=== PATIENT | male | born 1945 | race Caucasian/White ===

== ENCOUNTER 2020-09-27 13:52 | Inpatient (IN) ==
[2020-09-27] MEDS ORDERED: SODIUM CHLORIDE 0.9% 1000ML 1,000 ML IV ONE ×2 (14:12→14:24)
[2020-09-27] MEDS ORDERED: ACETAMINOPHEN 1,000 MG/100 ML VIAL IV STA (14:20)
[2020-09-27] MEDS ORDERED: PIPERACILLIN/TAZOBACTAM 4.5 GM/120 ML BAG IV ONE (14:20)
[2020-09-27] MEDS ORDERED: PIPERACILL/TAZOBAC CONSULT ACTIVE PRN (14:20)
--- NOTE | 2020-09-27 14:23 | Emergency Department Note ---
History of Present Illness General Chief complaint: Illness Time Seen by Provider: 09/27/20 14:03 Source: patient, EMS, RN notes reviewed and old records reviewed Mode of arrival: EMS Limitations: altered mental status History of Present Illness Provider complaint: weakness Onset (ago): day(s) 3 Current Pain Intensity: 0 Relieved By: + rest and + other (laying on floor) Exacerbated By: + movement Associated symptoms: + denies other symptoms; no chest pain, no cough, no diaphoresis, no fever/chills, no headaches, no loss of appetite, no malaise, no nausea/vomiting, no seizure and no shortness of breath Treatments prior to arrival: none This is a 75-year-old male who presents emergency department complaining of generalized weakness. The patient reports he began having diarrhea approximately 3 days ago and became so weak he could not get up off the floor. He reports resting on the floor makes him feel better. Neighbors were checking on him this morning and found the patient in a debilitated state laying on his floor. They summoned EMS who brought the patient to the emergency department. Upon arrival to the emergency department patient has no complaints except weakness. Home Medications Medication Instructions Recorded Confirmed Type aspirin 81 mg tablet,delayed 81 mg PO DAILY tab 05/14/19 09/27/20 History release atorvastatin 40 mg tablet 40 mg PO DAILY tab 05/14/19 09/27/20 History albuterol sulfate 90 mcg/actuation 2 puffs INHALATION Q6H PRN #1 gm 04/30/20 09/27/20 History aerosol inhaler brimonidine 0.15 % eye drops 1 drops OP TID ml 04/30/20 09/27/20 History dorzolamide 2 % eye drops 1 drops OP TID ml 04/30/20 09/27/20 History ferrous sulfate 325 mg (65 mg 325 mg PO DAILY 04/30/20 09/27/20 History iron) tablet insulin glargine 100 unit/mL (3 10 units SQ HS ml 04/30/20 09/27/20 History mL) subcutaneous pen insulin regular human 100 unit/mL 1 sliding scale dose SQ 04/30/20 09/27/20 History injection solution USEASDIRECTD latanoprost 0.005 % eye drops 1 drops OP HS ml 04/30/20 09/27/20 History metformin 1,000 mg tablet 1,000 mg PO BID 04/30/20 09/27/20 History brimonidine [Alphagan P] 1 drp OPB TID 09/27/20 09/27/20 History carvedilol 3.125 mg PO DAILY 09/27/20 09/27/20 History semaglutide [Ozempic] 0.25 mg SUBCUT WK 09/27/20 09/27/20 History timolol maleate 1 drp OPB DAILY 09/27/20 09/27/20 History Allergies Allergy/AdvReac Type Severity Reaction Status Date / Time No Known Drug Allergies Allergy Unknown . 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 Current Living Situation: Alone current occupational status: retired Feels Safe at Home: Yes Review of Systems A total of 10 systems reviewed and were otherwise negative Physical Exam Vital Signs Vital Signs - 24 hr 09/27/20 13:58 09/27/20 14:07 09/27/20 14:10 Temperature Temperature Source Pulse Rate 81 83 84 Pulse Rate [Left Finger] Pulse Rate from SpO2 Sensor 81 83 83 Respiratory Rate 19 20 26 H Blood Pressure 91/57 L Blood Pressure [Left Arm] Blood Pressure Mean 63 Blood Pressure Mean [Left Arm] Pulse Oximetry 100 100 99 Oxygen Delivery Method Room Air Room Air Room Air Sepsis Recent Fever Within 48 Hours Sepsis New/Unexplained Change in Mental Status Sepsis Action Taken by Nursing 09/27/20 14:20 09/27/20 14:30 09/27/20 14:39 Temperature Temperature Source Pulse Rate 93 H 81 82 Pulse Rate [Left Finger] Pulse Rate from SpO2 Sensor 95 H 80 81 Respiratory Rate 32 H 30 H 30 H Blood Pressure 91/61 L Blood Pressure [Left Arm] Blood Pressure Mean 65 Blood Pressure Mean [Left Arm] Pulse Oximetry 97 92 100 Oxygen Delivery Method Room Air Room Air Room Air Sepsis Recent Fever Within 48 Hours Sepsis New/Unexplained Change in Mental Status Sepsis Action Taken by Nursing 09/27/20 14:40 09/27/20 14:46 09/27/20 14:50 Temperature 35 C L Temperature Source Rectal Pulse Rate 83 78 79 Pulse Rate [Left Finger] 83 Pulse Rate from SpO2 Sensor 83 79 Respiratory Rate 25 H 20 23 Blood Pressure 91/57 L Blood Pressure [Left Arm] 91/61 L Blood Pressure Mean 68 Blood Pressure Mean [Left Arm] 71 Pulse Oximetry 100 100 100 Oxygen Delivery Method Room Air Room Air Room Air Sepsis Recent Fever Within 48 Hours No Sepsis New/Unexplained Change in Mental Status No Sepsis Action Taken by Nursing Physician Notified 09/27/20 14:56 09/27/20 15:00 09/27/20 15:01 Temperature 35 C L Temperature Source Rectal Pulse Rate 81 78 Pulse Rate [Left Finger] Pulse Rate from SpO2 Sensor 78 78 Respiratory Rate 21 18 Blood Pressure 102/54 L Blood Pressure [Left Arm] Blood Pressure Mean 60 Blood Pressure Mean [Left Arm] Pulse Oximetry 98 99 Oxygen Delivery Method Room Air Room Air Sepsis Recent Fever Within 48 Hours Sepsis New/Unexplained Change in Mental Status Sepsis Action Taken by Nursing 09/27/20 15:10 09/27/20 15:20 09/27/20 15:30 Temperature Temperature Source Pulse Rate 86 88 85 Pulse Rate [Left Finger] Pulse Rate from SpO2 Sensor 85 84 82 Respiratory Rate 25 H 29 H 40 H Blood Pressure Blood Pressure [Left Arm] Blood Pressure Mean Blood Pressure Mean [Left Arm] Pulse Oximetry 100 93 Oxygen Delivery Method Room Air Room Air Room Air Sepsis Recent Fever Within 48 Hours Sepsis New/Unexplained Change in Mental Status Sepsis Action Taken by Nursing 09/27/20 15:40 09/27/20 15:50 09/27/20 16:00 Temperature Temperature Source Pulse Rate 81 85 85 Pulse Rate [Left Finger] Pulse Rate from SpO2 Sensor 78 86 80 Respiratory Rate 24 26 H 26 H Blood Pressure Blood Pressure [Left Arm] Blood Pressure Mean Blood Pressure Mean [Left Arm] Pulse Oximetry 98 99 99 Oxygen Delivery Method Room Air Room Air Room Air Sepsis Recent Fever Within 48 Hours Sepsis New/Unexplained Change in Mental Status Sepsis Action Taken by Nursing 09/27/20 16:02 09/27/20 16:10 09/27/20 16:15 Temperature Temperature Source Pulse Rate 79 85 83 Pulse Rate [Left Finger] Pulse Rate from SpO2 Sensor 78 84 83 Respiratory Rate 21 19 19 Blood Pressure 87/50 L 100/60 Blood Pressure [Left Arm] Blood Pressure Mean 53 72 Blood Pressure Mean [Left Arm] Pulse Oximetry 99 99 100 Oxygen Delivery Method Room Air Room Air Room Air Sepsis Recent Fever Within 48 Hours Sepsis New/Unexplained Change in Mental Status Sepsis Action Taken by Nursing 09/27/20 16:20 09/27/20 16:30 09/27/20 16:47 Temperature Temperature Source Pulse Rate 84 82 Pulse Rate [Left Finger] Pulse Rate from SpO2 Sensor 85 87 84 Respiratory Rate 17 15 Blood Pressure 82/54 L Blood Pressure [Left Arm] Blood Pressure Mean 59 Blood Pressure Mean [Left Arm] Pulse Oximetry 99 96 98 Oxygen Delivery Method Room Air Room Air Room Air Sepsis Recent Fever Within 48 Hours Sepsis New/Unexplained Change in Mental Status Sepsis Action Taken by Nursing 09/27/20 16:50 09/27/20 17:00 09/27/20 17:01 Temperature Temperature Source Pulse Rate 83 82 83 Pulse Rate [Left Finger] Pulse Rate from SpO2 Sensor 82 82 86 Respiratory Rate 15 14 13 Blood Pressure 99/57 L Blood Pressure [Left Arm] Blood Pressure Mean 61 Blood Pressure Mean [Left Arm] Pulse Oximetry 97 94 100 Oxygen Delivery Method Room Air Room Air Room Air Sepsis Recent Fever Within 48 Hours Sepsis New/Unexplained Change in Mental Status Sepsis Action Taken by Nursing 09/27/20 17:09 09/27/20 17:10 09/27/20 17:15 Temperature 36.1 C L Temperature Source Oral Pulse Rate 78 68 Pulse Rate [Left Finger] Pulse Rate from SpO2 Sensor 82 77 Respiratory Rate 13 18 Blood Pressure 81/56 L Blood Pressure [Left Arm] Blood Pressure Mean 61 Blood Pressure Mean [Left Arm] Pulse Oximetry 98 96 Oxygen Delivery Method Room Air Room Air Sepsis Recent Fever Within 48 Hours Sepsis New/Unexplained Change in Mental Status Sepsis Action Taken by Nursing 09/27/20 17:20 09/27/20 17:30 09/27/20 17:31 Temperature Temperature Source Pulse Rate 85 82 85 Pulse Rate [Left Finger] Pulse Rate from SpO2 Sensor 86 82 84 Respiratory Rate 17 10 L 13 Blood Pressure 85/56 L Blood Pressure [Left Arm] Blood Pressure Mean 62 Blood Pressure Mean [Left Arm] Pulse Oximetry 98 98 97 Oxygen Delivery Method Room Air Room Air Room Air Sepsis Recent Fever Within 48 Hours Sepsis New/Unexplained Change in Mental Status Sepsis Action Taken by Nursing 09/27/20 17:40 09/27/20 17:45 09/27/20 17:50 Temperature Temperature Source Pulse Rate 90 99 H 96 H Pulse Rate [Left Finger] Pulse Rate from SpO2 Sensor 90 96 H 95 H Respiratory Rate 19 24 23 Blood Pressure 95/64 L Blood Pressure [Left Arm] Blood Pressure Mean 67 Blood Pressure Mean [Left Arm] Pulse Oximetry 98 90 94 Oxygen Delivery Method Room Air Room Air Room Air Sepsis Recent Fever Within 48 Hours Sepsis New/Unexplained Change in Mental Status Sepsis Action Taken by Nursing 09/27/20 18:00 09/27/20 18:01 09/27/20 18:02 Temperature Temperature Source Pulse Rate 88 88 85 Pulse Rate [Left Finger] Pulse Rate from SpO2 Sensor 84 80 86 Respiratory Rate 17 16 15 Blood Pressure 79/53 L 80/48 L Blood Pressure [Left Arm] Blood Pressure Mean 66 51 Blood Pressure Mean [Left Arm] Pulse Oximetry 98 96 95 Oxygen Delivery Method Room Air Room Air Room Air Sepsis Recent Fever Within 48 Hours Sepsis New/Unexplained Change in Mental Status Sepsis Action Taken by Nursing 09/27/20 18:09 09/27/20 18:10 09/27/20 18:15 Temperature Temperature Source Pulse Rate 91 H 94 H 88 Pulse Rate [Left Finger] Pulse Rate from SpO2 Sensor 91 H 91 H 88 Respiratory Rate 24 24 19 Blood Pressure 85/52 L 78/51 L Blood Pressure [Left Arm] Blood Pressure Mean 64 57 Blood Pressure Mean [Left Arm] Pulse Oximetry 96 97 95 Oxygen Delivery Method Room Air Room Air Room Air Sepsis Recent Fever Within 48 Hours Sepsis New/Unexplained Change in Mental Status Sepsis Action Taken by Nursing 09/27/20 18:20 09/27/20 18:24 09/27/20 18:30 Temperature Temperature Source Pulse Rate 82 88 90 Pulse Rate [Left Finger] Pulse Rate from SpO2 Sensor 84 87 88 Respiratory Rate 23 24 24 Blood Pressure 87/44 L 87/60 L Blood Pressure [Left Arm] Blood Pressure Mean 52 66 Blood Pressure Mean [Left Arm] Pulse Oximetry 94 96 92 Oxygen Delivery Method Room Air Room Air Room Air Sepsis Recent Fever Within 48 Hours Sepsis New/Unexplained Change in Mental Status Sepsis Action Taken by Nursing 09/27/20 18:31 09/27/20 18:40 09/27/20 18:45 Temperature Temperature Source Pulse Rate 88 92 H 88 Pulse Rate [Left Finger] Pulse Rate from SpO2 Sensor 88 91 H 88 Respiratory Rate 22 25 H 24 Blood Pressure 90/53 L Blood Pressure [Left Arm] Blood Pressure Mean 68 Blood Pressure Mean [Left Arm] Pulse Oximetry 96 96 97 Oxygen Delivery Method Room Air Room Air Room Air Sepsis Recent Fever Within 48 Hours Sepsis New/Unexplained Change in Mental Status Sepsis Action Taken by Nursing 09/27/20 18:50 09/27/20 19:00 09/27/20 19:01 Temperature Temperature Source Pulse Rate 85 88 91 H Pulse Rate [Left Finger] Pulse Rate from SpO2 Sensor 84 Respiratory Rate 20 30 H 31 H Blood Pressure 87/64 L Blood Pressure [Left Arm] Blood Pressure Mean 68 Blood Pressure Mean [Left Arm] Pulse Oximetry 95 Oxygen Delivery Method Room Air Room Air Room Air Sepsis Recent Fever Within 48 Hours Sepsis New/Unexplained Change in Mental Status Sepsis Action Taken by Nursing 09/27/20 19:10 09/27/20 19:17 Temperature Temperature Source Pulse Rate 86 Pulse Rate [Left Finger] Pulse Rate from SpO2 Sensor Respiratory Rate 25 H Blood Pressure Blood Pressure [Left Arm] Blood Pressure Mean Blood Pressure Mean [Left Arm] Pulse Oximetry Oxygen Delivery Method Room Air Room Air Sepsis Recent Fever Within 48 Hours Sepsis New/Unexplained Change in Mental Status Sepsis Action Taken by Nursing VITAL SIGNS - Vital signs and nursing notes were reviewed. GENERAL - 75-year-old male appearing cachectic who is in moderate distress. Difficult to arouse, [place] breathing with 15L NRB in place SKIN - Without rashes. HEAD - NC/AT. EYES - PERRL with EOMI bilaterally. Sclera anicteric. Palpebral conjunctiva pink and moist with no injection noted. EARS - No deformities of external structures noted on gross examination bilaterally. No pain elicited with palpation of the tragus bilaterally. External auditory canals without discharge or otorrhea. Tympanic membranes pearly blanco without retraction or bulging. No fluid or purulent material visualized behind the TM. Handle of malleus, umbo, cone of light, pars tensa/flaccid all easily visualized. NOSE - Midline and without cyanosis. No epistaxis or purulent drainage noted. Septum midline without deviation or septal hematoma noted. MOUTH/OROPHARYNX - Without perioral cyanosis. Buccal mucosa pink and moist and without leukoplakia. Tongue midline with equal elevation of palate bilaterally. No tonsillar hypertrophy, erythema, or exudates noted. dentition noted. NECK - Neck with FROM. Supple to palpation. lymphadenopathy noted. No nuchal rigidity. CHEST- pacemaker in place LUNGS - Chest wall symmetric without accessory muscle use, intercostals retractions, or central cyanosis. Normal vesicular breath sounds CTA B/L. No wheezes, rales, or rhonchi appreciated. CARDIAC - RRR with S1/S2. No murmur, rubs, or gallops appreciated. ABDOMEN - Abdominal contour without pulsations or visible masses. BS normoactive all four quadrants. No tenderness, palpable masses, hepatosplenomegaly, or ascites noted. EXTREMITIES - No clubbing or peripheral cyanosis. No pretibial edema present. +3/5 radial, posterior tibial, and dorsalis pedis pulses palpated throughout. +5/5 strength noted in UE/LE bilaterally. NEUROLOGIC - Cranial nerves II through XII grossly intact. Sensory intact to light touch throughout. Patellar reflexes +2/4. PSYCH - A&Ox3 and cooperates fully with examiner. Pt is very pleasant and interacts well with examiner. Course Administered Medications Insulin Human Regular 250 (units/ Sodium Chloride) 250 mls @ 5 mls/hr IV .Q24H ROHAN; Protocol Stop: 10/27/20 14:29 Last Titration: 09/27/20 18:12 Dose: 7.2 units/hr, 7.2 mls/hr Documented by: [id number] Cosigned by: [id number] Titration: 09/27/20 17:05 Dose: 6 units/hr, 6 mls/hr Documented by: [id number] Cosigned by: [id number] Admin: 09/27/20 15:53 Dose: 5 units/hr, 5 mls/hr Documented by: [id number] Cosigned by: [id number] Sodium Chloride (Nss 1000ml) 1,000 mls @ 100 mls/hr IV .Q10H ROHAN Stop: 10/27/20 17:29 Last Admin: 09/27/20 17:57 Dose: 100 mls/hr Documented by: [id number] Discontinued Medications Haloperidol Lactate (Haloperidol Lactate 5 Mg/Ml 1 Ml Vial) 5 mg IV NOW STA Stop: 09/27/20 15:53 Last Admin: 09/27/20 15:57 Dose: 5 mg Documented by: [id number] Sodium Chloride (Nss 1000ml) 1,000 mls @ 999 mls/hr IV .Q1H1M ONE Stop: 09/27/20 15:12 Last Infusion: 09/27/20 16:51 Dose: 0 mls/hr Documented by: [id number] Admin: 09/27/20 15:29 Dose: 999 mls/hr Documented by: [id number] Acetaminophen (Ofirmev) 1,000 mg in 100 mls @ 400 mls/hr IV NOW STA Stop: 09/27/20 14:34 Last Infusion: 09/27/20 16:01 Dose: 0 mls/hr Documented by: [id number] Admin: 09/27/20 15:28 Dose: 400 mls/hr Documented by: [id number] Piperacillin Sod/Tazobactam Sod (Zosyn) 4.5 gm in 120 mls @ 240 mls/hr IV NOW ONE Stop: 09/27/20 14:49 Last Infusion: 09/27/20 16:19 Dose: 0 mls/hr Documented by: [id number] Admin: 09/27/20 15:41 Dose: 240 mls/hr Documented by: [id number] Sodium Chloride (Nss 1000ml) 1,000 mls @ 999 mls/hr IV .Q1H1M ONE Stop: 09/27/20 15:24 Last Infusion: 09/27/20 16:52 Dose: 0 mls/hr Documented by: [id number] Admin: 09/27/20 15:51 Dose: 999 mls/hr Documented by: [id number] Multivitamins 10 ml/ Thiamine HCl 100 mg/ Folic Acid 1 mg/Sodium Chloride 1,011.2 mls @ 1,011.2 mls/hr IV .Q1H ONE Stop: 09/27/20 15:26 Last Infusion: 09/27/20 16:51 Dose: 0 mls/hr Documented by: [id number] Admin: 09/27/20 15:30 Dose: 1,011.2 mls/hr Documented by: [id number] Daptomycin 425 mg/ Syringe 8.5 mls @ 4.25 mls/min IV NOW ONE; Protocol Stop: 09/27/20 14:29 Last Admin: 09/27/20 15:36 Dose: 4.25 mls/min Documented by: [id number] Lorazepam (Ativan) 1 mg in 2 mls @ 2 mls/min IV NOW STA Stop: 09/27/20 15:53 Last Admin: 09/27/20 15:57 Dose: 2 mls/min Documented by: [id number] Insulin Human Regular (Novolin-R Bolus From Bag) 5 units IV ONE ONE Stop: 09/27/20 15:31 Last Admin: 09/27/20 15:53 Dose: 5 units Documented by: [id number] Cosigned by: [id number] Miscellaneous (Dka Goal Range 150-250 Mg/Dl) 1 ea N/A ONE ONE Stop: 09/27/20 14:26 Last Admin: 09/27/20 15:53 Dose: 1 ea Documented by: [id number] Critical Care Time I have personally spent greater than 90 minutes of critical care time in the direct management of this patient. This includes bedside care, interpretation of diagnostic studies, and testing, discussion with consultants, patient, and family members, and other required patient management activities. This 90 minutes is in excess of all separately billable procedures. Medical Decision Making Differential Diagnosis Infection, dehydration, metabolic abnormality, hypo/hyperglycemia, electrolyte disturbance, anemia, hypoxia, cardiac sources, intracerebral event, toxicologic, neurologic, as well as other pathologies. Medical Records Attestation: I reviewed the patient's medical records. Home Medications Current Medication List: was personally reviewed by me Laboratory Data Attestation: I reviewed the patient's lab results. Result diagrams: 09/27/20 14:10 09/27/20 18:54 Lab Results 09/27/20 09/27/20 09/27/20 Range/Units 14:10 14:10 14:10 WBC 10.08 (4.8-10.8) K/uL RBC 4.65 L (4.7-6.1) M/uL Hgb 13.5 L (14.0-18.0) g/dL POC Hgb (14.0-18.0) g/dl Hct 43.6 (42-52) % POC Hct (42-52) % MCV 93.8 (80-100) fL MCH 29.0 (25-34) pg MCHC 31.0 L (32-36) g/dL RDW Std Deviation 51.5 H (36.4-46.3) fL RDW Coeff of Laura 15.1 H (11.5-14.5) % Plt Count 193 (130-400) K/uL MPV 12.4 H (7.4-10.4) fL Immature Gran % (Auto) 0.3 % Neut % (Auto) 78.5 % Lymph % (Auto) 11.0 % [place] % (Auto) 10.1 % Eos % (Auto) 0.0 % Baso % (Auto) 0.1 % Neut # (Auto) 7.91 H (1.4-6.5) K/uL Lymph # (Auto) 1.11 L (1.2-3.4) K/uL [place] # (Auto) 1.02 H (0.11-0.59) K/uL Eos # (Auto) 0.00 (0-0.5) K/uL Baso # (Auto) 0.01 (0-0.2) K/uL Immature Gran # (Auto) 0.03 H (0.00-0.02) K/uL Absolute Nucleated RBC Nucleated RBC % (auto) Neutrophils % (Manual) Band Neutrophils % Lymphocytes % (Manual) Prolymphocyte % Reactive Lymphs % (Man) Monocytes % (Manual) Eosinophils % (Manual) Basophils % (Manual) Metamyelocytes % (Man) Myelocytes % (Man) Promyelocytes % (Man) Blast Cells % (Manual) Plasma Cell % (Manual) Other Cells % Nucleated RBC % Neutrophils # (Manual) Band Neutrophils # Total Absolute Neuts Lymphocytes # (Manual) Prolymphocyte # Reactive Lymphs # Total Abs Lymphocytes Monocytes # (Manual) Eosinophils # (Manual) Basophils # (Manual) Metamyelocytes # (Man) Myelocytes # (Manual) Promyelocytes # (Man) Blast Cells # (Man) Plasma Cell # (Manual) Other Cells # Nucleated RBCs # (Man) Hypersegmented Neuts Hyposegmented Neuts Hypogranular Neuts Large Granular Lymphs # Lrg Granular Lymphs Hairy Cells Smudge Cells Toxic Granulation Toxic Vacuolation Dohle Bodies Ariela Rods Platelet Estimate Hypogranular Platelets Clumped Platelets Giant Platelets Platelet Satelliting RBC Morphology Polychromasia Hypochromasia Poikilocytosis Basophilic Stippling Anisocytosis Microcytosis Macrocytosis Spherocytes Pappenheimer Bodies Sickle Cells Target Cells Tear Drop Cells Ovalocytes Stomatocytes Parkinson-[place] Patent Bodies Echinocytes Acanthocytes (Spur) Rouleaux RBC Agglutinates Schistocytes RBC Morph Comment ESR 25 H (0-14) mm/hr Sezary Cell PT 11.6 (9.0-12.0) Seconds INR 1.1 (0.9-1.1) APTT 29.7 (21.0-31.0) Seconds PTT Ratio 1.1 VBG pH (7.36-7.41) VBG pCO2 (38-50) mmHg VBG pO2 mmHg VBG HCO3 mmol/L VBG O2 Saturation % VBG Base Excess mEq/L Barometric Pressure mm/Hg POC Sodium (135-144) mmol/L Sodium (136-145) mmol/L POC Potassium (3.3-5.0) mmol/L Potassium (3.5-5.1) mmol/L POC Chloride (101-112) mmol/L Chloride (98-107) mmol/L Carbon Dioxide (21-32) mmol/L POC Total CO2 (24-31) mmol/L Anion Gap (3-11) POC Anion Gap (16-25) mmol/L POC BUN (7-18) mg/dl BUN (7-18) mg/dl Creatinine (0.6-1.4) mg/dl POC Creatinine (0.6-1.3) mg/dl Est Cr Clr Drug Dosing ml/min Est GFR ( Amer) Est GFR (Non-Af Amer) BUN/Creatinine Ratio (10-20) Glucose (70-99) mg/dl POC Glucose (70-99) mg/dl POC Glucose (other) (70-99) mg/dl Lactate (0.4-2.0) mmol/L Calcium (8.5-10.1) mg/dl POC Ioniz Calcium Michael (1.12-1.32) mmol/l Phosphorus (2.5-4.9) mg/dl Magnesium (1.8-2.4) mg/dl Ferritin (8-388) ng/ml Total Bilirubin (0.2-1) mg/dl AST (15-37) U/L ALT (12-78) U/L Alkaline Phosphatase (45-117) U/L Lactate Dehydrogenase (87-241) U/L Total Creatine Kinase (39-308) U/L CK-MB (CK-2) (0.5-3.6) ng/ml CK/CKMB % Calc (0-3.0) Troponin I (0-0.045) ng/ml C-Reactive Protein (0-0.29) mg/dl Total Protein (6.4-8.2) gm/dl Albumin (3.4-5.0) gm/dl Globulin (2.5-4.0) gm/dl Albumin/Globulin Ratio (0.9-2) Beta-Hydroxybutyric Acd (0.2-2.81) mg/dl Procalcitonin (0-0.5) ng/ml Urine Color Urine Appearance (Clear) Urine pH (4.5-7.5) Ur Specific [place] (1.000-1.030) Urine Protein (Negative) Urine Glucose (UA) (Negative) Urine Ketones (Negative) Urine Blood (Negative) Urine Nitrite (Negative) Urine Bilirubin (Negative) Urine Urobilinogen (Negative) Ur Leukocyte Esterase (Negative) Urine WBC (Auto) (0-5) /hpf Urine RBC (Auto) (0-4) /hpf U Hyaline Cast (Auto) (0-5) /lpf U Epithel Cells (Auto) (0-5) /lpf Urine Bacteria (Auto) (Negative) Urine Opiates Screen (Neg) Ur Methadone, Qual (Neg) Urine Barbiturates (Neg) Ur Phencyclidine (PCP) (Neg) U Amphetamin/Meth Scrn (Neg) MDMA (Ecstasy) Screen (Neg) U Benzodiazepines Scrn (Neg) Ur Cocaine Metabolite (Neg) U Marijuana (THC) Screen (Neg) Ethyl Alcohol mg/dL (0-3) mg/dl COVID-19 Eval Order SARS-CoV-2 (PCR) (Negative) Influenza Type A (PCR) (Neg) Influenza Type B (PCR) (Neg) RSV (RT-PCR) (Neg) SARS-CoV-2, RNA, NAAT (NEGATIVE) Blood Type Antibody Screen 09/27/20 09/27/20 09/27/20 Range/Units 14:10 14:10 14:10 WBC Cancelled (4.8-10.8) K/uL RBC Cancelled (4.7-6.1) M/uL Hgb Cancelled (14.0-18.0) g/dL POC Hgb (14.0-18.0) g/dl Hct Cancelled (42-52) % POC Hct (42-52) % MCV Cancelled (80-100) fL MCH Cancelled (25-34) pg MCHC Cancelled (32-36) g/dL RDW Std Deviation Cancelled (36.4-46.3) fL RDW Coeff of Laura Cancelled (11.5-14.5) % Plt Count Cancelled (130-400) K/uL MPV Cancelled (7.4-10.4) fL Immature Gran % (Auto) Cancelled % Neut % (Auto) Cancelled % Lymph % (Auto) Cancelled % [place] % (Auto) Cancelled % Eos % (Auto) Cancelled % Baso % (Auto) Cancelled % Neut # (Auto) Cancelled (1.4-6.5) K/uL Lymph # (Auto) Cancelled (1.2-3.4) K/uL [place] # (Auto) Cancelled (0.11-0.59) K/uL Eos # (Auto) Cancelled (0-0.5) K/uL Baso # (Auto) Cancelled (0-0.2) K/uL Immature Gran # (Auto) Cancelled (0.00-0.02) K/uL Absolute Nucleated RBC Cancelled Nucleated RBC % (auto) Cancelled Neutrophils % (Manual) Cancelled Band Neutrophils % Cancelled Lymphocytes % (Manual) Cancelled Prolymphocyte % Cancelled Reactive Lymphs % (Man) Cancelled Monocytes % (Manual) Cancelled Eosinophils % (Manual) Cancelled Basophils % (Manual) Cancelled Metamyelocytes % (Man) Cancelled Myelocytes % (Man) Cancelled Promyelocytes % (Man) Cancelled Blast Cells % (Manual) Cancelled Plasma Cell % (Manual) Cancelled Other Cells % Cancelled Nucleated RBC % Cancelled Neutrophils # (Manual) Cancelled Band Neutrophils # Cancelled Total Absolute Neuts Cancelled Lymphocytes # (Manual) Cancelled Prolymphocyte # Cancelled Reactive Lymphs # Cancelled Total Abs Lymphocytes Cancelled Monocytes # (Manual) Cancelled Eosinophils # (Manual) Cancelled Basophils # (Manual) Cancelled Metamyelocytes # (Man) Cancelled Myelocytes # (Manual) Cancelled Promyelocytes # (Man) Cancelled Blast Cells # (Man) Cancelled Plasma Cell # (Manual) Cancelled Other Cells # Cancelled Nucleated RBCs # (Man) Cancelled Hypersegmented Neuts Cancelled Hyposegmented Neuts Cancelled Hypogranular Neuts Cancelled Large Granular Lymphs Cancelled # Lrg Granular Lymphs Cancelled Hairy Cells Cancelled Smudge Cells Cancelled Toxic Granulation Cancelled Toxic Vacuolation Cancelled Dohle Bodies Cancelled Ariela Rods Cancelled Platelet Estimate Cancelled Hypogranular Platelets Cancelled Clumped Platelets Cancelled Giant Platelets Cancelled Platelet Satelliting Cancelled RBC Morphology Cancelled Polychromasia Cancelled Hypochromasia Cancelled Poikilocytosis Cancelled Basophilic Stippling Cancelled Anisocytosis Cancelled Microcytosis Cancelled Macrocytosis Cancelled Spherocytes Cancelled Pappenheimer Bodies Cancelled Sickle Cells Cancelled Target Cells Cancelled Tear Drop Cells Cancelled Ovalocytes Cancelled Stomatocytes Cancelled Parkinson-Hol[place] Patent Bodies Cancelled Echinocytes Cancelled Acanthocytes (Spur) Cancelled Rouleaux Cancelled RBC Agglutinates Cancelled Schistocytes Cancelled RBC Morph Comment Cancelled ESR (0-14) mm/hr Sezary Cell Cancelled PT (9.0-12.0) Seconds INR (0.9-1.1) APTT (21.0-31.0) Seconds PTT Ratio VBG pH (7.36-7.41) VBG pCO2 (38-50) mmHg VBG pO2 mmHg VBG HCO3 mmol/L VBG O2 Saturation % VBG Base Excess mEq/L Barometric Pressure mm/Hg POC Sodium (135-144) mmol/L Sodium 141 (136-145) mmol/L POC Potassium (3.3-5.0) mmol/L Potassium 4.7 (3.5-5.1) mmol/L POC Chloride (101-112) mmol/L Chloride 105 (98-107) mmol/L Carbon Dioxide 11 L (21-32) mmol/L POC Total CO2 (24-31) mmol/L Anion Gap 25.0 H (3-11) POC Anion Gap (16-25) mmol/L POC BUN (7-18) mg/dl BUN 72 H (7-18) mg/dl Creatinine 2.01 H (0.6-1.4) mg/dl POC Creatinine (0.6-1.3) mg/dl Est Cr Clr Drug Dosing 22.7 ml/min Est GFR ( Amer) 37.0 Est GFR (Non-Af Amer) 32.0 BUN/Creatinine Ratio 35.9 H (10-20) Glucose 693 H* (70-99) mg/dl POC Glucose (70-99) mg/dl POC Glucose (other) (70-99) mg/dl Lactate (0.4-2.0) mmol/L Calcium 10.6 H (8.5-10.1) mg/dl POC Ioniz Calcium Michael (1.12-1.32) mmol/l Phosphorus 7.1 H (2.5-4.9) mg/dl Magnesium 2.5 H (1.8-2.4) mg/dl Ferritin 468.8 H (8-388) ng/ml Total Bilirubin 1.4 H (0.2-1) mg/dl AST 11 L (15-37) U/L ALT 16 (12-78) U/L Alkaline Phosphatase 62 (45-117) U/L Lactate Dehydrogenase (87-241) U/L Total Creatine Kinase (39-308) U/L CK-MB (CK-2) (0.5-3.6) ng/ml CK/CKMB % Calc (0-3.0) Troponin I < 0.015 (0-0.045) ng/ml C-Reactive Protein 2.46 H (0-0.29) mg/dl Total Protein 7.9 (6.4-8.2) gm/dl Albumin 4.0 (3.4-5.0) gm/dl Globulin 3.9 (2.5-4.0) gm/dl Albumin/Globulin Ratio 1.0 (0.9-2) Beta-Hydroxybutyric Acd 119.17 H (0.2-2.81) mg/dl Procalcitonin 0.43 (0-0.5) ng/ml Urine Color Urine Appearance (Clear) Urine pH (4.5-7.5) Ur Specific [place] (1.000-1.030) Urine Protein (Negative) Urine Glucose (UA) (Negative) Urine Ketones (Negative) Urine Blood (Negative) Urine Nitrite (Negative) Urine Bilirubin (Negative) Urine Urobilinogen (Negative) Ur Leukocyte Esterase (Negative) Urine WBC (Auto) (0-5) /hpf Urine RBC (Auto) (0-4) /hpf U Hyaline Cast (Auto) (0-5) /lpf U Epithel Cells (Auto) (0-5) /lpf Urine Bacteria (Auto) (Negative) Urine Opiates Screen (Neg) Ur Methadone, Qual (Neg) Urine Barbiturates (Neg) Ur Phencyclidine (PCP) (Neg) U Amphetamin/Meth Scrn (Neg) MDMA (Ecstasy) Screen (Neg) U Benzodiazepines Scrn (Neg) Ur Cocaine Metabolite (Neg) U Marijuana (THC) Screen (Neg) Ethyl Alcohol mg/dL (0-3) mg/dl COVID-19 Eval Order SARS-CoV-2 (PCR) (Negative) Influenza Type A (PCR) (Neg) Influenza Type B (PCR) (Neg) RSV (RT-PCR) (Neg) SARS-CoV-2, RNA, NAAT (NEGATIVE) Blood Type Antibody Screen 09/27/20 09/27/20 09/27/20 Range/Units 14:10 14:22 14:24 WBC (4.8-10.8) K/uL RBC (4.7-6.1) M/uL Hgb (14.0-18.0) g/dL POC Hgb 13.6 L (14.0-18.0) g/dl Hct (42-52) % POC Hct 40 L (42-52) % MCV (80-100) fL MCH (25-34) pg MCHC (32-36) g/dL RDW Std Deviation (36.4-46.3) fL RDW Coeff of Laura (11.5-14.5) % Plt Count (130-400) K/uL MPV (7.4-10.4) fL Immature Gran % (Auto) % Neut % (Auto) % Lymph % (Auto) % [place] % (Auto) % Eos % (Auto) % Baso % (Auto) % Neut # (Auto) (1.4-6.5) K/uL Lymph # (Auto) (1.2-3.4) K/uL [place] # (Auto) (0.11-0.59) K/uL Eos # (Auto) (0-0.5) K/uL Baso # (Auto) (0-0.2) K/uL Immature Gran # (Auto) (0.00-0.02) K/uL Absolute Nucleated RBC Nucleated RBC % (auto) Neutrophils % (Manual) Band Neutrophils % Lymphocytes % (Manual) Prolymphocyte % Reactive Lymphs % (Man) Monocytes % (Manual) Eosinophils % (Manual) Basophils % (Manual) Metamyelocytes % (Man) Myelocytes % (Man) Promyelocytes % (Man) Blast Cells % (Manual) Plasma Cell % (Manual) Other Cells % Nucleated RBC % Neutrophils # (Manual) Band Neutrophils # Total Absolute Neuts Lymphocytes # (Manual) Prolymphocyte # Reactive Lymphs # Total Abs Lymphocytes Monocytes # (Manual) Eosinophils # (Manual) Basophils # (Manual) Metamyelocytes # (Man) Myelocytes # (Manual) Promyelocytes # (Man) Blast Cells # (Man) Plasma Cell # (Manual) Other Cells # Nucleated RBCs # (Man) Hypersegmented Neuts Hyposegmented Neuts Hypogranular Neuts Large Granular Lymphs # Lrg Granular Lymphs Hairy Cells Smudge Cells Toxic Granulation Toxic Vacuolation Dohle Bodies Ariela Rods Platelet Estimate Hypogranular Platelets Clumped Platelets Giant Platelets Platelet Satelliting RBC Morphology Polychromasia Hypochromasia Poikilocytosis Basophilic Stippling Anisocytosis Microcytosis Macrocytosis Spherocytes Pappenheimer Bodies Sickle Cells Target Cells Tear Drop Cells Ovalocytes Stomatocytes Parkinson-Holland Patent Bodies Echinocytes Acanthocytes (Spur) Rouleaux RBC Agglutinates Schistocytes RBC Morph Comment ESR (0-14) mm/hr Sezary Cell PT (9.0-12.0) Seconds INR (0.9-1.1) APTT (21.0-31.0) Seconds PTT Ratio VBG pH (7.36-7.41) VBG pCO2 (38-50) mmHg VBG pO2 mmHg VBG HCO3 mmol/L VBG O2 Saturation % VBG Base Excess mEq/L Barometric Pressure mm/Hg POC Sodium 142 (135-144) mmol/L Sodium (136-145) mmol/L POC Potassium 4.9 (3.3-5.0) mmol/L Potassium (3.5-5.1) mmol/L POC Chloride 110 (101-112) mmol/L Chloride (98-107) mmol/L Carbon Dioxide (21-32) mmol/L POC Total CO2 12 L (24-31) mmol/L Anion Gap (3-11) POC Anion Gap 25.0 (16-25) mmol/L POC BUN 60 H (7-18) mg/dl BUN (7-18) mg/dl Creatinine (0.6-1.4) mg/dl POC Creatinine 1.4 H (0.6-1.3) mg/dl Est Cr Clr Drug Dosing ml/min Est GFR ( Amer) Est GFR (Non-Af Amer) BUN/Creatinine Ratio (10-20) Glucose (70-99) mg/dl POC Glucose (70-99) mg/dl POC Glucose (other) 624 H* (70-99) mg/dl Lactate 2.7 H* (0.4-2.0) mmol/L Calcium (8.5-10.1) mg/dl POC Ioniz Calcium Michael 1.38 H (1.12-1.32) mmol/l Phosphorus (2.5-4.9) mg/dl Magnesium (1.8-2.4) mg/dl Ferritin (8-388) ng/ml Total Bilirubin (0.2-1) mg/dl AST (15-37) U/L ALT (12-78) U/L Alkaline Phosphatase (45-117) U/L Lactate Dehydrogenase (87-241) U/L Total Creatine Kinase 154 (39-308) U/L CK-MB (CK-2) 3.1 (0.5-3.6) ng/ml CK/CKMB % Calc 2.0 (0-3.0) Troponin I (0-0.045) ng/ml C-Reactive Protein (0-0.29) mg/dl Total Protein (6.4-8.2) gm/dl Albumin (3.4-5.0) gm/dl Globulin (2.5-4.0) gm/dl Albumin/Globulin Ratio (0.9-2) Beta-Hydroxybutyric Acd (0.2-2.81) mg/dl Procalcitonin (0-0.5) ng/ml Urine Color Urine Appearance (Clear) Urine pH (4.5-7.5) Ur Specific [place] (1.000-1.030) Urine Protein (Negative) Urine Glucose (UA) (Negative) Urine Ketones (Negative) Urine Blood (Negative) Urine Nitrite (Negative) Urine Bilirubin (Negative) Urine Urobilinogen (Negative) Ur Leukocyte Esterase (Negative) Urine WBC (Auto) (0-5) /hpf Urine RBC (Auto) (0-4) /hpf U Hyaline Cast (Auto) (0-5) /lpf U Epithel Cells (Auto) (0-5) /lpf Urine Bacteria (Auto) (Negative) Urine Opiates Screen (Neg) Ur Methadone, Qual (Neg) Urine Barbiturates (Neg) Ur Phencyclidine (PCP) (Neg) U Amphetamin/Meth Scrn (Neg) MDMA (Ecstasy) Screen (Neg) U Benzodiazepines Scrn (Neg) Ur Cocaine Metabolite (Neg) U Marijuana (THC) Screen (Neg) Ethyl Alcohol mg/dL (0-3) mg/dl COVID-19 Eval Order SARS-CoV-2 (PCR) (Negative) Influenza Type A (PCR) (Neg) Influenza Type B (PCR) (Neg) RSV (RT-PCR) (Neg) SARS-CoV-2, RNA, NAAT (NEGATIVE) Blood Type Antibody Screen 09/27/20 09/27/20 09/27/20 Range/Units 14:24 14:25 14:25 WBC (4.8-10.8) K/uL RBC (4.7-6.1) M/uL Hgb (14.0-18.0) g/dL POC Hgb (14.0-18.0) g/dl Hct (42-52) % POC Hct (42-52) % MCV (80-100) fL MCH (25-34) pg MCHC (32-36) g/dL RDW Std Deviation (36.4-46.3) fL RDW Coeff of Laura (11.5-14.5) % Plt Count (130-400) K/uL MPV (7.4-10.4) fL Immature Gran % (Auto) % Neut % (Auto) % Lymph % (Auto) % [place] % (Auto) % Eos % (Auto) % Baso % (Auto) % Neut # (Auto) (1.4-6.5) K/uL Lymph # (Auto) (1.2-3.4) K/uL [place] # (Auto) (0.11-0.59) K/uL Eos # (Auto) (0-0.5) K/uL Baso # (Auto) (0-0.2) K/uL Immature Gran # (Auto) (0.00-0.02) K/uL Absolute Nucleated RBC Nucleated RBC % (auto) Neutrophils % (Manual) Band Neutrophils % Lymphocytes % (Manual) Prolymphocyte % Reactive Lymphs % (Man) Monocytes % (Manual) Eosinophils % (Manual) Basophils % (Manual) Metamyelocytes % (Man) Myelocytes % (Man) Promyelocytes % (Man) Blast Cells % (Manual) Plasma Cell % (Manual) Other Cells % Nucleated RBC % Neutrophils # (Manual) Band Neutrophils # Total Absolute Neuts Lymphocytes # (Manual) Prolymphocyte # Reactive Lymphs # Total Abs Lymphocytes Monocytes # (Manual) Eosinophils # (Manual) Basophils # (Manual) Metamyelocytes # (Man) Myelocytes # (Manual) Promyelocytes # (Man) Blast Cells # (Man) Plasma Cell # (Manual) Other Cells # Nucleated RBCs # (Man) Hypersegmented Neuts Hyposegmented Neuts Hypogranular Neuts Large Granular Lymphs # Lrg Granular Lymphs Hairy Cells Smudge Cells Toxic Granulation Toxic Vacuolation Dohle Bodies Ariela Rods Platelet Estimate Hypogranular Platelets Clumped Platelets Giant Platelets Platelet Satelliting RBC Morphology Polychromasia Hypochromasia Poikilocytosis Basophilic Stippling Anisocytosis Microcytosis Macrocytosis Spherocytes Pappenheimer Bodies Sickle Cells Target Cells Tear Drop Cells Ovalocytes Stomatocytes Parkinson-[place] Patent Bodies Echinocytes Acanthocytes (Spur) Rouleaux RBC Agglutinates Schistocytes RBC Morph Comment ESR (0-14) mm/hr Sezary Cell PT (9.0-12.0) Seconds INR (0.9-1.1) APTT (21.0-31.0) Seconds PTT Ratio VBG pH 7.14 L (7.36-7.41) VBG pCO2 35 L (38-50) mmHg VBG pO2 30 mmHg VBG HCO3 12 mmol/L VBG O2 Saturation < 60.0 % VBG Base Excess -16.4 mEq/L Barometric Pressure 735.0 mm/Hg POC Sodium (135-144) mmol/L Sodium (136-145) mmol/L POC Potassium (3.3-5.0) mmol/L Potassium (3.5-5.1) mmol/L POC Chloride (101-112) mmol/L Chloride (98-107) mmol/L Carbon Dioxide (21-32) mmol/L POC Total CO2 (24-31) mmol/L Anion Gap (3-11) POC Anion Gap (16-25) mmol/L POC BUN (7-18) mg/dl BUN (7-18) mg/dl Creatinine (0.6-1.4) mg/dl POC Creatinine (0.6-1.3) mg/dl Est Cr Clr Drug Dosing ml/min Est GFR ( Amer) Est GFR (Non-Af Amer) BUN/Creatinine Ratio (10-20) Glucose (70-99) mg/dl POC Glucose (70-99) mg/dl POC Glucose (other) (70-99) mg/dl Lactate (0.4-2.0) mmol/L Calcium (8.5-10.1) mg/dl POC Ioniz Calcium Michael (1.12-1.32) mmol/l Phosphorus (2.5-4.9) mg/dl Magnesium (1.8-2.4) mg/dl Ferritin (8-388) ng/ml Total Bilirubin (0.2-1) mg/dl AST (15-37) U/L ALT (12-78) U/L Alkaline Phosphatase (45-117) U/L Lactate Dehydrogenase (87-241) U/L Total Creatine Kinase (39-308) U/L CK-MB (CK-2) (0.5-3.6) ng/ml CK/CKMB % Calc (0-3.0) Troponin I (0-0.045) ng/ml C-Reactive Protein (0-0.29) mg/dl Total Protein (6.4-8.2) gm/dl Albumin (3.4-5.0) gm/dl Globulin (2.5-4.0) gm/dl Albumin/Globulin Ratio (0.9-2) Beta-Hydroxybutyric Acd (0.2-2.81) mg/dl Procalcitonin (0-0.5) ng/ml Urine Color Yellow Urine Appearance Clear (Clear) Urine pH 5.0 (4.5-7.5) Ur Specific [place] 1.033 H (1.000-1.030) Urine Protein Trace H (Negative) Urine Glucose (UA) 3+ H (Negative) Urine Ketones 3+ H (Negative) Urine Blood Negative (Negative) Urine Nitrite Negative (Negative) Urine Bilirubin Negative (Negative) Urine Urobilinogen Negative (Negative) Ur Leukocyte Esterase Negative (Negative) Urine WBC (Auto) 1-5 (0-5) /hpf Urine RBC (Auto) 0-4 (0-4) /hpf U Hyaline Cast (Auto) 5-10 H (0-5) /lpf U Epithel Cells (Auto) 5-10 H (0-5) /lpf Urine Bacteria (Auto) Negative (Negative) Urine Opiates Screen Neg (Neg) Ur Methadone, Qual Neg (Neg) Urine Barbiturates Neg (Neg) Ur Phencyclidine (PCP) Neg (Neg) U Amphetamin/Meth Scrn Neg (Neg) MDMA (Ecstasy) Screen Neg (Neg) U Benzodiazepines Scrn Neg (Neg) Ur Cocaine Metabolite Neg (Neg) U Marijuana (THC) Screen Neg (Neg) Ethyl Alcohol mg/dL (0-3) mg/dl COVID-19 Eval Order SARS-CoV-2 (PCR) (Negative) Influenza Type A (PCR) (Neg) Influenza Type B (PCR) (Neg) RSV (RT-PCR) (Neg) SARS-CoV-2, RNA, NAAT (NEGATIVE) Blood Type Antibody Screen 09/27/20 09/27/20 09/27/20 Range/Units 14:42 14:53 14:53 WBC (4.8-10.8) K/uL RBC (4.7-6.1) M/uL Hgb (14.0-18.0) g/dL POC Hgb (14.0-18.0) g/dl Hct (42-52) % POC Hct (42-52) % MCV (80-100) fL MCH (25-34) pg MCHC (32-36) g/dL RDW Std Deviation (36.4-46.3) fL RDW Coeff of Laura (11.5-14.5) % Plt Count (130-400) K/uL MPV (7.4-10.4) fL Immature Gran % (Auto) % Neut % (Auto) % Lymph % (Auto) % [place] % (Auto) % Eos % (Auto) % Baso % (Auto) % Neut # (Auto) (1.4-6.5) K/uL Lymph # (Auto) (1.2-3.4) K/uL [place] # (Auto) (0.11-0.59) K/uL Eos # (Auto) (0-0.5) K/uL Baso # (Auto) (0-0.2) K/uL Immature Gran # (Auto) (0.00-0.02) K/uL Absolute Nucleated RBC Nucleated RBC % (auto) Neutrophils % (Manual) Band Neutrophils % Lymphocytes % (Manual) Prolymphocyte % Reactive Lymphs % (Man) Monocytes % (Manual) Eosinophils % (Manual) Basophils % (Manual) Metamyelocytes % (Man) Myelocytes % (Man) Promyelocytes % (Man) Blast Cells % (Manual) Plasma Cell % (Manual) Other Cells % Nucleated RBC % Neutrophils # (Manual) Band Neutrophils # Total Absolute Neuts Lymphocytes # (Manual) Prolymphocyte # Reactive Lymphs # Total Abs Lymphocytes Monocytes # (Manual) Eosinophils # (Manual) Basophils # (Manual) Metamyelocytes # (Man) Myelocytes # (Manual) Promyelocytes # (Man) Blast Cells # (Man) Plasma Cell # (Manual) Other Cells # Nucleated RBCs # (Man) Hypersegmented Neuts Hyposegmented Neuts Hypogranular Neuts Large Granular Lymphs # Lrg Granular Lymphs Hairy Cells Smudge Cells Toxic Granulation Toxic Vacuolation Dohle Bodies Ariela Rods Platelet Estimate Hypogranular Platelets Clumped Platelets Giant Platelets Platelet Satelliting RBC Morphology Polychromasia Hypochromasia Poikilocytosis Basophilic Stippling Anisocytosis Microcytosis Macrocytosis Spherocytes Pappenheimer Bodies Sickle Cells Target Cells Tear Drop Cells Ovalocytes Stomatocytes Parkinson-[place] Patent Bodies Echinocytes Acanthocytes (Spur) Rouleaux RBC Agglutinates Schistocytes RBC Morph Comment ESR (0-14) mm/hr Sezary Cell PT (9.0-12.0) Seconds INR (0.9-1.1) APTT (21.0-31.0) Seconds PTT Ratio VBG pH (7.36-7.41) VBG pCO2 (38-50) mmHg VBG pO2 mmHg VBG HCO3 mmol/L VBG O2 Saturation % VBG Base Excess mEq/L Barometric Pressure mm/Hg POC Sodium (135-144) mmol/L Sodium (136-145) mmol/L POC Potassium (3.3-5.0) mmol/L Potassium (3.5-5.1) mmol/L POC Chloride (101-112) mmol/L Chloride (98-107) mmol/L Carbon Dioxide (21-32) mmol/L POC Total CO2 (24-31) mmol/L Anion Gap (3-11) POC Anion Gap (16-25) mmol/L POC BUN (7-18) mg/dl BUN (7-18) mg/dl Creatinine (0.6-1.4) mg/dl POC Creatinine (0.6-1.3) mg/dl Est Cr Clr Drug Dosing ml/min Est GFR ( Amer) Est GFR (Non-Af Amer) BUN/Creatinine Ratio (10-20) Glucose (70-99) mg/dl POC Glucose (70-99) mg/dl POC Glucose (other) (70-99) mg/dl Lactate (0.4-2.0) mmol/L Calcium (8.5-10.1) mg/dl POC Ioniz Calcium Michael (1.12-1.32) mmol/l Phosphorus (2.5-4.9) mg/dl Magnesium (1.8-2.4) mg/dl Ferritin (8-388) ng/ml Total Bilirubin (0.2-1) mg/dl AST (15-37) U/L ALT (12-78) U/L Alkaline Phosphatase (45-117) U/L Lactate Dehydrogenase 161 (87-241) U/L Total Creatine Kinase (39-308) U/L CK-MB (CK-2) (0.5-3.6) ng/ml CK/CKMB % Calc (0-3.0) Troponin I (0-0.045) ng/ml C-Reactive Protein (0-0.29) mg/dl Total Protein (6.4-8.2) gm/dl Albumin (3.4-5.0) gm/dl Globulin (2.5-4.0) gm/dl Albumin/Globulin Ratio (0.9-2) Beta-Hydroxybutyric Acd (0.2-2.81) mg/dl Procalcitonin (0-0.5) ng/ml Urine Color Urine Appearance (Clear) Urine pH (4.5-7.5) Ur Specific [place] (1.000-1.030) Urine Protein (Negative) Urine Glucose (UA) (Negative) Urine Ketones (Negative) Urine Blood (Negative) Urine Nitrite (Negative) Urine Bilirubin (Negative) Urine Urobilinogen (Negative) Ur Leukocyte Esterase (Negative) Urine WBC (Auto) (0-5) /hpf Urine RBC (Auto) (0-4) /hpf U Hyaline Cast (Auto) (0-5) /lpf U Epithel Cells (Auto) (0-5) /lpf Urine Bacteria (Auto) (Negative) Urine Opiates Screen (Neg) Ur Methadone, Qual (Neg) Urine Barbiturates (Neg) Ur Phencyclidine (PCP) (Neg) U Amphetamin/Meth Scrn (Neg) MDMA (Ecstasy) Screen (Neg) U Benzodiazepines Scrn (Neg) Ur Cocaine Metabolite (Neg) U Marijuana (THC) Screen (Neg) Ethyl Alcohol mg/dL < 3.0 (0-3) mg/dl COVID-19 Eval Order SARS-CoV-2 (PCR) (Negative) Influenza Type A (PCR) (Neg) Influenza Type B (PCR) (Neg) RSV (RT-PCR) (Neg) SARS-CoV-2, RNA, NAAT (NEGATIVE) Blood Type A Positive Antibody Screen NEGATIVE 09/27/20 09/27/20 09/27/20 Range/Units 16:04 16:04 16:58 WBC (4.8-10.8) K/uL RBC (4.7-6.1) M/uL Hgb (14.0-18.0) g/dL POC Hgb (14.0-18.0) g/dl Hct (42-52) % POC Hct (42-52) % MCV (80-100) fL MCH (25-34) pg MCHC (32-36) g/dL RDW Std Deviation (36.4-46.3) fL RDW Coeff of Laura (11.5-14.5) % Plt Count (130-400) K/uL MPV (7.4-10.4) fL Immature Gran % (Auto) % Neut % (Auto) % Lymph % (Auto) % [place] % (Auto) % Eos % (Auto) % Baso % (Auto) % Neut # (Auto) (1.4-6.5) K/uL Lymph # (Auto) (1.2-3.4) K/uL [place] # (Auto) (0.11-0.59) K/uL Eos # (Auto) (0-0.5) K/uL Baso # (Auto) (0-0.2) K/uL Immature Gran # (Auto) (0.00-0.02) K/uL Absolute Nucleated RBC Nucleated RBC % (auto) Neutrophils % (Manual) Band Neutrophils % Lymphocytes % (Manual) Prolymphocyte % Reactive Lymphs % (Man) Monocytes % (Manual) Eosinophils % (Manual) Basophils % (Manual) Metamyelocytes % (Man) Myelocytes % (Man) Promyelocytes % (Man) Blast Cells % (Manual) Plasma Cell % (Manual) Other Cells % Nucleated RBC % Neutrophils # (Manual) Band Neutrophils # Total Absolute Neuts Lymphocytes # (Manual) Prolymphocyte # Reactive Lymphs # Total Abs Lymphocytes Monocytes # (Manual) Eosinophils # (Manual) Basophils # (Manual) Metamyelocytes # (Man) Myelocytes # (Manual) Promyelocytes # (Man) Blast Cells # (Man) Plasma Cell # (Manual) Other Cells # Nucleated RBCs # (Man) Hypersegmented Neuts Hyposegmented Neuts Hypogranular Neuts Large Granular Lymphs # Lrg Granular Lymphs Hairy Cells Smudge Cells Toxic Granulation Toxic Vacuolation Dohle Bodies Ariela Rods Platelet Estimate Hypogranular Platelets Clumped Platelets Giant Platelets Platelet Satelliting RBC Morphology Polychromasia Hypochromasia Poikilocytosis Basophilic Stippling Anisocytosis Microcytosis Macrocytosis Spherocytes Pappenheimer Bodies Sickle Cells Target Cells Tear Drop Cells Ovalocytes Stomatocytes Parkinson-Holland Patent Bodies Echinocytes Acanthocytes (Spur) Rouleaux RBC Agglutinates Schistocytes RBC Morph Comment ESR (0-14) mm/hr Sezary Cell PT (9.0-12.0) Seconds INR (0.9-1.1) APTT (21.0-31.0) Seconds PTT Ratio VBG pH (7.36-7.41) VBG pCO2 (38-50) mmHg VBG pO2 mmHg VBG HCO3 mmol/L VBG O2 Saturation % VBG Base Excess mEq/L Barometric Pressure mm/Hg POC Sodium (135-144) mmol/L Sodium (136-145) mmol/L POC Potassium (3.3-5.0) mmol/L Potassium (3.5-5.1) mmol/L POC Chloride (101-112) mmol/L Chloride (98-107) mmol/L Carbon Dioxide (21-32) mmol/L POC Total CO2 (24-31) mmol/L Anion Gap (3-11) POC Anion Gap (16-25) mmol/L POC BUN (7-18) mg/dl BUN (7-18) mg/dl Creatinine (0.6-1.4) mg/dl POC Creatinine (0.6-1.3) mg/dl Est Cr Clr Drug Dosing ml/min Est GFR ( Amer) Est GFR (Non-Af Amer) BUN/Creatinine Ratio (10-20) Glucose (70-99) mg/dl POC Glucose 580 H* (70-99) mg/dl POC Glucose (other) (70-99) mg/dl Lactate (0.4-2.0) mmol/L Calcium (8.5-10.1) mg/dl POC Ioniz Calcium Michael (1.12-1.32) mmol/l Phosphorus (2.5-4.9) mg/dl Magnesium (1.8-2.4) mg/dl Ferritin (8-388) ng/ml Total Bilirubin (0.2-1) mg/dl AST (15-37) U/L ALT (12-78) U/L Alkaline Phosphatase (45-117) U/L Lactate Dehydrogenase (87-241) U/L Total Creatine Kinase (39-308) U/L CK-MB (CK-2) (0.5-3.6) ng/ml CK/CKMB % Calc (0-3.0) Troponin I (0-0.045) ng/ml C-Reactive Protein (0-0.29) mg/dl Total Protein (6.4-8.2) gm/dl Albumin (3.4-5.0) gm/dl Globulin (2.5-4.0) gm/dl Albumin/Globulin Ratio (0.9-2) Beta-Hydroxybutyric Acd (0.2-2.81) mg/dl Procalcitonin (0-0.5) ng/ml Urine Color Urine Appearance (Clear) Urine pH (4.5-7.5) Ur Specific [place] (1.000-1.030) Urine Protein (Negative) Urine Glucose (UA) (Negative) Urine Ketones (Negative) Urine Blood (Negative) Urine Nitrite (Negative) Urine Bilirubin (Negative) Urine Urobilinogen (Negative) Ur Leukocyte Esterase (Negative) Urine WBC (Auto) (0-5) /hpf Urine RBC (Auto) (0-4) /hpf U Hyaline Cast (Auto) (0-5) /lpf U Epithel Cells (Auto) (0-5) /lpf Urine Bacteria (Auto) (Negative) Urine Opiates Screen (Neg) Ur Methadone, Qual (Neg) Urine Barbiturates (Neg) Ur Phencyclidine (PCP) (Neg) U Amphetamin/Meth Scrn (Neg) MDMA (Ecstasy) Screen (Neg) U Benzodiazepines Scrn (Neg) Ur Cocaine Metabolite (Neg) U Marijuana (THC) Screen (Neg) Ethyl Alcohol mg/dL (0-3) mg/dl COVID-19 Eval Order Covid19 [id number] [id number] SARS-CoV-2 (PCR) (Negative) Influenza Type A (PCR) (Neg) Influenza Type B (PCR) (Neg) RSV (RT-PCR) (Neg) SARS-CoV-2, RNA, NAAT NEGATIVE (NEGATIVE) Blood Type Antibody Screen 09/27/20 09/27/20 09/27/20 Range/Units 17:01 17:59 17:59 WBC (4.8-10.8) K/uL RBC (4.7-6.1) M/uL Hgb (14.0-18.0) g/dL POC Hgb (14.0-18.0) g/dl Hct (42-52) % POC Hct (42-52) % MCV (80-100) fL MCH (25-34) pg MCHC (32-36) g/dL RDW Std Deviation (36.4-46.3) fL RDW Coeff of Laura (11.5-14.5) % Plt Count (130-400) K/uL MPV (7.4-10.4) fL Immature Gran % (Auto) % Neut % (Auto) % Lymph % (Auto) % [place] % (Auto) % Eos % (Auto) % Baso % (Auto) % Neut # (Auto) (1.4-6.5) K/uL Lymph # (Auto) (1.2-3.4) K/uL [place] # (Auto) (0.11-0.59) K/uL Eos # (Auto) (0-0.5) K/uL Baso # (Auto) (0-0.2) K/uL Immature Gran # (Auto) (0.00-0.02) K/uL Absolute Nucleated RBC Nucleated RBC % (auto) Neutrophils % (Manual) Band Neutrophils % Lymphocytes % (Manual) Prolymphocyte % Reactive Lymphs % (Man) Monocytes % (Manual) Eosinophils % (Manual) Basophils % (Manual) Metamyelocytes % (Man) Myelocytes % (Man) Promyelocytes % (Man) Blast Cells % (Manual) Plasma Cell % (Manual) Other Cells % Nucleated RBC % Neutrophils # (Manual) Band Neutrophils # Total Absolute Neuts Lymphocytes # (Manual) Prolymphocyte # Reactive Lymphs # Total Abs Lymphocytes Monocytes # (Manual) Eosinophils # (Manual) Basophils # (Manual) Metamyelocytes # (Man) Myelocytes # (Manual) Promyelocytes # (Man) Blast Cells # (Man) Plasma Cell # (Manual) Other Cells # Nucleated RBCs # (Man) Hypersegmented Neuts Hyposegmented Neuts Hypogranular Neuts Large Granular Lymphs # Lrg Granular Lymphs Hairy Cells Smudge Cells Toxic Granulation Toxic Vacuolation Dohle Bodies Ariela Rods Platelet Estimate Hypogranular Platelets Clumped Platelets Giant Platelets Platelet Satelliting RBC Morphology Polychromasia Hypochromasia Poikilocytosis Basophilic Stippling Anisocytosis Microcytosis Macrocytosis Spherocytes Pappenheimer Bodies Sickle Cells Target Cells Tear Drop Cells Ovalocytes Stomatocytes Parkinson-[place] Patent Bodies Echinocytes Acanthocytes (Spur) Rouleaux RBC Agglutinates Schistocytes RBC Morph Comment ESR (0-14) mm/hr Sezary Cell PT (9.0-12.0) Seconds INR (0.9-1.1) APTT (21.0-31.0) Seconds PTT Ratio VBG pH (7.36-7.41) VBG pCO2 (38-50) mmHg VBG pO2 mmHg VBG HCO3 mmol/L VBG O2 Saturation % VBG Base Excess mEq/L Barometric Pressure mm/Hg POC Sodium (135-144) mmol/L Sodium (136-145) mmol/L POC Potassium (3.3-5.0) mmol/L Potassium (3.5-5.1) mmol/L POC Chloride (101-112) mmol/L Chloride (98-107) mmol/L Carbon Dioxide (21-32) mmol/L POC Total CO2 (24-31) mmol/L Anion Gap (3-11) POC Anion Gap (16-25) mmol/L POC BUN (7-18) mg/dl BUN (7-18) mg/dl Creatinine (0.6-1.4) mg/dl POC Creatinine (0.6-1.3) mg/dl Est Cr Clr Drug Dosing ml/min Est GFR ( Amer) Est GFR (Non-Af Amer) BUN/Creatinine Ratio (10-20) Glucose (70-99) mg/dl POC Glucose (70-99) mg/dl POC Glucose (other) (70-99) mg/dl Lactate 2.5 H* (0.4-2.0) mmol/L Calcium (8.5-10.1) mg/dl POC Ioniz Calcium Michael (1.12-1.32) mmol/l Phosphorus (2.5-4.9) mg/dl Magnesium (1.8-2.4) mg/dl Ferritin (8-388) ng/ml Total Bilirubin (0.2-1) mg/dl AST (15-37) U/L ALT (12-78) U/L Alkaline Phosphatase (45-117) U/L Lactate Dehydrogenase (87-241) U/L Total Creatine Kinase (39-308) U/L CK-MB (CK-2) (0.5-3.6) ng/ml CK/CKMB % Calc (0-3.0) Troponin I (0-0.045) ng/ml C-Reactive Protein (0-0.29) mg/dl Total Protein (6.4-8.2) gm/dl Albumin (3.4-5.0) gm/dl Globulin (2.5-4.0) gm/dl Albumin/Globulin Ratio (0.9-2) Beta-Hydroxybutyric Acd (0.2-2.81) mg/dl Procalcitonin (0-0.5) ng/ml Urine Color Urine Appearance (Clear) Urine pH (4.5-7.5) Ur Specific [place] (1.000-1.030) Urine Protein (Negative) Urine Glucose (UA) (Negative) Urine Ketones (Negative) Urine Blood (Negative) Urine Nitrite (Negative) Urine Bilirubin (Negative) Urine Urobilinogen (Negative) Ur Leukocyte Esterase (Negative) Urine WBC (Auto) (0-5) /hpf Urine RBC (Auto) (0-4) /hpf U Hyaline Cast (Auto) (0-5) /lpf U Epithel Cells (Auto) (0-5) /lpf Urine Bacteria (Auto) (Negative) Urine Opiates Screen (Neg) Ur Methadone, Qual (Neg) Urine Barbiturates (Neg) Ur Phencyclidine (PCP) (Neg) U Amphetamin/Meth Scrn (Neg) MDMA (Ecstasy) Screen (Neg) U Benzodiazepines Scrn (Neg) Ur Cocaine Metabolite (Neg) U Marijuana (THC) Screen (Neg) Ethyl Alcohol mg/dL (0-3) mg/dl COVID-19 Eval Order CovFluRsv at [facility] SARS-CoV-2 (PCR) NEGATIVE (Negative) Influenza Type A (PCR) Negative (Neg) Influenza Type B (PCR) Negative (Neg) RSV (RT-PCR) Negative (Neg) SARS-CoV-2, RNA, NAAT (NEGATIVE) Blood Type Antibody Screen 09/27/20 09/27/20 09/27/20 Range/Units 18:07 18:54 18:54 WBC (4.8-10.8) K/uL RBC (4.7-6.1) M/uL Hgb (14.0-18.0) g/dL POC Hgb (14.0-18.0) g/dl Hct (42-52) % POC Hct (42-52) % MCV (80-100) fL MCH (25-34) pg MCHC (32-36) g/dL RDW Std Deviation (36.4-46.3) fL RDW Coeff of Laura (11.5-14.5) % Plt Count (130-400) K/uL MPV (7.4-10.4) fL Immature Gran % (Auto) % Neut % (Auto) % Lymph % (Auto) % [place] % (Auto) % Eos % (Auto) % Baso % (Auto) % Neut # (Auto) (1.4-6.5) K/uL Lymph # (Auto) (1.2-3.4) K/uL [place] # (Auto) (0.11-0.59) K/uL Eos # (Auto) (0-0.5) K/uL Baso # (Auto) (0-0.2) K/uL Immature Gran # (Auto) (0.00-0.02) K/uL Absolute Nucleated RBC Nucleated RBC % (auto) Neutrophils % (Manual) Band Neutrophils % Lymphocytes % (Manual) Prolymphocyte % Reactive Lymphs % (Man) Monocytes % (Manual) Eosinophils % (Manual) Basophils % (Manual) Metamyelocytes % (Man) Myelocytes % (Man) Promyelocytes % (Man) Blast Cells % (Manual) Plasma Cell % (Manual) Other Cells % Nucleated RBC % Neutrophils # (Manual) Band Neutrophils # Total Absolute Neuts Lymphocytes # (Manual) Prolymphocyte # Reactive Lymphs # Total Abs Lymphocytes Monocytes # (Manual) Eosinophils # (Manual) Basophils # (Manual) Metamyelocytes # (Man) Myelocytes # (Manual) Promyelocytes # (Man) Blast Cells # (Man) Plasma Cell # (Manual) Other Cells # Nucleated RBCs # (Man) Hypersegmented Neuts Hyposegmented Neuts Hypogranular Neuts Large Granular Lymphs # Lrg Granular Lymphs Hairy Cells Smudge Cells Toxic Granulation Toxic Vacuolation Dohle Bodies Ariela Rods Platelet Estimate Hypogranular Platelets Clumped Platelets Giant Platelets Platelet Satelliting RBC Morphology Polychromasia Hypochromasia Poikilocytosis Basophilic Stippling Anisocytosis Microcytosis Macrocytosis Spherocytes Pappenheimer Bodies Sickle Cells Target Cells Tear Drop Cells Ovalocytes Stomatocytes Parkinson-Holland Patent Bodies Echinocytes Acanthocytes (Spur) Rouleaux RBC Agglutinates Schistocytes RBC Morph Comment ESR (0-14) mm/hr Sezary Cell PT (9.0-12.0) Seconds INR (0.9-1.1) APTT (21.0-31.0) Seconds PTT Ratio VBG pH 7.28 L (7.36-7.41) VBG pCO2 29 L (38-50) mmHg VBG pO2 36 mmHg VBG HCO3 13 mmol/L VBG O2 Saturation 63.2 % VBG Base Excess -12.4 mEq/L Barometric Pressure 736.8 mm/Hg POC Sodium (135-144) mmol/L Sodium 147 H (136-145) mmol/L POC Potassium (3.3-5.0) mmol/L Potassium 3.5 D (3.5-5.1) mmol/L POC Chloride (101-112) mmol/L Chloride 116 H (98-107) mmol/L Carbon Dioxide 13 L (21-32) mmol/L POC Total CO2 (24-31) mmol/L Anion Gap 17.0 H (3-11) POC Anion Gap (16-25) mmol/L POC BUN (7-18) mg/dl BUN 64 H (7-18) mg/dl Creatinine 1.69 H D (0.6-1.4) mg/dl POC Creatinine (0.6-1.3) mg/dl Est Cr Clr Drug Dosing 27.0 ml/min Est GFR ( Amer) 45.7 Est GFR (Non-Af Amer) 39.4 BUN/Creatinine Ratio 38.0 H (10-20) Glucose 481 H* (70-99) mg/dl POC Glucose 546 H* (70-99) mg/dl POC Glucose (other) (70-99) mg/dl Lactate (0.4-2.0) mmol/L Calcium 9.3 (8.5-10.1) mg/dl POC Ioniz Calcium Michael (1.12-1.32) mmol/l Phosphorus (2.5-4.9) mg/dl Magnesium (1.8-2.4) mg/dl Ferritin (8-388) ng/ml Total Bilirubin (0.2-1) mg/dl AST (15-37) U/L ALT (12-78) U/L Alkaline Phosphatase (45-117) U/L Lactate Dehydrogenase (87-241) U/L Total Creatine Kinase (39-308) U/L CK-MB (CK-2) (0.5-3.6) ng/ml CK/CKMB % Calc (0-3.0) Troponin I (0-0.045) ng/ml C-Reactive Protein (0-0.29) mg/dl Total Protein (6.4-8.2) gm/dl Albumin (3.4-5.0) gm/dl Globulin (2.5-4.0) gm/dl Albumin/Globulin Ratio (0.9-2) Beta-Hydroxybutyric Acd (0.2-2.81) mg/dl Procalcitonin (0-0.5) ng/ml Urine Color Urine Appearance (Clear) Urine pH (4.5-7.5) Ur Specific [place] (1.000-1.030) Urine Protein (Negative) Urine Glucose (UA) (Negative) Urine Ketones (Negative) Urine Blood (Negative) Urine Nitrite (Negative) Urine Bilirubin (Negative) Urine Urobilinogen (Negative) Ur Leukocyte Esterase (Negative) Urine WBC (Auto) (0-5) /hpf Urine RBC (Auto) (0-4) /hpf U Hyaline Cast (Auto) (0-5) /lpf U Epithel Cells (Auto) (0-5) /lpf Urine Bacteria (Auto) (Negative) Urine Opiates Screen (Neg) Ur Methadone, Qual (Neg) Urine Barbiturates (Neg) Ur Phencyclidine (PCP) (Neg) U Amphetamin/Meth Scrn (Neg) MDMA (Ecstasy) Screen (Neg) U Benzodiazepines Scrn (Neg) Ur Cocaine Metabolite (Neg) U Marijuana (THC) Screen (Neg) Ethyl Alcohol mg/dL (0-3) mg/dl COVID-19 Eval Order SARS-CoV-2 (PCR) (Negative) Influenza Type A (PCR) (Neg) Influenza Type B (PCR) (Neg) RSV (RT-PCR) (Neg) SARS-CoV-2, RNA, NAAT (NEGATIVE) Blood Type Antibody Screen Imaging Data Radiologist's Impression: [place], [place] [phone] CT Scan Report Patient: JULIO GOODRICH Admit Date: 09/27/20 MR#: [id number] Address1: [address] [facility] Acct ID:[id number] Address2: Date: 1945 [facility] Zip: [place] [address] Age: 75 Location: ED Sex: M Room/Bed: Att Phy: Diagnosis: ILLNESS Cindi Phy: Anjelica Izaguirre DO Service Date: 09/27/20 [facility] Phy: Interpreting Phy: Jl Silverman MD Admit Phy: Ordering Phy: Eric Camara MD cc: ~ CT SCAN OF THE CHEST, ABDOMEN, AND PELVIS WITHOUT IV CONTRAST CLINICAL HISTORY: Change in mental status. Dementia. COMPARISON STUDY: CT scan of the chest and abdomen dated 07/29/2016. Chest x-ray dated 09/27/2020. TECHNIQUE: Unenhanced CT scan of the chest, abdomen, and pelvis was performed from the thoracic inlet to the proximal femora. Images are reviewed in the ax ial, sagittal, and coronal planes. IV contrast was not administered as per the referring clinician. Note that the examination is significantly suboptimal without IV contrast. The examination is also modestly degraded by motion artifact. There is also streak artifact from the arms which could not be elevated above the chest or abdomen. A dose lowering technique was utilized adhering to the principles of ALARA. CT DOSE: 1092.39 mGy.cm FINDINGS: CHEST: Thyroid: Imaged portions of the thyroid gland are normal in size and attenuation. Thoracic aorta: There is atherosclerotic calcification of the thoracic aorta. There is mild aneurysmal dilatation of the ascending thoracic aorta which measures up to 4.0 cm. The remainder of the thoracic aorta is normal in caliber, and the arch demonstrates standard 3-vessel arch anatomy. Heart: The patient is status post midline sternotomy. A 2-lead cardiac AICD is present in the left chest wall. The heart is enlarged and without pericardial effusion. The coronary arteries are densely calcified. The main pulmonary arteries are dilated suggesting pulmonary artery hypertension. Lungs and pleural spaces: There is moderate to advanced emphysema. No airspace consolidation or pleural effusion is identified. Foci of scarring/atelectasis are present at the lung bases. The trachea and central airways are clear. A 5 mm right lower lobe pulmonary nodule is seen on image #179. A 3 mm right lower lobe pulmonary nodule is seen on image #157. A 7 mm irregular left apical density is seen on image #33. In the 7 mm irregular density in the left lower lobe as seen on image #148. Mediastinum: There is no mediastinal lymphadenopathy. Paige: Not well assessed without IV contrast. Axillae: There is no axillary lymphadenopathy. Bony thorax: The skeletal structures are osteopenic. Degenerative change and mild hyperkyphosis are noted in the thoracic spine. No lytic or blastic lesions are identified. Soft tissues: The patient is cachectic. ABDOMEN AND PELVIS: Liver: Evaluation of the liver is significantly degraded by streak artifact. The unenhanced liver is normal in size, contour, and attenuation. There is no intra- or extrahepatic biliary ductal dilatation. Gallbladder: Grossly unremarkable but not well evaluated. Spleen: Normal in size and attenuation. Pancreas: The unenhanced pancreas is grossly unremarkable but not well evaluated. Adrenal glands: Unremarkable. Kidneys: The unenhanced kidneys demonstrate cortical atrophy and are without hydronephrosis. No renal calculi are identified. There are renovascular calcifications. There is no evidence of contour deforming mass lesion. Abdominal vasculature: There is advanced atherosclerotic calcification and mild ectasia of the abdominal aorta. 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 Bowel: There is circumferential rectal wall thickening with perirectal inflammation. An indeterminant bowel anastomosis is noted in the central pelvis. No bowel obstruction is seen. Moderate fecal retention is noted in the right colon. The appendix is normal as visualized. Peritoneum: There is no intraperitoneal free air or abdominal ascites. Lymphadenopathy: None. Pelvic viscera: Bladder is partially decompressed around a Shine catheter. The bladder wall appears thickened and trabeculated which may be related to chronic outlet obstruction. Intraluminal gas is likely related to instrumentation. The prostate gland is enlarged and heterogeneous. Skeletal structures: The skeletal structures are osteopenic. There is mild to moderate lumbosacral spondylosis. A large posterior disc osteophyte complex is seen at L5-S1. Degenerative change is seen in the hips. No lytic or blastic lesions are seen. IMPRESSION: 1. Suboptimal examination without IV contrast. The examination is also degraded by cachexia, as well as streak and motion artifact. 2. Cardiomegaly and cardiac pacemaker with no evidence of congestive failure. 3. Advanced emphysema. 4. There is no airspace consolidation or pleural effusion. 5. There is mild aneurysmal dilatation of the ascending thoracic aorta which measures up to 4.0 cm in diameter. 6. There are irregular pulmonary nodular densities measuring up to 7 mm, which have somewhat changed in configuration as compared to 2016. These can be followed as per the Fleischner criteria as below. 7. The rectal wall appears thickened and there is perirectal inflammation. Correlate clinically for evidence of a nonspecific proctitis. 8. Moderate fecal retention is noted in the right colon. No bowel obstruction is seen. 9. The bladder wall appears thickened and there is intraluminal gas. This may be related to chronic outlet obstruction and recent instrumentation. Correlation with urinalysis will be required. 10. Additional findings as above. Please refer to below summary of Fleischner criteria recommendations for follow- up of incidental CT nodules (Александр Mckeon, Guidelines for management of small pulmonary nodules detected on CT scans: A statement from the [employer] y, Radiology 237: [phone].) SOLID NODULES Solitary nodule size: <6 mm * low risk patients: no follow-up needed * high risk patients: optional CT at 12 months Solitary nodule size: 6-8 mm * low risk patients: follow-up at 6-12 months, then consider further follow-up at 18-24 months * high risk patients: initial follow-up CT at 6-12 months and then at 18-24 months if no change Solitary nodule size: >8 mm * either low or high risk patients - consider follow-up CT at 3 months, and/or CT-PET, and/or biopsy Multiple nodules size: <6 mm * low risk patients: no routine follow-up * high risk patients: optional CT at 12 months Multiple nodules size: 6-8 mm * low risk patients: follow-up at 3-6 months, then consider further follow-up at 18-24 months * high risk patients: follow-up at 3-6 months, then at 18-24 months if no change Multiple nodules size: >8 mm * low risk patients: follow-up at 3-6 months, then consider further follow-up at 18-24 months * high risk patients: follow-up at 3-6 months, then at 18-24 months if no change Note: newly detected indeterminate nodule in persons 35 years of age or older. * low risk patients: minimal or absent history of smoking and/or other known risk factors * high risk patients: history of smoking or of other known risk factors (e.g. first degree relative with lung cancer, or exposure to asbestos, radon, uranium) * if a nodule up to 8 mm is partly solid or is ground glass further follow-up is required after 24 months to exclude possible slow growing adenocarcinoma (JENNIFER) SUBSOLID NODULES Solitary pure ground-glass nodule * nodule size <6 mm - no CT follow-up required * nodule size >=6 mm - follow-up CT at 6-12 months, then every 2 years until 5 years Solitary part-solid nodule * nodule size <6 mm - no CT follow-up required * nodule size >=6 mm - follow-up CT at 3-6 months. If unchanged, and solid component remains <6 mm, then annual follow-up for 5 years Multiple subsolid nodules * nodule size <6 mm - follow-up CT at 3-6 months, consider further follow-up at 2 and 4 years if stable * nodule size >=6 mm - follow-up CT at 3-6 months, subsequent management based on the most suspicious nodule(s) ACT 112: Negative or not required by law. Electronically signed by: Jl Silverman M.D. 09/27/2020 6:06 PM Dictated: 09/27/201749 Transcribed: 09/27/201749 [place], [place] [phone] CT Scan Report Patient: JULIO GOODRICH Admit Date: 09/27/20 MR#: [id number] Address1: [address] [place] [address] Acct ID:[id number] Address2: Date: 1945 [facility] Zip: [place] [address] Age: 75 Location: ED Sex: M Room/Bed: Att Phy: Diagnosis: ILLNESS Cindi Phy: Anjelica Izaguirre DO Service Date: 09/27/20 [facility] Phy: Interpreting Phy: Jl Silverman MD Admit Phy: Ordering Phy: Eric Camara MD cc: ~ CT SCAN OF THE BRAIN WITHOUT IV CONTRAST CLINICAL HISTORY: Change in mental status. Dementia. COMPARISON STUDY: No priors. TECHNIQUE: Unenhanced axial CT scan of the brain is performed from the vertex to the skull base. A dose lowering technique was utilized adhering to the principles of ALARA. FINDINGS: Brain parenchyma: There are age-related involutional changes noting mild to moderate subcortical and periventricular microangiopathic change. There is no hemorrhage, mass effect, or evidence of acute territorial ischemia by CT criteria. Blanco-white matter differentiation is preserved. No extra-axial fluid collection is seen. Ventricles, sulci, cisterns: Prominent secondary to involutional change. Intracranial vasculature: There is atherosclerotic calcification of the cavernous carotid and vertebral arteries. Calvarium: Unremarkable. Sinuses and mastoids: The visualized paranasal sinuses are clear. The mastoid air cells are well pneumatized. Orbits: The bony orbits are grossly intact. IMPRESSION: There is no hemorrhage, mass effect, or evidence of acute territorial ischemia by CT criteria. ACT 112: Negative or not required by law. Electronically signed by: Jl Silverman M.D. 09/27/2020 5:13 PM Dictated: 09/27/201710 Transcribed: 09/27/201710 [place] [phone] XRay Report Patient: JULIO GOODRICH Admit Date: 09/27/20 MR#: [id number] Address1: [address] [facility] Acct ID:[id number] Address2: Date: 1945 [facility] Zip: [place] [address] Age: 75 Location: ED Sex: M Room/Bed: Att Phy: Diagnosis: ILLNESS Cindi Phy: Anjelica Izaguirre DO Service Date: 09/27/20 Fam Phy: Interpreting Phy: Jl Silverman MD Admit Phy: Ordering Phy: Eric Camara MD cc: ~ SINGLE VIEW CHEST CLINICAL HISTORY: Sepsis. FINDINGS: 2 AP, portable, upright chest radiographs are compared to chest x-ray and chest CT dated 07/29/2016. The examination is degraded by portable technique and patient rotation. The patient is status post midline sternotomy. A 2-lead cardiac AICD is unchanged in position and partially obscures the left upper chest. The heart is mildly enlarged noting atherosclerotic calcification of the thoracic aorta. The pulmonary vasculature is noncongested. Emphysema and chronic interstitial thickening is similar to previous. There is no airspace consolidation or large pleural effusion. No pneumothorax is seen. The skeletal structures are osteopenic. The bony thorax is grossly intact. IMPRESSION: 1. Cardiomegaly and AICD. There is no radiographic evidence of congestive failure. 2. Emphysema. 3. No airspace consolidation or large pleural effusion is identified. ACT 112: Negative or not required by law. Electronically signed by: Jl Silverman M.D. 09/27/2020 3:17 PM Dictated: 09/27/201514 Transcribed: 09/27/201514 ECG Data Attestation: I personally reviewed and interpreted this ECG as follows: Indication: + weakness Rate (beats per minute): 83 Rhythm: + normal sinus ECG Intervals/blocks: + Normal QT-c (500) ECG [place]: + Normal ECG ST segments: no ST depression and no ST elevation Comparison ECG Date: from (07/29/2016) Change: the following changes noted (SR has replaced pacemaker) MDM Narrative Patient was seen and evaluated as above in room C10. Review was performed of nursing notes and vital signs. I did review pertinent previous visits and patient history. After obtaining a thorough history and physical examination the above work up was performed. This is a 75-year-old male who presents emergency department complaining of generalized weakness. I am concerned that the patient has DKA based on his blood sugar of over 600 and his CO2 of 12. 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 A sepsis alert was immediately initiated. The patient's potassium was found to be 4.9. He was given 30 mL/kg of fluid. A lactate was obtained and blood cultures were also obtained. The patient was sta rted on broad-spectrum antibiotics. He was also started on an insulin drip. An order was placed for continuous cardiac monitoring. The monitor shows a rate of 80 with Normal SInus rhythm. The patient was evaluated during a period of high volume and high acuity while the hospital was at overcapacity during the global COVID-19 pandemic, and that diagnosis was suspected/considered upon their initial presentation. Their evaluation, treatment and testing was consistent with current guidelines for patients who present with complaints or symptoms that may be related to COVID- 19. Impression & Plan Weakness, DKA (diabetic ketoacidoses), Sepsis Discharge Plan Visit Data Chief Complaint: Illness ED Provider: Eric Camara Discharge Problem: Weakness, DKA (diabetic ketoacidoses), Sepsis Discharge Instructions Interventions: ED Discharge Assessment Last Done: 09/27/20 19:17 Forms Stand Alone Forms: [employer] Prescriptions Prescriptions: No Action aspirin 81 mg tablet,delayed release (DR/EC) 81 mg PO DAILY RF: 0 atorvastatin 40 mg tablet 40 mg PO DAILY RF: 0 albuterol sulfate 90 mcg/actuation HFA aerosol inhaler 2 puffs inhalation Q6H PRN (Reason: shortness of breath or wheezing) Qty: 1 RF: 0 brimonidine 0.15 % drops 1 drops OP TID RF: 0 dorzolamide 2 % drops 1 drops OP TID RF: 0 Lantus Solostar U-100 Insulin 100 unit/mL (3 mL) insulin pen 10 units SQ HS RF: 0 Novolin R Regular U-100 Insuln 100 unit/mL solution 1 sliding scale dose SQ USEASDIRECTD RF: 0 metformin 1,000 mg tablet 1,000 mg PO BID RF: 0 ferrous sulfate 325 mg (65 mg iron) tablet 325 mg PO DAILY RF: 0 latanoprost 0.005 % drops 1 drops OP HS RF: 0 carvedilol 3.125 mg tablet 3.125 mg PO DAILY RF: 0 timolol maleate 0.5 % drops 1 drp OPB DAILY RF: 0 Alphagan P 0.1 % drops 1 drp OPB TID RF: 0 Ozempic 0.25 mg or 0.5 mg(2 mg/1.5 mL) pen injector 0.25 mg SUBCUT WK RF: 0 Referrals Referrals: Anjelica Izaguirre DO [Primary Care Provider] - Discharge Problem: DKA (diabetic ketoacidoses) Qualifiers: Diabetes mellitus type: other specified (including RICHIE) Diabetes mellitus complication detail: without coma Qualified Code(s): E13.10 - Other specified diabetes mellitus with ketoacidosis without coma Sepsis Qualifiers: Sepsis type: sepsis due to unspecified organism Sepsis acute organ dysfunction status: unspecified Qualified Code(s): A41.9 - Sepsis, unspecified organism
[2020-09-27] MEDS ORDERED: GLUCOSE 10 TABS/TUBE PO PRN (14:25)
[2020-09-27] MEDS ORDERED: DKA GOAL RANGE 150-250 mg/dl ONE (14:25)
[2020-09-27] MEDS ORDERED: ED DKA INSULIN DRIP ONE (14:25)
[2020-09-27] MEDS ORDERED: GLUCOSE 40% GEL 15 GM TUBE PO PRN (14:25)
[2020-09-27] MEDS ORDERED: GLUCAGON FOR INJ 1 MG VIAL SQ PRN (14:25)
[2020-09-27] MEDS ORDERED: MULTI-VITAMIN INFUSION 10 ML, THIAMINE HCL 100 MG, FOLIC ACID 1 MG in SODIUM CHLORIDE 0... IV ONE (14:27)
[2020-09-27] MEDS ORDERED: DAPTOmycin 425 MG in SYRINGE 0 ML IV ONE (14:28)
[2020-09-27] MEDS ORDERED: INSULIN REGULAR 250 UNITS in SODIUM CHLORIDE 0.9% 247.5 ML IV SCH (14:30)
[2020-09-27 14:46] LABS: Base Excess VBG -16.4 mEq/L; HCO3 VBG 12 mmol/L; PCO2 VBG 35 mmHg (38-50); PO2 VBG 30 mmHg; pH VBG 7.14 (7.36-7.41)
[2020-09-27 14:51] LABS: iSTAT Creatinine 1.4 mg/dl (0.6-1.3); iSTAT Hemoglobin 13.6 g/dl (14.0-18.0); iSTAT Ionized Calcium 1.38 mmol/l (1.12-1.32); iSTAT Potassium 4.9 mmol/L (3.3-5.0)
[2020-09-27 14:55] LABS: Basophils # (auto) 0.01 K/uL (0-0.2); Basophils % (auto) 0.1 %; Hematocrit (blood only) 43.6 % (42-52); Hemoglobin 13.5 g/dL (14.0-18.0); Immature Granulocytes # (auto) 0.03 K/uL (0.00-0.02); Immature Granulocytes % (auto) 0.3 %; Lymphocytes # (auto) 1.11 K/uL (1.2-3.4); Mean Corpuscular Volume 93.8 fL (80-100); Mean Platelet Volume 12.4 fL (7.4-10.4); Monocytes # (auto) 1.02 K/uL (0.11-0.59); Monocytes % (auto) 10.1 %; Neutrophils # (auto) 7.91 K/uL (1.4-6.5); Neutrophils % (auto) 78.5 %; Platelet Count 193 K/uL (130-400); RDW Coefficient of Variation 15.1 % (11.5-14.5); RDW Standard Deviation 51.5 fL (36.4-46.3); Red Blood Count 4.65 M/uL (4.7-6.1); White Blood Count 10.08 K/uL (4.8-10.8)
[2020-09-27 14:59] LABS: INR 1.1 (0.9-1.1); Partial Thromboplastin Ratio 1.1; Partial Thromboplastin Time 29.7 Seconds (21.0-31.0); Prothrombin Time 11.6 Seconds (9.0-12.0)
[2020-09-27 15:04] LABS: Appearance Urine Clear (Clear); Bacteria Urine Automated Negative (Negative); Bilirubin Urine Negative (Negative); Blood Urine Negative (Negative); Color Urine Yellow; Glucose Urine UA 3+ (Negative); Ketones Urine 3+ (Negative); Leukocyte Esterase Urine Negative (Negative); Nitrite Urine Negative (Negative); Protein Urine Trace (Negative); RBC Urine Automated 0-4 /hpf (0-4); Specific Gravity Urine 1.033 (1.000-1.030); Urobilinogen Urine Negative (Negative)
[2020-09-27 15:13] LABS: Alanine Aminotransferase 16 U/L (12-78); Alkaline Phosphatase 62 U/L (45-117); Aspartate Aminotransferase 11 U/L (15-37); BUN Creatinine Ratio 35.9 (10-20); Bilirubin,Total 1.4 mg/dl (0.2-1); Blood Urea Nitrogen 72 mg/dl (7-18); C Reactive Protein 2.46 mg/dl (0-0.29); Calcium 10.6 mg/dl (8.5-10.1); Carbon Dioxide 11 mmol/L (21-32); Chloride 105 mmol/L (98-107); Creatinine Clr Calc Pharmacy 22.7 ml/min; Ferritin 468.8 ng/ml (8-388); Globulin 3.9 gm/dl (2.5-4.0); Glucose 693 mg/dl (70-99); Magnesium 2.5 mg/dl (1.8-2.4); Phosphorus 7.1 mg/dl (2.5-4.9); Potassium 4.7 mmol/L (3.5-5.1); Sodium 141 mmol/L (136-145); Total Protein 7.9 gm/dl (6.4-8.2); Troponin I < 0.015 ng/ml (0-0.045)
--- NOTE | 2020-09-27 15:19 | XRay Report ---
SINGLE VIEW CHEST CLINICAL HISTORY: Sepsis. FINDINGS: 2 AP, portable, upright chest radiographs are compared to chest x-ray and chest CT dated . The examination is degraded by portable technique and patient rotation. The patient is sta tus post midline sternotomy. A 2-lead cardiac AICD is unchanged in position and partially obscures th e left upper chest. The heart is mildly enlarged noting atherosclerotic calcification of the thoracic aorta. The pulmonary vasculature is noncongested. Emphysema and chronic interstitial thickening is s imilar to previous. There is no airspace consolidation or large pleural effusion. No pneumothorax is seen. The skeletal structures are osteopenic. The bony thorax is grossly intact. IMPRESSION: 1. Cardiomegaly and AICD. There is no radiographic evidence of congestive failure. 2. Emphysema. 3. No airspace consolidation or large pleural effusion is identified. ACT 112: Negative or not required by law. Electronically signed by: Jl Silverman M.D. 09/27/2020 3:17 PM
[2020-09-27 15:28] LABS: Amphetamines+Metham, Urine Neg (Neg); Barbiturates, Urine Neg (Neg); Benzodiazepine, Urine Neg (Neg); Cocaine, Urine Neg (Neg); MDMA (Ecstacy), Urine Neg (Neg); Methadone, Urine Neg (Neg); Opiate, Urine Neg (Neg); Phencyclidine, Urine Neg (Neg)
[2020-09-27 15:30] LABS: Beta-Hydroxybutyrate 119.17 mg/dl (0.2-2.81)
[2020-09-27] MEDS ORDERED: NovoLIN-R BOLUS FROM BAG IV ONE (15:30)
[2020-09-27 15:47] LABS: Creatine Kinase MB 3.1 ng/ml (0.5-3.6)
[2020-09-27] MEDS ORDERED: HALOPERIDOL LACTATE 5 MG/ML 1 ML VIAL IV STA (15:52)
[2020-09-27] MEDS ORDERED: LORazepam 1 MG/2 ML VIAL IV STA (15:52)
[2020-09-27 15:56] LABS: Oxygen Saturation VBG < 60.0 %
--- NOTE | 2020-09-27 17:14 | CT Scan Report ---
CT SCAN OF THE BRAIN WITHOUT IV CONTRAST CLINICAL HISTORY: Change in mental status. Dementia. COMPARISON STUDY: No priors. TECHNIQUE: Unenhanced axial CT scan of the brain is performed from the vertex to the skull base. A do se lowering technique was utilized adhering to the principles of ALARA. FINDINGS: Brain parenchyma: There are age-related involutional changes noting mild to moderate subcortical and periventricular microangiopathic change. There is no hemorrhage, mass effect, or evidence of acute t erritorial ischemia by CT criteria. Blanco-white matter differentiation is preserved. No extra-axial fl uid collection is seen. Ventricles, sulci, cisterns: Prominent secondary to involutional change. Intracranial vasculature: There is atherosclerotic calcification of the cavernous carotid and vertebr al arteries. Calvarium: Unremarkable. Sinuses and mastoids: The visualized paranasal sinuses are clear. The mastoid air cells are well pneu matized. Orbits: The bony orbits are grossly intact. IMPRESSION: There is no hemorrhage, mass effect, or evidence of acute territorial ischemia by CT karl figueroa. ACT 112: Negative or not required by law. Electronically signed by: Jl Silverman M.D. 09/27/2020 5:13 PM
[2020-09-27] MEDS ORDERED: SODIUM CHLORIDE 0.9% 1000ML 1,000 ML IV SCH (17:30)
--- NOTE | 2020-09-27 17:41 | History & Physical Report ---
Date of Service September 27, 2020 Assessment & Plan (1) DKA (diabetic ketoacidoses): Sugars on presentation 600-700, 3+ ketones in the urine, VBG ph 7.14, CO2 11. Pt appears to be septic but unclear source of infection at present. CT head negative. CT chest/abd/pel - pending. - Insulin gtt - BMP and VBG Q4 hrs for now - Continue IVF hydration at 100 ml/hr NSS - adjust based on labs results - Electrolyte repletion prn (2) Sepsis: Initial lactate 2.7, repeat after initial IV fluid boluses is 2.5. - Continue IVF as discussed - Blood and urine cultures pending - Broad spectrum antibiotics with Daptymycin and Zosyn for now - Follow labs closely (3) COPD, moderate: Not currently on a maintenance inhaler - uses only albuterol prn (4) Type 2 diabetes mellitus with hemoglobin A1c goal of less than 8.0%: See plan for #1 (5) Hypertension, goal below 140/90: Currently hypotensive so outpatient meds on hold (6) Glaucoma: - Continue outpatient regimen of eye drops (7) CAD (coronary atherosclerotic disease): Oral meds including aspirin and beta-tita currently on hold. Will resume once more stable. (8) Alcohol abuse: Unclear how much alcohol patient is current consuming - due to delirium at present, will attempt to avoid benzos if possible. Will monitor and reassess frequently need for additional medications. Received thiamine and folic acid in ED. (9) Dyslipidemia: Outpatient statin currently on hold with Dapto on board and patient altered and not safe to tolerate PO (10) Severe protein-calorie malnutrition: (11) DVT prophylaxis: Heparin DNR/DNI Dispo-PCU Pt seen and evaluated with attending physician, Dr. Pickett. Plan of care discussed and as outlined above. Per pt's brother, pt is a DNR/DNI but would like aggressive treatments otherwise. Franki Henriquez PA-C History of Present Illness Chief Complaint: Weakness Primary Care Provider: Anjelica Izaguirre DO This is a 75 y/o male with a PMH of insulin-requiring DM2, ischemic cardiomyopathy s/p cardiac arrest and subsequent ICD placement, severe chronic LV dysfunction, diffuse CAD s/p CABG, macular degeneration, glaucoma, moderate COPD, atrial flutter, anemia, tobacco abuse and EtOH abuse who was found on the floor by his neighbor earlier today and brought in via EMS. History from the patient is currently unobtainable so the chart was extensively reviewed and Dr. Pickett spoke with the patient's brother. Pt's last known well was 09/25/2020. Per report, pt was found lying on the floor in his own feces this morning, too weak to get up on his own. Work-up in the ED consistent with sepsis of uncertain etiology and DKA. It appear that pt just reestablished care with PCP in March 2020. He has been struggling to afford his medications at times and find transportation to appointments. He is enrolled is [id number]. Allergies Allergy/AdvReac Type Severity Reaction Status Date / Time No Known Drug Allergies Allergy Unknown . Verified 09/27/20 14:54 Home Medications Medication Instructions Recorded Confirmed Type aspirin 81 mg tablet,delayed 81 mg PO DAILY tab 05/14/19 09/27/20 History release atorvastatin 40 mg tablet 40 mg PO DAILY tab 05/14/19 09/27/20 History albuterol sulfate 90 mcg/actuation 2 puffs INHALATION Q6H PRN #1 gm 04/30/20 09/27/20 History aerosol inhaler brimonidine 0.15 % eye drops 1 drops OP TID ml 04/30/20 09/27/20 History dorzolamide 2 % eye drops 1 drops OP TID ml 04/30/20 09/27/20 History ferrous sulfate 325 mg (65 mg 325 mg PO DAILY 04/30/20 09/27/20 History iron) tablet insulin glargine 100 unit/mL (3 10 units SQ HS ml 04/30/20 09/27/20 History mL) subcutaneous pen insulin regular human 100 unit/mL 1 sliding scale dose SQ 04/30/20 09/27/20 History injection solution USEASDIRECTD latanoprost 0.005 % eye drops 1 drops OP HS ml 04/30/20 09/27/20 History metformin 1,000 mg tablet 1,000 mg PO BID 04/30/20 09/27/20 History brimonidine [Alphagan P] 1 drp OPB TID 09/27/20 09/27/20 History carvedilol 3.125 mg PO DAILY 09/27/20 09/27/20 History semaglutide [Ozempic] 0.25 mg SUBCUT WK 09/27/20 09/27/20 History timolol maleate 1 drp OPB DAILY 09/27/20 09/27/20 History Past Med/Surg History Medical History Alcohol abuse Anemia Atrial flutter Cardiac arrest Dyslipidemia Ischemic necrosis of small bowel Macular degeneration Myocardial infarction Surgical History H/O exploratory laparotomy S/P CABG (coronary artery bypass graft) S/P small bowel resection Social History Smoking Status: Current every day smoker packs per day: 1; Years Smoked: 50; Preferred Language: Urdu Communication Ability: Effective Electrician Third Required: No Current Living Situation: Alone current occupational status: retired Feels Safe at Home: Yes Review of Systems Review of Systems: Unobtainable due to reduced consciousness Physical Exam Constitutional: + cachectic and + altered mental status; no acute distress Eyes: + anicteric sclerae and PERRL Neck: trachea midline Respiratory: no respiratory distress Auscultation: + diminished lung sounds Cardiovascular: Rate/Rhythm: regular rate and regular rhythm Gastrointestinal (Abdomen): Inspection/Auscultation: normal bowel sounds; abdomen not distended Percussion/Palpation: abdomen soft Musculoskeletal: Head/Neck/Chest: normocephalic, head atraumatic and neck supple Extremities: no cyanosis passive ROM of UE and LE intact Skin: + turgor decreased; no rashes Neurologic: + confused Motor/Sensory: no tremor Results & Data Results & Data ([facility]) Vital Signs (Past 12 Hours) Vital Signs Temp Pulse Pulse Resp BP BP Pulse Ox 09/27/20 17:09 36.1 C L 09/27/20 16:10 85 19 99 09/27/20 16:02 79 21 87/50 L 99 09/27/20 16:00 85 26 H 99 09/27/20 15:50 85 26 H 99 09/27/20 15:40 81 24 98 09/27/20 15:30 85 40 H 93 09/27/20 15:20 88 29 H 100 09/27/20 15:10 86 25 H 09/27/20 15:01 78 18 99 09/27/20 15:00 81 21 102/54 L 98 09/27/20 14:56 35 C L 09/27/20 14:50 79 23 100 09/27/20 14:46 35 C L 78 83 20 91/57 L 91/61 L 100 09/27/20 14:40 83 25 H 100 09/27/20 14:39 82 30 H 91/61 L 100 09/27/20 14:30 81 30 H 92 09/27/20 14:20 93 H 32 H 97 09/27/20 14:10 84 26 H 99 09/27/20 14:07 83 20 100 09/27/20 13:58 81 19 91/57 L 100 Laboratory Results Laboratory Results - last 24 hr 09/27/20 09/27/20 09/27/20 14:10 14:10 14:10 WBC 10.08 RBC 4.65 L Hgb 13.5 L POC Hgb Hct 43.6 POC Hct MCV 93.8 MCH 29.0 MCHC 31.0 L RDW Std Deviation 51.5 H RDW Coeff of Laura 15.1 H Plt Count 193 MPV 12.4 H Immature Gran % (Auto) 0.3 Neut % (Auto) 78.5 Lymph % (Auto) 11.0 [place] % (Auto) 10.1 Eos % (Auto) 0.0 Baso % (Auto) 0.1 Neut # (Auto) 7.91 H Lymph # (Auto) 1.11 L [place] # (Auto) 1.02 H Eos # (Auto) 0.00 Baso # (Auto) 0.01 Immature Gran # (Auto) 0.03 H Absolute Nucleated RBC Nucleated RBC % (auto) Neutrophils % (Manual) Band Neutrophils % Lymphocytes % (Manual) Prolymphocyte % Reactive Lymphs % (Man) Monocytes % (Manual) Eosinophils % (Manual) Basophils % (Manual) Metamyelocytes % (Man) Myelocytes % (Man) Promyelocytes % (Man) Blast Cells % (Manual) Plasma Cell % (Manual) Other Cells % Nucleated RBC % Neutrophils # (Manual) Band Neutrophils # Total Absolute Neuts Lymphocytes # (Manual) Prolymphocyte # Reactive Lymphs # Total Abs Lymphocytes Monocytes # (Manual) Eosinophils # (Manual) Basophils # (Manual) Metamyelocytes # (Man) Myelocytes # (Manual) Promyelocytes # (Man) Blast Cells # (Man) Plasma Cell # (Manual) Other Cells # Nucleated RBCs # (Man) Hypersegmented Neuts Hyposegmented Neuts Hypogranular Neuts Large Granular Lymphs # Lrg Granular Lymphs Hairy Cells Smudge Cells Toxic Granulation Toxic Vacuolation Dohle Bodies Ariela Rods Platelet Estimate Hypogranular Platelets Clumped Platelets Giant Platelets Platelet Satelliting RBC Morphology Polychromasia Hypochromasia Poikilocytosis Basophilic Stippling Anisocytosis Microcytosis Macrocytosis Spherocytes Pappenheimer Bodies Sickle Cells Target Cells Tear Drop Cells Ovalocytes Stomatocytes Parkinson-Jenks Bodies Echinocytes Acanthocytes (Spur) Rouleaux RBC Agglutinates Schistocytes RBC Morph Comment ESR 25 H Sezary Cell PT 11.6 INR 1.1 APTT 29.7 PTT Ratio 1.1 VBG pH VBG pCO2 VBG pO2 VBG HCO3 VBG O2 Saturation VBG Base Excess Barometric Pressure POC Sodium Sodium POC Potassium Potassium POC Chloride Chloride Carbon Dioxide POC Total CO2 Anion Gap POC Anion Gap POC BUN BUN Creatinine POC Creatinine Est Cr Clr Drug Dosing Est GFR ( Amer) Est GFR (Non-Af Amer) BUN/Creatinine Ratio Glucose POC Glucose POC Glucose (other) Estimat Average Glucose Hemoglobin A1c Lactate Calcium POC Ioniz Calcium Michael Phosphorus Magnesium Ferritin Total Bilirubin AST ALT Alkaline Phosphatase Lactate Dehydrogenase Total Creatine Kinase CK-MB (CK-2) CK/CKMB % Calc Troponin I C-Reactive Protein Total Protein Albumin Globulin Albumin/Globulin Ratio Beta-Hydroxybutyric Acd Procalcitonin Urine Color Urine Appearance Urine pH Ur Specific [place] Urine Protein Urine Glucose (UA) Urine Ketones Urine Blood Urine Nitrite Urine Bilirubin Urine Urobilinogen Ur Leukocyte Esterase Urine WBC (Auto) Urine RBC (Auto) U Hyaline Cast (Auto) U Epithel Cells (Auto) Urine Bacteria (Auto) Urine Opiates Screen Ur Methadone, Qual Urine Barbiturates Ur Phencyclidine (PCP) U Amphetamin/Meth Scrn MDMA (Ecstasy) Screen U Benzodiazepines Scrn Ur Cocaine Metabolite U Marijuana (THC) Screen Ethyl Alcohol mg/dL COVID-19 Eval Order SARS-CoV-2, RNA, NAAT Blood Type Antibody Screen 09/27/20 09/27/20 09/27/20 14:10 14:10 14:10 WBC Cancelled RBC Cancelled Hgb Cancelled POC Hgb Hct Cancelled POC Hct MCV Cancelled MCH Cancelled MCHC Cancelled RDW Std Deviation Cancelled RDW Coeff of Laura Cancelled Plt Count Cancelled MPV Cancelled Immature Gran % (Auto) Cancelled Neut % (Auto) Cancelled Lymph % (Auto) Cancelled [place] % (Auto) Cancelled Eos % (Auto) Cancelled Baso % (Auto) Cancelled Neut # (Auto) Cancelled Lymph # (Auto) Cancelled [place] # (Auto) Cancelled Eos # (Auto) Cancelled Baso # (Auto) Cancelled Immature Gran # (Auto) Cancelled Absolute Nucleated RBC Cancelled Nucleated RBC % (auto) Cancelled Neutrophils % (Manual) Cancelled Band Neutrophils % Cancelled Lymphocytes % (Manual) Cancelled Prolymphocyte % Cancelled Reactive Lymphs % (Man) Cancelled Monocytes % (Manual) Cancelled Eosinophils % (Manual) Cancelled Basophils % (Manual) Cancelled Metamyelocytes % (Man) Cancelled Myelocytes % (Man) Cancelled Promyelocytes % (Man) Cancelled Blast Cells % (Manual) Cancelled Plasma Cell % (Manual) Cancelled Other Cells % Cancelled Nucleated RBC % Cancelled Neutrophils # (Manual) Cancelled Band Neutrophils # Cancelled Total Absolute Neuts Cancelled Lymphocytes # (Manual) Cancelled Prolymphocyte # Cancelled Reactive Lymphs # Cancelled Total Abs Lymphocytes Cancelled Monocytes # (Manual) Cancelled Eosinophils # (Manual) Cancelled Basophils # (Manual) Cancelled Metamyelocytes # (Man) Cancelled Myelocytes # (Manual) Cancelled Promyelocytes # (Man) Cancelled Blast Cells # (Man) Cancelled Plasma Cell # (Manual) Cancelled Other Cells # Cancelled Nucleated RBCs # (Man) Cancelled Hypersegmented Neuts Cancelled Hyposegmented Neuts Cancelled Hypogranular Neuts Cancelled Large Granular Lymphs Cancelled # Lrg Granular Lymphs Cancelled Hairy Cells Cancelled Smudge Cells Cancelled Toxic Granulation Cancelled Toxic Vacuolation Cancelled Dohle Bodies Cancelled Ariela Rods Cancelled Platelet Estimate Cancelled Hypogranular Platelets Cancelled Clumped Platelets Cancelled Giant Platelets Cancelled Platelet Satelliting Cancelled RBC Morphology Cancelled Polychromasia Cancelled Hypochromasia Cancelled Poikilocytosis Cancelled Basophilic Stippling Cancelled Anisocytosis Cancelled Microcytosis Cancelled Macrocytosis Cancelled Spherocytes Cancelled Pappenheimer Bodies Cancelled Sickle Cells Cancelled Target Cells Cancelled Tear Drop Cells Cancelled Ovalocytes Cancelled Stomatocytes Cancelled Parkinson-Jenks Bodies Cancelled Echinocytes Cancelled Acanthocytes (Spur) Cancelled Rouleaux Cancelled RBC Agglutinates Cancelled Schistocytes Cancelled RBC Morph Comment Cancelled ESR Sezary Cell Cancelled PT INR APTT PTT Ratio VBG pH VBG pCO2 VBG pO2 VBG HCO3 VBG O2 Saturation VBG Base Excess Barometric Pressure POC Sodium Sodium 141 POC Potassium Potassium 4.7 POC Chloride Chloride 105 Carbon Dioxide 11 L POC Total CO2 Anion Gap 25.0 H POC Anion Gap POC BUN BUN 72 H Creatinine 2.01 H POC Creatinine Est Cr Clr Drug Dosing 22.7 Est GFR ( Amer) 37.0 Est GFR (Non-Af Amer) 32.0 BUN/Creatinine Ratio 35.9 H Glucose 693 H* POC Glucose POC Glucose (other) Estimat Average Glucose Hemoglobin A1c Lactate Calcium 10.6 H POC Ioniz Calcium Michael Phosphorus 7.1 H Magnesium 2.5 H Ferritin 468.8 H Total Bilirubin 1.4 H AST 11 L ALT 16 Alkaline Phosphatase 62 Lactate Dehydrogenase Total Creatine Kinase CK-MB (CK-2) CK/CKMB % Calc Troponin I < 0.015 C-Reactive Protein 2.46 H Total Protein 7.9 Albumin 4.0 Globulin 3.9 Albumin/Globulin Ratio 1.0 Beta-Hydroxybutyric Acd 119.17 H Procalcitonin 0.43 Urine Color Urine Appearance Urine pH Ur Specific [place] Urine Protein Urine Glucose (UA) Urine Ketones Urine Blood Urine Nitrite Urine Bilirubin Urine Urobilinogen Ur Leukocyte Esterase Urine WBC (Auto) Urine RBC (Auto) U Hyaline Cast (Auto) U Epithel Cells (Auto) Urine Bacteria (Auto) Urine Opiates Screen Ur Methadone, Qual Urine Barbiturates Ur Phencyclidine (PCP) U Amphetamin/Meth Scrn MDMA (Ecstasy) Screen U Benzodiazepines Scrn Ur Cocaine Metabolite U Marijuana (THC) Screen Ethyl Alcohol mg/dL COVID-19 Eval Order SARS-CoV-2, RNA, NAAT Blood Type Antibody Screen 09/27/20 09/27/20 09/27/20 14:10 14:10 14:22 WBC RBC Hgb POC Hgb 13.6 L Hct POC Hct 40 L MCV MCH MCHC RDW Std Deviation RDW Coeff of Laura Plt Count MPV Immature Gran % (Auto) Neut % (Auto) Lymph % (Auto) [place] % (Auto) Eos % (Auto) Baso % (Auto) Neut # (Auto) Lymph # (Auto) [place] # (Auto) Eos # (Auto) Baso # (Auto) Immature Gran # (Auto) Absolute Nucleated RBC Nucleated RBC % (auto) Neutrophils % (Manual) Band Neutrophils % Lymphocytes % (Manual) Prolymphocyte % Reactive Lymphs % (Man) Monocytes % (Manual) Eosinophils % (Manual) Basophils % (Manual) Metamyelocytes % (Man) Myelocytes % (Man) Promyelocytes % (Man) Blast Cells % (Manual) Plasma Cell % (Manual) Other Cells % Nucleated RBC % Neutrophils # (Manual) Band Neutrophils # Total Absolute Neuts Lymphocytes # (Manual) Prolymphocyte # Reactive Lymphs # Total Abs Lymphocytes Monocytes # (Manual) Eosinophils # (Manual) Basophils # (Manual) Metamyelocytes # (Man) Myelocytes # (Manual) Promyelocytes # (Man) Blast Cells # (Man) Plasma Cell # (Manual) Other Cells # Nucleated RBCs # (Man) Hypersegmented Neuts Hyposegmented Neuts Hypogranular Neuts Large Granular Lymphs # Lrg Granular Lymphs Hairy Cells Smudge Cells Toxic Granulation Toxic Vacuolation Dohle Bodies Ariela Rods Platelet Estimate Hypogranular Platelets Clumped Platelets Giant Platelets Platelet Satelliting RBC Morphology Polychromasia Hypochromasia Poikilocytosis Basophilic Stippling Anisocytosis Microcytosis Macrocytosis Spherocytes Pappenheimer Bodies Sickle Cells Target Cells Tear Drop Cells Ovalocytes Stomatocytes Parkinson-Jenks Bodies Echinocytes Acanthocytes (Spur) Rouleaux RBC Agglutinates Schistocytes RBC Morph Comment ESR Sezary Cell PT INR APTT PTT Ratio VBG pH VBG pCO2 VBG pO2 VBG HCO3 VBG O2 Saturation VBG Base Excess Barometric Pressure POC Sodium 142 Sodium POC Potassium 4.9 Potassium POC Chloride 110 Chloride Carbon Dioxide POC Total CO2 12 L Anion Gap POC Anion Gap 25.0 POC BUN 60 H BUN Creatinine POC Creatinine 1.4 H Est Cr Clr Drug Dosing Est GFR ( Amer) Est GFR (Non-Af Amer) BUN/Creatinine Ratio Glucose POC Glucose POC Glucose (other) 624 H* Estimat Average Glucose Pending Hemoglobin A1c Pending Lactate Calcium POC Ioniz Calcium Michael 1.38 H Phosphorus Magnesium Ferritin Total Bilirubin AST ALT Alkaline Phosphatase Lactate Dehydrogenase Total Creatine Kinase 154 CK-MB (CK-2) 3.1 CK/CKMB % Calc 2.0 Troponin I C-Reactive Protein Total Protein Albumin Globulin Albumin/Globulin Ratio Beta-Hydroxybutyric Acd Procalcitonin Urine Color Urine Appearance Urine pH Ur Specific [place] Urine Protein Urine Glucose (UA) Urine Ketones Urine Blood Urine Nitrite Urine Bilirubin Urine Urobilinogen Ur Leukocyte Esterase Urine WBC (Auto) Urine RBC (Auto) U Hyaline Cast (Auto) U Epithel Cells (Auto) Urine Bacteria (Auto) Urine Opiates Screen Ur Methadone, Qual Urine Barbiturates Ur Phencyclidine (PCP) U Amphetamin/Meth Scrn MDMA (Ecstasy) Screen U Benzodiazepines Scrn Ur Cocaine Metabolite U Marijuana (THC) Screen Ethyl Alcohol mg/dL COVID-19 Eval Order SARS-CoV-2, RNA, NAAT Blood Type Antibody Screen 09/27/20 09/27/20 09/27/20 14:24 14:24 14:25 WBC RBC Hgb POC Hgb Hct POC Hct MCV MCH MCHC RDW Std Deviation RDW Coeff of Laura Plt Count MPV Immature Gran % (Auto) Neut % (Auto) Lymph % (Auto) [place] % (Auto) Eos % (Auto) Baso % (Auto) Neut # (Auto) Lymph # (Auto) [place] # (Auto) Eos # (Auto) Baso # (Auto) Immature Gran # (Auto) Absolute Nucleated RBC Nucleated RBC % (auto) Neutrophils % (Manual) Band Neutrophils % Lymphocytes % (Manual) Prolymphocyte % Reactive Lymphs % (Man) Monocytes % (Manual) Eosinophils % (Manual) Basophils % (Manual) Metamyelocytes % (Man) Myelocytes % (Man) Promyelocytes % (Man) Blast Cells % (Manual) Plasma Cell % (Manual) Other Cells % Nucleated RBC % Neutrophils # (Manual) Band Neutrophils # Total Absolute Neuts Lymphocytes # (Manual) Prolymphocyte # Reactive Lymphs # Total Abs Lymphocytes Monocytes # (Manual) Eosinophils # (Manual) Basophils # (Manual) Metamyelocytes # (Man) Myelocytes # (Manual) Promyelocytes # (Man) Blast Cells # (Man) Plasma Cell # (Manual) Other Cells # Nucleated RBCs # (Man) Hypersegmented Neuts Hyposegmented Neuts Hypogranular Neuts Large Granular Lymphs # Lrg Granular Lymphs Hairy Cells Smudge Cells Toxic Granulation Toxic Vacuolation Dohle Bodies Ariela Rods Platelet Estimate Hypogranular Platelets Clumped Platelets Giant Platelets Platelet Satelliting RBC Morphology Polychromasia Hypochromasia Poikilocytosis Basophilic Stippling Anisocytosis Microcytosis Macrocytosis Spherocytes Pappenheimer Bodies Sickle Cells Target Cells Tear Drop Cells Ovalocytes Stomatocytes Parkinson-Jenks Bodies Echinocytes Acanthocytes (Spur) Rouleaux RBC Agglutinates Schistocytes RBC Morph Comment ESR Sezary Cell PT INR APTT PTT Ratio VBG pH 7.14 L VBG pCO2 35 L VBG pO2 30 VBG HCO3 12 VBG O2 Saturation < 60.0 VBG Base Excess -16.4 Barometric Pressure 735.0 POC Sodium Sodium POC Potassium Potassium POC Chloride Chloride Carbon Dioxide POC Total CO2 Anion Gap POC Anion Gap POC BUN BUN Creatinine POC Creatinine Est Cr Clr Drug Dosing Est GFR ( Amer) Est GFR (Non-Af Amer) BUN/Creatinine Ratio Glucose POC Glucose POC Glucose (other) Estimat Average Glucose Hemoglobin A1c Lactate 2.7 H* Calcium POC Ioniz Calcium Michael Phosphorus Magnesium Ferritin Total Bilirubin AST ALT Alkaline Phosphatase Lactate Dehydrogenase Total Creatine Kinase CK-MB (CK-2) CK/CKMB % Calc Troponin I C-Reactive Protein Total Protein Albumin Globulin Albumin/Globulin Ratio Beta-Hydroxybutyric Acd Procalcitonin Urine Color Yellow Urine Appearance Clear Urine pH 5.0 Ur Specific [place] 1.033 H Urine Protein Trace H Urine Glucose (UA) 3+ H Urine Ketones 3+ H Urine Blood Negative Urine Nitrite Negative Urine Bilirubin Negative Urine Urobilinogen Negative Ur Leukocyte Esterase Negative Urine WBC (Auto) 1-5 Urine RBC (Auto) 0-4 U Hyaline Cast (Auto) 5-10 H U Epithel Cells (Auto) 5-10 H Urine Bacteria (Auto) Negative Urine Opiates Screen Ur Methadone, Qual Urine Barbiturates Ur Phencyclidine (PCP) U Amphetamin/Meth Scrn MDMA (Ecstasy) Screen U Benzodiazepines Scrn Ur Cocaine Metabolite U Marijuana (THC) Screen Ethyl Alcohol mg/dL COVID-19 Eval Order SARS-CoV-2, RNA, NAAT Blood Type Antibody Screen 01/02/21 01/02/21 01/02/21 14:25 14:42 14:53 WBC RBC Hgb POC Hgb Hct POC Hct MCV MCH MCHC RDW Std Deviation RDW Coeff of Laura Plt Count MPV Immature Gran % (Auto) Neut % (Auto) Lymph % (Auto) [place] % (Auto) Eos % (Auto) Baso % (Auto) Neut # (Auto) Lymph # (Auto) [place] # (Auto) Eos # (Auto) Baso # (Auto) Immature Gran # (Auto) Absolute Nucleated RBC Nucleated RBC % (auto) Neutrophils % (Manual) Band Neutrophils % Lymphocytes % (Manual) Prolymphocyte % Reactive Lymphs % (Man) Monocytes % (Manual) Eosinophils % (Manual) Basophils % (Manual) Metamyelocytes % (Man) Myelocytes % (Man) Promyelocytes % (Man) Blast Cells % (Manual) Plasma Cell % (Manual) Other Cells % Nucleated RBC % Neutrophils # (Manual) Band Neutrophils # Total Absolute Neuts Lymphocytes # (Manual) Prolymphocyte # Reactive Lymphs # Total Abs Lymphocytes Monocytes # (Manual) Eosinophils # (Manual) Basophils # (Manual) Metamyelocytes # (Man) Myelocytes # (Manual) Promyelocytes # (Man) Blast Cells # (Man) Plasma Cell # (Manual) Other Cells # Nucleated RBCs # (Man) Hypersegmented Neuts Hyposegmented Neuts Hypogranular Neuts Large Granular Lymphs # Lrg Granular Lymphs Hairy Cells Smudge Cells Toxic Granulation Toxic Vacuolation Dohle Bodies Ariela Rods Platelet Estimate Hypogranular Platelets Clumped Platelets Giant Platelets Platelet Satelliting RBC Morphology Polychromasia Hypochromasia Poikilocytosis Basophilic Stippling Anisocytosis Microcytosis Macrocytosis Spherocytes Pappenheimer Bodies Sickle Cells Target Cells Tear Drop Cells Ovalocytes Stomatocytes Parkinson-Jenks Bodies Echinocytes Acanthocytes (Spur) Rouleaux RBC Agglutinates Schistocytes RBC Morph Comment ESR Sezary Cell PT INR APTT PTT Ratio VBG pH VBG pCO2 VBG pO2 VBG HCO3 VBG O2 Saturation VBG Base Excess Barometric Pressure POC Sodium Sodium POC Potassium Potassium POC Chloride Chloride Carbon Dioxide POC Total CO2 Anion Gap POC Anion Gap POC BUN BUN Creatinine POC Creatinine Est Cr Clr Drug Dosing Est GFR ( Amer) Est GFR (Non-Af Amer) BUN/Creatinine Ratio Glucose POC Glucose POC Glucose (other) Estimat Average Glucose Hemoglobin A1c Lactate Calcium POC Ioniz Calcium Michael Phosphorus Magnesium Ferritin Total Bilirubin AST ALT Alkaline Phosphatase Lactate Dehydrogenase 161 Total Creatine Kinase CK-MB (CK-2) CK/CKMB % Calc Troponin I C-Reactive Protein Total Protein Albumin Globulin Albumin/Globulin Ratio Beta-Hydroxybutyric Acd Procalcitonin Urine Color Urine Appearance Urine pH Ur Specific [place] Urine Protein Urine Glucose (UA) Urine Ketones Urine Blood Urine Nitrite Urine Bilirubin Urine Urobilinogen Ur Leukocyte Esterase Urine WBC (Auto) Urine RBC (Auto) U Hyaline Cast (Auto) U Epithel Cells (Auto) Urine Bacteria (Auto) Urine Opiates Screen Neg Ur Methadone, Qual Neg Urine Barbiturates Neg Ur Phencyclidine (PCP) Neg U Amphetamin/Meth Scrn Neg MDMA (Ecstasy) Screen Neg U Benzodiazepines Scrn Neg Ur Cocaine Metabolite Neg U Marijuana (THC) Screen Neg Ethyl Alcohol mg/dL COVID-19 Eval Order SARS-CoV-2, RNA, NAAT Blood Type A Positive Antibody Screen NEGATIVE 09/27/20 09/27/20 09/27/20 14:53 16:04 16:04 WBC RBC Hgb POC Hgb Hct POC Hct MCV MCH MCHC RDW Std Deviation RDW Coeff of Laura Plt Count MPV Immature Gran % (Auto) Neut % (Auto) Lymph % (Auto) [place] % (Auto) Eos % (Auto) Baso % (Auto) Neut # (Auto) Lymph # (Auto) [place] # (Auto) Eos # (Auto) Baso # (Auto) Immature Gran # (Auto) Absolute Nucleated RBC Nucleated RBC % (auto) Neutrophils % (Manual) Band Neutrophils % Lymphocytes % (Manual) Prolymphocyte % Reactive Lymphs % (Man) Monocytes % (Manual) Eosinophils % (Manual) Basophils % (Manual) Metamyelocytes % (Man) Myelocytes % (Man) Promyelocytes % (Man) Blast Cells % (Manual) Plasma Cell % (Manual) Other Cells % Nucleated RBC % Neutrophils # (Manual) Band Neutrophils # Total Absolute Neuts Lymphocytes # (Manual) Prolymphocyte # Reactive Lymphs # Total Abs Lymphocytes Monocytes # (Manual) Eosinophils # (Manual) Basophils # (Manual) Metamyelocytes # (Man) Myelocytes # (Manual) Promyelocytes # (Man) Blast Cells # (Man) Plasma Cell # (Manual) Other Cells # Nucleated RBCs # (Man) Hypersegmented Neuts Hyposegmented Neuts Hypogranular Neuts Large Granular Lymphs # Lrg Granular Lymphs Hairy Cells Smudge Cells Toxic Granulation Toxic Vacuolation Dohle Bodies Ariela Rods Platelet Estimate Hypogranular Platelets Clumped Platelets Giant Platelets Platelet Satelliting RBC Morphology Polychromasia Hypochromasia Poikilocytosis Basophilic Stippling Anisocytosis Microcytosis Macrocytosis Spherocytes Pappenheimer Bodies Sickle Cells Target Cells Tear Drop Cells Ovalocytes Stomatocytes Parkinson-Jenks Bodies Echinocytes Acanthocytes (Spur) Rouleaux RBC Agglutinates Schistocytes RBC Morph Comment ESR Sezary Cell PT INR APTT PTT Ratio VBG pH VBG pCO2 VBG pO2 VBG HCO3 VBG O2 Saturation VBG Base Excess Barometric Pressure POC Sodium Sodium POC Potassium Potassium POC Chloride Chloride Carbon Dioxide POC Total CO2 Anion Gap POC Anion Gap POC BUN BUN Creatinine POC Creatinine Est Cr Clr Drug Dosing Est GFR ( Amer) Est GFR (Non-Af Amer) BUN/Creatinine Ratio Glucose POC Glucose POC Glucose (other) Estimat Average Glucose Hemoglobin A1c Lactate Calcium POC Ioniz Calcium Michael Phosphorus Magnesium Ferritin Total Bilirubin AST ALT Alkaline Phosphatase Lactate Dehydrogenase Total Creatine Kinase CK-MB (CK-2) CK/CKMB % Calc Troponin I C-Reactive Protein Total Protein Albumin Globulin Albumin/Globulin Ratio Beta-Hydroxybutyric Acd Procalcitonin Urine Color Urine Appearance Urine pH Ur Specific [place] Urine Protein Urine Glucose (UA) Urine Ketones Urine Blood Urine Nitrite Urine Bilirubin Urine Urobilinogen Ur Leukocyte Esterase Urine WBC (Auto) Urine RBC (Auto) U Hyaline Cast (Auto) U Epithel Cells (Auto) Urine Bacteria (Auto) Urine Opiates Screen Ur Methadone, Qual Urine Barbiturates Ur Phencyclidine (PCP) U Amphetamin/Meth Scrn MDMA (Ecstasy) Screen U Benzodiazepines Scrn Ur Cocaine Metabolite U Marijuana (THC) Screen Ethyl Alcohol mg/dL < 3.0 COVID-19 Eval [facility] SARS-CoV-2, RNA, NAAT NEGATIVE Blood Type Antibody Screen 09/27/20 09/27/20 16:58 17:01 WBC RBC Hgb POC Hgb Hct POC Hct MCV MCH MCHC RDW Std Deviation RDW Coeff of Laura Plt Count MPV Immature Gran % (Auto) Neut % (Auto) Lymph % (Auto) [place] % (Auto) Eos % (Auto) Baso % (Auto) Neut # (Auto) Lymph # (Auto) [place] # (Auto) Eos # (Auto) Baso # (Auto) Immature Gran # (Auto) Absolute Nucleated RBC Nucleated RBC % (auto) Neutrophils % (Manual) Band Neutrophils % Lymphocytes % (Manual) Prolymphocyte % Reactive Lymphs % (Man) Monocytes % (Manual) Eosinophils % (Manual) Basophils % (Manual) Metamyelocytes % (Man) Myelocytes % (Man) Promyelocytes % (Man) Blast Cells % (Manual) Plasma Cell % (Manual) Other Cells % Nucleated RBC % Neutrophils # (Manual) Band Neutrophils # Total Absolute Neuts Lymphocytes # (Manual) Prolymphocyte # Reactive Lymphs # Total Abs Lymphocytes Monocytes # (Manual) Eosinophils # (Manual) Basophils # (Manual) Metamyelocytes # (Man) Myelocytes # (Manual) Promyelocytes # (Man) Blast Cells # (Man) Plasma Cell # (Manual) Other Cells # Nucleated RBCs # (Man) Hypersegmented Neuts Hyposegmented Neuts Hypogranular Neuts Large Granular Lymphs # Lrg Granular Lymphs Hairy Cells Smudge Cells Toxic Granulation Toxic Vacuolation Dohle Bodies Ariela Rods Platelet Estimate Hypogranular Platelets Clumped Platelets Giant Platelets Platelet Satelliting RBC Morphology Polychromasia Hypochromasia Poikilocytosis Basophilic Stippling Anisocytosis Microcytosis Macrocytosis Spherocytes Pappenheimer Bodies Sickle Cells Target Cells Tear Drop Cells Ovalocytes Stomatocytes Parkinson-Jenks Bodies Echinocytes Acanthocytes (Spur) Rouleaux RBC Agglutinates Schistocytes RBC Morph Comment ESR Sezary Cell PT INR APTT PTT Ratio VBG pH VBG pCO2 VBG pO2 VBG HCO3 VBG O2 Saturation VBG Base Excess Barometric Pressure POC Sodium Sodium POC Potassium Potassium POC Chloride Chloride Carbon Dioxide POC Total CO2 Anion Gap POC Anion Gap POC BUN BUN Creatinine POC Creatinine Est Cr Clr Drug Dosing Est GFR ( Amer) Est GFR (Non-Af Amer) BUN/Creatinine Ratio Glucose POC Glucose 580 H* POC Glucose (other) Estimat Average Glucose Hemoglobin A1c Lactate 2.5 H* Calcium POC Ioniz Calcium Michael Phosphorus Magnesium Ferritin Total Bilirubin AST ALT Alkaline Phosphatase Lactate Dehydrogenase Total Creatine Kinase CK-MB (CK-2) CK/CKMB % Calc Troponin I C-Reactive Protein Total Protein Albumin Globulin Albumin/Globulin Ratio Beta-Hydroxybutyric Acd Procalcitonin Urine Color Urine Appearance Urine pH Ur Specific [place] Urine Protein Urine Glucose (UA) Urine Ketones Urine Blood Urine Nitrite Urine Bilirubin Urine Urobilinogen Ur Leukocyte Esterase Urine WBC (Auto) Urine RBC (Auto) U Hyaline Cast (Auto) U Epithel Cells (Auto) Urine Bacteria (Auto) Urine Opiates Screen Ur Methadone, Qual Urine Barbiturates Ur Phencyclidine (PCP) U Amphetamin/Meth Scrn MDMA (Ecstasy) Screen U Benzodiazepines Scrn Ur Cocaine Metabolite U Marijuana (THC) Screen Ethyl Alcohol mg/dL COVID-19 Eval Order SARS-CoV-2, RNA, NAAT Blood Type Antibody Screen Diagnostic Findings Chest X-ray 09/27/20 - IMPRESSION: 1. Cardiomegaly and AICD. There is no radiographic evidence of congestive failure. 2. Emphysema. 3. No airspace consolidation or large pleural effusion is identified. Head CT 09/27/20 - IMPRESSION: There is no hemorrhage, mass effect, or evidence of acute territorial ischemia by CT criteria. Medications Administered Insulin Human Regular 250 (units/ Sodium Chloride) 250 mls @ 5 mls/hr IV .Q24H ROHAN; Protocol Stop: 10/27/20 14:29 Last Titration: 09/27/20 17:05 Dose: 6 units/hr, 6 mls/hr Documented by: [id number] Cosigned by: [id number] Admin: 09/27/20 15:53 Dose: 5 units/hr, 5 mls/hr Documented by: [id number] Cosigned by: [id number] Sodium Chloride (Nss 1000ml) 1,000 mls @ 100 mls/hr IV .Q10H ROHAN Stop: 10/27/20 17:29 Last Admin: 09/27/20 17:57 Dose: 100 mls/hr Documented by: [id number] Discontinued Medications Haloperidol Lactate (Haloperidol Lactate 5 Mg/Ml 1 Ml Vial) 5 mg IV NOW STA Stop: 09/27/20 15:53 Last Admin: 09/27/20 15:57 Dose: 5 mg Documented by: [id number] Sodium Chloride (Nss 1000ml) 1,000 mls @ 999 mls/hr IV .Q1H1M ONE Stop: 09/27/20 15:12 Last Infusion: 09/27/20 16:51 Dose: 0 mls/hr Documented by: [id number] Admin: 09/27/20 15:29 Dose: 999 mls/hr Documented by: [id number] Acetaminophen (Ofirmev) 1,000 mg in 100 mls @ 400 mls/hr IV NOW STA Stop: 09/27/20 14:34 Last Infusion: 09/27/20 16:01 Dose: 0 mls/hr Documented by: [id number] Admin: 09/27/20 15:28 Dose: 400 mls/hr Documented by: [id number] Piperacillin Sod/Tazobactam Sod (Zosyn) 4.5 gm in 120 mls @ 240 mls/hr IV NOW ONE Stop: 09/27/20 14:49 Last Infusion: 09/27/20 16:19 Dose: 0 mls/hr Documented by: [id number] Admin: 09/27/20 15:41 Dose: 240 mls/hr Documented by: [id number] Sodium Chloride (Nss 1000ml) 1,000 mls @ 999 mls/hr IV .Q1H1M ONE Stop: 09/27/20 15:24 Last Infusion: 09/27/20 16:52 Dose: 0 mls/hr Documented by: [id number] Admin: 09/27/20 15:51 Dose: 999 mls/hr Documented by: [id number] Multivitamins 10 ml/ Thiamine HCl 100 mg/ Folic Acid 1 mg/Sodium Chloride 1,011.2 mls @ 1,011.2 mls/hr IV .Q1H ONE Stop: 09/27/20 15:26 Last Infusion: 09/27/20 16:51 Dose: 0 mls/hr Documented by: [id number] Admin: 09/27/20 15:30 Dose: 1,011.2 mls/hr Documented by: [id number] Daptomycin 425 mg/ Syringe 8.5 mls @ 4.25 mls/min IV NOW ONE; Protocol Stop: 09/27/20 14:29 Last Admin: 09/27/20 15:36 Dose: 4.25 mls/min Documented by: [id number] Lorazepam (Ativan) 1 mg in 2 mls @ 2 mls/min IV NOW STA Stop: 09/27/20 15:53 Last Admin: 09/27/20 15:57 Dose: 2 mls/min Documented by: [id number] Insulin Human Regular (Novolin-R Bolus From Bag) 5 units IV ONE ONE Stop: 09/27/20 15:31 Last Admin: 09/27/20 15:53 Dose: 5 units Documented by: [id number] Cosigned by: [id number] Miscellaneous (Dka Goal Range 150-250 Mg/Dl) 1 ea N/A ONE ONE Stop: 09/27/20 14:26 Last Admin: 09/27/20 15:53 Dose: 1 ea Documented by: [id number] Supervising Physician Co-Signing Physician Notes I have seen and examined the patient and have discussed the case with the provider above. I agree with the assessment and plan as stated. 75 yo M with last known well time per brother of 09/25, found down by neighbors today, 09/27 ,with DKA. This has likely been developing over a couple of days. Patient lives alone and has been depressed about decrease in eyesight per brother. Patient appears wasted and cachectic on exam and is unable to give ROS or communicate. No clear evidence of infection; brother reports noncompliance with medications. Physical exam significant for altered, thin, frail, undernourished appearing man in NAD. Oxygenating well on room air. Cont treatment of severe acidosis with insulin drip, IVF, and electrolyte replacement as needed. Cont broad spectrum abx and trend lactate in setting of possible sepsis pending culture results and clinical improvement. DNR confirmed with brother. Admit to PCU for close monitoring and treatment. DO Piyush (1) DKA (diabetic ketoacidoses) Diabetes mellitus complication detail: without coma Diabetes mellitus type: other specified (including RICHIE) Qualified Code(s): E13.10 - Other specified diabetes mellitus with ketoacidosis without coma (2) CAD (coronary atherosclerotic disease) Associated angina: angina presence unspecified Coronary Disease-Associated Artery/Lesion type: unspecified vessel or lesion type [place] vs. transplanted heart: [place] heart Qualified Code(s): I25.10 - Atherosclerotic heart disease of [place] coronary artery without angina pectoris (3) Sepsis Sepsis acute organ dysfunction status: unspecified Sepsis type: sepsis due to unspecified organism Qualified Code(s): A41.9 - Sepsis, unspecified organism (4) Glaucoma Glaucoma stage: indeterminate stage Glaucoma type: open-angle Laterality: bilateral Open angle glaucoma type: primary Qualified Code(s): H40.1134 - Primary open-angle glaucoma, bilateral, indeterminate stage
--- NOTE | 2020-09-27 18:07 | CT Scan Report ---
CT SCAN OF THE CHEST, ABDOMEN, AND PELVIS WITHOUT IV CONTRAST CLINICAL HISTORY: Change in mental status. Dementia. COMPARISON STUDY: CT scan of the chest and abdomen dated 07/29/2016. Chest x-ray dated 09/27/2020. TECHNIQUE: Unenhanced CT scan of the chest, abdomen, and pelvis was performed from the thoracic inlet to the proximal femora. Images are reviewed in the axial, sagittal, and coronal planes. IV contrast was not administered as per the referring clinician. Note that the examination is significantly subop timal without IV contrast. The examination is also modestly degraded by motion artifact. There is als o streak artifact from the arms which could not be elevated above the chest or abdomen. A dose loweri ng technique was utilized adhering to the principles of ALARA. CT DOSE: 1092.39 mGy.cm FINDINGS: CHEST: Thyroid: Imaged portions of the thyroid gland are normal in size and attenuation. Thoracic aorta: There is atherosclerotic calcification of the thoracic aorta. There is mild aneurysma l dilatation of the ascending thoracic aorta which measures up to 4.0 cm. The remainder of the thorac ic aorta is normal in caliber, and the arch demonstrates standard 3-vessel arch anatomy. Heart: The patient is status post midline sternotomy. A 2-lead cardiac AICD is present in the left ch est wall. The heart is enlarged and without pericardial effusion. The coronary arteries are densely c alcified. The main pulmonary arteries are dilated suggesting pulmonary artery hypertension. Lungs and pleural spaces: There is moderate to advanced emphysema. No airspace consolidation or pleur al effusion is identified. Foci of scarring/atelectasis are present at the lung bases. The trachea an d central airways are clear. A 5 mm right lower lobe pulmonary nodule is seen on image #179. A 3 mm r ight lower lobe pulmonary nodule is seen on image #157. A 7 mm irregular left apical density is seen on image #33. In the 7 mm irregular density in the left lower lobe as seen on image #148. Mediastinum: There is no mediastinal lymphadenopathy. Paige: Not well assessed without IV contrast. Axillae: There is no axillary lymphadenopathy. Bony thorax: The skeletal structures are osteopenic. Degenerative change and mild hyperkyphosis are n oted in the thoracic spine. No lytic or blastic lesions are identified. Soft tissues: The patient is cachectic. ABDOMEN AND PELVIS: Liver: Evaluation of the liver is significantly degraded by streak artifact. The unenhanced liver is normal in size, contour, and attenuation. There is no intra- or extrahepatic biliary ductal dilatatio n. Gallbladder: Grossly unremarkable but not well evaluated. Spleen: Normal in size and attenuation. Pancreas: The unenhanced pancreas is grossly unremarkable but not well evaluated. Adrenal glands: Unremarkable. Kidneys: The unenhanced kidneys demonstrate cortical atrophy and are without hydronephrosis. No renal calculi are identified. There are renovascular calcifications. There is no evidence of contour defor warren mass lesion. Abdominal vasculature: There is advanced atherosclerotic calcification and mild ectasia of the abdomi nal aorta. There is mild aneurysmal dilatation of the left common iliac artery which measures up to 1 .6 cm in diameter. Bowel: There is circumferential rectal wall thickening with perirectal inflammation. An indeterminant bowel anastomosis is noted in the central pelvis. No bowel obstruction is seen. Moderate fecal reten tion is noted in the right colon. The appendix is normal as visualized. Peritoneum: There is no intraperitoneal free air or abdominal ascites. Lymphadenopathy: None. Pelvic viscera: Bladder is partially decompressed around a Shine catheter. The bladder wall appears t hickened and trabeculated which may be related to chronic outlet obstruction. Intraluminal gas is lik rosy related to instrumentation. The prostate gland is enlarged and heterogeneous. Skeletal structures: The skeletal structures are osteopenic. There is mild to moderate lumbosacral sp ondylosis. A large posterior disc osteophyte complex is seen at L5-S1. Degenerative change is seen in the hips. No lytic or blastic lesions are seen. IMPRESSION: 1. Suboptimal examination without IV contrast. The examination is also degraded by cachexia, as well as streak and motion artifact. 2. Cardiomegaly and cardiac pacemaker with no evidence of congestive failure. 3. Advanced emphysema. 4. There is no airspace consolidation or pleural effusion. 5. There is mild aneurysmal dilatation of the ascending thoracic aorta which measures up to 4.0 cm in diameter. 6. There are irregular pulmonary nodular densities measuring up to 7 mm, which have somewhat changed in configuration as compared to 2016. These can be followed as per the Fleischner criteria as below. 7. The rectal wall appears thickened and there is perirectal inflammation. Correlate clinically for e vidence of a nonspecific proctitis. 8. Moderate fecal retention is noted in the right colon. No bowel obstruction is seen. 9. The bladder wall appears thickened and there is intraluminal gas. This may be related to chronic o utlet obstruction and recent instrumentation. Correlation with urinalysis will be required. 10. Additional findings as above. Please refer to below summary of Fleischner criteria recommendations for follow-up of incidental CT n odules (Александр Mckeon, Guidelines for management of small pulmonary nodules detected on CT scans: A sta tement from the Fleischner Society, Radiology 237: [phone].) SOLID NODULES Solitary nodule size: <6 mm * low risk patients: no follow-up needed * high risk patients: optional CT at 12 months Solitary nodule size: 6-8 mm * low risk patients: follow-up at 6-12 months, then consider further follow-up at 18-24 months * high risk patients: initial follow-up CT at 6-12 months and then at 18-24 months if no change Solitary nodule size: >8 mm * either low or high risk patients - consider follow-up CT at 3 months, and/or CT-PET, and/or biopsy Multiple nodules size: <6 mm * low risk patients: no routine follow-up * high risk patients: optional CT at 12 months Multiple nodules size: 6-8 mm * low risk patients: follow-up at 3-6 months, then consider further follow-up at 18-24 months * high risk patients: follow-up at 3-6 months, then at 18-24 months if no change Multiple nodules size: >8 mm * low risk patients: follow-up at 3-6 months, then consider further follow-up at 18-24 months * high risk patients: follow-up at 3-6 months, then at 18-24 months if no change Note: newly detected indeterminate nodule in persons 35 years of age or older. * low risk patients: minimal or absent history of smoking and/or other known risk factors * high risk patients: history of smoking or of other known risk factors (e.g. first degree relative with lung cancer, or exposure to asbestos, radon, uranium) * if a nodule up to 8 mm is partly solid or is ground glass further follow-up is required after 24 m onths to exclude possible slow growing adenocarcinoma (JENNIFER) SUBSOLID NODULES Solitary pure ground-glass nodule * nodule size <6 mm - no CT follow-up required * nodule size >=6 mm - follow-up CT at 6-12 months, then every 2 years until 5 years Solitary part-solid nodule * nodule size <6 mm - no CT follow-up required * nodule size >=6 mm - follow-up CT at 3-6 months. If unchanged, and solid component remains <6 mm, then annual follow-up for 5 years Multiple subsolid nodules * nodule size <6 mm - follow-up CT at 3-6 months, consider further follow-up at 2 and 4 years if sta ble * nodule size >=6 mm - follow-up CT at 3-6 months, subsequent management based on the most suspiciou s nodule(s) ACT 112: Negative or not required by law. Electronically signed by: Jl Silverman M.D. 09/27/2020 6:06 PM
[2020-09-27 18:42] LABS: Influenza A virus by PCR Negative (Neg); Influenza B virus by PCR Negative (Neg); RSV by PCR Negative (Neg); SARS CoV2 RNA(COVID-19) InHosp NEGATIVE (Negative)
[2020-09-27 19:05] LABS: Base Excess VBG -12.4 mEq/L; Oxygen Saturation VBG 63.2 %; pH VBG 7.28 (7.36-7.41)
[2020-09-27 19:25] LABS: Calcium 9.3 mg/dl (8.5-10.1); Est GFR (African American) 45.7; Est GFR (Non-African American) 39.4
[2020-09-27 19:26] LABS: Potassium 3.5 mmol/L (3.5-5.1)
[2020-09-27 19:48] LABS: Beta-Hydroxybutyrate 87.45 mg/dl (0.2-2.81)
[2020-09-27] MEDS ORDERED: metroNIDAZOLE 500 MG/100 ML BAG IV STA (20:06)
[2020-09-27] MEDS ORDERED: LACTATED RINGER'S 1,000 ML IV ONE (20:09)
[2020-09-27] MEDS ORDERED: POTASSIUM CHLORIDE CRTAB 20 MEQ TABCR PO STA (20:12)
[2020-09-27] MEDS: INSULIN ASPART 100 UNITS/ML 3 ML PEN SC SCH ×2 (20:47→21:41)
--- NOTE | 2020-09-27 21:10 | Communication Note ---
Date of Service: September 27, 2020 SBP noted to be 70s after initial fluid resuscitation and Dapto, Zosyn antibiotic rx. repeat lactic 2.5 AP Severe sepsis, possible septic shock ? UTI (bland UA specimen) Rule out C. difficile given fecal soiling/diarrhea concerns IVF bolus Stool C. difficile sample Continue Daptomycin Flagyl for presumptive C. difficile given sepsis criteria (patient unable to swallow vancomycin for now due to mentation concerns as per RN) Cefepime in place of Zosyn May need ICU transfer to facilitate pressor therapy if hypotension unresponsive to above. Will relay to AM provider.
[2020-09-27] MEDS: DORZOLAMIDE HCL 2% OPH SOLN 10 ML BTL OP SCH (21:42)
[2020-09-27] MEDS: LATANOPROST 0.005% OP SOLN 2.5 ML BTL OP SCH (21:42)
[2020-09-27] MEDS: BRIMONIDINE TARTRATE-P 0.15% 5 ML BTL OPB SCH (21:43)
[2020-09-27] MEDS ORDERED: PIPERACILLIN/TAZOBACTAM 3.375 GM in DEXTROSE 5% 100 ML IV SCH (22:00)
[2020-09-27 22:05] LABS: BUN Creatinine Ratio 36.4 (10-20); Blood Urea Nitrogen 59 mg/dl (7-18); Calcium 9.3 mg/dl (8.5-10.1); Carbon Dioxide 19 mmol/L (21-32); Chloride 120 mmol/L (98-107); Est GFR (African American) 47.7; Est GFR (Non-African American) 41.2; Glucose 379 mg/dl (70-99); Potassium 3.8 mmol/L (3.5-5.1); Sodium 150 mmol/L (136-145)
[2020-09-27] MEDS ORDERED: LACTATED RINGER'S 1,000 ML IV SCH (22:15)
[2020-09-27] MEDS ORDERED: SODIUM CHLOR 0.45% + 20MEQ KCL 20 MEQ/1,000 ML BAG IV SCH (22:15)
[2020-09-27] MEDS ORDERED: CEFEPIME 2,000 MG in SYRINGE 0 ML IV SCH (22:30)
[2020-09-27] MEDS ORDERED: CEFEPIME CONSULT ACTIVE PRN (22:31)
[2020-09-27] MEDS ORDERED: D5W AND 1/2NSS + 20MEQ KCL 20 MEQ/1,000 ML BAG IV PRN (22:45)
[2020-09-27] MEDS: HEPARIN SOD 5,000 UNIT/0.5 ML VIAL SQ SCH (23:02)
[2020-09-28 00:54] LABS: Base Excess VBG -3.6 mEq/L; HCO3 VBG 21 mmol/L; PCO2 VBG 37 mmHg (38-50); PO2 VBG 25 mmHg; pH VBG 7.37 (7.36-7.41)
[2020-09-28 00:55] LABS: Oxygen Saturation VBG < 60.0 %
[2020-09-28 01:03] LABS: BUN Creatinine Ratio 33.8 (10-20); Creatinine Clr Calc Pharmacy 28.7 ml/min; Est GFR (African American) 47.7; Est GFR (Non-African American) 41.2
[2020-09-28] MEDS ORDERED: D5NSS + 20MEQ KCL 20 MEQ/1,000 ML BAG IV SCH (01:45)
[2020-09-28] MEDS ORDERED: D5W AND 1/2NSS + 20MEQ KCL 20 MEQ/1,000 ML BAG IV SCH (01:45)
[2020-09-28] MEDS ORDERED: POTASSIUM CHLORIDE 40 MEQ in D5W AND 1/2NSS 1,000 ML/1,000 ML BAG IV SCH (03:00)
[2020-09-28 03:09] LABS: BUN Creatinine Ratio 35.8 (10-20); Calcium 8.6 mg/dl (8.5-10.1); Creatinine Clr Calc Pharmacy 33.1 ml/min; Est GFR (African American) 56.9; Est GFR (Non-African American) 49.1; Potassium 2.7 mmol/L (3.5-5.1)
[2020-09-28 03:15] LABS: Hematocrit (blood only) 33.4 % (42-52); Hemoglobin 11.2 g/dL (14.0-18.0); Mean Corpuscular Hemoglobin 28.9 pg (25-34); Mean Corpuscular Hgb Conc 33.5 g/dL (32-36); Mean Corpuscular Volume 86.3 fL (80-100); Mean Platelet Volume 10.8 fL (7.4-10.4); Platelet Count 123 K/uL (130-400); RDW Coefficient of Variation 14.4 % (11.5-14.5); RDW Standard Deviation 45.3 fL (36.4-46.3); Red Blood Count 3.87 M/uL (4.7-6.1); White Blood Count 2.52 K/uL (4.8-10.8)
[2020-09-28] MEDS: POTASSIUM CHLORIDE / WTR 10 MEQ/100 ML PLCT IV SCH ×5 (03:47→08:31)
[2020-09-28] MEDS: DEXTROSE 50% 50 ML SYRINGE IV PRN ×2 (05:12→20:15)
[2020-09-28] MEDS: metroNIDAZOLE 500 MG/100 ML BAG IV SCH ×2 (05:59→12:19)
[2020-09-28 07:34] LABS: BUN Creatinine Ratio 38.1 (10-20); Calcium 9.4 mg/dl (8.5-10.1); Creatinine Clr Calc Pharmacy 35.5 ml/min; Est GFR (African American) 62.2; Est GFR (Non-African American) 53.6; Potassium 3.2 mmol/L (3.5-5.1)
[2020-09-28] MEDS ORDERED: DEXTROSE 5% 1,000 ML IV SCH (08:00)
[2020-09-28] MEDS: INSULIN ASPART 100 UNITS/ML 3 ML PEN SC SCH ×5 (08:31→20:20)
[2020-09-28] MEDS ORDERED: MULTIVITAMIN TAB PO SCH (09:00)
[2020-09-28] MEDS ORDERED: THIAMINE HCL 100 MG TAB PO SCH (09:00)
[2020-09-28] MEDS: FOLIC ACID 1 MG TAB PO SCH (09:08)
[2020-09-28] MEDS: BRIMONIDINE TARTRATE-P 0.15% 5 ML BTL OPB SCH ×3 (09:08→19:25)
[2020-09-28] MEDS: HEPARIN SOD 5,000 UNIT/0.5 ML VIAL SQ SCH (09:09)
[2020-09-28] MEDS: DORZOLAMIDE HCL 2% OPH SOLN 10 ML BTL OP SCH ×3 (09:09→19:26)
[2020-09-28] MEDS: TIMOLOL MALEATE 0.5% OP SOLN 5 ML BTL OPB SCH (09:09)
[2020-09-28] MEDS: THIAMINE HCL 100 MG in SYRINGE 9 ML IV SCH (09:11)
[2020-09-28] MEDS: INSULIN GLARGINE SOLOSTAR 100 UNITS/ML 3 ML PEN SC SCH ×2 (09:11→20:20)
[2020-09-28] MEDS: CEFEPIME 2,000 MG in SYRINGE 0 ML IV SCH ×2 (12:03→23:45)
[2020-09-28 12:24] LABS: BUN Creatinine Ratio 38.8 (10-20); Calcium 8.8 mg/dl (8.5-10.1); Creatinine Clr Calc Pharmacy 40.5 ml/min; Est GFR (African American) 72.8; Est GFR (Non-African American) 62.8; Potassium 3.5 mmol/L (3.5-5.1)
[2020-09-28 12:35] LABS: Phosphorus 1.3 mg/dl (2.5-4.9)
[2020-09-28] MEDS ORDERED: POTASSIUM PHOSPHATE IV SCH (14:45)
[2020-09-28] MEDS ORDERED: SODIUM CHLORIDE 0.45% IV SCH (14:45)
[2020-09-28] MEDS ORDERED: DAPTOmycin 300 MG in SYRINGE 0 ML IV SCH (16:00)
--- NOTE | 2020-09-28 16:49 | Hospitalist Progress Note ---
Date of Service September 28, 2020 Assessment & Plan (1) DKA (diabetic ketoacidoses): Likely related to noncompliance with medications including insulin. He is emaciated and clearly malnourished and isn't taking care of himself well per his brother. Placement would be preferred at discharge if patient were amenable to this. Currently lives alone. Overnight gap closed. He is on SQ basal bolus insulin and IVF. Replace lytes as needed. Await him to wake up and orient more in order to be safer to feed. Acidosis has resolved. No clear source of infection at this time but will keep abx on board another 24 hours waiting on blood cultures and monitoring for clinical improvement. (2) Type 2 diabetes mellitus with hemoglobin A1c goal of less than 8.0%: See plan for #1 (3) Sepsis: Sepsis possibly ruled out at this point as there is not a clear source of infection. Lactate has improved to normal with resuscitation efforts overnight. Cont current workup with blood cultures pending. Cont broad spectrum abx. (4) COPD, moderate: Not currently on a maintenance inhaler - uses only albuterol prn (5) Hypertension, goal below 140/90: Currently hypotensive so outpatient meds on hold (6) Glaucoma: - Continue outpatient regimen of eye drops, this situation has recently progressed and is a source of depression for patient per his brother. (7) CAD (coronary atherosclerotic disease): Oral meds including aspirin and beta-tita currently on hold. Will resume once more stable and reliably tolerating PO. (8) Alcohol abuse: Unclear how much alcohol patient is current consuming - due to delirium at present, will attempt to avoid benzos if possible. Will monitor and reassess frequently need for additional medications. Received thiamine and folic acid in ED. (9) Dyslipidemia: Outpatient statin currently on hold with Dapto on board and patient altered and not safe to tolerate PO (10) Severe protein-calorie malnutrition: Nutrition assessment with daily calorie count needed. Appreciate recs. (11) Diarrhea: Patient initially had significant diarrhea and was tested for COVID which was negative. C-diff was ordered but remains uncollected as diarrhea has apparently resolved. He had been on empiric flagyl IV in case of this but will stop this now. (12) DVT prophylaxis: will switch to Lovenox to reduce shot burden DNR/DNI Dispo-cont PCU monitoring. Will order PT/OT to start working with him tomorrow. Will ask case management to start working on placement options for him. . DO Sloan Weathers Hospitalist Admission and Anticipated Discharge Date Admission Date: September 27, 2020 Subjective cc: 75 yo M with DKA patient is still somewhat altered but is now trying to verbalize still very disoriented but seems to understand he is in the hospital-knows his name denies trying to hurt himself on purpose no further diarrhea since admission per nurse gap closed and he is now on SQ insulin, but not yet safe and awake enough to feed. still has some hypernatremia and hypophosphatemia. updated his brother by phone. Review of Systems Review of Systems: Unobtainable due to mental health condition (disorientation) Physical Exam Physical Exam: CONSTITUTIONAL: Emaciated, vitals as above, NAD, lying supine with eyes closed and arms waving up in the air, speaking nonsense EYES: pupils are round and equal bilaterally, normal conjunctivae, no scleral icterus ENT: external ear and nose normal, oropharynx clear, MMM RESPIRATORY: clear to auscultation bilaterally, no crackles, rales or wheezes, normal respiratory effort CARDIOVASCULAR: regular rate and rhythm, S1 and 2 heard without murmurs, gallops or rubs, no JVD, no peripheral edema GASTROINTESTINAL: soft, nontender, nondistended, no guarding MUSCULOSKELETAL: generalized weakness, 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 Results & Data Results & Data ([facility]) Vital Signs (Past 12 Hours) Vital Signs Temp Pulse Resp BP Pulse Ox 09/28/20 16:10 36.4 C L 87 22 928 H 09/28/20 15:18 36.7 C 74 18 88/56 L 95 09/28/20 11:54 37.0 C 88 20 115/69 96 09/28/20 07:44 36.8 C 90 18 109/62 98 Laboratory Results Short CBC 09/28/20 Range/Units 02:40 WBC 2.52 L D (4.8-10.8) K/uL Hgb 11.2 L (14.0-18.0) g/dL Hct 33.4 L (42-52) % Plt Count 123 L (130-400) K/uL BMP 09/27/20 09/27/20 09/28/20 18:54 21:34 00:26 Sodium 147 H 150 H 148 H Potassium 3.5 D 3.8 Chloride 116 H 120 H 121 H Carbon Dioxide 13 L 19 L 22 BUN 64 H 59 H 55 H Creatinine 1.69 H D 1.63 H 1.63 H Glucose 481 H* 379 H* 240 H Calcium 9.3 9.3 9.0 09/28/20 09/28/20 09/28/20 01:32 02:40 06:29 Sodium 151 H 152 H Potassium 2.9 L D 2.7 L 3.2 L D Chloride 124 H 123 H Carbon Dioxide 23 22 BUN 50 H 50 H Creatinine 1.41 H 1.31 Glucose 117 H 104 H Calcium 8.6 9.4 09/28/20 11:45 Sodium 148 H Potassium 3.5 Chloride 119 H Carbon Dioxide 22 BUN 45 H Creatinine 1.15 Glucose 294 H Calcium 8.8 (1) DKA (diabetic ketoacidoses) Diabetes mellitus complication detail: without coma Diabetes mellitus type: other specified (including RICHIE) Qualified Code(s): E13.10 - Other specified diabetes mellitus with ketoacidosis without coma (2) CAD (coronary atherosclerotic disease) Associated angina: angina presence unspecified Coronary Disease-Associated Artery/Lesion type: unspecified vessel or lesion type [place] vs. transplanted heart: [place] heart Qualified Code(s): I25.10 - Atherosclerotic heart disease of [place] coronary artery without angina pectoris (3) Sepsis Sepsis acute organ dysfunction status: unspecified Sepsis type: sepsis due to unspecified organism Qualified Code(s): A41.9 - Sepsis, unspecified organism (4) Glaucoma Glaucoma stage: indeterminate stage Glaucoma type: open-angle Laterality: bilateral Open angle glaucoma type: primary Qualified Code(s): H40.1134 - Primary open-angle glaucoma, bilateral, indeterminate stage
[2020-09-28] MEDS ORDERED: LACTATED RINGER'S 500 ML IV ONE (19:17)
[2020-09-28] MEDS: LATANOPROST 0.005% OP SOLN 2.5 ML BTL OP SCH (19:26)
--- NOTE | 2020-09-28 21:28 | Electrocardiogram Report ---
Test Reason : Blood Pressure : / mmHG Vent. Rate : 083 BPM Atrial Rate : 083 BPM P-R Int : 176 ms QRS Dur : 118 ms QT Int : 426 ms P-R-T Axes : 091 086 066 degrees QTc Int : 500 ms Poor data quality, interpretation may be adversely affected Normal sinus rhythm Non-specific intra-ventricular conduction delay Abnormal ECG When compared with ECG of 29-JUL-2016 07:23, Sinus rhythm has replaced Electronic atrial pacemaker T wave inversion now evident in Inferior leads Confirmed by Mariano Nelson ([id number]) on 09/28/2020 9:28:30 PM Referred By: Confirmed By:Mariano Nelson
[2020-09-28] MEDS ORDERED: POTASSIUM CHLORIDE 40 MEQ in SODIUM CHLORIDE 0.45 % 1,000 ML IV ONE (23:56)
[2020-09-29] MEDS: INSULIN GLARGINE SOLOSTAR 100 UNITS/ML 3 ML PEN SC SCH ×2 (04:40→20:14)
[2020-09-29] MEDS: INSULIN ASPART 100 UNITS/ML 3 ML PEN SC SCH ×5 (04:40→20:14)
[2020-09-29 06:27] LABS: Hematocrit (blood only) 29.1 % (42-52); Hemoglobin 9.7 g/dL (14.0-18.0); Mean Corpuscular Hemoglobin 28.7 pg (25-34); Mean Corpuscular Hgb Conc 33.3 g/dL (32-36); Mean Corpuscular Volume 86.1 fL (80-100); RDW Coefficient of Variation 14.6 % (11.5-14.5); RDW Standard Deviation 46.4 fL (36.4-46.3); Red Blood Count 3.38 M/uL (4.7-6.1); White Blood Count 5.81 K/uL (4.8-10.8)
[2020-09-29 06:53] LABS: Calcium 8.3 mg/dl (8.5-10.1); Creatinine Clr Calc Pharmacy 61.7 ml/min; Est GFR (African American) 104.9; Est GFR (Non-African American) 90.5; Magnesium 1.6 mg/dl (1.8-2.4); Potassium 3.1 mmol/L (3.5-5.1)
[2020-09-29 07:01] LABS: Phosphorus 1.4 mg/dl (2.5-4.9)
[2020-09-29 07:04] LABS: Mean Platelet Volume 11.4 fL (7.4-10.4); Platelet Count 96 K/uL (130-400); Platelet Estimate Decreased (Normal)
[2020-09-29 07:10] LABS: Estimated Average Glucose 232 mg/dl; Hemoglobin A1C 9.7 % (4.5-5.6)
[2020-09-29] MEDS: FOLIC ACID 1 MG TAB PO SCH (08:52)
[2020-09-29] MEDS: THIAMINE HCL 100 MG in SYRINGE 9 ML IV SCH (08:52)
[2020-09-29] MEDS: ENOXAPARIN INJ 30 MG/0.3 ML SYR SQ SCH (08:52)
[2020-09-29] MEDS: DORZOLAMIDE HCL 2% OPH SOLN 10 ML BTL OP SCH ×3 (08:53→19:53)
[2020-09-29] MEDS: BRIMONIDINE TARTRATE-P 0.15% 5 ML BTL OPB SCH ×3 (08:53→19:52)
[2020-09-29] MEDS: TIMOLOL MALEATE 0.5% OP SOLN 5 ML BTL OPB SCH (08:54)
[2020-09-29] MEDS ORDERED: INSULIN GLARGINE SOLOSTAR 100 UNITS/ML 3 ML PEN SC SCH (09:00)
[2020-09-29] MEDS ORDERED: MAGNESIUM SULFATE IV SCH ×2 (09:45→11:00)
[2020-09-29] MEDS ORDERED: DEXTROSE 5% IV SCH (09:45)
[2020-09-29] MEDS ORDERED: POTASSIUM PHOSPHATE IV SCH (11:00)
[2020-09-29] MEDS ORDERED: POTASSIUM CHLORIDE IV SCH (11:00)
[2020-09-29] MEDS ORDERED: [UNRECOGNIZED DRUG - OTHER] IV SCH (11:00)
[2020-09-29] MEDS: CEFEPIME 2,000 MG in SYRINGE 0 ML IV SCH (11:29)
[2020-09-29] MEDS ORDERED: DAPTOmycin 300 MG in SYRINGE 0 ML IV SCH (12:00)
[2020-09-29] MEDS ORDERED: ONDANSETRON INJ 2 MG/ML 2 ML VIAL IV ONE (12:48)
[2020-09-29 19:10] LABS: BUN Creatinine Ratio 37.7 (10-20); Calcium 8.5 mg/dl (8.5-10.1); Creatinine Clr Calc Pharmacy 72.2 ml/min; Est GFR (African American) 111.9; Est GFR (Non-African American) 96.5
[2020-09-29 19:17] LABS: Potassium 4.1 mmol/L (3.5-5.1)
[2020-09-29] MEDS: LATANOPROST 0.005% OP SOLN 2.5 ML BTL OP SCH (19:53)
[2020-09-29 20:02] LABS: Beta-Hydroxybutyrate 3.75 mg/dl (0.2-2.81)
--- NOTE | 2020-09-29 22:59 | Hospitalist Progress Note ---
Date of Service September 29, 2020 Assessment & Plan (1) DKA (diabetic ketoacidoses): Gap closed, transitioned to basal bolus SQ insulin but he is still not tolerating PO reliably. Had some dextrose today for free water and became slightly hyperglycemic. Fluids switched to 1/2 NSS for overnight, and overnight BSG checks ordered wtih coverage if needed. Cont to encourage him to eat in setting of severe malnutrition and weight loss. Diabetes education. (2) Type 2 diabetes mellitus with hemoglobin A1c goal of less than 8.0%: See plan for #1 (3) Sepsis: Sepsis possibly ruled out at this point as there is not a clear source of infection. Lactate has improved to normal with resuscitation efforts overnight. Cont current workup with blood cultures pending. Cont broad spectrum abx. (4) COPD, moderate: chronc, no evidence of exacerbation, Not currently on a maintenance inhaler - uses only albuterol prn (5) Hypertension, goal below 140/90: BP low normal, cont to hold antihypertensives. (6) Glaucoma: Continue outpatient regimen of eye drops, this situation has recently progressed and is a source of depression for patient per his brother. (7) CAD (coronary atherosclerotic disease): Oral meds including aspirin and beta-tita currently on hold. HR 50-60 overnight. Cont to hold. Will resume once more stable and reliably tolerating PO. (8) Alcohol abuse: Will monitor and reassess frequently need for additional medications. Received thiamine and folic acid in ED. (9) Dyslipidemia: restart lipitor. (10) Severe protein-calorie malnutrition: Nutrition assessment with daily calorie count needed. Appreciate recs. (11) Diarrhea: Resolved-Initially had significant diarrhea in the ER--placed on empiric Flagyl for c-diff-was not able to collect a sample as BMs stopped. Flagyl was stopped (12) DVT prophylaxis: Lovenox DNR/DNI Dispo-cont PCU monitoring. PT/OT and placement options per Case Management. Brittny Pickett DO [facility] Hospitalist Admission and Anticipated Discharge Date Admission Date: September 27, 2020 Subjective cc: 75 yo M with DKA patient is speaking today and appears more oriented states that he has experienced 20-30lb weight loss over last few months reports not "liking to eat anything" we started the discussion of placement at a SNF at least temporarily until he can get on his feet updated his brother by phone Review of Systems Review of Systems: All systems reviewed & are unremarkable except as noted in Subjective Physical Exam Physical Exam: CONSTITUTIONAL: Emaciated, vitals as above, NAD EYES: normal conjunctivae, no scleral icterus ENT: external ear and nose normal, oropharynx clear, MMM, poor dentition RESPIRATORY: clear to auscultation bilaterally, no crackles, rales or wheezes, normal respiratory effort CARDIOVASCULAR: regular rate and rhythm, S1 and 2 heard without murmurs, gallops or rubs, no JVD, no peripheral edema GASTROINTESTINAL: soft, nontender, nondistended, no guarding MUSCULOSKELETAL: generalized weakness, head is normocephalic and atraumatic SKIN: warm and dry NEUROLOGIC: No facial palsy CN 2-12 grossly intact PSYCHIATRIC: alert, following instructions, oriented. Results & Data Results & Data ([facility]) Vital Signs (Past 12 Hours) Vital Signs Temp Pulse Resp BP Pulse Ox 09/29/20 20:00 36.2 C L 60 20 112/73 92 09/29/20 15:12 36.7 C 64 20 109/68 94 09/29/20 12:00 36.5 C 75 18 135/62 95 Laboratory Results Short CBC 09/29/20 Range/Units 05:39 WBC 5.81 (4.8-10.8) K/uL Hgb 9.7 L (14.0-18.0) g/dL Hct 29.1 L (42-52) % Plt Count 96 L (130-400) K/uL BMP 09/29/20 09/29/20 05:39 18:01 Sodium 150 H 144 Potassium 3.1 L 4.1 D Chloride 122 H 116 H Carbon Dioxide 21 23 BUN 31 H 25 H Creatinine 0.76 D 0.65 Glucose 193 H 289 H Calcium 8.3 L 8.5 Medications Administered Current Inpatient Medications Brimonidine Tartrate (Brimonidine Tartrate-P 0.15% 5 Ml Btl) 1 drops OPB TID ROHAN Stop: 10/27/20 20:59 Last Admin: 09/29/20 19:52 Dose: 1 drops Documented by: Dextrose (Dextrose 50% 50 Ml Syringe) 25 - 50 ml IV UD PRN; Protocol PRN Reason: Hypoglycemia Protocol Stop: 10/27/20 14:24 Last Admin: 09/28/20 20:15 Dose: 50 ml Documented by: Dorzolamide HCl (Dorzolamide Hcl 2% Oph Soln 10 Ml Btl) 1 drops OP TID [facility] Stop: 10/27/20 20:59 Last Admin: 09/29/20 19:53 Dose: 1 drops Documented by: Enoxaparin Sodium (Enoxaparin Inj 30 Mg/0.3 Ml Syr) 30 mg SQ QAM [facility] Stop: 10/29/20 08:59 Last Admin: 09/29/20 08:52 Dose: 30 mg Documented by: Folic Acid (Folic Acid 1 Mg Tab) 1 mg PO QAM [facility] Stop: 10/28/20 08:59 Last Admin: 09/29/20 08:52 Dose: 1 mg Documented by: Glucagon (Glucagon For Inj 1 Mg Vial) 1 mg SQ UD PRN; Protocol PRN Reason: Hypoglycemia Protocol Stop: 10/27/20 14:24 Glucose (Glucose 10 Tabs/Tube) 4 - 8 tabs PO UD PRN; Protocol PRN Reason: Hypoglycemia Protocol Stop: 10/27/20 14:24 Glucose (Glucose 40% Gel 15 Gm Tube) 15 - 30 gm PO UD PRN; Protocol PRN Reason: Hypoglycemia Protocol Stop: 10/27/20 14:24 Thiamine HCl 100 mg/ Syringe 10 mls @ 2 mls/min [facility] Stop: 10/28/20 08:59 Last Admin: 09/29/20 08:52 Dose: 2 mls/min Documented by: Parenteral Electrolytes (Normosol-R) 1,000 mls @ 60 mls/hr IV .[id number] [facility] Stop: 10/29/20 22:59 Insulin Aspart (Insulin Aspart 100 Units/Ml 3 Ml Pen) 0 units SC ACHS [facility] Stop: 10/29/20 03:54 Last Admin: 09/29/20 20:14 Dose: 2 units Documented by: Insulin Aspart (Insulin Aspart 100 Units/Ml 3 Ml Pen) 0 units SC ONE ONE Stop: 09/30/20 01:01 Insulin Glargine (Insulin Glargine Solostar 100 Units/Ml 3 Ml Pen) 5 units SC BID ROHAN Stop: 10/29/20 03:54 Last Admin: 09/29/20 20:14 Dose: 5 units Documented by: Latanoprost (Latanoprost 0.005% Op Soln 2.5 Ml Btl) 1 drops OP HS ROHAN Stop: 10/27/20 20:59 Last Admin: 09/29/20 19:53 Dose: 1 drops Documented by: Miscellaneous (Carbohydrates For Hypoglycemia ) 15 - 30 gm PO UD PRN PRN Reason: Hypoglycemia Protocol Stop: 10/27/20 14:24 Timolol Maleate (Timolol Maleate 0.5% Op Soln 5 Ml Btl) 1 drops OPB DAILY [facility] Stop: 10/28/20 08:59 Last Admin: 09/29/20 08:54 Dose: 1 drops Documented by: (1) DKA (diabetic ketoacidoses) Diabetes mellitus complication detail: without coma Diabetes mellitus type: other specified (including RICHIE) Qualified Code(s): E13.10 - Other specified diabetes mellitus with ketoacidosis without coma (2) Sepsis Sepsis acute organ dysfunction status: unspecified Sepsis type: sepsis due to unspecified organism Qualified Code(s): A41.9 - Sepsis, unspecified organism (3) Glaucoma Glaucoma type: open-angle Open angle glaucoma type: primary Laterality: bilateral Glaucoma stage: indeterminate stage Qualified Code(s): H40.1134 - Primary open-angle glaucoma, bilateral, indeterminate stage (4) CAD (coronary atherosclerotic disease) Coronary Disease-Associated Artery/Lesion type: unspecified vessel or lesion type [place] vs. transplanted heart: [place] heart Associated angina: angina presence unspecified Qualified Code(s): I25.10 - Atherosclerotic heart disease of [place] coronary artery without angina pectoris
[2020-09-29] MEDS ORDERED: NORMOSOL-R 1,000 ML IV SCH (23:00)
[2020-09-29] MEDS ORDERED: SODIUM CHLORIDE 0.45 % 1,000 ML IV SCH (23:15)
[2020-09-30] MEDS ORDERED: INSULIN ASPART 100 UNITS/ML 3 ML PEN SC ONE (01:00)
[2020-09-30 07:08] LABS: Hematocrit (blood only) 29.6 % (42-52); Hemoglobin 10.2 g/dL (14.0-18.0); Mean Corpuscular Hemoglobin 29.5 pg (25-34); Mean Corpuscular Hgb Conc 34.5 g/dL (32-36); Mean Corpuscular Volume 85.5 fL (80-100); RDW Coefficient of Variation 14.9 % (11.5-14.5); RDW Standard Deviation 46.8 fL (36.4-46.3); Red Blood Count 3.46 M/uL (4.7-6.1); White Blood Count 5.82 K/uL (4.8-10.8)
[2020-09-30 07:14] LABS: Mean Platelet Volume 11.3 fL (7.4-10.4); Platelet Count 90 K/uL (130-400)
[2020-09-30 07:41] LABS: BUN Creatinine Ratio 41.7 (10-20); Calcium 8.5 mg/dl (8.5-10.1); Creatinine Clr Calc Pharmacy 111.7 ml/min; Est GFR (African American) 133.9; Est GFR (Non-African American) 115.5; Magnesium 2.5 mg/dl (1.8-2.4); Phosphorus 1.7 mg/dl (2.5-4.9); Potassium 3.9 mmol/L (3.5-5.1)
[2020-09-30] MEDS: INSULIN ASPART 100 UNITS/ML 3 ML PEN SC SCH ×4 (08:58→20:40)
[2020-09-30] MEDS: ATORVASTATIN 40 MG TAB PO SCH (08:58)
[2020-09-30] MEDS: THIAMINE HCL 100 MG in SYRINGE 9 ML IV SCH (08:58)
[2020-09-30] MEDS: FOLIC ACID 1 MG TAB PO SCH (08:58)
[2020-09-30] MEDS: ENOXAPARIN INJ 30 MG/0.3 ML SYR SQ SCH (08:59)
[2020-09-30] MEDS: INSULIN GLARGINE SOLOSTAR 100 UNITS/ML 3 ML PEN SC SCH ×2 (08:59→20:40)
[2020-09-30] MEDS: BRIMONIDINE TARTRATE-P 0.15% 5 ML BTL OPB SCH ×3 (08:59→20:39)
[2020-09-30] MEDS: DORZOLAMIDE HCL 2% OPH SOLN 10 ML BTL OP SCH ×3 (09:00→22:07)
[2020-09-30] MEDS: TIMOLOL MALEATE 0.5% OP SOLN 5 ML BTL OPB SCH (09:00)
[2020-09-30] MEDS ORDERED: POTASSIUM PHOS 3 MMOL/1 ML INFUSION IV STA (10:19)
[2020-09-30] MEDS ORDERED: POTASSIUM PHOSPHATE 30 MMOL in SODIUM CHLORIDE 0.9% 500 ML IV ONE (10:45)
--- NOTE | 2020-09-30 15:02 | Hospitalist Progress Note ---
Date of Service September 30, 2020 Assessment & Plan (1) DKA (diabetic ketoacidoses): Gap closed, transitioned to basal bolus SQ insulin but he is still not tolerating PO reliably. Had some dextrose today for free water and became slightly hyperglycemic. Fluids switched to 1/2 NSS for overnight, and overnight BSG checks ordered wtih coverage if needed. Cont to encourage him to eat in setting of severe malnutrition and weight loss. Diabetes education. (2) Type 2 diabetes mellitus with hemoglobin A1c goal of less than 8.0%: See plan for #1 (3) COPD, moderate: chronc, no evidence of exacerbation, Not currently on a maintenance inhaler - uses only albuterol prn (4) Hypertension, goal below 140/90: BP low normal, cont to hold antihypertensives. (5) Glaucoma: Continue outpatient regimen of eye drops, this situation has recently progressed and is a source of depression for patient per his brother. (6) CAD (coronary atherosclerotic disease): Oral meds including aspirin and beta-tita currently on hold. HR 50-60 overnight. Cont to hold. Will resume once more stable and reliably tolerating PO. (7) Alcohol abuse: Will monitor and reassess frequently need for additional medications. Received thiamine and folic acid in ED. (8) Dyslipidemia: restart lipitor. (9) Severe protein-calorie malnutrition: Nutrition assessment with daily calorie count needed. Appreciate recs. (10) Diarrhea: Resolved-Initially had significant diarrhea in the ER--placed on empiric Flagyl for c-diff-was not able to collect a sample as BMs stopped. Flagyl was stopped (11) DVT prophylaxis: Lovenox DNR/DNI Dispo-transfer to med surg. Cont placement assessment with Case Management. Brittny Pickett DO [facility] Hospitalist Admission and Anticipated Discharge Date Admission Date: September 27, 2020 Subjective cc: 75 yo M with DKA Oriented and cooperative He is tolerating regular food without issue and eating independently Denies any pain, shortness of breath or other issues. Review of Systems Review of Systems: All systems reviewed & are unremarkable except as noted in Subjective Physical Exam Physical Exam: CONSTITUTIONAL: Emaciated, vitals as above, NAD EYES: normal conjunctivae, no scleral icterus ENT: external ear and nose normal, oropharynx clear, MMM, poor dentition RESPIRATORY: clear to auscultation bilaterally, no crackles, rales or wheezes, normal respiratory effort CARDIOVASCULAR: regular rate and rhythm, S1 and 2 heard without murmurs, gallops or rubs, no JVD, no peripheral edema GASTROINTESTINAL: soft, nontender, nondistended, no guarding MUSCULOSKELETAL: generalized weakness, head is normocephalic and atraumatic SKIN: warm and dry NEUROLOGIC: No facial palsy CN 2-12 grossly intact PSYCHIATRIC: alert, following instructions, oriented. Results & Data Results [facility]) Vital Signs (Past 12 Hours) Vital Signs Temp Pulse Pulse Resp BP Pulse Ox 09/30/20 11:21 36.4 C L 65 18 105/67 92 09/30/20 08:23 36.8 C 65 18 116/73 95 09/30/20 07:30 60 09/30/20 03:14 36.6 C 71 12 123/73 91 Laboratory Results Short CBC 09/30/20 Range/Units 06:47 WBC 5.82 (4.8-10.8) K/uL Hgb 10.2 L (14.0-18.0) g/dL Hct 29.6 L (42-52) % Plt Count 90 L (130-400) K/uL BMP 09/29/20 09/30/20 18:01 06:47 Sodium 144 144 Potassium 4.1 D 3.9 Chloride 116 H 116 H Carbon Dioxide 23 25 BUN 25 H 18 Creatinine 0.65 0.42 L Glucose 289 H 151 H Calcium 8.5 8.5 Medications Administered Current Inpatient Medications Atorvastatin Calcium (Atorvastatin 40 Mg Tab) 40 mg PO DAILY [facility]OH[facility] Stop: 10/30/20 08:59 Last Admin: 09/30/20 08:58 Dose: 40 mg Documented by: Brimonidine Tartrate (Brimonidine Tartrate-P 0.15% 5 Ml Btl) 1 drops OPB TID ROHAN Stop: 10/27/20 20:59 Last Admin: 09/30/20 13:59 Dose: 1 drops Documented by: Dextrose (Dextrose 50% 50 Ml Syringe) 25 - 50 ml IV UD PRN; Protocol PRN Reason: Hypoglycemia Protocol Stop: 10/27/20 14:24 Last Admin: 09/28/20 20:15 Dose: 50 ml Documented by: Dorzolamide HCl (Dorzolamide Hcl 2% Oph Soln 10 Ml Btl) 1 drops OP TID [facility] Stop: 10/27/20 20:59 Last Admin: 09/30/20 13:59 Dose: 1 drops Documented by: Enoxaparin Sodium (Enoxaparin Inj 30 Mg/0.3 Ml Syr) 30 mg SQ QAM [facility] Stop: 10/29/20 08:59 Last Admin: 09/30/20 08:59 Dose: 30 mg Documented by: Folic Acid (Folic Acid 1 Mg Tab) 1 mg PO QAM [facility] Stop: 10/28/20 08:59 Last Admin: 09/30/20 08:58 Dose: 1 mg Documented by: Glucagon (Glucagon For Inj 1 Mg Vial) 1 mg SQ UD PRN; Protocol PRN Reason: Hypoglycemia Protocol Stop: 10/27/20 14:24 Glucose (Glucose 10 Tabs/Tube) 4 - 8 tabs PO UD PRN; Protocol PRN Reason: Hypoglycemia Protocol Stop: 10/27/20 14:24 Glucose (Glucose 40% Gel 15 Gm Tube) 15 - 30 gm PO UD PRN; Protocol PRN Reason: Hypoglycemia Protocol Stop: 10/27/20 14:24 Thiamine HCl 100 mg/ Syringe 10 mls @ 2 mls[facility] [place]: 10/28/20 08:59 Last Admin: 09/30/20 08:58 Dose: 2 mls/min Documented by: Potassium Phosphate 30 mmol/ (Sodium Chloride) 510 mls @ 88 mls/hr IV ONE ONE Stop: 09/30/20 16:32 Last Admin: 09/30/20 11:42 Dose: 88 mls/hr Documented by: Insulin Aspart (Insulin Aspart 100 Units/Ml 3 Ml Pen) 0 units SC ACHS [facility] Stop: 10/29/20 03:54 Last Admin: 09/30/20 12:36 Dose: 5 units Documented by: Insulin Glargine (Insulin Glargine Solostar 100 Units/Ml 3 Ml Pen) 10 units SC BID [facility] Stop: 10/30/20 20:59 Latanoprost (Latanoprost 0.005% Op Soln 2.5 Ml Btl) 1 drops OP HS [facility] Stop: 10/27/20 20:59 Last Admin: 09/29/20 19:53 Dose: 1 drops Documented by: Miscellaneous (Carbohydrates For Hypoglycemia ) 15 - 30 gm PO UD PRN PRN Reason: Hypoglycemia Protocol Stop: 10/27/20 14:24 Timolol Maleate (Timolol Maleate 0.5% Op Soln 5 Ml Btl) 1 drops OPB DAILY [facility] Stop: 10/28/20 08:59 Last Admin: 09/30/20 09:00 Dose: 1 drops Documented by: (1) DKA (diabetic ketoacidoses) Diabetes mellitus complication detail: without coma Diabetes mellitus type: other specified (including RICHIE) Qualified Code(s): E13.10 - Other specified diabetes mellitus with ketoacidosis without coma (2) CAD (coronary atherosclerotic disease) Associated angina: angina presence unspecified Coronary Disease-Associated Artery/Lesion type: unspecified vessel or lesion type [place] vs. transplanted heart: [place] heart Qualified Code(s): I25.10 - Atherosclerotic heart disease of [place] coronary artery without angina pectoris (3) Glaucoma Glaucoma stage: indeterminate stage Glaucoma type: open-angle Laterality: bilateral Open angle glaucoma type: primary Qualified Code(s): H40.1134 - Primary open-angle glaucoma, bilateral, indeterminate stage
[2020-09-30] MEDS: LATANOPROST 0.005% OP SOLN 2.5 ML BTL OP SCH (20:39)
[2020-09-30] MEDS ORDERED: INSULIN GLARGINE SOLOSTAR 100 UNITS/ML 3 ML PEN SC STA (21:04)
[2020-10-01] MEDS: BRIMONIDINE TARTRATE-P 0.15% 5 ML BTL OPB SCH ×3 (09:00→20:16)
[2020-10-01] MEDS: ATORVASTATIN 40 MG TAB PO SCH (09:01)
[2020-10-01] MEDS: ASPIRIN 81 MG ECTAB PO SCH (09:01)
[2020-10-01] MEDS: FERROUS SULFATE 325 MG TAB PO SCH (09:01)
[2020-10-01] MEDS: FOLIC ACID 1 MG TAB PO SCH (09:01)
[2020-10-01] MEDS: carvediloL 3.125 MG TAB PO SCH (09:01)
[2020-10-01] MEDS: ENOXAPARIN INJ 30 MG/0.3 ML SYR SQ SCH (09:02)
[2020-10-01] MEDS: TIMOLOL MALEATE 0.5% OP SOLN 5 ML BTL OPB SCH (09:03)
[2020-10-01] MEDS: DORZOLAMIDE HCL 2% OPH SOLN 10 ML BTL OP SCH ×3 (09:03→20:16)
[2020-10-01] MEDS: THIAMINE HCL 100 MG in SYRINGE 9 ML IV SCH (09:04)
[2020-10-01] MEDS: INSULIN ASPART 100 UNITS/ML 3 ML PEN SC SCH ×4 (09:06→21:20)
[2020-10-01] MEDS: INSULIN GLARGINE SOLOSTAR 100 UNITS/ML 3 ML PEN SC SCH ×2 (09:07→21:19)
[2020-10-01 10:02] LABS: Creatinine Clr Calc Pharmacy 93.1 ml/min; Est GFR (African American) 124.6; Est GFR (Non-African American) 107.5
--- NOTE | 2020-10-01 12:52 | Palliative Care Consultation ---
Date of Consultation October 01, 2020 Assessment & Plan (1) Palliative care encounter: I spoke with Mr. Evans at bedside about how he was managing at home prior to admission. His perception is that he was doing well with ADLs and meals, though he clearly has not been maintaining his nutritional status. His brother, Patrick, has been encouraging him and monitoring him and Jovany actually lived with him for a period of time. We also discussed goals of care and who would make decisions for him if he were unable to do so. He designates his brother, Patrick, as his surrogate decision maker. When talking with Patrick, it appears that Jovany has three adult children with various levels of estrangement. His daughter, Jumana, has been trying to help him though he has been resistant. Since he has adult children, it would be advisable to have healthcare POA created for Patrick to clarify potential confusion with decision making. I did reach out to [employer] and left a message to assist with this. In terms of what his wishes are, he would not want intubation or resuscitation if her were dependent on life support but would want to continue current support, including AICD. (2) Weakness: Working with PT. Discussed rehab stay in SNF but he would prefer to return home and do home PT. He does also have [facility] following for support. (3) DKA (diabetic ketoacidoses): Diabetes mellitus complication detail: without coma Diabetes mellitus type: other specified (including RICHIE) Qualified Code(s): E13.10 - Other specified diabetes mellitus with ketoacidosis without coma (4) Sepsis: Sepsis acute organ dysfunction status: unspecified Sepsis type: sepsis due to unspecified organism Qualified Code(s): A41.9 - Sepsis, unspecified organism (5) Ischemic cardiomyopathy: History of Present Illness Reason for Consultation: goals of care Requesting Physician: Dr. Pickett Attending Physician: Darleen Melton MD History of Present Illness 75 yo gentleman with CAD and ischemic cardiomyopathy as well as diabetes. He was found unresponsive at home by his neighbor and admitted with DKA and sepsis. He lives alone in an apartment with his cat and does not have any immediate family other than his brother. He reports feeling better and that his appetite is improving. He has been ambulating with walker but does have dyspnea with exertion. He denies pain or nausea. We have been consulted to assist with goals of care. Allergies Allergy/AdvReac Type Severity Reaction Status Date / Time No Known Drug Allergies Allergy Unknown . Verified 09/27/20 14:54 Home Medications Medication Instructions Recorded Confirmed Type aspirin 81 mg tablet,delayed 81 mg PO DAILY tab 05/14/19 09/27/20 History release atorvastatin 40 mg tablet 40 mg PO DAILY tab 05/14/19 09/27/20 History albuterol sulfate 90 mcg/actuation 2 puffs INHALATION Q6H PRN #1 gm 04/30/20 09/27/20 History aerosol inhaler brimonidine 0.15 % eye drops 1 drops OP TID ml 04/30/20 09/27/20 History dorzolamide 2 % eye drops 1 drops OP TID ml 04/30/20 09/27/20 History ferrous sulfate 325 mg (65 mg 325 mg PO DAILY 04/30/20 09/27/20 History iron) tablet insulin glargine 100 unit/mL (3 10 units SQ HS ml 04/30/20 09/27/20 History mL) subcutaneous pen insulin regular human 100 unit/mL 1 sliding scale dose SQ 04/30/20 09/27/20 History injection solution USEASDIRECTD latanoprost 0.005 % eye drops 1 drops OP HS ml 04/30/20 09/27/20 History metformin 1,000 mg tablet 1,000 mg PO BID 04/30/20 09/27/20 History brimonidine [Alphagan P] 1 drp OPB TID 09/27/20 09/27/20 History carvedilol 3.125 mg PO DAILY 09/27/20 09/27/20 History semaglutide [Ozempic] 0.25 mg SUBCUT WK 09/27/20 09/27/20 History timolol maleate 1 drp OPB DAILY 09/27/20 09/27/20 History Patient History Medical History Alcohol abuse Anemia Atrial flutter Cardiac arrest Dyslipidemia Ischemic necrosis of small bowel Macular degeneration Myocardial infarction Surgical History H/O exploratory laparotomy S/P CABG (coronary artery bypass graft) S/P small bowel resection Social History Smoking Status: Current every day smoker packs per day: 1; Years Smoked: 50; Cigarettes Per Day: 1ppd; Second Hand Exposure: No; Do You Dip or Chew Tobacco: No; Tobacco Cessation Education Requested by Patient: No Hx Alcohol Use: Yes Alcohol type: beer Hx Substance Use: No Preferred Language: Thai Communication Ability: Impaired [place] Former Required: No Beliefs That Will Affect Care: None Current Living Situation: Alone current occupational status: retired Other Information That Helps Us Care for You: No Feels Safe at Home: Yes Safety Concerns: Feels Safe At This Time Assistive Devices: Walker Review of Systems Review of Systems: [place] Symptom Assessment Scale Pain 0/3 Dyspnea 1/3 Nausea 0/3 Fatigue 2/3 Anxiety 0/3 Depression 0/3 Anorexia 2/3 Drowsiness 0/3 Palliative Performance Score 50% Physical Exam Constitutional: + thin and comfortable Respiratory: normal respiratory effort; no labored breathing Cardiovascular: Extremities: no edema Gastrointestinal (Abdomen): Inspection/Auscultation: abdomen not distended Musculoskeletal: Extremities: extremities normal to inspection Skin: Warm and dry Psychiatric: A+Ox3, euthymic affect Results & Data ([facility]) Vital Signs (Past 12 Hours) Vital Signs Temp Pulse Resp BP Pulse Ox 10/01/20 07:10 98.1 F 69 24 115/71 94 PG Care Time/CCT Total # of Minutes Spent Total Time Spent with Patient: Total time spent is greater than 50% in coordination of care (as documented) at patient's floor/unit and/or counseling patient: Total time spent 75 minutes with more than 50% of time spent on discussing goals of care, surrogate decision maker, plan of care and family communication. Coding Level of Care Code 04904 Inpt Consult Level 4 Diagnoses Palliative care encounter Z51.5 Weakness R53.1 DKA (diabetic ketoacidoses) E13.10 Diabetes mellitus complication detail: without coma Diabetes mellitus type: other specified (including RICHIE) Sepsis A41.9 Sepsis acute organ dysfunction status: unspecified Sepsis type: sepsis due to unspecified organism Ischemic cardiomyopathy I25.5
[2020-10-01] MEDS ORDERED: ALUMINUM/MAGNESIUM SUSP 30 ML UDC PO PRN (13:53)
--- NOTE | 2020-10-01 18:21 | Hospitalist Progress Note ---
Date of Service October 01, 2020 Assessment & Plan (1) DKA (diabetic ketoacidoses): Gap closed, transitioned to basal bolus SQ insulin but he is still not tolerating PO reliably. Fluids switched to 1/2 NSS for overnight, and overnight BSG checks ordered wtih coverage if needed. Cont to encourage him to eat in setting of severe malnutrition and weight loss. Diabetes education. Clinically a lot better today and denies any significant symptoms We will get PT and OT evaluation for possible discharge tomorrow (2) Type 2 diabetes mellitus with hemoglobin A1c goal of less than 8.0%: See plan for #1 (3) COPD, moderate: chronc, no evidence of exacerbation, Not currently on a maintenance inhaler - uses only albuterol prn (4) Hypertension, goal below 140/90: BP low normal, cont to hold antihypertensives. (5) Glaucoma: Continue outpatient regimen of eye drops, this situation has recently progressed and is a source of depression for patient per his brother. (6) CAD (coronary atherosclerotic disease): Oral meds including aspirin and beta-tita currently on hold. HR 50-60 overnight. Cont to hold. Will resume once more stable and reliably tolerating PO. (7) Alcohol abuse: Will monitor and reassess frequently need for additional medications. Received thiamine and folic acid in ED. (8) Dyslipidemia: restart lipitor. (9) Severe protein-calorie malnutrition: Nutrition assessment with daily calorie count needed. Appreciate recs. (10) Diarrhea: Resolved-Initially had significant diarrhea in the ER--placed on empiric Flagyl for c-diff-was not able to collect a sample as BMs stopped. Flagyl was stopped (11) DVT prophylaxis: Lovenox DNR/DNI Dispo-transfer to med surg. Cont placement assessment with Case Management. Admission and Anticipated Discharge Date Admission Date: September 27, 2020 Subjective The patient was seen and examined in medical floor He was admitted with diabetic ketoacidosis and has been feeling much better as of today Denies any significant symptoms during my examination His blood sugar seems to be under control Review of Systems Review of Systems: All systems reviewed and are unremarkable except as noted below Neurologic: + generalized weakness Physical Exam Physical Exam: Lying in bed comfortably Constitutional: + ill appearing and + thin Eyes: PERRL, conjunctivae normal, anicteric sclerae ENMT: external ear and nose normal, oropharynx normal Neck: trachea midline, no thyromegaly Respiratory: no respiratory distress Auscultation: lungs clear to ausc ultation bilaterally Cardiovascular: Rate/Rhythm: regular rate and regular rhythm Heart Sounds: no murmur Gastrointestinal (Abdomen): Inspection/Auscultation: normal bowel sounds Percussion/Palpation: abdomen soft; abdomen nontender Musculoskeletal: No acute arthritis of any joint Neurologic: Alert, awake and oriented x3. No focal sensory no motor deficit appreciated Lymphatic: no cervical or axillary lymphadenopathy Results & Data Results & Data ([facility]) Vital Signs (Past 12 Hours) Vital Signs Temp Pulse Resp BP Pulse Ox 10/01/20 15:00 36.6 C 73 12 91/57 L 97 10/01/20 07:10 36.7 C 69 24 115/71 94 Laboratory Results BMP 10/01/20 08:31 Creatinine 0.50 L Medications Administered Current Inpatient Medications Al Hydrox/Mg Hydrox/Simethicone (Aluminum/Magnesium Susp 30 Ml Udc) 15 ml PO Q6H PRN PRN Reason: Dyspepsia Stop: 10/31/20 13:52 Last Admin: 10/01/20 17:09 Dose: 15 ml Documented by: Aspirin (Aspirin 81 Mg Ectab) 81 mg PO DAILY ROHAN Stop: 10/31/20 08:59 Last Admin: 10/01/20 09:01 Dose: 81 mg Documented by: Atorvastatin Calcium (Atorvastatin 40 Mg Tab) 40 mg PO DAILY ROHAN Stop: 10/30/20 08:59 Last Admin: 10/01/20 09:01 Dose: 40 mg Documented by: Brimonidine Tartrate (Brimonidine Tartrate-P 0.15% 5 Ml Btl) 1 drops OPB TID ROHAN Stop: 10/27/20 20:59 Last Admin: 10/01/20 12:50 Dose: 1 drops Documented by: Carvedilol (Carvedilol 3.125 Mg Tab) 3.125 mg PO DAILY ROHAN Stop: 10/31/20 08:59 Last Admin: 10/01/20 09:01 Dose: 3.125 mg Documented by: Dextrose (Dextrose 50% 50 Ml Syringe) 25 - 50 ml IV UD PRN; Protocol PRN Reason: Hypoglycemia Protocol Stop: 10/27/20 14:24 Last Admin: 09/28/20 20:15 Dose: 50 ml Documented by: Dorzolamide HCl (Dorzolamide Hcl 2% Oph Soln 10 Ml Btl) 1 drops OP TID [facility] Stop: 10/27/20 20:59 Last Admin: 10/01/20 12:51 Dose: 1 drops Documented by: Enoxaparin Sodium (Enoxaparin Inj 30 Mg/0.3 Ml Syr) 30 mg SQ QAM [facility] Stop: 10/29/20 08:59 Last Admin: 10/01/20 09:02 Dose: 30 mg Documented by: Ferrous Sulfate (Ferrous Sulfate 325 Mg Tab) 325 mg PO DAILY ROHAN Stop: 10/31/20 08:59 Last Admin: 10/01/20 09:01 Dose: 325 mg Documented by: Folic Acid (Folic Acid 1 Mg Tab) 1 mg PO QAM [facility] Stop: 10/28/20 08:59 Last Admin: 10/01/20 09:01 Dose: 1 mg Documented by: Glucagon (Glucagon For Inj 1 Mg Vial) 1 mg SQ UD PRN; Protocol PRN Reason: Hypoglycemia Protocol Stop: 10/27/20 14:24 Glucose (Glucose 10 Tabs/Tube) 4 - 8 tabs PO UD PRN; Protocol PRN Reason: Hypoglycemia Protocol Stop: 10/27/20 14:24 Glucose (Glucose 40% Gel 15 Gm Tube) 15 - 30 gm PO UD PRN; Protocol PRN Reason: Hypoglycemia Protocol Stop: 10/27/20 14:24 Thiamine HCl 100 mg/ Syringe 10 mls @ 2 mls/min IV QAM [facility] Stop: 10/28/20 08:59 Last Admin: 10/01/20 09:04 Dose: 2 mls/min Documented by: Insulin Aspart (Insulin Aspart 100 Units/Ml 3 Ml Pen) 0 units SC ACHS [facility] Stop: 10/29/20 03:54 Last Admin: 10/01/20 17:52 Dose: 5 units Documented by: Insulin Glargine (Insulin Glargine Solostar 100 Units/Ml 3 Ml Pen) 10 units SC BID [facility] Stop: 10/30/20 20:59 Last Admin: 10/01/20 09:07 Dose: 10 units Documented by: Latanoprost (Latanoprost 0.005% Op Soln 2.5 Ml Btl) 1 drops OP HS [facility] Stop: 10/27/20 20:59 Last Admin: 09/30/20 20:39 Dose: 1 drops Documented by: Miscellaneous (Carbohydrates For Hypoglycemia ) 15 - 30 gm PO UD PRN PRN Reason: Hypoglycemia Protocol Stop: 10/27/20 14:24 Timolol Maleate (Timolol Maleate 0.5% Op Soln 5 Ml Btl) 1 drops OPB DAILY [facility]OH[facility] Stop: 10/28/20 08:59 Last Admin: 10/01/20 09:03 Dose: 1 drops Documented by: (1) DKA (diabetic ketoacidoses) Diabetes mellitus complication detail: without coma Diabetes mellitus type: other specified (including RICHIE) Qualified Code(s): E13.10 - Other specified diabetes mellitus with ketoacidosis without coma (2) Glaucoma Glaucoma type: open-angle Open angle glaucoma type: primary Laterality: bilateral Glaucoma stage: indeterminate stage Qualified Code(s): H40.1134 - Primary open-angle glaucoma, bilateral, indeterminate stage (3) CAD (coronary atherosclerotic disease) Coronary Disease-Associated Artery/Lesion type: unspecified vessel or lesion type [place] vs. transplanted heart: [place] heart Associated angina: angina presence unspecified Qualified Code(s): I25.10 - Atherosclerotic heart disease of [place] coronary artery without angina pectoris
[2020-10-01] MEDS: LATANOPROST 0.005% OP SOLN 2.5 ML BTL OP SCH (20:16)
[2020-10-01] MEDS ORDERED: INSULIN HUMAN REGULAR PER UNIT 4 UNITS in SYRINGE 0 ML IV STA (21:08)
[2020-10-01] MEDS ORDERED: INSULIN HUMAN REGULAR PER UNIT 4 UNITS in SYRINGE 3.96 ML IV ONE (21:30)
[2020-10-01] MEDS ORDERED: SODIUM CHLORIDE 0.9% 500 ML IV SCH (23:15)
[2020-10-02 06:24] LABS: Basophils # (auto) 0.01 K/uL (0-0.2); Basophils % (auto) 0.2 %; Eosinophils # (auto) 0.08 K/uL (0-0.5); Eosinophils % (auto) 1.2 %; Hematocrit (blood only) 33.2 % (42-52); Hemoglobin 11.2 g/dL (14.0-18.0); Immature Granulocytes # (auto) 0.03 K/uL (0.00-0.02); Immature Granulocytes % (auto) 0.5 %; Lymphocytes % (auto) 35.7 %; Mean Corpuscular Hemoglobin 29.2 pg (25-34); Mean Corpuscular Hgb Conc 33.7 g/dL (32-36); Mean Corpuscular Volume 86.7 fL (80-100); Mean Platelet Volume 11.4 fL (7.4-10.4); Monocytes % (auto) 9.3 %; Neutrophils # (auto) 3.43 K/uL (1.4-6.5); Neutrophils % (auto) 53.1 %; Platelet Count 127 K/uL (130-400); RDW Coefficient of Variation 14.4 % (11.5-14.5); RDW Standard Deviation 45.3 fL (36.4-46.3); Red Blood Count 3.83 M/uL (4.7-6.1); White Blood Count 6.45 K/uL (4.8-10.8)
[2020-10-02 06:54] LABS: BUN Creatinine Ratio 25.6 (10-20); Calcium 8.5 mg/dl (8.5-10.1); Creatinine Clr Calc Pharmacy 80.2 ml/min; Est GFR (African American) 117.2; Est GFR (Non-African American) 101.1; Potassium 3.5 mmol/L (3.5-5.1)
[2020-10-02] MEDS: INSULIN ASPART 100 UNITS/ML 3 ML PEN SC SCH ×4 (08:49→21:07)
[2020-10-02] MEDS: BRIMONIDINE TARTRATE-P 0.15% 5 ML BTL OPB SCH ×3 (08:52→20:37)
[2020-10-02] MEDS: ASPIRIN 81 MG ECTAB PO SCH (08:53)
[2020-10-02] MEDS: FOLIC ACID 1 MG TAB PO SCH (08:53)
[2020-10-02] MEDS: carvediloL 3.125 MG TAB PO SCH (08:53)
[2020-10-02] MEDS: FERROUS SULFATE 325 MG TAB PO SCH (08:53)
[2020-10-02] MEDS: ATORVASTATIN 40 MG TAB PO SCH (08:54)
[2020-10-02] MEDS: ENOXAPARIN INJ 30 MG/0.3 ML SYR SQ SCH (08:54)
[2020-10-02] MEDS: INSULIN GLARGINE SOLOSTAR 100 UNITS/ML 3 ML PEN SC SCH ×2 (08:54→21:08)
[2020-10-02] MEDS: DORZOLAMIDE HCL 2% OPH SOLN 10 ML BTL OP SCH ×3 (08:55→20:38)
[2020-10-02] MEDS: THIAMINE HCL 100 MG in SYRINGE 9 ML IV SCH (08:55)
[2020-10-02] MEDS: TIMOLOL MALEATE 0.5% OP SOLN 5 ML BTL OPB SCH (08:56)
[2020-10-02] MEDS ORDERED: SODIUM CHLORIDE 0.9% 1000ML 500 ML IV ONE (13:50)
--- NOTE | 2020-10-02 15:27 | Hospitalist Progress Note ---
Date of Service October 02, 2020 Assessment & Plan (1) DKA (diabetic ketoacidoses): Gap closed, transitioned to basal bolus SQ insulin but he is still not tolerating PO reliably. Fluids switched to 1/2 NSS for overnight, and overnight BSG checks ordered wtih coverage if needed. Cont to encourage him to eat in setting of severe malnutrition and weight loss. Diabetes education. Clinically a lot better today and denies any significant symptoms Remains weak and lethargic with low blood pressure and dizziness when standing Advised to drink and eat more (2) Type 2 diabetes mellitus with hemoglobin A1c goal of less than 8.0%: See plan for #1 (3) COPD, moderate: chronc, no evidence of exacerbation, Not currently on a maintenance inhaler - uses only albuterol prn (4) Hypertension, goal below 140/90: BP low normal, cont to hold antihypertensives. Will not restart any medicine for hypertension (5) Glaucoma: Continue outpatient regimen of eye drops, this situation has recently progressed and is a source of depression for patient per his brother. (6) CAD (coronary atherosclerotic disease): Oral meds including aspirin and beta-tita currently on hold. HR 50-60 overnight. Cont to hold. Will resume once more stable and reliably tolerating PO. (7) Alcohol abuse: Will monitor and reassess frequently need for additional medications. Received thiamine and folic acid in ED. (8) Dyslipidemia: restart lipitor. (9) Severe protein-calorie malnutrition: Nutrition assessment with daily calorie count needed. Appreciate recs. (10) Diarrhea: Resolved-Initially had significant diarrhea in the ER--placed on empiric Flagyl for c-diff-was not able to collect a sample as BMs stopped. Flagyl was stopped We will get repeat stool for C. difficile toxin (11) DVT prophylaxis: Lovenox DNR/DNI Dispo-transfer to med surg. Cont placement assessment with Case Management. Admission and Anticipated Discharge Date Admission Date: September 27, 2020 Subjective The patient was seen and examined in medical floor He was admitted with diabetic ketoacidosis and has been feeling much better as of today Denies any significant symptoms during my examination His blood sugar seems to be under control 10/02/2020 The patient was seen and examined in medical floor He has not been eating or drinking enough and has been feeling weak and dizzy with low blood pressure He denies any other acute symptoms Review of Systems Review of Systems: All systems reviewed and are unremarkable except as noted below Neurologic: + generalized weakness Physical Exam Physical Exam: Lying in bed comfortably Constitutional: + ill appearing and + thin Eyes: PERRL, conjunctivae normal, anicteric sclerae ENMT: external ear and nose normal, oropharynx normal Neck: trachea midline, no thyromegaly Respiratory: no respiratory distress Auscultation: lungs clear to auscultation bilaterally Cardiovascular: Rate/Rhythm: regular rate and regular rhythm Heart Sounds: no murmur Gastrointestinal (Abdomen): Inspection/Auscultation: normal bowel sounds Percussion/Palpation: abdomen soft; abdomen nontender Musculoskeletal: No acute arthritis in any joint Neurologic: Alert, awake and oriented x3. Generally weak but no focal sensory and/or motor deficit appreciated Lymphatic: no cervical or axillary lymphadenopathy Results & Data Results & Data ([facility]) Vital Signs (Past 12 Hours) Vital Signs Temp Pulse Pulse Resp BP Pulse Ox 10/02/20 15:11 36.3 C L 67 17 109/65 98 10/02/20 13:45 68 82/49 L 10/02/20 12:37 68 85/54 L 10/02/20 07:09 36.3 C L 79 16 111/70 96 10/02/20 06:15 108/67 Laboratory Results Short CBC 10/02/20 Range/Units 05:42 WBC 6.45 (4.8-10.8) K/uL Hgb 11.2 L (14.0-18.0) g/dL Hct 33.2 L (42-52) % Plt Count 127 L (130-400) K/uL BMP 10/02/20 05:42 Sodium 139 Potassium 3.5 Chloride 108 H Carbon Dioxide 26 BUN 15 Creatinine 0.58 L Glucose 96 Calcium 8.5 Medications Administered Current Inpatient Medications Al Hydrox/Mg Hydrox/Simethicone (Aluminum/Magnesium Susp 30 Ml Udc) 15 ml PO Q6H PRN PRN Reason: Dyspepsia Stop: 10/31/20 13:52 Last Admin: 10/01/20 17:09 Dose: 15 ml Documented by: Aspirin (Aspirin 81 Mg Ectab) 81 mg PO DAILY ROHAN Stop: 10/31/20 08:59 Last Admin: 10/02/20 08:53 Dose: 81 mg Documented by: Atorvastatin Calcium (Atorvastatin 40 Mg Tab) 40 mg PO DAILY ROHAN Stop: 10/30/20 08:59 Last Admin: 10/02/20 08:54 Dose: 40 mg Documented by: Brimonidine Tartrate (Brimonidine Tartrate-P 0.15% 5 Ml Btl) 1 drops OPB TID [facility] Stop: 10/27/20 20:59 Last Admin: 10/02/20 14:32 Dose: 1 drops Documented by: Carvedilol (Carvedilol 3.125 Mg Tab) 3.125 mg PO DAILY ROHAN Stop: 10/31/20 08:59 Last Admin: 10/02/20 08:53 Dose: 3.125 mg Documented by: Dextrose (Dextrose 50% 50 Ml Syringe) 25 - 50 ml IV UD PRN; Protocol PRN Reason: Hypoglycemia Protocol Stop: 10/27/20 14:24 Last Admin: 09/28/20 20:15 Dose: 50 ml Documented by: Dorzolamide HCl (Dorzolamide Hcl 2% Oph Soln 10 Ml Btl) 1 drops OP TID [facility] Stop: 10/27/20 20:59 Last Admin: 10/02/20 14:32 Dose: 1 drops Documented by: Enoxaparin Sodium (Enoxaparin Inj 30 Mg/0.3 Ml Syr) 30 mg SQ QAM [facility] Stop: 10/29/20 08:59 Last Admin: 10/02/20 08:54 Dose: 30 mg Documented by: Ferrous Sulfate (Ferrous Sulfate 325 Mg Tab) 325 mg PO DAILY ROHAN Stop: 10/31/20 08:59 Last Admin: 10/02/20 08:53 Dose: 325 mg Documented by: Folic Acid (Folic Acid 1 Mg Tab) 1 mg PO QAM [facility] Stop: 10/28/20 08:59 Last Admin: 10/02/20 08:53 Dose: 1 mg Documented by: Glucagon (Glucagon For Inj 1 Mg Vial) 1 mg SQ UD PRN; Protocol PRN Reason: Hypoglycemia Protocol Stop: 10/27/20 14:24 Glucose (Glucose 10 Tabs/Tube) 4 - 8 tabs PO UD PRN; Protocol PRN Reason: Hypoglycemia Protocol Stop: 10/27/20 14:24 Glucose (Glucose 40% Gel 15 Gm Tube) 15 - 30 gm PO UD PRN; Protocol PRN Reason: Hypoglycemia Protocol Stop: 10/27/20 14:24 Thiamine HCl 100 mg/ Syringe 10 mls @ 2 mls/min IV QAM [facility] Stop: 10/28/20 08:59 Last Admin: 10/02/20 08:55 Dose: 2 mls/min Documented by: Insulin Aspart (Insulin Aspart 100 Units/Ml 3 Ml Pen) 0 units SC ACHS [facility] Stop: 10/29/20 03:54 Last Admin: 10/02/20 13:06 Dose: 5 units Documented by: Insulin Glargine (Insulin Glargine Solostar 100 Units/Ml 3 Ml Pen) 10 units SC BID [facility] Stop: 10/30/20 20:59 Last Admin: 10/02/20 08:54 Dose: 10 units Documented by: Latanoprost (Latanoprost 0.005% Op Soln 2.5 Ml Btl) 1 drops OP HS [facility] Stop: 10/27/20 20:59 Last Admin: 10/01/20 20:16 Dose: 1 drops Documented by: Miscellaneous (Carbohydrates For Hypoglycemia ) 15 - 30 gm PO UD PRN PRN Reason: Hypoglycemia Protocol Stop: 10/27/20 14:24 Timolol Maleate (Timolol Maleate 0.5% Op Soln 5 Ml Btl) 1 drops OPB DAILY [facility] Stop: 10/28/20 08:59 Last Admin: 10/02/20 08:56 Dose: 1 drops Documented by: (1) DKA (diabetic ketoacidoses) Diabetes mellitus complication detail: without coma Diabetes mellitus type: other specified (including RICHIE) Qualified Code(s): E13.10 - Other specified diabetes mellitus with ketoacidosis without coma (2) Glaucoma Glaucoma type: open-angle Open angle glaucoma type: primary Laterality: bilateral Glaucoma stage: indeterminate stage Qualified Code(s): H40.1134 - Primary open-angle glaucoma, bilateral, indeterminate stage (3) CAD (coronary atherosclerotic disease) Coronary Disease-Associated Artery/Lesion type: unspecified vessel or lesion type [place] vs. transplanted heart: [place] heart Associated angina: angina presence unspecified Qualified Code(s): I25.10 - Atherosclerotic heart disease of [place] coronary artery without angina pectoris
[2020-10-02] MEDS: LATANOPROST 0.005% OP SOLN 2.5 ML BTL OP SCH (20:37)
[2020-10-03 06:24] LABS: Hemoglobin 10.5 g/dL (14.0-18.0); Mean Corpuscular Hemoglobin 29.2 pg (25-34); Mean Corpuscular Hgb Conc 33.9 g/dL (32-36); Mean Corpuscular Volume 86.4 fL (80-100); Mean Platelet Volume 11.8 fL (7.4-10.4); Platelet Count 150 K/uL (130-400); RDW Coefficient of Variation 14.4 % (11.5-14.5); RDW Standard Deviation 45.2 fL (36.4-46.3); Red Blood Count 3.59 M/uL (4.7-6.1); White Blood Count 7.24 K/uL (4.8-10.8)
[2020-10-03] MEDS: BRIMONIDINE TARTRATE-P 0.15% 5 ML BTL OPB SCH ×3 (09:20→21:00)
[2020-10-03] MEDS: TIMOLOL MALEATE 0.5% OP SOLN 5 ML BTL OPB SCH (09:21)
[2020-10-03] MEDS: ENOXAPARIN INJ 30 MG/0.3 ML SYR SQ SCH (09:21)
[2020-10-03] MEDS: DORZOLAMIDE HCL 2% OPH SOLN 10 ML BTL OP SCH ×3 (09:21→21:01)
[2020-10-03] MEDS: ASPIRIN 81 MG ECTAB PO SCH (09:22)
[2020-10-03] MEDS: FERROUS SULFATE 325 MG TAB PO SCH (09:22)
[2020-10-03] MEDS: FOLIC ACID 1 MG TAB PO SCH (09:22)
[2020-10-03] MEDS: ATORVASTATIN 40 MG TAB PO SCH (09:22)
[2020-10-03] MEDS: INSULIN GLARGINE SOLOSTAR 100 UNITS/ML 3 ML PEN SC SCH ×2 (09:24→21:01)
[2020-10-03] MEDS: INSULIN ASPART 100 UNITS/ML 3 ML PEN SC SCH ×4 (09:25→21:01)
[2020-10-03] MEDS: THIAMINE HCL 100 MG in SYRINGE 9 ML IV SCH (09:29)
[2020-10-03] MEDS ORDERED: bisacodyL 10 MG SUPP PR STA (10:40)
[2020-10-03] MEDS: PSYLLIUM 58.6% POWDER PACKET PO SCH (14:01)
--- NOTE | 2020-10-03 15:50 | Hospitalist Progress Note ---
Date of Service October 03, 2020 Assessment & Plan (1) DKA (diabetic ketoacidoses): Gap closed, transitioned to basal bolus SQ insulin but he is still not tolerating PO reliably. Fluids switched to 1/2 NSS for overnight, and overnight BSG checks ordered wtih coverage if needed. Cont to encourage him to eat in setting of severe malnutrition and weight loss. Diabetes education. Clinically a lot better today and denies any significant symptoms Has been participating in physical therapy Remains weak and lethargic Discussed about going to a skilled care facility or personal longterm from here and he is agreeable (2) Type 2 diabetes mellitus with hemoglobin A1c goal of less than 8.0%: See plan for #1 We will need to eat and drink more (3) COPD, moderate: chronc, no evidence of exacerbation, Not currently on a maintenance inhaler - uses only albuterol prn (4) Hypertension, goal below 140/90: BP low normal, cont to hold antihypertensives. Will not restart any medicine for hypertension Blood pressure seems to be stable at lower limit (5) Glaucoma: Continue outpatient regimen of eye drops, this situation has recently progressed and is a source of depression for patient per his brother. (6) CAD (coronary atherosclerotic disease): Oral meds including aspirin and beta-tita currently on hold. HR 50-60 overnight. Cont to hold. Will resume once more stable and reliably tolerating PO. (7) Alcohol abuse: Will monitor and reassess frequently need for additional medications. Received thiamine and folic acid in ED. (8) Dyslipidemia: restart lipitor. (9) Severe protein-calorie malnutrition: Nutrition assessment with daily calorie count needed. Appreciate recs. (10) Diarrhea: Resolved-Initially had significant diarrhea in the ER--placed on empiric Flagyl for c-diff-was not able to collect a sample as BMs stopped. Flagyl was stopped We will get repeat stool for C. difficile toxin (11) DVT prophylaxis: Lovenox DNR/DNI Dispo-transfer to med surg. Cont placement assessment with Case Management. Admission and Anticipated Discharge Date Admission Date: September 27, 2020 Subjective The patient was seen and examined in medical floor He was admitted with diabetic ketoacidosis and has been feeling much better as of today Denies any significant symptoms during my examination His blood sugar seems to be under control 10/02/2020 The patient was seen and examined in medical floor He has not been eating or drinking enough and has been feeling weak and dizzy with low blood pressure He denies any other acute symptoms 10/03/2020 The patient was seen in medical floor He has been much better today and is out of bed on a chair He has not been drinking or eating adequately He remains very weak and lethargic Review of Systems Review of Systems: All systems reviewed and are unremarkable except as noted below Neurologic: + generalized weakness Physical Exam Physical Exam: Sitting on a chair without any acute distress Constitutional: + ill appearing and + thin; no acute distress Eyes: PERRL, conjunctivae normal, anicteric sclerae ENMT: external ear and nose normal, oropharynx normal Neck: trachea midline, no thyromegaly Respiratory: no respiratory distress Auscultation: lungs clear to auscultation bilaterally Cardiovascular: Rate/Rhythm: regular rate and regular rhythm Heart Sounds: no murmur Gastrointestinal (Abdomen): Inspection/Auscultation: normal bowel sounds Percussion/Palpation: abdomen soft; abdomen nontender Musculoskeletal: No acute arthritis in any joint Neurologic: Alert, awake and oriented x3 Lymphatic: no cervical or axillary lymphadenopathy Results & Data Results & Data ([facility]) Vital Signs (Past 12 Hours) Vital Signs Temp Pulse Pulse Resp BP BP Pulse Ox 10/03/20 15:41 36.3 C L 75 17 102/68 96 10/03/20 07:36 36.6 C 65 16 117/81 97 10/03/20 07:00 36.6 C 59 L 16 116/69 96 Laboratory Results Short CBC 10/03/20 Range/Units 05:38 WBC 7.24 (4.8-10.8) K/uL Hgb 10.5 L (14.0-18.0) g/dL Hct 31.0 L (42-52) % Plt Count 150 (130-400) K/uL Medications Administered Current Inpatient Medications Al Hydrox/Mg Hydrox/Simethicone (Aluminum/Magnesium Susp 30 Ml Udc) 15 ml PO Q6H PRN PRN Reason: Dyspepsia Stop: 10/31/20 13:52 Last Admin: 10/01/20 17:09 Dose: 15 ml Documented by: Aspirin (Aspirin 81 Mg Ectab) 81 mg PO DAILY [facility]OH[facility] Stop: 10/31/20 08:59 Last Admin: 10/03/20 09:22 Dose: 81 mg Documented by: Atorvastatin Calcium (Atorvastatin 40 Mg Tab) 40 mg PO DAILY [facility]OH[facility] Stop: 10/30/20 08:59 Last Admin: 10/03/20 09:22 Dose: 40 mg Documented by: Brimonidine Tartrate (Brimonidine Tartrate-P 0.15% 5 Ml Btl) 1 drops OPB TID [facility] Stop: 10/27/20 20:59 Last Admin: 10/03/20 14:01 Dose: 1 drops Documented by: Dextrose (Dextrose 50% 50 Ml Syringe) 25 - 50 ml IV UD PRN; Protocol PRN Reason: Hypoglycemia Protocol Stop: 10/27/20 14:24 Last Admin: 09/28/20 20:15 Dose: 50 ml Documented by: Dorzolamide HCl (Dorzolamide Hcl 2% Oph Soln 10 Ml Btl) 1 drops OP TID [facility] Stop: 10/27/20 20:59 Last Admin: 10/03/20 14:01 Dose: 1 drops Documented by: Enoxaparin Sodium (Enoxaparin Inj 30 Mg/0.3 Ml Syr) 30 mg SQ QAM [facility] Stop: 10/29/20 08:59 Last Admin: 10/03/20 09:21 Dose: 30 mg Documented by: Ferrous Sulfate (Ferrous Sulfate 325 Mg Tab) 325 mg PO DAILY [facility] Stop: 10/31/20 08:59 Last Admin: 10/03/20 09:22 Dose: 325 mg Documented by: Folic Acid (Folic Acid 1 Mg Tab) 1 mg PO QAM [facility] Stop: 10/28/20 08:59 Last Admin: 10/03/20 09:22 Dose: 1 mg Documented by: Glucagon (Glucagon For Inj 1 Mg Vial) 1 mg SQ UD PRN; Protocol PRN Reason: Hypoglycemia Protocol Stop: 10/27/20 14:24 Glucose (Glucose 10 Tabs/Tube) 4 - 8 tabs PO UD PRN; Protocol PRN Reason: Hypoglycemia Protocol Stop: 10/27/20 14:24 Glucose (Glucose 40% Gel 15 Gm Tube) 15 - 30 gm PO UD PRN; Protocol PRN Reason: Hypoglycemia Protocol Stop: 10/27/20 14:24 Thiamine HCl 100 mg/ Syringe 10 mls @ 2 mls/min IV QAM [facility] Stop: 10/28/20 08:59 Last Admin: 10/03/20 09:29 Dose: 2 mls/min Documented by: Insulin Aspart (Insulin Aspart 100 Units/Ml 3 Ml Pen) 0 units SC ACHS [facility] Stop: 10/29/20 03:54 Last Admin: 10/03/20 13:15 Dose: 15 units Documented by: Insulin Glargine (Insulin Glargine Solostar 100 Units/Ml 3 Ml Pen) 10 units SC BID [facility] Stop: 10/30/20 20:59 Last Admin: 10/03/20 09:24 Dose: 10 units Documented by: Latanoprost (Latanoprost 0.005% Op Soln 2.5 Ml Btl) 1 drops OP HS [facility] Stop: 10/27/20 20:59 Last Admin: 10/02/20 20:37 Dose: 1 drops Documented by: Miscellaneous (Carbohydrates For Hypoglycemia ) 15 - 30 gm PO UD PRN PRN Reason: Hypoglycemia Protocol Stop: 10/27/20 14:24 Psyllium Hydrophilic Mucilloid (Psyllium 58.6% Powder Packet) 1 pkt PO QAM [facility] Stop: 11/02/20 10:44 Last Admin: 10/03/20 14:01 Dose: 1 pkt Documented by: Timolol Maleate (Timolol Maleate 0.5% Op Soln 5 Ml Btl) 1 drops OPB DAILY [facility] Stop: 10/28/20 08:59 Last Admin: 10/03/20 09:21 Dose: 1 drops Documented by: (1) DKA (diabetic ketoacidoses) Diabetes mellitus complication detail: without coma Diabetes mellitus type: other specified (including RICHIE) Qualified Code(s): E13.10 - Other specified diabetes mellitus with ketoacidosis without coma (2) Glaucoma Glaucoma type: open-angle Open angle glaucoma type: primary Laterality: bilateral Glaucoma stage: indeterminate stage Qualified Code(s): H40.1134 - Primary open-angle glaucoma, bilateral, indeterminate stage (3) CAD (coronary atherosclerotic disease) Coronary Disease-Associated Artery/Lesion type: unspecified vessel or lesion type [place] vs. transplanted heart: [place] heart Associated angina: angina presence unspecified Qualified Code(s): I25.10 - Atherosclerotic heart disease of [place] coronary artery without angina pectoris
[2020-10-03] MEDS: LATANOPROST 0.005% OP SOLN 2.5 ML BTL OP SCH (21:01)
[2020-10-04 06:54] LABS: Creatinine Clr Calc Pharmacy 103.4 ml/min; Est GFR (African American) 130.1; Est GFR (Non-African American) 112.3
[2020-10-04] MEDS: BRIMONIDINE TARTRATE-P 0.15% 5 ML BTL OPB SCH ×3 (09:06→21:26)
[2020-10-04] MEDS: FOLIC ACID 1 MG TAB PO SCH (09:07)
[2020-10-04] MEDS: FERROUS SULFATE 325 MG TAB PO SCH (09:08)
[2020-10-04] MEDS: PSYLLIUM 58.6% POWDER PACKET PO SCH (09:08)
[2020-10-04] MEDS: ATORVASTATIN 40 MG TAB PO SCH (09:08)
[2020-10-04] MEDS: ASPIRIN 81 MG ECTAB PO SCH (09:08)
[2020-10-04] MEDS: ENOXAPARIN INJ 30 MG/0.3 ML SYR SQ SCH (09:08)
[2020-10-04] MEDS: DORZOLAMIDE HCL 2% OPH SOLN 10 ML BTL OP SCH ×3 (09:09→21:25)
[2020-10-04] MEDS: TIMOLOL MALEATE 0.5% OP SOLN 5 ML BTL OPB SCH (09:09)
[2020-10-04] MEDS: THIAMINE HCL 100 MG in SYRINGE 9 ML IV SCH ×2 (09:09→09:29)
[2020-10-04] MEDS: INSULIN GLARGINE SOLOSTAR 100 UNITS/ML 3 ML PEN SC SCH ×2 (09:10→21:23)
[2020-10-04] MEDS: INSULIN ASPART 100 UNITS/ML 3 ML PEN SC SCH ×4 (09:10→21:22)
--- NOTE | 2020-10-04 13:57 | Hospitalist Progress Note ---
Date of Service October 04, 2020 Assessment & Plan (1) DKA (diabetic ketoacidoses): Gap closed, transitioned to basal bolus SQ insulin but he is still not tolerating PO reliably. Fluids switched to 1/2 NSS for overnight, and overnight BSG checks ordered wtih coverage if needed. Cont to encourage him to eat in setting of severe malnutrition and weight loss. Diabetes education. Clinically a lot better today and denies any significant symptoms Has been participating in physical therapy Remains weak and lethargic Discussed about going to a skilled care facility or personal half-way from here and he is agreeable He is going to try to eat more and drink more Continue with in PT and OT-likely to be transferred to [place] skilled care facility/personal half-way Poor eyesight He cannot take his medications right rightly He can have falls due to poor eyesight Better to have placed him in a facility (2) Type 2 diabetes mellitus with hemoglobin A1c goal of less than 8.0%: See plan for #1 We will need to eat and drink more (3) COPD, moderate: chronc, no evidence of exacerbation, Not currently on a maintenance inhaler - uses only albuterol prn (4) Hypertension, goal below 140/90: BP low normal, cont to hold antihypertensives. Will not restart any medicine for hypertension Blood pressure seems to be stable at lower limit (5) Glaucoma: Continue outpatient regimen of eye drops, this situation has recently progressed and is a source of depression for patient per his brother. (6) CAD (coronary atherosclerotic disease): Oral meds including aspirin and beta-tita currently on hold. HR 50-60 overnight. Cont to hold. Will resume once more stable and reliably tolerating PO. (7) Alcohol abuse: Will monitor and reassess frequently need for additional medications. Received thiamine and folic acid in ED. (8) Dyslipidemia: restart lipitor. (9) Severe protein-calorie malnutrition: Nutrition assessment with daily calorie count needed. Appreciate recs. (10) Diarrhea: Resolved-Initially had significant diarrhea in the ER--placed on empiric Flagyl for c-diff-was not able to collect a sample as BMs stopped. Flagyl was stopped We will get repeat stool for C. difficile toxin (11) DVT prophylaxis: Lovenox DNR/DNI Dispo-transfer to med surg. Cont placement assessment with Case Management. Admission and Anticipated Discharge Date Admission Date: September 27, 2020 Subjective The patient was seen and examined in medical floor He was admitted with diabetic ketoacidosis and has been feeling much better as of today Denies any significant symptoms during my examination His blood sugar seems to be under control 10/02/2020 The patient was seen and examined in medical floor He has not been eating or drinking enough and has been feeling weak and dizzy with low blood pressure He denies any other acute symptoms 10/03/2020 The patient was seen in medical floor He has been much better today and is out of bed on a chair He has not been drinking or eating adequately He remains very weak and lethargic 10/04/2020 The patient was seen and examined in medical floor He remains stable without any acute distress He is talking normally and is planning to eat and drink more as advised Review of Systems Review of Systems: All systems reviewed and are unremarkable except as noted below Neurologic: + generalized weakness Physical Exam Physical Exam: Sitting on a chair without any acute distress Constitutional: + ill appearing and + thin; no acute distress Eyes: PERRL, conjunctivae normal, anicteric sclerae ENMT: external ear and nose normal, oropharynx normal Neck: trachea midline, no thyromegaly Respiratory: no respiratory distress Auscultation: lungs clear to auscul tation bilaterally Cardiovascular: Rate/Rhythm: regular rate and regular rhythm Heart Sounds: no murmur Gastrointestinal (Abdomen): Inspection/Auscultation: normal bowel sounds Percussion/Palpation: abdomen soft; abdomen nontender Musculoskeletal: No acute arthritis in any joint Neurologic: Alert and awake Lymphatic: no cervical or axillary lymphadenopathy Results & Data Results & Data ([facility]) Vital Signs (Past 12 Hours) Vital Signs Temp Pulse Resp BP Pulse Ox 10/04/20 07:53 36.4 C L 66 16 113/73 97 (1) DKA (diabetic ketoacidoses) Diabetes mellitus complication detail: without coma Diabetes mellitus type: other specified (including RICHIE) Qualified Code(s): E13.10 - Other specified diabetes mellitus with ketoacidosis without coma (2) Glaucoma Glaucoma type: open-angle Open angle glaucoma type: primary Laterality: bilateral Glaucoma stage: indeterminate stage Qualified Code(s): H40.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 transplanted heart: [place] heart Associated angina: angina presence unspecified Qualified Code(s): I25.10 - Atherosclerotic heart disease of [place] coronary artery without angina pectoris
[2020-10-04] MEDS: LATANOPROST 0.005% OP SOLN 2.5 ML BTL OP SCH (21:25)
[2020-10-05] MEDS: ENOXAPARIN INJ 30 MG/0.3 ML SYR SQ SCH (08:45)
[2020-10-05] MEDS: ASPIRIN 81 MG ECTAB PO SCH (08:46)
[2020-10-05] MEDS: FOLIC ACID 1 MG TAB PO SCH (08:46)
[2020-10-05] MEDS: FERROUS SULFATE 325 MG TAB PO SCH (08:46)
[2020-10-05] MEDS: ATORVASTATIN 40 MG TAB PO SCH (08:47)
[2020-10-05] MEDS: THIAMINE HCL 100 MG in SYRINGE 9 ML IV SCH ×2 (08:47→08:59)
[2020-10-05] MEDS: PSYLLIUM 58.6% POWDER PACKET PO SCH (08:47)
[2020-10-05] MEDS: DORZOLAMIDE HCL 2% OPH SOLN 10 ML BTL OP SCH ×3 (08:48→20:50)
[2020-10-05] MEDS: TIMOLOL MALEATE 0.5% OP SOLN 5 ML BTL OPB SCH (08:48)
[2020-10-05] MEDS: BRIMONIDINE TARTRATE-P 0.15% 5 ML BTL OPB SCH ×3 (08:48→20:51)
[2020-10-05] MEDS: INSULIN GLARGINE SOLOSTAR 100 UNITS/ML 3 ML PEN SC SCH ×2 (08:49→21:45)
[2020-10-05] MEDS: INSULIN ASPART 100 UNITS/ML 3 ML PEN SC SCH ×4 (08:51→21:47)
--- NOTE | 2020-10-05 14:13 | Hospitalist Progress Note ---
Date of Service October 05, 2020 Assessment & Plan (1) DKA (diabetic ketoacidoses): Gap closed, transitioned to basal bolus SQ insulin but he is still not tolerating PO reliably. Fluids switched to 1/2 NSS for overnight, and overnight BSG checks ordered wtih coverage if needed. Cont to encourage him to eat in setting of severe malnutrition and weight loss. Diabetes education. Clinically a lot better today and denies any significant symptoms Has been participating in physical therapy Remains weak and lethargic Discussed about going to a skilled care facility or personal usp from here and he is agreeable He is going to try to eat more and drink more Continue with in PT and OT-likely to be transferred to [place] skilled care facility/personal usp He will be transferred when accepted to a facility Poor eyesight He cannot take his medications right rightly He can have falls due to poor eyesight Better to have placed him in a facility (2) Type 2 diabetes mellitus with hemoglobin A1c goal of less than 8.0%: See plan for #1 We will need to eat and drink more Blood sugar is elevated but is being controlled with SSI (3) COPD, moderate: chronc, no evidence of exacerbation, Not currently on a maintenance inhaler - uses only albuterol prn (4) Hypertension, goal below 140/90: BP low normal, cont to hold antihypertensives. Will not restart any medicine for hypertension Blood pressure seems to be stable at lower limit (5) Glaucoma: Continue outpatient regimen of eye drops, this situation has recently progressed and is a source of depression for patient per his brother. (6) CAD (coronary atherosclerotic disease): Oral meds including aspirin and beta-tita currently on hold. HR 50-60 overnight. Cont to hold. Will resume once more stable and reliably tolerating PO. (7) Alcohol abuse: Will monitor and reassess frequently need for additional medications. Received thiamine and folic acid in ED. (8) Dyslipidemia: restart lipitor. (9) Severe protein-calorie malnutrition: Nutrition assessment with daily calorie count needed. Appreciate recs. (10) Diarrhea: Resolved-Initially had significant diarrhea in the ER--placed on empiric Flagyl for c-diff-was not able to collect a sample as BMs stopped. Flagyl was stopped We will get repeat stool for C. difficile toxin (11) DVT prophylaxis: Lovenox DNR/DNI Dispo-transfer to med surg. Cont placement assessment with Case Management. Admission and Anticipated Discharge Date Admission Date: September 27, 2020 Subjective The patient was seen and examined in medical floor He was admitted with diabetic ketoacidosis and has been feeling much better as of today Denies any significant symptoms during my examination His blood sugar seems to be under control 10/02/2020 The patient was seen and examined in medical floor He has not been eating or drinking enough and has been feeling weak and dizzy with low blood pressure He denies any other acute symptoms 10/03/2020 The patient was seen in medical floor He has been much better today and is out of bed on a chair He has not been drinking or eating adequately He remains very weak and lethargic 10/04/2020 The patient was seen and examined in medical floor He remains stable without any acute distress He is talking normally and is planning to eat and drink more as advised 10/05/2020 The patient was seen and examined in medical floor He has been much better today He has been trying and eating reasonably Review of Systems Review of Systems: All systems reviewed and are unremarkable except as noted below Neurologic: + generalized weakness Physical Exam Physical Exam: Sitting on a chair without any acute distress Constitutional: + thin; no acute distress and not ill appearing Eyes: PERRL, conjunctivae normal, anicteric sclerae ENMT: external ear and nose normal, oropharynx normal Neck: trachea midline, no thyromegaly Respiratory: no respiratory distress Auscultation: lungs clear to auscultation bilaterally Cardiovascular: Rate/Rhythm: regular rate and regular rhythm Heart Sounds: no murmur Extremities: no edema Gastrointestinal (Abdomen): Inspection/Auscultation: normal bowel sounds Percussion/Palpation: abdomen soft; abdomen nontender Neurologic: Alert, awake and oriented x3. Generally weak Lymphatic: no cervical or axillary lymphadenopathy Results & Data Results & Data ([facility]) Vital Signs (Past 12 Hours) Vital Signs Temp Pulse Resp BP Pulse Ox 10/05/20 08:37 36.5 C 60 16 128/77 98 (1) DKA (diabetic ketoacidoses) Diabetes mellitus complication detail: without coma Diabetes mellitus type: other specified (including RICHIE) Qualified Code(s): E13.10 - Other specified diabetes mellitus with ketoacidosis without coma (2) Glaucoma Glaucoma type: open-angle Open angle glaucoma type: primary Laterality: bilateral Glaucoma stage: indeterminate stage Qualified Code(s): H40.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 transplanted heart: [place] heart Associated angina: angina presence unspecified Qualified Code(s): I25.10 - Atherosclerotic heart disease of [place] coronary artery without angina pectoris
[2020-10-05] MEDS: LATANOPROST 0.005% OP SOLN 2.5 ML BTL OP SCH (20:51)
[2020-10-05] MEDS ORDERED: INSULIN HUMAN REGULAR PER UNIT 4 UNITS in SYRINGE 3.96 ML IV ONE (21:01)
[2020-10-06 05:57] LABS: Basophils # (auto) 0.01 K/uL (0-0.2); Basophils % (auto) 0.2 %; Eosinophils # (auto) 0.06 K/uL (0-0.5); Hematocrit (blood only) 33.6 % (42-52); Hemoglobin 11.4 g/dL (14.0-18.0); Immature Granulocytes # (auto) 0.01 K/uL (0.00-0.02); Immature Granulocytes % (auto) 0.2 %; Lymphocytes % (auto) 32.6 %; Mean Corpuscular Hemoglobin 29.7 pg (25-34); Mean Corpuscular Hgb Conc 33.9 g/dL (32-36); Mean Corpuscular Volume 87.5 fL (80-100); Mean Platelet Volume 10.8 fL (7.4-10.4); Monocytes # (auto) 0.76 K/uL (0.11-0.59); Monocytes % (auto) 13.1 %; Neutrophils # (auto) 3.08 K/uL (1.4-6.5); Neutrophils % (auto) 52.9 %; Platelet Count 221 K/uL (130-400); RDW Coefficient of Variation 14.5 % (11.5-14.5); RDW Standard Deviation 44.8 fL (36.4-46.3); Red Blood Count 3.84 M/uL (4.7-6.1); White Blood Count 5.82 K/uL (4.8-10.8)
[2020-10-06 06:29] LABS: BUN Creatinine Ratio 30.3 (10-20); Calcium 8.7 mg/dl (8.5-10.1); Est GFR (African American) 125.6; Est GFR (Non-African American) 108.4; Magnesium 2.1 mg/dl (1.8-2.4); Potassium 3.9 mmol/L (3.5-5.1)
[2020-10-06 06:30] LABS: Phosphorus 2.8 mg/dl (2.5-4.9)
[2020-10-06] MEDS: BRIMONIDINE TARTRATE-P 0.15% 5 ML BTL OPB SCH ×3 (09:10→21:22)
[2020-10-06] MEDS: FERROUS SULFATE 325 MG TAB PO SCH (09:11)
[2020-10-06] MEDS: FOLIC ACID 1 MG TAB PO SCH (09:11)
[2020-10-06] MEDS: ATORVASTATIN 40 MG TAB PO SCH (09:12)
[2020-10-06] MEDS: ENOXAPARIN INJ 30 MG/0.3 ML SYR SQ SCH (09:12)
[2020-10-06] MEDS: TIMOLOL MALEATE 0.5% OP SOLN 5 ML BTL OPB SCH (09:13)
[2020-10-06] MEDS: PSYLLIUM 58.6% POWDER PACKET PO SCH (09:13)
[2020-10-06] MEDS: DORZOLAMIDE HCL 2% OPH SOLN 10 ML BTL OP SCH ×3 (09:13→21:23)
[2020-10-06] MEDS: THIAMINE HCL 100 MG in SYRINGE 9 ML IV SCH (09:14)
[2020-10-06] MEDS: INSULIN GLARGINE SOLOSTAR 100 UNITS/ML 3 ML PEN SC SCH (09:32)
[2020-10-06] MEDS: INSULIN ASPART 100 UNITS/ML 3 ML PEN SC SCH ×4 (09:32→21:25)
[2020-10-06] MEDS: ASPIRIN 81 MG ECTAB PO SCH (10:09)
--- NOTE | 2020-10-06 10:42 | Hospitalist Progress Note ---
Date of Service October 06, 2020 Assessment & Plan (1) DKA (diabetic ketoacidoses): Gap closed, transitioned to basal bolus SQ insulin but he is still not tolerating PO reliably. Fluids switched to 1/2 NSS for overnight, and overnight BSG checks ordered wtih coverage if needed. Cont to encourage him to eat in setting of severe malnutrition and weight loss. Diabetes education. Clinically a lot better today and denies any significant symptoms Has been participating in physical therapy Remains weak and lethargic Discussed about going to a skilled care facility or personal half-way from here and he is agreeable He is going to try to eat more and drink more Continue with in PT and OT-likely to be transferred to [place] skilled care facility/personal half-way He will be transferred when accepted to a facility Has been doing much better but complaining to have some diarrhea Poor eyesight He cannot take his medications right rightly He can have falls due to poor eyesight Better to have placed him in a facility Has been complaining of loose stool No abdominal pain and/or distention Will get C. difficile toxin tested (2) Type 2 diabetes mellitus with hemoglobin A1c goal of less than 8.0%: See plan for #1 We will need to eat and drink more Blood sugar is elevated but is being controlled with SSI Will increase Lantus to 12 units twice daily (3) COPD, moderate: chronc, no evidence of exacerbation, Not currently on a maintenance inhaler - uses only albuterol prn (4) Hypertension, goal below 140/90: BP low normal, cont to hold antihypertensives. Will not restart any medicine for hypertension Blood pressure seems to be stable at lower limit (5) Glaucoma: Continue outpatient regimen of eye drops, this situation has recently progressed and is a source of depression for patient per his brother. (6) CAD (coronary atherosclerotic disease): Oral meds including aspirin and beta-tita currently on hold. HR 50-60 overnight. Cont to hold. Will resume once more stable and reliably tolerating PO. (7) Alcohol abuse: Will monitor and reassess frequently need for additional medications. Received thiamine and folic acid in ED. (8) Dyslipidemia: restart lipitor. (9) Severe protein-calorie malnutrition: Nutrition assessment with daily calorie count needed. Appreciate recs. (10) Diarrhea: Resolved-Initially had significant diarrhea in the ER--placed on empiric Flagyl for c-diff-was not able to collect a sample as BMs stopped. Flagyl was stopped We will get repeat stool for C. difficile toxin (11) DVT prophylaxis: Lovenox DNR/DNI Dispo-transfer to med surg. Cont placement assessment with Case Management. Likely transfer to facility when accepted Admission and Anticipated Discharge Date Admission Date: September 27, 2020 Subjective The patient was seen and examined in medical floor He was admitted with diabetic ketoacidosis and has been feeling much better as of today Denies any significant symptoms during my examination His blood sugar seems to be under control 10/02/2020 The patient was seen and examined in medical floor He has not been eating or drinking enough and has been feeling weak and dizzy with low blood pressure He denies any other acute symptoms 10/03/2020 The patient was seen in medical floor He has been much better today and is out of bed on a chair He has not been drinking or eating adequately He remains very weak and lethargic 10/04/2020 The patient was seen and examined in medical floor He remains stable without any acute distress He is talking normally and is planning to eat and drink more as advised 10/05/2020 The patient was seen and examined in medical floor He has been much better today He has been trying and eating reasonably 10/06/2020 The patient was seen and examined in medical floor He has been eating and drinking reasonably Complains to have some loose stool Blood sugar has been running a little high Review of Systems Review of Systems: All systems reviewed and are unremarkable except as noted below Gastrointestinal: + diarrhea/loose stools Neurologic: + generalized weakness Physical Exam Physical Exam: Sitting on a chair without any acute distress Constitutional: + thin; no acute distress and not ill appearing Eyes: PERRL, conjunctivae normal, anicteric sclerae ENMT: external ear and nose normal, oropharynx normal Neck: trachea midline, no thyromegaly Respiratory: no respiratory distress Auscultation: lungs clear to auscultation bilaterally Cardiovascular: Rate/Rhythm: regular rate and regular rhythm Heart Sounds: no murmur Extremities: no edema Gastrointestinal (Abdomen): Inspection/Auscultation: normal bowel sounds Percussion/Palpation: abdomen soft; abdomen nontender Musculoskeletal: No acute arthritis in any joint Neurologic: Alert, awake and oriented x3. Generally weak and lethargic. No focal neuro deficit Lymphatic: no cervical or axillary lymphadenopathy Results & Data Results & Data ([facility]) Vital Signs (Past 12 Hours) Vital Signs Temp Pulse Pulse Resp BP BP Pulse Ox 10/06/20 07:10 36.5 C 81 16 116/75 96 10/05/20 23:15 36.6 C 74 16 101/67 96 Laboratory Results Short CBC 10/06/20 Range/Units 05:29 WBC 5.82 (4.8-10.8) K/uL Hgb 11.4 L (14.0-18.0) g/dL Hct 33.6 L (42-52) % Plt Count 221 (130-400) K/uL BMP 10/06/20 05:29 Sodium 137 Potassium 3.9 Chloride 104 Carbon Dioxide 27 BUN 15 Creatinine 0.49 L Glucose 259 H Calcium 8.7 Medications Administered Current Inpatient Medications Al Hydrox/Mg Hydrox/Simethicone (Aluminum/Magnesium Susp 30 Ml Udc) 15 ml PO Q6H PRN PRN Reason: Dyspepsia Stop: 10/31/20 13:52 Last Admin: 10/01/20 17:09 Dose: 15 ml Documented by: Aspirin (Aspirin 81 Mg Ectab) 81 mg PO DAILY REPLACED BY [facility] Stop: 10/31/20 08:59 Last Admin: 10/06/20 10:09 Dose: 81 mg Documented by: Atorvastatin Calcium (Atorvastatin 40 Mg Tab) 40 mg PO DAILY ROHAN Stop: 10/30/20 08:59 Last Admin: 10/06/20 09:12 Dose: 40 mg Documented by: Brimonidine Tartrate (Brimonidine Tartrate-P 0.15% 5 Ml Btl) 1 drops OPB TID ROHAN Stop: 10/27/20 20:59 Last Admin: 10/06/20 09:10 Dose: 1 drops Documented by: Dextrose (Dextrose 50% 50 Ml Syringe) 25 - 50 ml IV UD PRN; Protocol PRN Reason: Hypoglycemia Protocol Stop: 10/27/20 14:24 Last Admin: 09/28/20 20:15 Dose: 50 ml Documented by: Dorzolamide HCl (Dorzolamide Hcl 2% Oph Soln 10 Ml Btl) 1 drops OP TID ROHAN Stop: 10/27/20 20:59 Last Admin: 10/06/20 09:13 Dose: 1 drops Documented by: Enoxaparin Sodium (Enoxaparin Inj 30 Mg/0.3 Ml Syr) 30 mg SQ QAM REPLACED BY [facility] Stop: 10/29/20 08:59 Last Admin: 10/06/20 09:12 Dose: 30 mg Documented by: Ferrous Sulfate (Ferrous Sulfate 325 Mg Tab) 325 mg PO DAILY ROHAN Stop: 10/31/20 08:59 Last Admin: 10/06/20 09:11 Dose: 325 mg Documented by: Folic Acid (Folic Acid 1 Mg Tab) 1 mg PO QAM REPLACED BY [facility] Stop: 10/28/20 08:59 Last Admin: 10/06/20 09:11 Dose: 1 mg Documented by: Glucagon (Glucagon For Inj 1 Mg Vial) 1 mg SQ UD PRN; Protocol PRN Reason: Hypoglycemia Protocol Stop: 10/27/20 14:24 Glucose (Glucose 10 Tabs/Tube) 4 - 8 tabs PO UD PRN; Protocol PRN Reason: Hypoglycemia Protocol Stop: 10/27/20 14:24 Glucose (Glucose 40% Gel 15 Gm Tube) 15 - 30 gm PO UD PRN; Protocol PRN Reason: Hypoglycemia Protocol Stop: 10/27/20 14:24 Thiamine HCl 100 mg/ Syringe 10 mls @ 2 mls/min IV QAM REPLACED BY [facility] Stop: 10/28/20 08:59 Last Admin: 10/06/20 09:14 Dose: 2 mls/min Documented by: Insulin Aspart (Insulin Aspart 100 Units/Ml 3 Ml Pen) 0 units SC ACHS REPLACED BY [facility] Stop: 10/29/20 03:54 Last Admin: 10/06/20 09:32 Dose: 15 units Documented by: Insulin Glargine (Insulin Glargine Solostar 100 Units/Ml 3 Ml Pen) 12 units SC BID REPLACED BY [facility] Stop: 11/05/20 20:59 Latanoprost (Latanoprost 0.005% Op Soln 2.5 Ml Btl) 1 drops OP HS REPLACED BY [facility] Stop: 10/27/20 20:59 Last Admin: 10/05/20 20:51 Dose: 1 drops Documented by: Miscellaneous (Carbohydrates For Hypoglycemia ) 15 - 30 gm PO UD PRN PRN Reason: Hypoglycemia Protocol Stop: 10/27/20 14:24 Psyllium Hydrophilic Mucilloid (Psyllium 58.6% Powder Packet) 1 pkt PO QAM REPLACED BY [facility] Stop: 11/02/20 10:44 Last Admin: 10/06/20 09:13 Dose: 1 pkt Documented by: Timolol Maleate (Timolol Maleate 0.5% Op Soln 5 Ml Btl) 1 drops OPB DAILY ROHAN Stop: 10/28/20 08:59 Last Admin: 10/06/20 09:13 Dose: 1 drops Documented by: (1) DKA (diabetic ketoacidoses) Diabetes mellitus complication detail: without coma Diabetes mellitus type: other specified (including RICHIE) Qualified Code(s): E13.10 - Other specified diabetes mellitus with ketoacidosis without coma (2) Glaucoma Glaucoma type: open-angle Open angle glaucoma type: primary Laterality: bilateral Glaucoma stage: indeterminate stage Qualified Code(s): H40.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 transplanted heart: [place] heart Associated angina: angina presence unspecified Qualified Code(s): I25.10 - Atherosclerotic heart disease of [place] coronary artery without angina pectoris
--- NOTE | 2020-10-06 13:34 | Palliative Care Progress Note ---
Date of Service October 06, 2020 Assessment & Plan (1) Palliative care encounter: POA form has been completed with is brother, Patrick Evans, as his healthcare POA. We completed a POLST form today based on Mr. Evans's wishes and discussed with Patrick. Palliative care will sign off for now. Please let us know if we can help in any further way. Admission and Anticipated Discharge Date Admission Date: September 27, 2020 Subjective Appetite is poor but he is feeling well. He is awake and alert today. No particular concers. Review of Systems Review of Systems: [place] Symptom Assessment Scale Pain 0/3 Dyspnea 0/3 Nausea 0/3 Anorexia 2/3 Anxiety 1/3 Drowsiness 0/3 Palliative Performance Score 50% Physical Exam Constitutional: + thin and + frail appearing Respiratory: normal respiratory effort; no labored breathing Gastrointestinal (Abdomen): Inspection/Auscultation: abdomen not distended Musculoskeletal: Extremities: + muscle atrophy Skin: warm and dry Psychiatric: Orientation: alert and oriented x 3 Results & Data ([facility]) Vital Signs (Past 12 Hours) Vital Signs Temp Pulse Resp BP Pulse Ox 10/06/20 07:10 97.7 F 81 16 116/75 96 PG Care Time/CCT Total # of Minutes Spent Total Time Spent with Patient: Total time spent is greater than 50% in coordination of care (as documented) at patient's floor/unit and/or counseling patient: 35 minutes with more than 50% of times pent on discussing goals of care and POLST completion. Coding Level of Care Code 29482 Subseq Hosp Care Lvl 3 Diagnoses Palliative care encounter Z51.5
[2020-10-06] MEDS ORDERED: INFLUENZA ADMINISTRATION CHARGE ONE (14:30)
[2020-10-06] MEDS ORDERED: INFLUENZA VACCINE HIGH DOSE 65+ 0.7 ML SYR IM ONE (14:30)
[2020-10-06] MEDS ORDERED: INSULIN GLARGINE SOLOSTAR 100 UNITS/ML 3 ML PEN SC SCH (21:00)
[2020-10-06] MEDS: LATANOPROST 0.005% OP SOLN 2.5 ML BTL OP SCH (21:23)
[2020-10-06] MEDS ORDERED: PHARMACY GLYCEMIC MGMT CONSULT PRN (22:48)
[2020-10-07] MEDS ORDERED: INSULIN GLARGINE SOLOSTAR 100 UNITS/ML 3 ML PEN SC ONE
[2020-10-07] MEDS ORDERED: INSULIN HUMAN REGULAR PER UNIT 5 UNITS in SYRINGE 4.95 ML IV ONE
[2020-10-07] MEDS: INSULIN ASPART 100 UNITS/ML 3 ML PEN SC SCH ×6 (00:02→20:29)
[2020-10-07 06:22] LABS: Creatinine Clr Calc Pharmacy 66.5 ml/min; Est GFR (African American) 108.5; Est GFR (Non-African American) 93.6
[2020-10-07] MEDS: INSULIN GLARGINE SOLOSTAR 100 UNITS/ML 3 ML PEN SC SCH ×2 (09:30→20:30)
[2020-10-07] MEDS: ASPIRIN 81 MG ECTAB PO SCH (09:32)
[2020-10-07] MEDS: FERROUS SULFATE 325 MG TAB PO SCH (09:32)
[2020-10-07] MEDS: FOLIC ACID 1 MG TAB PO SCH (09:32)
[2020-10-07] MEDS: ENOXAPARIN INJ 30 MG/0.3 ML SYR SQ SCH (09:33)
[2020-10-07] MEDS: ATORVASTATIN 40 MG TAB PO SCH (09:33)
[2020-10-07] MEDS: PSYLLIUM 58.6% POWDER PACKET PO SCH (09:34)
[2020-10-07] MEDS: THIAMINE HCL 100 MG in SYRINGE 9 ML IV SCH (09:35)
[2020-10-07] MEDS: TIMOLOL MALEATE 0.5% OP SOLN 5 ML BTL OPB SCH (09:36)
[2020-10-07] MEDS: BRIMONIDINE TARTRATE-P 0.15% 5 ML BTL OPB SCH ×3 (09:37→20:36)
[2020-10-07] MEDS: DORZOLAMIDE HCL 2% OPH SOLN 10 ML BTL OP SCH ×3 (09:37→20:36)
--- NOTE | 2020-10-07 12:42 | Hospitalist Progress Note ---
Date of Service October 07, 2020 Assessment & Plan (1) DKA (diabetic ketoacidoses): Gap closed, transitioned to basal bolus SQ insulin but he is still not tolerating PO reliably. Fluids switched to 1/2 NSS for overnight, and overnight BSG checks ordered wtih coverage if needed. Cont to encourage him to eat in setting of severe malnutrition and weight loss. Diabetes education. Clinically a lot better today and denies any significant symptoms Has been participating in physical therapy Remains weak and lethargic Discussed about going to a skilled care facility or personal halfway from here and he is agreeable He is going to try to eat more and drink more Continue with in PT and OT-likely to be transferred to [place] skilled care facility/personal halfway He will be transferred when accepted to a facility Has been doing much better but complaining to have some diarrhea No more diarrhea and no other symptoms Will be transferred to skilled care facility this afternoon Poor eyesight He cannot take his medications right rightly He can have falls due to poor eyesight Better to have placed him in a facility Has been complaining of loose stool No abdominal pain and/or distention Will get C. difficile toxin tested-stool not collected (2) Type 2 diabetes mellitus with hemoglobin A1c goal of less than 8.0%: See plan for #1 We will need to eat and drink more Blood sugar is elevated but is being controlled with SSI Will increase Lantus to 12 units twice daily Blood sugar is reasonable (3) COPD, moderate: chronc, no evidence of exacerbation, Not currently on a maintenance inhaler - uses only albuterol prn (4) Hypertension, goal below 140/90: BP low normal, cont to hold antihypertensives. Will not restart any medicine for hypertension Blood pressure seems to be stable at lower limit (5) Glaucoma: Continue outpatient regimen of eye drops, this situation has recently progressed and is a source of depression for patient per his brother. (6) CAD (coronary atherosclerotic disease): Oral meds including aspirin and beta-tita currently on hold. HR 50-60 overnight. Cont to hold. Will resume once more stable and reliably tolerating PO. We will hold the beta-tita for now (7) Alcohol abuse: Will monitor and reassess frequently need for additional medications. Received thiamine and folic acid in ED. (8) Dyslipidemia: restart lipitor. (9) Severe protein-calorie malnutrition: Nutrition assessment with daily calorie count needed. Appreciate recs. (10) Diarrhea: Resolved-Initially had significant diarrhea in the ER--placed on empiric Flagyl for c-diff-was not able to collect a sample as BMs stopped. Flagyl was stopped We will get repeat stool for C. difficile toxin-not collected (11) DVT prophylaxis: Lovenox DNR/DNI Dispo-transfer to med surg. Cont placement assessment with Case Management. Likely transfer to facility when accepted Will be transferred to [facility] either this afternoon or tomorrow morning Admission and Anticipated Discharge Date Admission Date: September 27, 2020 Subjective The patient was seen and examined in medical floor He was admitted with diabetic ketoacidosis and has been feeling much better as of today Denies any significant symptoms during my examination His blood sugar seems to be under control 10/02/2020 The patient was seen and examined in medical floor He has not been eating or drinking enough and has been feeling weak and dizzy with low blood pressure He denies any other acute symptoms 10/03/2020 The patient was seen in medical floor He has been much better today and is out of bed on a chair He has not been drinking or eating adequately He remains very weak and lethargic 10/04/2020 The patient was seen and examined in medical floor He remains stable without any acute distress He is talking normally and is planning to eat and drink more as advised 10/05/2020 The patient was seen and examined in medical floor He has been much better today He has been trying and eating reasonably 10/06/2020 The patient was seen and examined in medical floor He has been eating and drinking reasonably Complains to have some loose stool Blood sugar has been running a little high 10/07/2020 The patient was seen and examined in medical floor He has pain in stable and eating and drinking reasonably Denies any significant symptoms Awaiting to be transferred Review of Systems Review of Systems: All systems reviewed and are unremarkable except as noted below Gastrointestinal: no diarrhea/loose stools Neurologic: + generalized weakness Physical Exam Physical Exam: Sitting on a chair without any acute distress Constitutional: + thin; no acute distress and not ill appearing Eyes: PERRL, conjunctivae normal, anicteric sclerae ENMT: external ear and nose normal, oropharynx normal Neck: trachea midline, no thyromegaly Respiratory: no respiratory distress Auscultation: lungs clear to auscultation bilaterally Cardiovascular: Rate/Rhythm: regular rate and regular rhythm Heart Sounds: no murmur Extremities: no edema Gastrointestinal (Abdomen): Inspection/Auscultation: normal bowel sounds Percussion/Palpation: abdomen soft; abdomen nontender Musculoskeletal: No acute arthritis in any joint Neurologic: Alert, awake and oriented x3. Generally weak but no focal neuro deficit Psychiatric: A+Ox3, euthymic affect Lymphatic: no cervical or axillary lymphadenopathy Results & Data Results & Data ([facility]) Vital Signs (Past 12 Hours) Vital Signs Temp Pulse Resp BP Pulse Ox 10/07/20 07:16 36.3 C L 70 16 107/69 96 Laboratory Results BMP 10/07/20 05:38 Creatinine 0.70 Medications Administered Current Inpatient Medications Al Hydrox/Mg Hydrox/Simethicone (Aluminum/Magnesium Susp 30 Ml Udc) 15 ml PO Q6H PRN PRN Reason: Dyspepsia Stop: 10/31/20 13:52 Last Admin: 10/01/20 17:09 Dose: 15 ml Documented by: Aspirin (Aspirin 81 Mg Ectab) 81 mg PO DAILY [facility] Stop: 10/31/20 08:59 Last Admin: 10/07/20 09:32 Dose: 81 mg Documented by: Atorvastatin Calcium (Atorvastatin 40 Mg Tab) 40 mg PO DAILY [facility] Stop: 10/30/20 08:59 Last Admin: 10/07/20 09:33 Dose: 40 mg Documented by: Brimonidine Tartrate (Brimonidine Tartrate-P 0.15% 5 Ml Btl) 1 drops OPB TID [facility] Stop: 10/27/20 20:59 Last Admin: 10/07/20 09:37 Dose: 1 drops Documented by: Dextrose (Dextrose 50% 50 Ml Syringe) 25 - 50 ml IV UD PRN; Protocol PRN Reason: Hypoglycemia Protocol Stop: 10/27/20 14:24 Last Admin: 09/28/20 20:15 Dose: 50 ml Documented by: Dorzolamide HCl (Dorzolamide Hcl 2% Oph Soln 10 Ml Btl) 1 drops OP TID ROHAN Stop: 10/27/20 20:59 Last Admin: 10/07/20 09:37 Dose: 1 drops Documented by: Enoxaparin Sodium (Enoxaparin Inj 30 Mg/0.3 Ml Syr) 30 mg SQ QAM [facility] Stop: 10/29/20 08:59 Last Admin: 10/07/20 09:33 Dose: 30 mg Documented by: Ferrous Sulfate (Ferrous Sulfate 325 Mg Tab) 325 mg PO DAILY [facility] Stop: 10/31/20 08:59 Last Admin: 10/07/20 09:32 Dose: 325 mg Documented by: Folic Acid (Folic Acid 1 Mg Tab) 1 mg PO QAM ROHAN Stop: 10/28/20 08:59 Last Admin: 10/07/20 09:32 Dose: 1 mg Documented by: Glucagon (Glucagon For Inj 1 Mg Vial) 1 mg SQ UD PRN; Protocol PRN Reason: Hypoglycemia Protocol Stop: 10/27/20 14:24 Glucose (Glucose 10 Tabs/Tube) 4 - 8 tabs PO UD PRN; Protocol PRN Reason: Hypoglycemia Protocol Stop: 10/27/20 14:24 Glucose (Glucose 40% Gel 15 Gm Tube) 15 - 30 gm PO UD PRN; Protocol PRN Reason: Hypoglycemia Protocol Stop: 10/27/20 14:24 Thiamine HCl 100 mg/ Syringe 10 mls @ 2 mls/min IV QAM ROHAN Stop: 10/28/20 08:59 Last Admin: 10/07/20 09:35 Dose: 2 mls/min Documented by: Insulin Aspart (Insulin Aspart 100 Units/Ml 3 Ml Pen) 0 units SC ACHS [facility] Stop: 10/29/20 03:54 Last Admin: 10/07/20 09:29 Dose: 4 units Documented by: Insulin Glargine (Insulin Glargine Solostar 100 Units/Ml 3 Ml Pen) 20 units SC BID ROHAN Stop: 11/06/20 08:59 Last Admin: 10/07/20 09:30 Dose: 20 units Documented by: Latanoprost (Latanoprost 0.005% Op Soln 2.5 Ml Btl) 1 drops OP HS [facility] Stop: 10/27/20 20:59 Last Admin: 10/06/20 21:23 Dose: 1 drops Documented by: Miscellaneous (Carbohydrates For Hypoglycemia ) 15 - 30 gm PO UD PRN PRN Reason: Hypoglycemia Protocol Stop: 10/27/20 14:24 Miscellaneous Information (Pharmacy Glycemic Mgmt Consult) 1 ea N/A UD PRN PRN Reason: Consult Stop: 11/05/20 22:47 Psyllium Hydrophilic Mucilloid (Psyllium 58.6% Powder Packet) 1 pkt PO QAM [facility] Stop: 11/02/20 10:44 Last Admin: 10/07/20 09:34 Dose: 1 pkt Documented by: Timolol Maleate (Timolol Maleate 0.5% Op Soln 5 Ml Btl) 1 drops OPB DAILY [facility] Stop: 10/28/20 08:59 Last Admin: 10/07/20 09:36 Dose: 1 drops Documented by: (1) DKA (diabetic ketoacidoses) Diabetes mellitus complication detail: without coma Diabetes mellitus type: other specified (including RICHIE) Qualified Code(s): E13.10 - Other specified diabetes mellitus with ketoacidosis without coma (2) Glaucoma Glaucoma type: open-angle Open angle glaucoma type: primary Laterality: bilateral Glaucoma stage: indeterminate stage Qualified Code(s): H40.1134 - Primary open-angle glaucoma, bilateral, indeterminate stage (3) CAD (coronary atherosclerotic disease) Coronary Disease-Associated Artery/Lesion type: unspecified vessel or lesion type [place] vs. transplanted heart: [place] heart Associated angina: angina presence unspecified Qualified Code(s): I25.10 - Atherosclerotic heart disease of [place] coronary artery without angina pectoris
--- NOTE | 2020-10-07 13:50 | Pharmacy Report ---
Pharmacy Glycemic Short Note 2 - Date of Service October 07, 2020 - Glycemic Short BSG Results (Last 24 hours): 10/06/20 10/06/20 10/06/20 17:01 17:02 20:46 POC Glucose 360 H* 386 H* 456 H* 10/06/20 10/06/20 10/07/20 20:47 23:57 03:54 POC Glucose 430 H* 438 H* 249 H 10/07/20 10/07/20 08:07 12:05 POC Glucose 118 H 181 H OUTPATIENT ANTIDIABETIC REGIMEN: * Lantus 10 units SQ qHS * Novolin-R sliding scale * Glipizide 5mg PO daily * Metformin 1000mg PO BID * Ozempic 0.25mg SQ weekly * HbA1c: 9.7% (09/27/20) ASSESSMENT: * Mr Evans is a 75yo diabetic male admitted on 09/27/20 with DKA. BSGs have been labile during admission, but patient has largely been significantly hyperglycemic. * Pharmacy consult received today to assist with glycemic management. * Mr Evans received 135 units of insulin yesterday. * 32 units of basal insulin, plus 28 units of Novolog overnight = 60 units basal * 75 units of correctional/prandial insulin throughout the day * Basal insulin increased significantly this morning to better reflect patient's insulin requirements recently. * Novolog parameters were tightened by provider yesterday and seem to be appropriate for now. PLAN FOR INPATIENT GLYCEMIC CONTROL: * Hold outpatient oral diabetes medications * Basal insulin * Lantus 20 units SQ BID * Bolus insulin * NovoLog per scale ACHS or Q6hrs while NPO * Goal Range: Low 110 mg/dL - High 140 mg/dL * Correction Factor: 15 mg/dL/unit * Nutritional / Prandial insulin per carb ratio of 1 unit per 7 grams CHO consumed PLAN FOR DISCHARGE: * A1c 9.7% * This suggests suboptimal glycemic control as an outpt. A reasonable goal for this 75yo might be closer to 7.5% * Consider adjusting insulin regimen on discharge. Recommend f/u with PCP after discharge to work toward optimizing A1c.
[2020-10-07] MEDS ORDERED: SODIUM CHLORIDE 0.9% 1000ML 500 ML IV ONE (16:42)
[2020-10-07] MEDS: LATANOPROST 0.005% OP SOLN 2.5 ML BTL OP SCH (20:36)
[2020-10-07] MEDS ORDERED: SODIUM CHLORIDE 0.9% 1000ML 1,000 ML IV SCH (23:00)
[2020-10-08] MEDS ORDERED: INSULIN ASPART 100 UNITS/ML 3 ML PEN SC SCH ×2 (02:00→04:00)
[2020-10-08] MEDS: CARBOHYDRATES FOR HYPOGLYCEMIA PO PRN ×2 (02:27→02:50)
--- NOTE | 2020-10-08 09:17 | Pharmacy Report ---
Pharmacy Glycemic Short Note 2 - Date of Service October 08, 2020 - Glycemic Short BSG Results (Last 24 hours): 10/07/20 10/07/20 10/07/20 12:05 17:06 20:18 POC Glucose 181 H 246 H 271 H 10/08/20 10/08/20 10/08/20 02:25 02:27 02:47 POC Glucose 46 L* 51 L* 53 L* 10/08/20 10/08/20 10/08/20 03:12 03:59 08:14 POC Glucose 96 123 H 177 H OUTPATIENT ANTIDIABETIC REGIMEN: * Lantus 10 units SQ qHS * Novolin-R sliding scale * Glipizide 5mg PO daily * Metformin 1000mg PO BID * Ozempic 0.25mg SQ weekly * HbA1c: 9.7% (09/27/20) ASSESSMENT: 10/08/20: * Mr Gil received 87 units of insulin yesterday. * 40 units of basal insulin * 47 units of correctional/prandial insulin * Pt had a hypoglycemic event overnight. Basal insulin reduced today and transitioned back to once-daily dosing (at HS), per patient's outpatient insulin use. * BSGs yesterday did rise throughout the day, so Novolog parameters were adjusted this morning to provide additional carb coverage and slightly less correction. Suspect that hypoglycemic event was a result of too much basal, but also insulin stacking from correctional insulin. 10/07/20 * Mr Evans is a 75yo diabetic male admitted on 09/27/20 with DKA. BSGs have been labile during admission, but patient has largely been significantly hyperglycemic. * Pharmacy consult received today to assist with glycemic management. * Mr Evans received 135 units of insulin yesterday. * 32 units of basal insulin, plus 28 units of Novolog overnight = 60 units basal * 75 units of correctional/prandial insulin throughout the day * Basal insulin increased significantly this morning to better reflect patient's insulin requirements recently. * Novolog parameters were tightened by provider yesterday and seem to be appropriate for now. PLAN FOR INPATIENT GLYCEMIC CONTROL: * Hold outpatient oral diabetes medications * Basal insulin * Lantus 20 units SQ qHS * Bolus insulin * NovoLog per scale ACHS or Q6hrs while NPO * Goal Range: Low 110 mg/dL - High 140 mg/dL * Correction Factor: 20 mg/dL/unit * Nutritional / Prandial insulin per carb ratio of 1 unit per 6 grams CHO consumed PLAN FOR DISCHARGE: * A1c 9.7% * This suggests suboptimal glycemic control as an outpt. A reasonable goal for this 75yo might be closer to 7.5% * Consider adjusting insulin regimen on discharge. Recommend f/u with PCP after discharge to work toward optimizing A1c. * See CDE recommendations. Agree with stopping Ozempic and Metformin.
[2020-10-08] MEDS: INSULIN ASPART 100 UNITS/ML 3 ML PEN SC SCH ×4 (09:47→21:22)
[2020-10-08] MEDS: ATORVASTATIN 40 MG TAB PO SCH (09:48)
[2020-10-08] MEDS: FOLIC ACID 1 MG TAB PO SCH (09:48)
[2020-10-08] MEDS: PSYLLIUM 58.6% POWDER PACKET PO SCH (09:48)
[2020-10-08] MEDS: ASPIRIN 81 MG ECTAB PO SCH (09:49)
[2020-10-08] MEDS: BRIMONIDINE TARTRATE-P 0.15% 5 ML BTL OPB SCH ×3 (09:49→21:33)
[2020-10-08] MEDS: TIMOLOL MALEATE 0.5% OP SOLN 5 ML BTL OPB SCH (09:50)
[2020-10-08] MEDS: ENOXAPARIN INJ 30 MG/0.3 ML SYR SQ SCH (09:50)
[2020-10-08] MEDS: DORZOLAMIDE HCL 2% OPH SOLN 10 ML BTL OP SCH ×3 (09:50→21:33)
[2020-10-08] MEDS: THIAMINE HCL 100 MG in SYRINGE 9 ML IV SCH (09:52)
[2020-10-08] MEDS: FERROUS SULFATE 325 MG TAB PO SCH (10:16)
[2020-10-08] MEDS ORDERED: SODIUM CHLORIDE 0.9% 500 ML IV SCH (15:45)
--- NOTE | 2020-10-08 19:11 | Hospitalist Progress Note ---
Date of Service October 08, 2020 Assessment & Plan (1) DKA (diabetic ketoacidoses): (1) DKA (diabetic ketoacidoses): Currently on insulin Lantus and sliding scale NovoLog Blood glucose within acceptable range Poor eyesight Per Dr. Melton's notes: He cannot take his medications correctly He can have falls due to poor eyesight Patient declined to go to snf facility, will discuss further with case management tomorrow (2) Type 2 diabetes mellitus with hemoglobin A1c goal of less than 8.0%: Usually on Ozempic, Metformin, insulin glargine and regular Per #1 (3) COPD, moderate: Not in exacerbation (4) Hypertension, goal below 140/90: Antihypertensives held in light of marginal blood pressure Given 500 cc bolus today, with improvement Continue to monitor (5) Glaucoma: Per Dr. Melton's notes Continue outpatient regimen of eye drops, this situation has recently progressed and is a source of depression for patient per his brother. (6) CAD (coronary atherosclerotic disease): Continue aspirin Carvedilol on hold in light of marginal blood pressure (7) Alcohol abuse: No signs of alcohol withdrawal (8) Dyslipidemia: On Lipitor (9) Severe protein-calorie malnutrition: Nutrition assessment with daily calorie count needed. (10) Diarrhea: Resolved (11) DVT prophylaxis: Lovenox DNR/DNI Disposition Patient declines going to a snf facility, would like to go home with home services, family support Will discuss with case management tomorrow Admission and Anticipated Discharge Date Admission Date: September 27, 2020 Subjective Follow-up for DKA, hypertension, etc. Seen sitting up in bed, comfortable, having dinner Oriented x3, answers questions appropriately States he feels fine overall Denies chest pain, shortness of breath palpitations, dizziness, abdominal pain, nausea vomiting No other symptoms States that he would like to go home, and that he has a lot of help at home including his family, friends and caregiver Review of Systems Review of Systems: All systems reviewed & are unremarkable except as noted in Subjective Physical Exam Physical Exam: General- oriented x 3, not in distress, speaks in sentences with no effort or accessory muscle use Eyes- anicteric Neck- no JVD Lungs- clear breath sounds bilaterally, no rales/wheezes Heart- normal rate, regular rhythm; no murmurs Abdomen- normal bowel sounds, nondistended, soft, nontender Extremities- no pretibial edema, no calf tenderness Neuro- alert, oriented x 3; no gross focal neurologic deficits Skin- warm & dry Results & Data Results & Data ([facility]) Vital Signs (Past 12 Hours) Vital Signs Temp Pulse Resp BP BP Pulse Ox 10/08/20 16:36 64 16 96/63 L 97 10/08/20 15:25 36.5 C 76 16 84/53 L 77/49 L 94 10/08/20 07:17 36.2 C L 66 14 124/73 97 Laboratory Results Laboratory Results - last 24 hr 10/07/20 10/08/20 10/08/20 20:18 02:25 02:27 POC Glucose 271 H 46 L* 51 L* 10/08/20 10/08/20 10/08/20 02:47 03:12 03:59 POC Glucose 53 L* 96 123 H 10/08/20 10/08/20 10/08/20 08:14 12:15 17:12 POC Glucose 177 H 170 H 83 (1) DKA (diabetic ketoacidoses) Diabetes mellitus complication detail: without coma Diabetes mellitus type: other specified (including RICHIE) Qualified Code(s): E13.10 - Other specified diabetes mellitus with ketoacidosis without coma
[2020-10-08] MEDS ORDERED: INSULIN GLARGINE SOLOSTAR 100 UNITS/ML 3 ML PEN SC SCH (21:00)
[2020-10-08] MEDS: LATANOPROST 0.005% OP SOLN 2.5 ML BTL OP SCH (21:33)
[2020-10-09 08:07] LABS: Hemoglobin 10.6 g/dL (14.0-18.0); Mean Corpuscular Hemoglobin 29.5 pg (25-34); Mean Corpuscular Hgb Conc 33.1 g/dL (32-36); Mean Corpuscular Volume 89.1 fL (80-100); Mean Platelet Volume 10.5 fL (7.4-10.4); Platelet Count 233 K/uL (130-400); RDW Coefficient of Variation 15.6 % (11.5-14.5); RDW Standard Deviation 49.3 fL (36.4-46.3); Red Blood Count 3.59 M/uL (4.7-6.1); White Blood Count 4.43 K/uL (4.8-10.8)
[2020-10-09] MEDS: CARBOHYDRATES FOR HYPOGLYCEMIA PO PRN (08:14)
[2020-10-09] MEDS: ENOXAPARIN INJ 30 MG/0.3 ML SYR SQ SCH (09:01)
[2020-10-09] MEDS: TIMOLOL MALEATE 0.5% OP SOLN 5 ML BTL OPB SCH (09:02)
[2020-10-09] MEDS: BRIMONIDINE TARTRATE-P 0.15% 5 ML BTL OPB SCH ×2 (09:02→13:19)
[2020-10-09] MEDS: DORZOLAMIDE HCL 2% OPH SOLN 10 ML BTL OP SCH ×2 (09:02→13:19)
[2020-10-09] MEDS: INSULIN ASPART 100 UNITS/ML 3 ML PEN SC SCH ×2 (09:05→13:17)
[2020-10-09] MEDS: FERROUS SULFATE 325 MG TAB PO SCH (09:06)
[2020-10-09] MEDS: ASPIRIN 81 MG ECTAB PO SCH (09:06)
[2020-10-09] MEDS: FOLIC ACID 1 MG TAB PO SCH (09:06)
[2020-10-09] MEDS: PSYLLIUM 58.6% POWDER PACKET PO SCH (09:06)
[2020-10-09] MEDS: ATORVASTATIN 40 MG TAB PO SCH (09:07)
[2020-10-09] MEDS: THIAMINE HCL 100 MG in SYRINGE 9 ML IV SCH (09:13)
--- NOTE | 2020-10-09 10:51 | Pharmacy Report ---
Glycemic Control Progress Note - Date of Service October 09, 2020 - Scope Glycemic Pharmacist consulted for glycemic control to write orders per [facility] inpatient glycemic control protocol. - Objective Accuchecks BSG(last 24 hours):: 10/08/20 10/08/20 10/08/20 12:15 17:12 20:28 POC Glucose 170 H 83 191 H 10/09/20 10/09/20 10/09/20 02:46 08:10 08:11 POC Glucose 108 H 59 L* 55 L* 10/09/20 08:28 POC Glucose 87 HbA1c:: Hemoglobin A1c 9.7 % (4.5-5.6) H 09/27/20 14:10 - Recent Pertinent Medications The patient is currently receiving: * Basal insulin: Lantus 20 units every 24 hours (in the evening) * Correctional Insulin: Novolog Correction per scale ACHS Goal Range: Low 110 mg/dL - High 140 mg/dL Correction Factor: 20 mg/dL/unit * Prandial insulin: Per carb ratio of 1 unit per 6 grams CHO consumed - Outpatient Anti-Diabetic Meds Lantus 10 units HS Glipizide metformin Ozempic - Assessment & Plan ASSESSMENT: * See progress note from 10/07/20 for more background info, in short: * Pt receiving SQ basal bolus insulin regimen for hyperglycemia secondary to baseline DM (outpatient regimen on hold). * Patient is currently receiving an average of 46 units of insulin per day * 20 units of basal insulin * 26 units of prandial/correctional insulin * BSGs ranging 46 - 191 mg/dl over the past 24hrs * Changes needed to insulin regimen: * AM Fasting BSG = 59 mg/dl. This is below goal range for patient based on inpatient targets and co-morbidities. Therefore Basal insulin will be reduced by half to 10 units nightly. * Post-prandial BSGs were fluctuating yesterday. Suspect that patient requires more carbohydrate coverage but with hypoglycemic episode this morning will loosen CF/CR for now. * Total daily dose is TBD. PLAN FOR INPATIENT GLYCEMIC CONTROL: * DECREASING Lantus to 10 units SQ HS * LOOSENING correction factor to 25 mg/dl/unit * LOOSENING carb ratio to 1 unit per 7 grams CHO consumed * Continuing goal range of Low 110 mg/dL - High 140 mg/dL RECOMMENDATIONS FOR DISCHARGE: * A1c 9.7% * This suggests suboptimal glycemic control as an outpt. A reasonable goal for this 75yo might be closer to 7.5% * Consider adjusting insulin regimen on discharge. Recommend f/u with PCP after discharge to work toward optimizing A1c. * See CDE recommendations. Agree with stopping Ozempic and Metformin. Thank you.
--- NOTE | 2020-10-09 14:30 | Hospitalist Progress Note ---
Date of Service October 09, 2020 Assessment & Plan (1) DKA (diabetic ketoacidoses): (1) DKA (diabetic ketoacidoses): admitted for DKA likely etiology is insulin mismanagement (patient visually impaired) underlying infection ruled out transitioned from Insulin drip to Insulin Lantus and Novolog Sliding scale Pharmacy Glycemic Control consulted discharge recommendations: Lantus 10 units SQ HS correction factor 25 mg/dl/unit carb ratio to 1 unit per 7 grams CHO consumed Continuing goal range of Low 110 mg/dL - High 140 mg/dL monitor BSGs AC and HS, watch out for hypoglycemia A1c 9.7% This suggests suboptimal glycemic control as an outpt. A reasonable goal for this 75yo might be closer to 7.5% Agree with stopping Ozempic and Metformin. 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 Melton's notes: He cannot take his medications correctly He can have falls due to poor eyesight transition to SNF follow up with Ophthalomologist as outpatient (2) Type 2 diabetes mellitus with hemoglobin A1c goal of less than 8.0%: Usually on Ozempic, Metformin, insulin glargine and regular managemebt Per #1 (3) COPD, moderate: Not in exacerbation (4) Hypertension, goal below 140/90: Carvedilol held in light of marginal blood pressure Continue to monitor BP daily watch out for hypotension (5) Glaucoma: Per Dr. Melton's notes Continue outpatient regimen of eye drops, this situation has recently pro gressed and is a source of depression for patient per his brother. outpatient ff up with Digital Developer (6) CAD (coronary atherosclerotic disease): Continue aspirin Carvedilol on hold in light of marginal blood pressure (7) Alcohol abuse: No signs of alcohol withdrawal (8) Dyslipidemia: On Lipitor (9) Severe protein-calorie malnutrition: Windows Server Specialist consulted (10) Diarrhea: Resolved (11) DVT prophylaxis: Lovenox given DNR/DNI Disposition transition to SNF today ff up with PCP in 1 week Admission and Anticipated Discharge Date Admission Date: September 27, 2020 Subjective ff up for DKA, etc. seen resting in bed, sitting up, comfortable states he feels fine overall denies chest pain, shortness of breath, palpitations, dizziness, abdominal pain, nausea/vomiting no diarrhea no other symptoms states he is ready for discharge today Review of Systems Review of Systems: All systems reviewed & are unremarkable except as noted in Subjective Physical Exam Physical Exam: General- oriented x 3, not in distress, speaks in sentences with no effort or accessory muscle use Eyes- anicteric Neck- no JVD Lungs- clear BS BL no rales/wheezing Heart- normal rate, regular rhythm; no murmurs Abdomen- normal bowel sounds, nondistended, soft, nontender Extremities- no pretibial edema, no calf tenderness Neuro- alert, oriented x 3; (+) visual impairment, no other new gross focal neurologic deficits Skin- warm & dry Results & Data Results & Data ([facility]) Vital Signs (Past 12 Hours) Vital Signs Temp Pulse Resp BP Pulse Ox 10/09/20 07:33 37.0 C 71 18 94/57 L 96 Laboratory Results Laboratory Results - last 24 hr 10/08/20 10/08/20 10/09/20 17:12 20:28 02:46 WBC RBC Hgb Hct MCV MCH MCHC RDW Std Deviation RDW Coeff of Laura Plt Count MPV POC Glucose 83 191 H 108 H 10/09/20 10/09/20 10/09/20 07:47 08:10 08:11 WBC 4.43 L RBC 3.59 L Hgb 10.6 L Hct 32.0 L MCV 89.1 MCH 29.5 MCHC 33.1 RDW Std Deviation 49.3 H RDW Coeff of Laura 15.6 H Plt Count 233 MPV 10.5 H POC Glucose 59 L* 55 L* 10/09/20 10/09/20 08:28 11:54 WBC RBC Hgb Hct MCV MCH MCHC RDW Std Deviation RDW Coeff of Laura Plt Count MPV POC Glucose 87 153 H (1) DKA (diabetic ketoacidoses) Diabetes mellitus complication detail: without coma Diabetes mellitus type: other specified (including RICHIE) Qualified Code(s): E13.10 - Other specified diabetes mellitus with ketoacidosis without coma
--- NOTE | 2020-10-09 14:46 | Discharge Summary ---
Date of Service October 09, 2020 Admission HPI Per Admitting Provider This is a 75 y/o male with a PMH of insulin-requiring DM2, ischemic cardiomyopathy s/p cardiac arrest and subsequent ICD placement, severe chronic LV dysfunction, diffuse CAD s/p CABG, macular degeneration, glaucoma, moderate COPD, atrial flutter, anemia, tobacco abuse and EtOH abuse who was found on the floor by his neighbor earlier today and brought in via EMS. History from the patient is currently unobtainable so the chart was extensively reviewed and Dr. Pickett spoke with the patient's brother. Pt's last known well was 09/25/2020. Per report, pt was found lying on the floor in his own feces this morning, too weak to get up on his own. Work-up in the ED consistent with sepsis of uncertain etiology and DKA. It appear that pt just reestablished care with PCP in March 2020. He has been struggling to afford his medications at times and find transportation to appointments. He is enrolled is [id number]. Admission Exam Per Admitting Provider Constitutional: + cachectic and + altered mental status; no acute distress Eyes: + anicteric sclerae and PERRL Neck: trachea midline Respiratory: no respiratory distress Auscultation: + diminished lung sounds Cardiovascular: Rate/Rhythm: regular rate and regular rhythm Gastrointestinal (Abdomen): Inspection/Auscultation: normal bowel sounds; abdomen not distended Percussion/Palpation: abdomen soft Musculoskeletal: Head/Neck/Chest: normocephalic, head atraumatic and neck supple Extremities: no cyanosis passive ROM of UE and LE intact Skin: + turgor decreased; no rashes Neurologic: + confused Motor/Sensory: no tremor Principal Diagnosis DIABETIC KETOACIDOSIS Discharge Exam General- oriented x 3, not in distress, speaks in sentences with no effort or accessory muscle use Eyes- anicteric Neck- no JVD Lungs- clear BS BL no rales/wheezing Heart- normal rate, regular rhythm; no murmurs Abdomen- normal bowel sounds, nondistended, soft, nontender Extremities- no pretibial edema, no calf tenderness Neuro- alert, oriented x 3; (+) visual impairment, no other new gross focal neurologic deficits Skin- warm & dry Discharge Data Allergies Allergy/AdvReac Type Severity Reaction Status Date / Time No Known Drug Allergies Allergy Unknown . Verified 09/27/20 14:54 Consultations 09/27/20 15:35 ED Decision to Admit Stat 09/28/20 18:11 Consult Palliative Care Routine Ordered Studies 09/27/20 15:04 CT head/brain wo con Stat Brain parenchyma: There are age-related involutional changes noting mild to moderate subcortical and periventricular microangiopathic change. There is no hemorrhage, mass effect, or evidence of acute territorial ischemia by CT criteria. Blanco-white matter differentiation is preserved. No extra-axial fluid collection is seen. Ventricles, sulci, cisterns: Prominent secondary to involutional change. Intracranial vasculature: There is atherosclerotic calcification of the cavernous carotid and vertebral arteries. Calvarium: Unremarkable. Sinuses and mastoids: The visualized paranasal sinuses are clear. The mastoid air cells are well pneumatized. Orbits: The bony orbits are grossly intact. IMPRESSION: There is no hemorrhage, mass effect, or evidence of acute territorial ischemia by CT criteria. 09/27/20 15:26 CT abd pelvis wo con Stat CT chest diagnostic wo con Stat CT SCAN OF THE CHEST, ABDOMEN, AND PELVIS WITHOUT IV CONTRAST CLINICAL HISTORY: Change in mental status. Dementia. COMPARISON STUDY: CT scan of the chest and abdomen dated 07/29/2016. Chest x-ray dated 09/27/2020. TECHNIQUE: Unenhanced CT scan of the chest, abdomen, and pelvis was performed from the thoracic inlet to the proximal femora. Images are reviewed in the axial, sagittal, and coronal planes. IV contrast was not administered as per the referring clinician. Note that the examination is significantly suboptimal without IV contrast. The examination is also modestly degraded by motion artifact. There is also streak artifact from the arms which could not be elev ated above the chest or abdomen. A dose lowering technique was utilized adhering to the principles of ALARA. CT DOSE: 1092.39 mGy.cm FINDINGS: CHEST: Thyroid: Imaged portions of the thyroid gland are normal in size and attenuation. Thoracic aorta: There is atherosclerotic calcification of the thoracic aorta. There is mild aneurysmal dilatation of the ascending thoracic aorta which measures up to 4.0 cm. The remainder of the thoracic aorta is normal in caliber, and the arch demonstrates standard 3-vessel arch anatomy. Heart: The patient is status post midline sternotomy. A 2-lead cardiac AICD is present in the left chest wall. The heart is enlarged and without pericardial effusion. The coronary arteries are densely calcified. The main pulmonary arteries are dilated suggesting pulmonary artery hypertension. Lungs and pleural spaces: There is moderate to advanced emphysema. No airspace consolidation or pleural effusion is identified. Foci of scarring/atelectasis are present at the lung bases. The trachea and central airways are clear. A 5 mm right lower lobe pulmonary nodule is seen on image #179. A 3 mm right lower lobe pulmonary nodule is seen on image #157. A 7 mm irregular left apical density is seen on image #33. In the 7 mm irregular density in the left lower lobe as seen on image #148. Mediastinum: There is no mediastinal lymphadenopathy. Paige: Not well assessed without IV contrast. Axillae: There is no axillary lymphadenopathy. Bony thorax: The skeletal structures are osteopenic. Degenerative change and mild hyperkyphosis are noted in the thoracic spine. No lytic or blastic lesions are identified. Soft tissues: The patient is cachectic. ABDOMEN AND PELVIS: Liver: Evaluation of the liver is significantly degraded by streak artifact. The unenhanced liver is normal in size, contour, and attenuation. There is no intra- or extrahepatic biliary ductal dilatation. Gallbladder: Grossly unremarkable but not well evaluated. Spleen: Normal in size and attenuation. Pancreas: The unenhanced pancreas is grossly unremarkable but not well evaluated. Adrenal glands: Unremarkable. Kidneys: The unenhanced kidneys demonstrate cortical atrophy and are without hydronephrosis. No renal calculi are identified. There are renovascular calcifications. There is no evidence of contour deforming mass lesion. Abdominal vasculature: There is advanced atherosclerotic calcification and mild ectasia of the abdominal aorta. 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 Bowel: There is circumferential rectal wall thickening with perirectal inflammation. An indeterminant bowel anastomosis is noted in the central pelvis. No bowel obstruction is seen. Moderate fecal retention is noted in the right col on. The appendix is normal as visualized. Peritoneum: There is no intraperitoneal free air or abdominal ascites. Lymphadenopathy: None. Pelvic viscera: Bladder is partially decompressed around a Shine catheter. The bladder wall appears thickened and trabeculated which may be related to chronic outlet obstruction. Intraluminal gas is likely related to instrumentation. The prostate gland is enlarged and heterogeneous. Skeletal structures: The skeletal structures are osteopenic. There is mild to moderate lumbosacral spondylosis. A large posterior disc osteophyte complex is seen at L5-S1. Degenerative change is seen in the hips. No lytic or blastic lesions are seen. IMPRESSION: 1. Suboptimal examination without IV contrast. The examination is also degraded by cachexia, as well as streak and motion artifact. 2. Cardiomegaly and cardiac pacemaker with no evidence of congestive failure. 3. Advanced emphysema. 4. There is no airspace consolidation or pleural effusion. 5. There is mild aneurysmal dilatation of the ascending thoracic aorta which measures up to 4.0 cm in diameter. 6. There are irregular pulmonary nodular densities measuring up to 7 mm, which have somewhat changed in configuration as compared to 2016. These can be followed as per the Fleischner criteria as below. 7. The rectal wall appears thickened and there is perirectal inflammation. Correlate clinically for evidence of a nonspecific proctitis. 8. Moderate fecal retention is noted in the right colon. No bowel obstruction is seen. 9. The bladder wall appears thickened and there is intraluminal gas. This may be related to chronic outlet obstruction and recent instrumentation. Correlation with urinalysis will be required. 10. Additional findings as above. Please refer to below summary of Fleischner criteria recommendations for follow- up of incidental CT nodules (Александр Mckeon, Guidelines for management of small pulmonary nodules detected on CT scans: A statement from the Fleischner Society, Radiology 237: [phone].) SOLID NODULES Solitary nodule size: <6 mm * low risk patients: no follow-up needed * high risk patients: optional CT at 12 months Solitary nodule size: 6-8 mm * low risk patients: follow-up at 6-12 months, then consider further follow-up at 18-24 months * high risk patients: initial follow-up CT at 6-12 months and then at 18-24 months if no change Solitary nodule size: >8 mm * either low or high risk patients - consider follow-up CT at 3 months, and/or CT-PET, and/or biopsy Multiple nodules size: <6 mm * low risk patients: no routine follow-up * high risk patients: optional CT at 12 months Multiple nodules size: 6-8 mm * low risk patients: follow-up at 3-6 months, then consider further follow-up at 18-24 months * high risk patients: follow-up at 3-6 months, then at 18-24 months if no change Multiple nodules size: >8 mm * low risk patients: follow-up at 3-6 months, then consider further follow-up at 18-24 months * high risk patients: follow-up at 3-6 months, then at 18-24 months if no change Note: newly detected indeterminate nodule in persons 35 years of age or older. * low risk patients: minimal or absent history of smoking and/or other known risk factors * high risk patients: history of smoking or of other known risk factors (e.g. first degree relative with lung cancer, or exposure to asbestos, radon, uranium) * if a nodule up to 8 mm is partly solid or is ground glass further follow-up is required after 24 months to exclude possible slow growing adenocarcinoma (JENNIFER) SUBSOLID NODULES Solitary pure ground-glass nodule * nodule size <6 mm - no CT follow-up required * nodule size >=6 mm - follow-up CT at 6-12 months, then every 2 years until 5 years Solitary part-solid nodule * nodule size <6 mm - no CT follow-up required * nodule size >=6 mm - follow-up CT at 3-6 months. If unchanged, and solid component remains <6 mm, then annual follow-up for 5 years Multiple subsolid nodules * nodule size <6 mm - follow-up CT at 3-6 months, consider further follow-up at 2 and 4 years if stable * nodule size >=6 mm - follow-up CT at 3-6 months, subsequent management based on the most suspicious nodule(s) Diabetes Follow up Diabetes Follow-up Needed for HgbA1c >9% Hospital Course (1) DKA (diabetic ketoacidoses): (1) DKA (diabetic ketoacidoses): admitted for DKA likely etiology is insulin mismanagement (patient visually impaired) underlying infection ruled out transitioned from Insulin drip to Insulin Lantus and Novolog Sliding scale Pharmacy Glycemic Control consulted discharge recommendations: Lantus 10 units SQ HS correction factor 25 mg/dl/unit carb ratio to 1 unit per 7 grams CHO consumed Continuing goal range of Low 110 mg/dL - High 140 mg/dL monitor BSGs AC and HS, watch out for hypoglycemia A1c 9.7% This suggests suboptimal glycemic control as an outpt. A reasonable goal for this 75yo might be closer to 7.5% Agree with stopping Ozempic and Metformin. 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 Melton's notes: He cannot take his medications correctly He can have falls due to poor eyesight transition to SNF follow up with Ophthalomologist as outpatient Abnormal CT Chest and Abdomen/pelvis findings: *please refer to full report as noted in the ordered studies above --There is mild aneurysmal dilatation of the ascending thoracic aorta which measures up to 4.0 cm in diameter. --There are irregular pulmonary nodular densities measuring up to 7 mm, which have somewhat changed in configuration as compared to 2016. These can be followed as per the Fleischner criteria as noted in the full CT report. further work up, management and follow up as outpatient (2) Type 2 diabetes mellitus with hemoglobin A1c goal of less than 8.0%: Usually on Ozempic, Metformin, insulin glargine and regular management Per #1 (3) COPD, moderate: Not in exacerbation (4) Hypertension, goal below 140/90: Carvedilol held in light of marginal blood pressure Continue to monitor BP daily watch out for hypotension (5) Glaucoma: Per Dr. Melton's notes Continue outpatient regimen of eye drops, this situation has recently progressed and is a source of depression for patient per his brother. outpatient ff up with Desk Clerks Supervisor (6) CAD (coronary atherosclerotic disease): Continue aspirin Carvedilol on hold in light of marginal blood pressure (7) Alcohol abuse: No signs of alcohol withdrawal (8) Dyslipidemia: On Lipitor (9) Severe protein-calorie malnutrition: Production Control Expert consulted (10) Diarrhea: Resolved (11) DVT prophylaxis: Lovenox given DNR/DNI Disposition transition to SNF ff up with PCP in 1 week Total Time Total Time Spent Total Time Spent (In Minutes): > 30 minutes Discharge Plan Discharge Items Patient Disposition: Transfer Assisted Fac Reason For Visit: ILLNESS Discharge Diagnosis: DIABETIC KETOACIDOSIS Activity: As commented below Activity Comment: ALWAYS WITH ASSISTANCE, FALL PRECAUTIONS, PATIENT VISUALLY IMPAIRED Non-emergency contact: Primary Care Provider Call non-emergency contact if: you have any medication questions, your symptoms worsen, your pain is not controlled, your pain is worsening, your pain is unusual for you, your pain is concerning for you and you have a fever Follow-up/Referrals: Anjelica Izaguirre DO [Primary Care Provider] - Diet: Carb Consistent or DM2 Addtl Attending Provider Instructions: NOVOLOG SLIDING SCALE: Lantus 10 units SQ HS correction Factor 25 mg/dl/unit carb ratio to 1 unit per 7 grams CHO consumed goal range of Low 110 mg/dL - High 140 mg/dL MONITOR BLOOD GLUCOSE LEVEL AC AND HS. WATCH OUT FOR HYPOGLYCEMIA. MONITOR BLOOD PRESSURE DAILY. MONITOR FOR HYPOTENSION. PLEASE REFER TO ACCOMPANYING HOSPITAL DISCHARGE SUMMARY FOR FURTHER DETAILS. Pending Studies at Discharge: No Stand-Alone Forms: [employer], Smoking Cessation Skilled Items Patient informed of condition?: Yes DNR: Yes Discharge Level of Care: Skilled Communicable Disease: No Discharge Prognosis: Improving Lines: None Urinary Catheter: No Medications and DC Order Prescriptions: New insulin aspart U-100 [Novolog Flexpen U-100 Insulin] 100 unit/mL (3 mL) Insulin Pen 1 unit SC ACHS 30 Days Qty: 0.3 RF: 0 Continued aspirin 81 mg tablet,delayed release (DR/EC) 81 mg PO DAILY RF: 0 atorvastatin 40 mg tablet 40 mg PO DAILY RF: 0 albuterol sulfate 90 mcg/actuation HFA aerosol inhaler 2 puffs inhalation Q6H PRN (Reason: shortness of breath or wheezing) Qty: 1 RF: 0 brimonidine 0.15 % drops 1 drops OP TID RF: 0 dorzolamide 2 % drops 1 drops OP TID RF: 0 ferrous sulfate 325 mg (65 mg iron) tablet 325 mg PO DAILY RF: 0 latanoprost 0.005 % drops 1 drops OP HS RF: 0 timolol maleate 0.5 % drops 1 drp OPB DAILY RF: 0 Alphagan P 0.1 % drops 1 drp OPB TID RF: 0 Lantus Solostar U-100 Insulin 100 unit/mL (3 mL) insulin pen 10 units SQ HS 30 Days Qty: 0 RF: 0 Discontinued Novolin R Regular U-100 Insuln 100 unit/mL solution 1 sliding scale dose SQ USEASDIRECTD RF: 0 metformin 1,000 mg tablet 1,000 mg PO BID RF: 0 carvedilol 3.125 mg tablet 3.125 mg PO DAILY RF: 0 Ozempic 0.25 mg or 0.5 mg(2 mg/1.5 mL) pen injector 0.25 mg SUBCUT WK RF: 0 Discharge Orders: Discharge Order (Routine); Ordered 01/14/21 Ordered By: Arron Espinosa/Other Patient Handouts: High Blood Sugar (Hyperglycemia), Hypoglycemia (Low Blood Sugar) Admission Data Admit Date/Time: 09/27/20 17:02 Attending Provider: Arron Oliveira Admit Provider: Brittny Pickett Primary Care Provider: Anjelica Izaguirre Other Providers: Farida Barrera ; Brittny Pickett ; Kacy Avelar ; Rob, ; Darleen Melton Other Interventions: Discharge Summary Assessment (RN) Last Done: 10/09/20 13:42
[2020-10-09] MEDS ORDERED: INSULIN GLARGINE SOLOSTAR 100 UNITS/ML 3 ML PEN SC SCH (21:00)
== END 2020-10-09 15:14 | DRG 637 ==
LOC: ED 13:52 → 2S 17:02 → SUATTDRO 17:02 → 2S 19:17 → 3W 09-30 15:54

== ENCOUNTER 2022-01-07 11:36 | Inpatient (IN) ==
[2022-01-07] MEDS ORDERED: SODIUM CHLORIDE 0.9% 1000ML 2,000 ML IV ONE (11:47)
[2022-01-07] MEDS ORDERED: CEFEPIME 2,000 MG/20 ML VIAL IV STA (11:49)
[2022-01-07] MEDS ORDERED: NovoLIN-R INSULIN PER UNIT CHARGE IV STA (11:50)
--- NOTE | 2022-01-07 11:56 | Emergency Department Note ---
Impression & Plan Cardiac arrest, DKA (diabetic ketoacidosis), Hyperammonemia, Altered mental status, Hypotension, Acute dehydration, Hypothermia ED Provider Note NAME: JULIO GOODRICH AGE: 72 SEX: M : 06/20/1949 ARRIVES VIA: Ambulance INFORMANT: ems, nursing ED PROVIDER(S): [Jl Dominguez MD] CHIEF COMPLAINT: Unresponsive HISTORY OF PRESENT ILLNESS: The patient is a 72-year-old male who presents to the ER by ambulance for an episode of unresponsiveness. The patient was seen by his neighbors yesterday and was fine. Today, the neighbors went to check on him and found him on the f regan of his bathroom. He was confused and in need of help. EMS was summoned. The patient can give no history, he is moaning. As per EMS, his sugar was over 500. He appeared quite dehydrated. Given the circumstances and his mental state, no further history obtainable. REVIEW OF SYSTEMS: Unobtainable given his mental state. PMHx/PSHx: See Below SOCIAL HISTORY: See Below. PHYSICAL EXAM: GENERAL: Patient is in moderate distress, moaning. Constantly moving. HEENT: No acute trauma, normocephalic atraumatic, mucous membranes extremely dry, no nasal congestion, no scleral icterus. Pupils are dilated and unreactive. They are equal. There is some right eye conjunctivitis seen. NECK: No stridor, no adenopathy, no meningismus, trachea is midline. LUNGS: Clear to auscultation bilaterally when listening anterior, no wheeze, no rhonchi, breath sounds equal. HEART: Distant heart sounds, I cannot assess for murmurs. ABDOMEN: Soft, nontender, bowel sounds positive, no hernias, no peritonitis. EXTREMITIES: No cyanosis or edema, full range of motion of all the joints without pain or difficulty, no extremity deformities. NEUROLOGIC: Confused, moaning, does move all extremities. SKIN: No rash, no jaundice, no diaphoresis. Skin is cool to the touch. DIFFERENTIAL DIAGNOSIS: Infection, UTI, COVID-19, influenza, DKA, dehydration, metabolic abnormality, hypo/hyperglycemia, electrolyte disturbance, anemia, hypoxia, cardiac sources, intracerebral event, toxicologic issues, stroke, TIA, as well as other pathologies. EMERGENCY DEPARTMENT COURSE/PROCEDURES: ECG: Indication was weakness and confusion. The ECG shows what appears to be atrial fibrillation. The rate is 103. The QRS is a bit wide. There is no ST e levation, no PVCs. There is diffuse nonspecific ST change. The QTC is 461. Compared to an ECG from 27 September 2020, the QRS duration has increased, sinus rhythm is no longer present. Continuous Cardiac Monitoring: An order was placed for continuous cardiac monitoring. The monitor shows a rate of 98 with what appears to be atrial fibrillation with some pacer spikes Critical Care Note: I have personally spent 69 minutes of critical care time in the direct management of this patient. This includes bedside care, interpretation of diagnostic studies, and testing, discussion with consultants, patient, and family members, and other required patient management activities. This 69 minutes is in excess of all separately billable procedures. Central line: This procedure was performed by or. The area for the procedure was cleansed sterilely and prepared for the procedure. Lidocaine was used for anesthesia. Sterile technique was employed. Using the Seldinger technique, and the help of ultrasound, I was able to cannulate the femoral vein. No significant complications although a few passes with the needle were required. There was no arterial stick during the procedure. All ports did flush well. The line was then sutured into position. Intubation: This procedure was performed by or. Patient received 13 mg of etomidate IV, 40 mg of rocuronium IV. The patient was hyper oxygenated. Using rapid technique, the patient was intubated with a glide scope. Some suction was required. No complication. The endotracheal tube was placed at 24 centimeters at the the lips. Good O2 saturation noted afterwards. Good CO2 color change. Breath sounds equal bilaterally. Post intubation chest x-ray demonstrated the tube to be in good position. MEDICAL DECISION MAKING: There is a mild leukocytosis, this could be consistent with infection. The patient is anemic with a hemoglobin of 11.8. The anemia is at baseline looking back at previous testing. Platelet count was a bit low at 125. INR is slightly elevated at 1.3. Blood gas demonstrates a pH of 6.8. The patient appeared to be in a metabolic acidosis. Renal panel testing showed a metabolic acidosis. No renal failure. Glucose was high at over 500. Lactic acid level was elevated at over 4. Phosphorus was high at 6. No worrisome liver enzyme elevation. Ammonia was elevated at 111. Total CK was elevated at 3600, consistent with some rhabdomyolysis. Troponin was significantly elevated. Patient's TSH was high however, the T4 was normal. Urinalysis showed some red cells, no infection. COVID, influenza and RSV testing were negative. Chest film shows some bilateral parenchymal congestion consistent potentially with some chronic lung disease versus some fluid overload. There was no obvious pneumonia. The endotracheal tube was in the trachea. Brain CT shows no acute bleed or mass- effect. The patient presented quite ill. Attempts were made to clarify his CODE STATUS but, I was not successful. Phone calls were made but there were no answers. There was nothing on his record to designate a CODE STATUS. As the patient was doing poorly, the decision was made to perform endotracheal intubation. This was done as mentioned above with the glide scope, no complications. Shortly after intubation, the patient lost his pulse. CPR was performed for several minutes. The patient received IV epinephrine, IV calcium gluconate, IV bicarb. With CPR and the medications mentioned, the patient regained a pulse. Because of the persistently low blood pressure, the patient was placed on a norepinephrine drip. I did place a central line in the right femoral vein, this was sutured in place. The patient received a total of 4 L of fluid while here in the ED. He was given a second bolus of sodium bicarb. He was placed on a bicarb drip. He received some IV potassium. He was given IV cefepime as empiric antibiotic coverage. He was placed on an insulin drip. The patient has been able to maintain a pulse and a reasonable blood pressure since being resuscitated. He remains intubated. He remains unresponsive. Of note, as the patient was hypothermic, a bear hugger was ordered. I did speak with the patient's brother who eventually arrived. He did not feel the patient would want aggressive cardiac measures if he again lost a pulse. I did speak with the ICU attending, I spoke with case management, the on-call hospitalist has been consulted. Past Med/Surg History Medical History Alcohol abuse Anemia Atrial flutter Cardiac arrest Dyslipidemia Ischemic necrosis of small bowel Macular degeneration Myocardial infarction Surgical History H/O exploratory laparotomy S/P CABG (coronary artery bypass graft) S/P small bowel resection Family History (Updated 01/07/22 @ 15:10 by Jacquelyn Diaz PA-C) Other Family history unobtainable due to patient's condition Social History Smoking Status: Current every day smoker packs per day: 1; Years Smoked: 50; Cigarettes Per Day: 1ppd; Second Hand Exposure: No; Do You Dip or Chew Tobacco: No; Tobacco Cessation Education Requested by Patient: No Hx Alcohol Use: Yes (Unknown if still drinking, but brother does not think so) Alcohol type: beer Hx Substance Use: No Preferred Language: Yi Communication Ability: Impaired Webmethods Consultant Required: No Beliefs That Will Affect Care: None Current Living Situation: Alone current occupational status: retired Other Information That Helps Us Care for You: No Feels Safe at Home: Yes Assistive Devices: Glasses and Walker Allergies Allergies Allergy/AdvReac Type Severity Reaction Status Date / Time No Known Drug Allergies Allergy Unknown . Verified 01/07/22 14:12 Home Meds Home Medications Medication Instructions Recorded Confirmed aspirin 81 mg tablet,delayed 162 mg PO DAILY tab 05/14/19 01/07/22 release atorvastatin 40 mg tablet 40 mg PO DAILY tab 05/14/19 01/07/22 albuterol sulfate 90 mcg/actuation 2 puffs INHALATION Q6H PRN #1 gm 04/30/20 01/07/22 aerosol inhaler brimonidine 0.15 % eye drops 1 drops OP TID ml 04/30/20 01/07/22 dorzolamide 2 % eye drops 1 drops OP TID ml 04/30/20 01/07/22 ferrous sulfate 325 mg (65 mg 325 mg PO DAILY 04/30/20 01/07/22 iron) tablet latanoprost 0.005 % eye drops 1 drops OP HS ml 04/30/20 01/07/22 timolol maleate 0.5 % eye drops 1 drp OPB DAILY 09/27/20 01/07/22 insulin glargine 100 unit/mL (3 15 units SQ HS 01/07/22 01/07/22 mL) subcutaneous pen (Lantus Solostar U-100 Insulin) Results & Data (ED) Vital Signs Vital Signs - 24 hr 01/07/22 11:48 01/07/22 13:00 01/07/22 13:01 Temperature 31.4 C L Temperature Source Rectal Pulse Rate 110 H 101 H Pulse Rate [Forehead] Pulse Rate from SpO2 Sensor Respiratory Rate 20 22 Blood Pressure 88/63 L 137/96 132/88 Blood Pressure [Left Arm] Blood Pressure Mean 71 109 102 Blood Pressure Mean [Left Arm] Pulse Oximetry 45 L Oxygen Delivery Method Fraction of Inspired Oxygen Sepsis Recent Fever Within 48 Hours No Sepsis New/Unexplained Change in Mental Status Yes Sepsis Action Taken by Nursing Physician Notified End-Tidal CO2 01/07/22 13:05 01/07/22 13:10 01/07/22 13:17 Temperature Temperature Source Pulse Rate 107 H 107 H 110 H Pulse Rate [Forehead] Pulse Rate from SpO2 Sensor 97 H 105 H 87 Respiratory Rate 4 L 16 16 Blood Pressure 133/90 121/84 87/73 L Blood Pressure [Left Arm] Blood Pressure Mean 104 96 77 Blood Pressure Mean [Left Arm] Pulse Oximetry 100 99 96 Oxygen Delivery Method Fraction of Inspired Oxygen 100 Sepsis Recent Fever Within 48 Hours Sepsis New/Unexplained Change in Mental Status Sepsis Action Taken by Nursing End-Tidal CO2 17 17 15 01/07/22 13:20 01/07/22 13:26 01/07/22 13:30 Temperature Temperature Source Pulse Rate 117 H 110 H 98 H Pulse Rate [Forehead] 89 Pulse Rate from SpO2 Sensor 115 H 97 H Respiratory Rate 16 16 16 Blood Pressure 94/69 L 101/69 Blood Pressure [Left Arm] 101/69 Blood Pressure Mean 77 79 Blood Pressure Mean [Left Arm] 79 Pulse Oximetry 96 92 96 Oxygen Delivery Method Mechanical Vent Fraction of Inspired Oxygen Sepsis Recent Fever Within 48 Hours Sepsis New/Unexplained Change in Mental Status Sepsis Action Taken by Nursing End-Tidal CO2 14 16 16 01/07/22 13:35 01/07/22 13:41 01/07/22 13:45 Temperature Temperature Source Pulse Rate 100 H 107 H 99 H Pulse Rate [Forehead] Pulse Rate from SpO2 Sensor 102 H 90 96 H Respiratory Rate 16 16 16 Blood Pressure 92/75 L 99/74 L 96/80 L Blood Pressure [Left Arm] Blood Pressure Mean 80 82 85 Blood Pressure Mean [Left Arm] Pulse Oximetry 94 92 91 Oxygen Delivery Method Fraction of Inspired Oxygen Sepsis Recent Fever Within 48 Hours Sepsis New/Unexplained Change in Mental Status Sepsis Action Taken by Nursing End-Tidal CO2 17 17 16 01/07/22 13:48 01/07/22 13:50 01/07/22 13:52 Temperature Temperature Source Pulse Rate 96 H Pulse Rate [Forehead] 98 H Pulse Rate from SpO2 Sensor 97 H Respiratory Rate 16 16 Blood Pressure 109/78 Blood Pressure [Left Arm] 96/80 L Blood Pressure Mean 88 Blood Pressure Mean [Left Arm] 85 Pulse Oximetry 91 93 Oxygen Delivery Method Mechanical Vent Fraction of Inspired Oxygen 90 Sepsis Recent Fever Within 48 Hours Sepsis New/Unexplained Change in Mental Status Sepsis Action Taken by Nursing End-Tidal CO2 17 Home Medications Current Medication List: was personally reviewed by me Laboratory Data Attestation: I reviewed the patient's lab results. Result diagrams: 01/07/22 11:45 01/07/22 12:30 Lab Results 01/07/22 01/07/22 01/07/22 Range/Units 11:45 11:45 11:45 WBC 12.98 H (4.8-10.8) K/uL RBC 3.91 L (4.7-6.1) M/uL Hgb 11.8 L (14.0-18.0) g/dL POC Hgb (14.0-18.0) g/dl Hct 37.5 L (42-52) % POC Hct (42-52) % MCV 95.9 (80-100) fL MCH 30.2 (25-34) pg MCHC 31.5 L (32-36) g/dL RDW Std Deviation 54.5 H (36.4-46.3) fL RDW Coeff of Laura 15.7 H (11.5-14.5) % Plt Count 125 L (130-400) K/uL MPV 12.5 H (7.4-10.4) fL Immature Gran % (Auto) 0.5 % Neut % (Auto) 84.2 % Lymph % (Auto) 8.9 % [place] % (Auto) 6.2 % Eos % (Auto) 0.1 % Baso % (Auto) 0.1 % Neut # (Auto) 10.95 H (1.4-6.5) K/uL Lymph # (Auto) 1.15 L (1.2-3.4) K/uL [place] # (Auto) 0.80 H (0.11-0.59) K/uL Eos # (Auto) 0.01 (0-0.5) K/uL Baso # (Auto) 0.01 (0-0.2) K/uL Immature Gran # (Auto) 0.06 H (0.00-0.02) K/uL Absolute Nucleated RBC 0.02 H (0-0) K/uL Nucleated RBC % (auto) 0.2 % Toxic Vacuolation 1+ Platelet Estimate Decreased L (Normal) Echinocytes 1+ PT 14.0 H (9.0-12.0) Seconds INR 1.3 H (0.9-1.1) ABG pH (7.35-7.45) ABG pCO2 (35-46) mmHg ABG pO2 (80-95) mmHg ABG HCO3 (19-24) mmol/L ABG O2 Saturation (90-95) % ABG Base Excess (-9-1.8) mEq/L Edwin Test (Pos) Oxygen Given POC Sodium (135-144) mmol/L Sodium (136-145) mmol/L POC Potassium (3.3-5.0) mmol/L Potassium POC Chloride (101-112) mmol/L Chloride (98-107) mmol/L Carbon Dioxide (21-32) mmol/L POC Total CO2 (24-31) mmol/L Anion Gap (3-11) POC Anion Gap (16-25) mmol/L POC BUN (7-18) mg/dl BUN (6-23) mg/dl Creatinine (0.6-1.4) mg/dl POC Creatinine (0.6-1.3) mg/dl Est Cr Clr Drug Dosing ml/min Est GFR ( Amer) ml/min Est GFR (Non-Af Amer) ml/min BUN/Creatinine Ratio (10-20) Glucose (70-99(Fasting)) mg/dl POC Glucose (other) (70-99) mg/dl Lactate (0.4-2.0) mmol/L Calcium (8.5-10.1) mg/dl POC Ioniz Calcium Michael (1.12-1.32) mmol/l Magnesium (1.7-2.4) mg/dl Total Bilirubin (0.2-1.0) mg/dl AST ALT (7-52) U/L Alkaline Phosphatase (34-104) U/L Ammonia (18-72) umol/L Total Creatine Kinase (30-223) U/L Troponin I High Sens (0-20) pg/ml Total Protein (6.0-8.3) gm/dl Albumin (3.4-5.0) gm/dl Globulin (2.5-4.0) gm/dl Albumin/Globulin Ratio (0.9-2) TSH 6.018 H (0.300-4.500) uIu/ml Free T4 0.76 (0.61-1.60) ng/dl Urine Color Urine Appearance (Clear) Urine pH (4.5-7.5) Ur Specific [place] (1.000-1.030) Urine Protein (Negative) Urine Glucose (UA) (Negative) Urine Ketones (Negative) Urine Blood (Negative) Urine Nitrite (Negative) Urine Bilirubin (Negative) Urine Urobilinogen (Negative) Ur Leukocyte Esterase (Negative) Urine RBC (0-4) /hpf Urine WBC (0-5) /hpf Ur Epithelial Cells (0-5) /lpf Urine Bacteria (Negative) SARS-CoV-2 (PCR) (Negative) Influenza Type A (PCR) (Neg) Influenza Type B (PCR) (Neg) RSV (RT-PCR) (Neg) 01/07/22 01/07/22 01/07/22 Range/Units 11:59 12:30 12:30 WBC (4.8-10.8) K/uL RBC (4.7-6.1) M/uL Hgb (14.0-18.0) g/dL POC Hgb (14.0-18.0) g/dl Hct (42-52) % POC Hct (42-52) % MCV (80-100) fL MCH (25-34) pg MCHC (32-36) g/dL RDW Std Deviation (36.4-46.3) fL RDW Coeff of Laura (11.5-14.5) % Plt Count (130-400) K/uL MPV (7.4-10.4) fL Immature Gran % (Auto) % Neut % (Auto) % Lymph % (Auto) % [place] % (Auto) % Eos % (Auto) % Baso % (Auto) % Neut # (Auto) (1.4-6.5) K/uL Lymph # (Auto) (1.2-3.4) K/uL [place] # (Auto) (0.11-0.59) K/uL Eos # (Auto) (0-0.5) K/uL Baso # (Auto) (0-0.2) K/uL Immature Gran # (Auto) (0.00-0.02) K/uL Absolute Nucleated RBC (0-0) K/uL Nucleated RBC % (auto) % Toxic Vacuolation Platelet Estimate (Normal) Echinocytes PT (9.0-12.0) Seconds INR (0.9-1.1) ABG pH (7.35-7.45) ABG pCO2 (35-46) mmHg ABG pO2 (80-95) mmHg ABG HCO3 (19-24) mmol/L ABG O2 Saturation (90-95) % ABG Base Excess (-9-1.8) mEq/L Edwin Test (Pos) Oxygen Given POC Sodium (135-144) mmol/L Sodium 144 (136-145) mmol/L POC Potassium (3.3-5.0) mmol/L Potassium TNP POC Chloride (101-112) mmol/L Chloride 105 (98-107) mmol/L Carbon Dioxide 7 L* (21-32) mmol/L POC Total CO2 (24-31) mmol/L Anion Gap 32 H (3-11) POC Anion Gap (16-25) mmol/L POC BUN (7-18) mg/dl BUN 25 H (6-23) mg/dl Creatinine 1.18 (0.6-1.4) mg/dl POC Creatinine (0.6-1.3) mg/dl Est Cr Clr Drug Dosing 33.0 ml/min Est GFR ( Amer) 70.0 ml/min Est GFR (Non-Af Amer) 60.4 ml/min BUN/Creatinine Ratio 21.2 H (10-20) Glucose 534 H* (70-99(Fasting)) mg/dl POC Glucose (other) (70-99) mg/dl Lactate 4.2 H* (0.4-2.0) mmol/L Calcium 7.8 L (8.5-10.1) mg/dl POC Ioniz Calcium Michael (1.12-1.32) mmol/l Magnesium 2.3 (1.7-2.4) mg/dl Total Bilirubin 0.9 (0.2-1.0) mg/dl AST TNP ALT 28 (7-52) U/L Alkaline Phosphatase 62 (34-104) U/L Ammonia (18-72) umol/L Total Creatine Kinase 3630 H (30-223) U/L Troponin I High Sens 6693.1 H* (0-20) pg/ml Total Protein 4.8 L (6.0-8.3) gm/dl Albumin 2.7 L (3.4-5.0) gm/dl Globulin 2.1 L (2.5-4.0) gm/dl Albumin/Globulin Ratio 1.3 (0.9-2) TSH (0.300-4.500) uIu/ml Free T4 (0.61-1.60) ng/dl Urine Color Yellow Urine Appearance Clear (Clear) Urine pH 5.5 (4.5-7.5) Ur Specific [place] >= 1.030 (1.000-1.030) Urine Protein 1+ H (Negative) Urine Glucose (UA) 2+ H (Negative) Urine Ketones 3+ H (Negative) Urine Blood 3+ H (Negative) Urine Nitrite Negative (Negative) Urine Bilirubin Negative (Negative) Urine Urobilinogen Negative (Negative) Ur Leukocyte Esterase Negative (Negative) Urine RBC 10-30 H (0-4) /hpf Urine WBC 0-5 (0-5) /hpf Ur Epithelial Cells 0-5 (0-5) /lpf Urine Bacteria Negative (Negative) SARS-CoV-2 (PCR) (Negative) Influenza Type A (PCR) (Neg) Influenza Type B (PCR) (Neg) RSV (RT-PCR) (Neg) 01/07/22 01/07/22 01/07/22 Range/Units 12:30 12:50 13:08 WBC (4.8-10.8) K/uL RBC (4.7-6.1) M/uL Hgb (14.0-18.0) g/dL POC Hgb 9.2 L (14.0-18.0) g/dl Hct (42-52) % POC Hct 27 L (42-52) % MCV (80-100) fL MCH (25-34) pg MCHC (32-36) g/dL RDW Std Deviation (36.4-46.3) fL RDW Coeff of Laura (11.5-14.5) % Plt Count (130-400) K/uL MPV (7.4-10.4) fL Immature Gran % (Auto) % Neut % (Auto) % Lymph % (Auto) % [place] % (Auto) % Eos % (Auto) % Baso % (Auto) % Neut # (Auto) (1.4-6.5) K/uL Lymph # (Auto) (1.2-3.4) K/uL [place] # (Auto) (0.11-0.59) K/uL Eos # (Auto) (0-0.5) K/uL Baso # (Auto) (0-0.2) K/uL Immature Gran # (Auto) (0.00-0.02) K/uL Absolute Nucleated RBC (0-0) K/uL Nucleated RBC % (auto) % Toxic Vacuolation Platelet Estimate (Normal) Echinocytes PT (9.0-12.0) Seconds INR (0.9-1.1) ABG pH (7.35-7.45) ABG pCO2 (35-46) mmHg ABG pO2 (80-95) mmHg ABG HCO3 (19-24) mmol/L ABG O2 Saturation (90-95) % ABG Base Excess (-9-1.8) mEq/L Edwin Test (Pos) Oxygen Given POC Sodium 145 H (135-144) mmol/L Sodium (136-145) mmol/L POC Potassium 3.3 (3.3-5.0) mmol/L Potassium POC Chloride 112 (101-112) mmol/L Chloride (98-107) mmol/L Carbon Dioxide (21-32) mmol/L POC Total CO2 10 L (24-31) mmol/L Anion Gap (3-11) POC Anion Gap 27.0 H (16-25) mmol/L POC BUN 20 H (7-18) mg/dl BUN (6-23) mg/dl Creatinine (0.6-1.4) mg/dl POC Creatinine 0.8 (0.6-1.3) mg/dl Est Cr Clr Drug Dosing ml/min Est GFR ( Amer) ml/min Est GFR (Non-Af Amer) ml/min BUN/Creatinine Ratio (10-20) Glucose (70-99(Fasting)) mg/dl POC Glucose (other) 456 H* (70-99) mg/dl Lactate (0.4-2.0) mmol/L Calcium (8.5-10.1) mg/dl POC Ioniz Calcium Michael 1.27 (1.12-1.32) mmol/l Magnesium (1.7-2.4) mg/dl Total Bilirubin (0.2-1.0) mg/dl AST ALT (7-52) U/L Alkaline Phosphatase (34-104) U/L Ammonia 111.0 H (18-72) umol/L Total Creatine Kinase (30-223) U/L Troponin I High Sens (0-20) pg/ml Total Protein (6.0-8.3) gm/dl Albumin (3.4-5.0) gm/dl Globulin (2.5-4.0) gm/dl Albumin/Globulin Ratio (0.9-2) TSH (0.300-4.500) uIu/ml Free T4 (0.61-1.60) ng/dl Urine Color Urine Appearance (Clear) Urine pH (4.5-7.5) Ur Specific [place] (1.000-1.030) Urine Protein (Negative) Urine Glucose (UA) (Negative) Urine Ketones (Negative) Urine Blood (Negative) Urine Nitrite (Negative) Urine Bilirubin (Negative) Urine Urobilinogen (Negative) Ur Leukocyte Esterase (Negative) Urine RBC (0-4) /hpf Urine WBC (0-5) /hpf Ur Epithelial Cells (0-5) /lpf Urine Bacteria (Negative) SARS-CoV-2 (PCR) NEGATIVE (Negative) Influenza Type A (PCR) Negative (Neg) Influenza Type B (PCR) Negative (Neg) RSV (RT-PCR) Negative (Neg) 01/07/22 Range/Units 13:48 WBC (4.8-10.8) K/uL RBC (4.7-6.1) M/uL Hgb (14.0-18.0) g/dL POC Hgb (14.0-18.0) g/dl Hct (42-52) % POC Hct (42-52) % MCV (80-100) fL MCH (25-34) pg MCHC (32-36) g/dL RDW Std Deviation (36.4-46.3) fL RDW Coeff of Laura (11.5-14.5) % Plt Count (130-400) K/uL MPV (7.4-10.4) fL Immature Gran % (Auto) % Neut % (Auto) % Lymph % (Auto) % [place] % (Auto) % Eos % (Auto) % Baso % (Auto) % Neut # (Auto) (1.4-6.5) K/uL Lymph # (Auto) (1.2-3.4) K/uL [place] # (Auto) (0.11-0.59) K/uL Eos # (Auto) (0-0.5) K/uL Baso # (Auto) (0-0.2) K/uL Immature Gran # (Auto) (0.00-0.02) K/uL Absolute Nucleated RBC (0-0) K/uL Nucleated RBC % (auto) % Toxic Vacuolation Platelet Estimate (Normal) Echinocytes PT (9.0-12.0) Seconds INR (0.9-1.1) ABG pH 6.89 L* (7.35-7.45) ABG pCO2 45 (35-46) mmHg ABG pO2 43 L (80-95) mmHg ABG HCO3 8 L (19-24) mmol/L ABG O2 Saturation < 60.0 L (90-95) % ABG Base Excess -23.7 L (-9-1.8) mEq/L Edwin Test Pos (Pos) Oxygen Given 90% POC Sodium (135-144) mmol/L Sodium (136-145) mmol/L POC Potassium (3.3-5.0) mmol/L Potassium POC Chloride (101-112) mmol/L Chloride (98-107) mmol/L Carbon Dioxide (21-32) mmol/L POC Total CO2 (24-31) mmol/L Anion Gap (3-11) POC Anion Gap (16-25) mmol/L POC BUN (7-18) mg/dl BUN (6-23) mg/dl Creatinine (0.6-1.4) mg/dl POC Creatinine (0.6-1.3) mg/dl Est Cr Clr Drug Dosing ml/min Est GFR ( Amer) ml/min Est GFR (Non-Af Amer) ml/min BUN/Creatinine Ratio (10-20) Glucose (70-99(Fasting)) mg/dl POC Glucose (other) (70-99) mg/dl Lactate (0.4-2.0) mmol/L Calcium (8.5-10.1) mg/dl POC Ioniz Calcium Michael (1.12-1.32) mmol/l Magnesium (1.7-2.4) mg/dl Total Bilirubin (0.2-1.0) mg/dl AST ALT (7-52) U/L Alkaline Phosphatase (34-104) U/L Ammonia (18-72) umol/L Total Creatine Kinase (30-223) U/L Troponin I High Sens (0-20) pg/ml Total Protein (6.0-8.3) gm/dl Albumin (3.4-5.0) gm/dl Globulin (2.5-4.0) gm/dl Albumin/Globulin Ratio (0.9-2) TSH (0.300-4.500) uIu/ml Free T4 (0.61-1.60) ng/dl Urine Color Urine Appearance (Clear) Urine pH (4.5-7.5) Ur Specific [place] (1.000-1.030) Urine Protein (Negative) Urine Glucose (UA) (Negative) Urine Ketones (Negative) Urine Blood (Negative) Urine Nitrite (Negative) Urine Bilirubin (Negative) Urine Urobilinogen (Negative) Ur Leukocyte Esterase (Negative) Urine RBC (0-4) /hpf Urine WBC (0-5) /hpf Ur Epithelial Cells (0-5) /lpf Urine Bacteria (Negative) SARS-CoV-2 (PCR) (Negative) Influenza Type A (PCR) (Neg) Influenza Type B (PCR) (Neg) RSV (RT-PCR) (Neg) Administered Medications Norepinephrine Bitartrate (Levophed/D5w) 8 mg in 508 mls @ 48.578 mls/hr IV .[id number] [facility]; Protocol Stop: 02/06/22 12:59 Last Titration: 01/07/22 16:33 Dose: 0.2 mcg/kg/min, 32.4 mls/hr Documented by: [id number] Titration: 01/07/22 13:32 Dose: 0.3 mcg/kg/min, 48.6 mls/hr Documented by: [id number] Titration: 01/07/22 13:30 Dose: 0.2 mcg/kg/min, 32.4 mls/hr Documented by: [id number] Admin: 01/07/22 12:50 Dose: 0.1 mcg/kg/min, 16.2 mls/hr Documented by: [id number] Cosigned by: [id number] Insulin Human Regular 250 (units/ Sodium Chloride) 250 mls @ 4.2 mls/hr IV .Q24H [facility]; Protocol Stop: 02/06/22 13:59 Last Admin: 01/07/22 14:15 Dose: 4.2 units/hr, 4.2 mls/hr Documented by: [id number] Cosigned by: [id number] Sodium Bicarbonate 150 meq/ (Sterile Water) 1,150 mls @ 150 mls/hr IV .Q7H40M ROHAN Stop: 01/07/22 21:39 Last Admin: 01/07/22 14:41 Dose: 150 mls/hr Documented by: [id number] Vasopressin 20 units/ Sodium (Chloride) 101 mls @ 12.12 mls/hr IV .Q8H20M ROHAN Stop: 02/06/22 14:14 Last Admin: 01/07/22 14:36 Dose: 0.04 unit/min, 12.1 mls/hr Documented by: [id number] Cosigned by: [id number] Sodium Chloride (Nss 1000ml) 1,000 mls @ 999 mls/hr IV .Q1H1M ROHAN Stop: 02/06/22 15:29 Last Infusion: 01/07/22 13:40 Dose: 0 mls/hr Documented by: [id number] Admin: 01/07/22 13:05 Dose: 999 mls/hr Documented by: [id number] Lactated Ringer's (Lr) 1,000 mls @ 999 mls/hr IV .Q1H1M ROHAN Stop: 02/06/22 15:29 Last Admin: 01/07/22 16:32 Dose: Not Given Documented by: [id number] Infusion: 01/07/22 14:10 Dose: 0 mls/hr Documented by: [id number] Admin: 01/07/22 13:30 Dose: 999 mls/hr Documented by: [id number] Discontinued Medications Sodium Chloride (Nss 1000ml) 2,000 mls @ 999 mls/hr IV .Q2H1M ONE Stop: 01/07/22 13:47 Last Infusion: 01/07/22 13:45 Dose: 0 mls/hr Documented by: [id number] Admin: 01/07/22 12:31 Dose: 999 mls/hr Documented by: [id number] Cefepime HCl (Maxipime) 2,000 mg in 20 mls @ 5 mls/min IV NOW STA; Protocol Stop: 01/07/22 11:52 Last Admin: 01/07/22 12:34 Dose: 5 mls/min Documented by: [id number] Potassium Chloride (K Elfego / Wtr) 20 meq in 100 mls @ 50 mls/hr IV ONE ONE; Protocol Stop: 01/07/22 16:14 Last Infusion: 01/07/22 16:33 Dose: 0 mls/hr Documented by: [id number] Admin: 01/07/22 14:36 Dose: 50 mls/hr Documented by: [id number] Insulin Human Regular (Novolin-R Insulin Per Unit Charge) 8 units IV NOW STA Stop: 01/07/22 11:51 Last Admin: 01/07/22 12:34 Dose: 8 units Documented by: [id number] Cosigned by: [id number] Ioversol (Optiray 320 125ml) 120 ml IV ONCE ONE Stop: 01/07/22 15:32 Last Admin: 01/07/22 15:31 Dose: 120 ml Documented by: [id number] Miscellaneous (Rapid Sequence Induction Bag) Confirm Administered Dose 1 ea .ROUTE .STK-MED ONE Stop: 01/07/22 12:38 Last Admin: 01/07/22 13:19 Dose: 1 ea Documented by: [id number] Miscellaneous (Stat Iv Infusion Titration Per Protocol) 1 ea N/A NOW STA Stop: 01/07/22 15:00 Last Admin: 01/07/22 16:32 Dose: 1 ea Documented by: [id number] Norepinephrine Bitartrate (Norepinephrine/D5w 8 Mg/508 Ml) Confirm Administered Dose 8 mg IV .STK-MED ONE Stop: 01/07/22 12:49 Last Admin: 01/07/22 13:17 Dose: 8 mg Documented by: [id number] Potassium Chloride (Potassium Chloride 10 Meq / 100ml Wtr) Confirm Administered Dose 10 meq IV .STK-MED ONE Stop: 01/07/22 13:35 Last Admin: 01/07/22 13:46 Dose: 10 meq Documented by: [id number] Sodium Bicarbonate (Sodium Bicarb 8.4% Inj 50 Meq/50 Ml Syr) 50 meq IV NOW STA Stop: 01/07/22 14:17 Last Admin: 01/07/22 14:45 Dose: 50 meq Documented by: [id number] Imaging Data Radiologist's Impression: Head CT 01/07/22 11:47 CT head/brain wo con CLINICAL HISTORY: 76 years-old Male with confusion. Acutely altered mental status TECHNIQUE: Multiple axial CT images of the head were obtained without contrast. A dose lowering technique was utilized adhering to the principles of ALARA. CT DOSE: 729.78 mGycm COMPARISON: Head CT 09/27/2020 FINDINGS: No acute intracranial hemorrhage, midline shift, intracranial mass, hydro cephalus, territorial ischemia or abnormal extra-axial collection. Age-related involutional changes. White matter hypodensities suggest chronic microvascular ischemic disease. Cerebral vascular calcifications. Small chronic appearing lacunar infarcts of the caudate nuclei. The calvarium is intact. The paranasal sinuses, mastoid air cells, and middle ear cavities are clear. IMPRESSION: No acute intracranial abnormality. ACT 112: Negative or not required by law. The above report was generated using voice recognition software. It may contain grammatical, syntax or spelling errors. Electronically signed by: David Amezcua M.D. 01/07/2022 2:10 PM Chest X-Ray 01/07/22 11:48 XR chest 1V portable CLINICAL HISTORY: weakness. Status post intubation. Evaluate cardiopulmonary status COMPARISON STUDY: 09/27/2020 TECHNIQUE: 1 view of the chest FINDINGS: Single frontal view of the chest demonstrates the heart size to be within normal limits status post previous cardiothoracic surgery and ICD pacer placement. Endotracheal tube has been placed with its tip approximately 6.2 cm above the claudy. Compared to the previous examination, interstitial and alveolar edema are present most characteristic of early congestive heart failure. There is no evidence for pleural effusion. No confluent alveolar opacities are identified. T here is no acute osseous pathology. IMPRESSION: 1. Diffuse interstitial and alveolar edema characteristic of early congestive heart failure. 2. ET tube 6.2 cm above the claudy. ACT 112: Negative or not required by law. Electronically signed by: Silvino Gross M.D. 01/07/2022 1:17 PM Discharge Plan Visit Data Chief Complaint: Unresponsive ED Provider: Jl Dominguez Discharge Problem: Cardiac arrest, DKA (diabetic ketoacidosis), Hyperammonemia, Altered mental status, Hypotension, Acute dehydration, Hypothermia Patient Disposition: Admitted As Inpatient Condition: Critical Discharge Instructions Interventions: ED Discharge Assessment Last Done: 01/07/22 15:05
[2022-01-07 12:14] LABS: INR 1.3 (0.9-1.1)
[2022-01-07 12:22] LABS: Appearance Urine Clear (Clear); Bilirubin Urine Negative (Negative); Blood Urine 3+ (Negative); Color Urine Yellow; Glucose Urine UA 2+ (Negative); Ketones Urine 3+ (Negative); Leukocyte Esterase Urine Negative (Negative); Nitrite Urine Negative (Negative); Protein Urine 1+ (Negative); Specific Gravity Urine >= 1.030 (1.000-1.030); Urobilinogen Urine Negative (Negative); pH Urine 5.5 (4.5-7.5)
[2022-01-07 12:31] LABS: Basophils # (auto) 0.01 K/uL (0-0.2); Basophils % (auto) 0.1 %; Echinocytes 1+; Eosinophils # (auto) 0.01 K/uL (0-0.5); Eosinophils % (auto) 0.1 %; Hematocrit (blood only) 37.5 % (42-52); Hemoglobin 11.8 g/dL (14.0-18.0); Immature Granulocytes # (auto) 0.06 K/uL (0.00-0.02); Immature Granulocytes % (auto) 0.5 %; Lymphocytes # (auto) 1.15 K/uL (1.2-3.4); Lymphocytes % (auto) 8.9 %; Mean Corpuscular Hemoglobin 30.2 pg (25-34); Mean Corpuscular Hgb Conc 31.5 g/dL (32-36); Mean Corpuscular Volume 95.9 fL (80-100); Mean Platelet Volume 12.5 fL (7.4-10.4); Monocytes % (auto) 6.2 %; Neutrophils # (auto) 10.95 K/uL (1.4-6.5); Neutrophils % (auto) 84.2 %; Nucleated RBC # (auto) 0.02 K/uL (0-0); Nucleated RBC % (auto) 0.2 %; Platelet Count 125 K/uL (130-400); Platelet Estimate Decreased (Normal); RDW Coefficient of Variation 15.7 % (11.5-14.5); RDW Standard Deviation 54.5 fL (36.4-46.3); Red Blood Count 3.91 M/uL (4.7-6.1); Toxic Vacuolation 1+; White Blood Count 12.98 K/uL (4.8-10.8)
[2022-01-07 12:37] LABS: Thyroid Stimulating Hormone 6.018 uIu/ml (0.300-4.500)
[2022-01-07] MEDS ORDERED: RAPID SEQUENCE INDUCTION BAG ONE (12:37)
[2022-01-07 12:40] LABS: Bacteria Urine Negative (Negative); Epithelial Cell Urine 0-5 /lpf (0-5); WBC Urine 0-5 /hpf (0-5)
[2022-01-07] MEDS ORDERED: NOREPINEPHRINE/D5W 8 MG/508 ML IV ONE (12:48)
[2022-01-07] MEDS: Standard Conc 16mcg/mL; 8mg in 500mL IV SCH ×2 (12:50→13:18)
[2022-01-07] MEDS: SODIUM CHLORIDE 0.9% 1000ML 1,000 ML IV SCH (13:05)
--- NOTE | 2022-01-07 13:20 | XRay Report ---
XR chest 1V portable CLINICAL HISTORY: weakness. Status post intubation. Evaluate cardiopulmonary status COMPARISON STUDY: 09/27/2020 TECHNIQUE: 1 view of the chest FINDINGS: Single frontal view of the chest demonstrates the heart size to be within normal limits status post p revious cardiothoracic surgery and ICD pacer placement. Endotracheal tube has been placed with its ti p approximately 6.2 cm above the claudy. Compared to the previous examination, interstitial and alveo lar edema are present most characteristic of early congestive heart failure. There is no evidence for pleural effusion. No confluent alveolar opacities are identified. There is no acute osseous patholog y. IMPRESSION: 1. Diffuse interstitial and alveolar edema characteristic of early congestive heart failure. 2. ET tube 6.2 cm above the claudy. ACT 112: Negative or not required by law. Electronically signed by: Silvino Gross M.D. 01/07/2022 1:17 PM
[2022-01-07 13:23] LABS: iSTAT Creatinine 0.8 mg/dl (0.6-1.3); iSTAT Hemoglobin 9.2 g/dl (14.0-18.0); iSTAT Ionized Calcium 1.27 mmol/l (1.12-1.32); iSTAT Potassium 3.3 mmol/L (3.3-5.0)
[2022-01-07 13:23] LABS: T4 Free Thyroxine 0.76 ng/dl (0.61-1.60)
[2022-01-07] MEDS: LACTATED RINGER'S 1,000 ML IV SCH ×2 (13:30→16:32)
[2022-01-07] MEDS ORDERED: POTASSIUM CHLORIDE 10 MEQ / 100ML WTR IV ONE (13:34)
[2022-01-07] MEDS ORDERED: DEXTROSE 50% 50 ML SYRINGE IV PRN (13:35)
[2022-01-07] MEDS ORDERED: GLUCOSE 40% GEL 15 GM TUBE PO PRN (13:35)
[2022-01-07] MEDS ORDERED: STAT INSULIN DRIP STA (13:35)
[2022-01-07] MEDS ORDERED: GLUCOSE 10 TABS/TUBE PO PRN (13:35)
[2022-01-07] MEDS ORDERED: GLUCAGON FOR INJ 1 MG VIAL SQ PRN (13:35)
[2022-01-07] MEDS ORDERED: CARBOHYDRATES FOR HYPOGLYCEMIA PO PRN (13:35)
[2022-01-07 13:47] LABS: Alanine Aminotransferase 28 U/L (7-52); Albumin Globulin Ratio 1.3 (0.9-2); Albumin Level 2.7 gm/dl (3.4-5.0); Alkaline Phosphatase 62 U/L (34-104); Anion Gap 32 (3-11); BUN Creatinine Ratio 21.2 (10-20); Bilirubin,Total 0.9 mg/dl (0.2-1.0); Blood Urea Nitrogen 25 mg/dl (6-23); Calcium 7.8 mg/dl (8.5-10.1); Carbon Dioxide 7 mmol/L (21-32); Chloride 105 mmol/L (98-107); Creatine Kinase 3630 U/L (30-223); Est GFR (Non-African American) 60.4 ml/min; Globulin 2.1 gm/dl (2.5-4.0); Glucose 534 mg/dl (70-99(Fasting)); Magnesium 2.3 mg/dl (1.7-2.4); Sodium 144 mmol/L (136-145); Total Protein 4.8 gm/dl (6.0-8.3); Troponin I High Sensitivity 6693.1 pg/ml (0-20)
[2022-01-07] MEDS ORDERED: STAT IV STA (13:52)
[2022-01-07] MEDS ORDERED: STAT IV Infusion **Titration per Protocol STA ×4 (13:54→22:54)
[2022-01-07] MEDS ORDERED: INSULIN REGULAR 250 UNITS in SODIUM CHLORIDE 0.9% 247.5 ML IV SCH (14:00)
[2022-01-07] MEDS ORDERED: SODIUM BICARBONATE 8.4% 150 MEQ in WATER, STERILE 1,000 ML IV SCH (14:00)
--- NOTE | 2022-01-07 14:00 | Critical Care Consultation ---
Date of Consultation January 07, 2022 Assessment & Plan (1) Cardiac arrest: (2) DKA (diabetic ketoacidosis): (3) Ischemic cardiomyopathy: (4) COPD, moderate: 76-year-old male presents to the hospital unresponsive. Was coded in the ER. Was found to be in DKA. Transferred to the ICU for further care --S/p cardiac arrest with Shock Etiology is likely multifactorial DKA, multilobar pneumonia Elevated troponins --> Post resuscitation EKG does not show any ST-T wave changes, continue to trend Continue with vasopressor support to keep MAP greater than 65 Patient is hypothermic to begin with. We will try to maintain body temperature around 36 C --Rhabdomyolysis Likely secondary to lying on the ground for prolonged period CPK [id number] Continue with IV fluids keeping in mind that the patient's ejection fraction is not good -- VDRF Secondary to cardiac arrest plus multilobar pneumonia likely aspiration Continue with ventilatory support COVID-19 PCR negative Influenza A/B negative Chlorhexidine mouthwash --Subsegmental left lower pulmonary emboli Continue with heparin drip -- HAGMA Likely from DKA and lactic acidosis Follow up serum osm, urine osm, urine lytes Follow up ABG Monitor continue with insulin drip until anion gap closes Decreasing blood glucose no more than 100 in an hour Replace potassium IV when potassium level between 3.3-5.3 BMP every 4 hours Continue with IV fluids --Systolic CHF 04/2020 revealed improved EF 55%, grade 2 diastolic dysfunction --No CPR --Prophylaxis VTE: Heparin GI: Pantoprazole Lines: Right femoral, Peripheral, Shine Diet: N.p.o. Plan: Repeat ABG. I would like the pH to be at least greater than 7.1 Continue with broad-spectrum antibiotics. We will give another amp of bicarb Overall prognosis of the patient is very poor. I have personally spent 62 minutes of critical care time in the direct management of this patient. This is a life/limb threatening event. This includes time spent evaluating patient, direct bedside care, chart review, placing orders, interpretation of diagnostic studies, discussion with consultants, patient, and family members, as well as other required patient management activities. This time is exclusive of all separately billable procedures, and teaching time and separate from and in addition to any other critical care service time. Please note the above document was generated using voice recognition software. It may contain grammatical, syntax or spelling errors. History of Present Illness History of Present Illness 75-year-old male was brought to the ER as he was found unresponsive by the neighbors Past medical history: Diabetes type 2, ischemic cardiomyopathy s/p cardiac arrest in the past and AICD placement, coronary artery disease s/p CABG, moderate COPD, a flutter History was obtained from previous records and ER note. Patient has long history of not being compliant with his medications. Neighbors found the patient on the floor not responding. EMS was called which stated that blood sugar was greater than 500. His pH was 6.89 with a bicarb of 8. Ammonia level is also on the higher side. In the ED patient got 1 epi, 1 bicarb and 1 calcium during cardiac arrest. At the time of examination in the ICU patient was breathing over the vent His map was 87 while on Levophed 0.3, vasopressin 0.04 He was getting insulin drip as well as bicarb drip His skin was mottled. His temperature was 31.5 C He was trying to bite his tube. Not answering any questions not following any commands Pupils very sluggish to respond Allergies Allergy/AdvReac Type Severity Reaction Status Date / Time No Known Drug Allergies Allergy Unknown . Verified 01/07/22 14:12 Home Medications Medication Instructions Recorded Confirmed Type aspirin 81 mg tablet,delayed 162 mg PO DAILY tab 05/14/19 01/07/22 History release atorvastatin 40 mg tablet 40 mg PO DAILY tab 05/14/19 01/07/22 History albuterol sulfate 90 mcg/actuation 2 puffs INHALATION Q6H PRN #1 gm 04/30/20 01/07/22 History aerosol inhaler brimonidine 0.15 % eye drops 1 drops OP TID ml 04/30/20 01/07/22 History dorzolamide 2 % eye drops 1 drops OP TID ml 04/30/20 01/07/22 History ferrous sulfate 325 mg (65 mg 325 mg PO DAILY 04/30/20 01/07/22 History iron) tablet latanoprost 0.005 % eye drops 1 drops OP HS ml 04/30/20 01/07/22 History timolol maleate 0.5 % eye drops 1 drp OPB DAILY 09/27/20 01/07/22 History insulin glargine 100 unit/mL (3 15 units SQ HS 01/07/22 01/07/22 History mL) subcutaneous pen (Lantus Solostar U-100 Insulin) Patient History Medical History Alcohol abuse Anemia Atrial flutter Cardiac arrest Dyslipidemia Ischemic necrosis of small bowel Macular degeneration Myocardial infarction Surgical History H/O exploratory laparotomy S/P CABG (coronary artery bypass graft) S/P small bowel resection Family History (Updated 01/07/22 @ 15:10 by Jacquelyn Diaz PA-C) Other Family history unobtainable due to patient's condition Social History (Updated 01/07/22 @ 15:08 by Jacquelyn Diaz PA-C) Smoking Status: Current every day smoker packs per day: 1; Years Smoked: 50; Cigarettes Per Day: 1ppd; Second Hand Exposure: No; Do You Dip or Chew Tobacco: No; Tobacco Cessation Education Requested by Patient: No Hx Alcohol Use: Yes (Unknown if still drinking, but brother does not think so) Alcohol type: beer Hx Substance Use: No Preferred Language: [place] Communication Ability: Impaired Associate 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 Required: No Beliefs That Will Affect Care: None Current Living Situation: Alone current occupational status: retired Other Information That Helps Us Care for You: No Feels Safe at Home: Yes Assistive Devices: Glasses and Walker Review of Systems Review of Systems: Unobtainable due to endotracheal tube and Unobtainable due to reduced consciousness Physical Exam Physical Exam: Constitutional: No acute distress, frail-appearing HEENT: Sluggish pupillary response, positive ETT Respiratory system: Decreased air entry bilaterally, no wheeze, no rhonchi, positive crackles bilaterally CVS: S1-S2 positive, distant heart sounds Abdomen: Soft, nontender, nondistended, positive bowel sounds x4 Extremities: +2 pulses bilaterally radialis/ dorsalis pedis, no cyanosis, +2 pitting edema bilateral lower extremity Neuro: Intubated, breathing over the vent, positive gag Psych: Unable to assess G/U: Positive Shine Skin: no rashes, warm and dry Lymphatic: no cervical or axillary lymphadenopathy Results & Data Results & Data ([facility]) Vital Signs (Past 12 Hours) Vital Signs Temp Pulse Pulse Resp BP BP Pulse Ox 01/07/22 13:30 89 16 101/69 93 01/07/22 13:05 103 H 16 100 01/07/22 11:48 31.4 C L 110 H 20 88/63 L Laboratory Results 01/07/22 11:45 01/07/22 12:30 Coding Level of Care Code Critical Care 1st 30-74 mins Diagnoses Cardiac arrest I46.9 DKA (diabetic ketoacidosis) E11.10 Ischemic cardiomyopathy I25.5 COPD, moderate J44.9 Time Spent (min) 62
[2022-01-07 14:07] LABS: Base Excess ABG -23.7 mEq/L (-9-1.8); HCO3 ABG 8 mmol/L (19-24); PCO2 ABG 45 mmHg (35-46); PO2 ABG 43 mmHg (80-95)
[2022-01-07 14:08] LABS: Oxygen Saturation ABG < 60.0 % (90-95)
--- NOTE | 2022-01-07 14:12 | CT Scan Report ---
CT head/brain wo con CLINICAL HISTORY: 76 years-old Male with confusion. Acutely altered mental status TECHNIQUE: Multiple axial CT images of the head were obtained without contrast. A dose lowering tech nique was utilized adhering to the principles of ALARA. CT DOSE: 729.78 mGycm COMPARISON: Head CT 09/27/2020 FINDINGS: No acute intracranial hemorrhage, midline shift, intracranial mass, hydrocephalus, territorial ischem ia or abnormal extra-axial collection. Age-related involutional changes. White matter hypodensities s uggest chronic microvascular ischemic disease. Cerebral vascular calcifications. Small chronic appear ing lacunar infarcts of the caudate nuclei. The calvarium is intact. The paranasal sinuses, mastoid air cells, and middle ear cavities are clear . IMPRESSION: No acute intracranial abnormality. ACT 112: Negative or not required by law. The above report was generated using voice recognition software. It may contain grammatical, syntax o r spelling errors. Electronically signed by: David Amezcua M.D. 01/07/2022 2:10 PM
[2022-01-07 14:13] LABS: Allen Test Pos (Pos); pH ABG 6.89 (7.35-7.45)
[2022-01-07] MEDS ORDERED: SODIUM BICARB 8.4% INJ 50 MEQ/50 ML SYR IV STA ×3 (14:16→20:19)
[2022-01-07] MEDS: POTASSIUM CHLORIDE / WTR 20 MEQ/100 ML PLCT IV ONE ×2 (14:18→14:36)
[2022-01-07] MEDS: VASOPRESSIN 20 UNITS in 0.9 % SODIUM CHLORIDE 100 ML IV SCH ×2 (14:36→17:24)
[2022-01-07 14:37] LABS: Troponin I High Sensitivity 11280.7 pg/ml (0-20)
[2022-01-07 14:38] LABS: Influenza A virus by PCR Negative (Neg); Influenza B virus by PCR Negative (Neg); RSV by PCR Negative (Neg); SARS CoV2 RNA(COVID-19) InHosp NEGATIVE (Negative)
[2022-01-07 15:00] LABS: Base Excess VBG -23.8 mEq/L; HCO3 VBG 9 mmol/L; Oxygen Saturation VBG < 60.0 %; PCO2 VBG 53 mmHg (38-50); PO2 VBG 38 mmHg; pH VBG 6.86 (7.36-7.41)
[2022-01-07 15:05] LABS: Estimated Average Glucose 243 mg/dl; Hemoglobin A1C 10.1 % (4.5-5.6)
--- NOTE | 2022-01-07 15:18 | History & Physical Report ---
Date of Service January 07, 2022 Assessment & Plan (1) Cardiac arrest: (2) DKA (diabetic ketoacidosis): (3) High anion gap metabolic acidosis: (4) Lactic acidosis: (5) Elevated troponin: (6) Hyperammonemia: (7) Elevated creatine kinase level: Plan: This is a 76-year-old male who has significant past medical history of insulin- dependent T2DM, HTN, HLD, CAD with history of CABG, ischemic cardiomyopathy, atrial flutter, COPD, tobacco abuse, history of alcohol abuse, macular degeneration, glaucoma, anemia who presented to ED after unresponsive episode prior to arrival. Cardiac arrest DKA HAGMA Lactic acidosis Hypothermic SIRS Admit to ICU Under the care of director of publications Dr. Mahajan -discussed case with him CT PE and CT a/p w/ IV contrast ordered to r/o etiology of arrest continue insulin gtt per DKA protocol Bicarb gtt ordered by ICU IVF + KCL ordered by ICU empirically cover with IV zosyn until infectious etiology/Sepsis ruled out, UA, CXR negative, blood cultures pending q4h serial vbg, bmp, mag, phos glycemic pharmacy consult placed Cardiac arrest elevated troponin hx of CAD with CABG hx of aflutter Pacemaker in place Last echocardiogram 04/2020 revealed improved EF 55%, grade 2 diastolic dysfunc tion, LA moderately enlarged, mild aortic valve sclerosis, moderate MR, mild TR, aortic root mildly dilated at 4.4 cm, basal inferior/posterior hypokinesis to akinesis Cycle troponin, EKG without ischemic change obtain echocardiogram Give ASA DC, consult cards interrogate pacer Hyperammonemia hx of etoh abuse, no known hx of cirrhosis ct a/p ordered DC lactulose ordered Elevated creatinine kinase level possible underlying rhabdo continue aggressive fluid resuscitation repeat CK in a.m T2DM insulin dependent, uncontrolled a1c 10.1 insulin gtt protocol as above Further assessment and treatment plan guided by Primary Intensivists, refer to their documentation DVT ppx: per ICU, will determine after CTs return Dispo: ICU, grave prognosis, discussed with brother Conditional code: no further CPR to be initiated, ok with current treatment and work up PCP: Patrick Day Pt was seen and examined in collaboration with Dr. Izaguirre, please see addendum History of Present Illness Chief Complaint: Unresponsive prior to arrival Primary Care Provider: Patrick Day This is a 76-year-old male who has significant past medical history of insulin- dependent T2DM, HTN, HLD, CAD with history of CABG, ischemic cardiomyopathy, atrial flutter, COPD, tobacco abuse, history of alcohol abuse, macular degeneration, glaucoma, anemia who presented to ED after unresponsive episode prior to arrival. History was obtained from ED provider who obtained history from EMS. Slight history also obtained from brother. According to brother patient currently lives on his own and has for the past 1 year. He states, "this is the problem." He does not care for himself and is unsure if he takes his medications regularly. The only other family member he has is an estranged daughter. According to EMS patient was last seen well yesterday by neighbors. Today neighbors went to check on him and found him on the floor in the bathroom confused and mostly unresponsive. EMS was summoned. Per EMS blood sugar was over 500 and appeared quite dehydrated. Unable to obtain ROS from patient. Patient with significantly abnormal labs including glucose of 534 with lactic acidosis, arterial pH of 6.89 and bicarb of 8. He is felt to be in DKA. He also had significantly elevated high-sensitivity troponin greater than 6000 and a CK level of 3630. His ammonia level was elevated at 111 but no prior history or diagnosis of cirrhosis. Due to clinical decompensation patient was placed on mechanical ventilation. Shortly after being ventilated he became pulseless and CPR was initiated. He required about 2 to 3 minutes of CPR before spontaneous return of circulation. He also received IV epinephrine, bicarb and calcium. ED provider was able to obtain central line access. He did receive approximately 4 L of IV fluid resuscitation, insulin drip was initiated, he was started on vasopressors of nor epi and vasopressin, received IV cefepime in ED, started on sodium bicarbonate along with normal saline and potassium supplementation. Allergies Allergy/AdvReac Type Severity Reaction Status Date / Time No Known Drug Allergies Allergy Unknown . Verified 01/07/22 14:12 Home Medications Medication Instructions Recorded Confirmed Type aspirin 81 mg tablet,delayed 162 mg PO DAILY tab 05/14/19 01/07/22 History release atorvastatin 40 mg tablet 40 mg PO DAILY tab 05/14/19 01/07/22 History albuterol sulfate 90 mcg/actuation 2 puffs INHALATION Q6H PRN #1 gm 04/30/20 01/07/22 History aerosol inhaler brimonidine 0.15 % eye drops 1 drops OP TID ml 04/30/20 01/07/22 History dorzolamide 2 % eye drops 1 drops OP TID ml 04/30/20 01/07/22 History ferrous sulfate 325 mg (65 mg 325 mg PO DAILY 04/30/20 01/07/22 History iron) tablet latanoprost 0.005 % eye drops 1 drops OP HS ml 04/30/20 01/07/22 History timolol maleate 0.5 % eye drops 1 drp OPB DAILY 09/27/20 01/07/22 History insulin glargine 100 unit/mL (3 15 units SQ HS 01/07/22 01/07/22 History mL) subcutaneous pen (Lantus Solostar U-100 Insulin) Past Med/Surg History Medical History Alcohol abuse Anemia Atrial flutter Cardiac arrest Dyslipidemia Ischemic necrosis of small bowel Macular degeneration Myocardial infarction Surgical History H/O exploratory laparotomy S/P CABG (coronary artery bypass graft) S/P small bowel resection Family History (Updated 01/07/22 @ 15:10 by Jacquelyn Diaz PA-C) Other Family history unobtainable due to patient's condition Social History Smoking Status: Current every day smoker packs per day: 1; Years Smoked: 50; Cigarettes Per Day: 1ppd; Second Hand Exposure: No; Do You Dip or Chew Tobacco: No; Tobacco Cessation Education Requested by Patient: No Hx Alcohol Use: Yes (Unknown if still drinking, but brother does not think so) Alcohol type: beer Hx Substance Use: No Preferred Language: Maltese Communication Ability: Impaired Learning Consultant Required: No Beliefs That Will Affect Care: None Current Living Situation: Alone current occupational status: retired Other Information That Helps Us Care for You: No Feels Safe at Home: Yes Assistive Devices: Glasses and Walker Review of Systems Review of Systems: Unobtainable due to endotracheal tube Physical Exam Physical Exam: Constitutional: Thin, cachectic, elderly, male, critically ill, with endotracheal tube in place,vitals as above, Head: Normocephalic, Atraumatic Eyes: Pupils dilated but equal, right eye conjunctival erythema, left eye conjunctivae normal, anicteric sclerae ENMT: external ear and nose normal, oropharynx clear due to ET tube Neck: trachea midline, normal visual inspection Respiratory: Endotracheal tube in place, distant breath sounds heard throughout, no wheeze, rales, rhonchi. Normal insp/exp effort, no accessory muscle use Cardiovascular: Distant heart sounds, do not appreciate murmur, bilateral +1 edema,cool peripheral ext: no JVD or carotid bruit Chest: normal inspection of chest Abdomen: normal bowel sounds, soft, nontender, Musculoskeletal: no cyanosis, Skin: no rashes,cool and dry normal turgor Neurologic: Unable to assess due to unresponsiveness Psychiatric: Unable to assess due to unresponsiveness : deferred Results & Data Results & Data ([facility]) Vital Signs (Past 12 Hours) Vital Signs Temp Pulse Pulse Resp BP BP Pulse Ox 01/07/22 14:55 103 H 18 110/78 01/07/22 14:50 112 H 111 H 17 107/76 107/76 01/07/22 14:40 129 H 17 97/66 L 01/07/22 14:35 107 H 16 98/85 L 01/07/22 14:30 107 H 16 98/76 L 01/07/22 14:26 117 H 16 90/67 L 01/07/22 14:16 101 H 16 101/71 01/07/22 14:11 86 16 135/78 01/07/22 13:50 96 H 16 109/78 93 01/07/22 13:48 98 H 16 96/80 L 91 01/07/22 13:45 99 H 16 96/80 L 91 01/07/22 13:41 107 H 16 99/74 L 92 01/07/22 13:35 100 H 16 92/75 L 94 01/07/22 13:30 98 H 89 16 101/69 101/69 96 01/07/22 13:26 110 H 16 94/69 L 92 01/07/22 13:20 117 H 16 96 01/07/22 13:17 110 H 16 87/73 L 96 01/07/22 13:10 107 H 16 121/84 99 01/07/22 13:05 107 H 4 L 133/90 100 01/07/22 13:01 132/88 01/07/22 13:00 101 H 22 137/96 45 L 01/07/22 11:48 31.4 C L 110 H 20 88/63 L Diagnostic Findings Head CT 01/07/22 11:47 CT head/brain wo con CLINICAL HISTORY: 76 years-old Male with confusion. Acutely altered mental status TECHNIQUE: Multiple axial CT images of the head were obtained without contrast. A dose lowering technique was utilized adhering to the principles of ALARA. CT DOSE: 729.78 mGycm COMPARISON: Head CT 09/27/2020 FINDINGS: No acute intracranial hemorrhage, midline shift, intracranial mass, hydrocephalus, territorial ischemia or abnormal extra-axial collection. Age- related involutional changes. White matter hypodensities suggest chronic microvascular ischemic disease. Cerebral vascular calcifications. Small chronic appearing lacunar infarcts of the caudate nuclei. The calvarium is intact. The paranasal sinuses, mastoid air cells, and middle ear cavities are clear. IMPRESSION: No acute intracranial abnormality. ACT 112: Negative or not required by law. The above report was generated using voice recognition software. It may contain grammatical, syntax or spelling errors. Electronically signed by: David Amezcua M.D. 01/07/2022 2:10 PM Chest X-Ray 01/07/22 11:48 XR chest 1V portable CLINICAL HISTORY: weakness. Status post intubation. Evaluate cardiopulmonary status COMPARISON STUDY: 09/27/2020 TECHNIQUE: 1 view of the chest FINDINGS: Single frontal view of the chest demonstrates the heart size to be within normal limits status post previous cardiothoracic surgery and ICD pacer placement. Endotracheal tube has been placed with its tip approximately 6.2 cm above the claudy. Compared to the previous examination, interstitial and alveolar edema are present most characteristic of early congestive heart failure. There is no evidence for pleural effusion. No confluent alveolar opacities are identified. T here is no acute osseous pathology. IMPRESSION: 1. Diffuse interstitial and alveolar edema characteristic of early congestive heart failure. 2. ET tube 6.2 cm above the claudy. ACT 112: Negative or not required by law. Electronically signed by: Silvino Gross M.D. 01/07/2022 1:17 PM Medications Administered Medication List Norepinephrine Bitartrate (Levophed/D5w) 8 mg in 508 mls @ 48.578 mls/hr IV .[id number] ROHAN; Protocol Stop: 02/06/22 12:59 Last Titration: 01/07/22 13:32 Dose: 0.3 mcg/kg/min, 48.6 mls/hr Documented by: [id number] Titration: 01/07/22 13:30 Dose: 0.2 mcg/kg/min, 32.4 mls/hr Documented by: [id number] Admin: 01/07/22 12:50 Dose: 0.1 mcg/kg/min, 16.2 mls/hr Documented by: [id number] Cosigned by: [id number] Insulin Human Regular 250 (units/ Sodium Chloride) 250 mls @ 4.2 mls/hr IV .Q24H ROHAN; Protocol Stop: 02/06/22 13:59 Last Admin: 01/07/22 14:15 Dose: 4.2 units/hr, 4.2 mls/hr Documented by: [id number] Cosigned by: [id number] Sodium Bicarbonate 150 meq/ (Sterile Water) 1,150 mls @ 150 mls/hr IV .Q7H40M ROHAN Stop: 01/07/22 21:39 Last Admin: 01/07/22 14:41 Dose: 150 mls/hr Documented by: [id number] Vasopressin 20 units/ Sodium (Chloride) 101 mls @ 12.12 mls/hr IV .Q8H20M ROHAN Stop: 02/06/22 14:14 Last Admin: 01/07/22 14:36 Dose: 0.04 unit/min, 12.1 mls/hr Documented by: [id number] Cosigned by: [id number] Potassium Chloride (K Elfego / Wtr) 20 meq in 100 mls @ 50 mls/hr IV ONE ONE; Protocol Stop: 01/07/22 16:14 Last Admin: 01/07/22 14:36 Dose: 50 mls/hr Documented by: [id number] Discontinued Medications Sodium Chloride (Nss 1000ml) 2,000 mls @ 999 mls/hr IV .Q2H1M ONE Stop: 01/07/22 13:47 Last Admin: 01/07/22 12:31 Dose: 999 mls/hr Documented by: [id number] Cefepime HCl (Maxipime) 2,000 mg in 20 mls @ 5 mls/min IV NOW STA; Protocol Stop: 01/07/22 11:52 Last Admin: 01/07/22 12:34 Dose: 5 mls/min Documented by: [id number] Insulin Human Regular (Novolin-R Insulin Per Unit Charge) 8 units IV NOW Stop: 01/07/22 11:51 Last Admin: 01/07/22 12:34 Dose: 8 units Documented by: [id number] Cosigned by: [id number] Miscellaneous (Rapid Sequence Induction Bag) Confirm Administered Dose 1 ea .ROUTE .STK-MED ONE Stop: 01/07/22 12:38 Last Admin: 01/07/22 13:19 Dose: 1 ea Documented by: [id number] Norepinephrine Bitartrate (Norepinephrine/D5w 8 Mg/508 Ml) Confirm Administered Dose 8 mg IV .STK-MED ONE Stop: 01/07/22 12:49 Last Admin: 01/07/22 13:17 Dose: 8 mg Documented by: [id number] Potassium Chloride (Potassium Chloride 10 Meq / 100ml Wtr) Confirm Administered Dose 10 meq IV .STK-MED ONE Stop: 01/07/22 13:35 Last Admin: 01/07/22 13:46 Dose: 10 meq Documented by: [id number] Sodium Bicarbonate (Sodium Bicarb 8.4% Inj 50 Meq/50 Ml Syr) 50 meq IV NOW STA Stop: 01/07/22 14:17 Last Admin: 01/07/22 14:45 Dose: 50 meq Documented by: [id number] ECG Rate (beats per minute): 86 Rhythm: normal sinus Findings: + 1st degree AV block, + PVC and + prolonged QT (516ms) COVID-19 Results Results COVID-19 Adm Lab Results: RBC 3.91 M/uL (4.7-6.1) L 01/07/22 WBC 12.98 K/uL (4.8-10.8) H 01/07/22 Hgb 11.8 g/dL (14.0-18.0) L 01/07/22 Hct 37.5 % (42-52) L 01/07/22 Plt Count 125 K/uL (130-400) L 01/07/22 Neutrophils (%) (Auto) 84.2 % 01/07/22 Lymphocytes (%) (Auto) 8.9 % 01/07/22 Monocytes # (Auto) 0.80 K/uL (0.11-0.59) H 01/07/22 Eosinophils # (Auto) 0.01 K/uL (0-0.5) 01/07/22 Immature Granulocyte % (Auto) 0.5 % 01/07/22 Neutrophils # (Auto) 10.95 K/uL (1.4-6.5) H 01/07/22 Lymphocytes # (Auto) 1.15 K/uL (1.2-3.4) L 01/07/22 Monocytes # (Auto) 0.80 K/uL (0.11-0.59) H 01/07/22 Eosinophils # (Auto) 0.01 K/uL (0-0.5) 01/07/22 Basophils # (Auto) 0.01 K/uL (0-0.2) 01/07/22 Immature Granulocyte # (Auto) 0.06 K/uL (0.00-0.02) H 01/07/22 Echinocytes 1+ 01/07/22 Toxic Vacuolation 1+ 01/07/22 Na 144 mmol/L (136-145) 01/07/22 K TNP 01/07/22 Cl 105 mmol/L (98-107) 01/07/22 CO2 7 mmol/L (21-32) L* 01/07/22 Anion Gap 32 (3-11) H 01/07/22 BUN 25 mg/dl (6-23) H 01/07/22 Creatinine 1.18 mg/dl (0.6-1.4) 01/07/22 BUN/Creatinine Ratio 21.2 (10-20) H 01/07/22 Glucose Level 534 mg/dl (70-99(Fasting)) H* 01/07/22 Ca 7.8 mg/dl (8.5-10.1) L 01/07/22 Phosphorus Level 6.0 mg/dl (2.5-4.9) H 01/07/22 Total Bilirubin 0.9 mg/dl (0.2-1.0) 01/07/22 AST/SGOT TNP 01/07/22 ALT/SGPT 28 U/L (7-52) 01/07/22 Alkaline Phosphatase 62 U/L (34-104) 01/07/22 Total Protein 4.8 gm/dl (6.0-8.3) L 01/07/22 Albumin 2.7 gm/dl (3.4-5.0) L 01/07/22 Globulin 2.1 gm/dl (2.5-4.0) L 01/07/22 Albumin/Globulin Ratio 1.3 (0.9-2) 01/07/22 Total CK 3630 U/L (30-223) H 01/07/22 PTT Pending 01/07/22 INR 1.3 (0.9-1.1) H 01/07/22 COVID-19 PCR NEGATIVE (Negative) 01/07/22 Influenza Virus Type A (PCR) Negative (Neg) 01/07/22 Influenza Virus Type B (PCR) Negative (Neg) 01/07/22 Sample Site R Radial 01/07/22 POC pH 6.96 (7.35-7.45) L* 01/07/22 POC pCO2 40 mmHg (35-46) 01/07/22 POC pO2 95 mmHg (80-95) 01/07/22 POC HCO3 9 kathy/L (19-24) L 01/07/22 POC Total CO2 10 mmol/L (24-31) L 01/07/22 POC Base Excess -23.0 kathy/L (-9-1.8) L 01/07/22 ABG pH 6.89 (7.35-7.45) L* 01/07/22 ABG pCO2 45 mmHg (35-46) 01/07/22 ABG pO2 43 mmHg (80-95) L 01/07/22 ABG HCO3 8 mmol/L (19-24) L 01/07/22 ABG O2 Saturation < 60.0 % (90-95) L 01/07/22 ABG Base Excess -23.7 mEq/L (-9-1.8) L 01/07/22 Ox Delivery Device Ventilator 01/07/22 POC O2 Rate 20 01/07/22 Tidal Volume 450 01/07/22 PEEP 5 01/07/22 Chest X-Ray 01/07/22 Code Status & VTE Plan Code Status Conditional code Discussed with brother at bedside who wishes for no further CPR if patient were to code again Given that patient is already intubated and on vasopressors he wishes to continue current work-up to determine if a reversible cause He is currently okay with the current intubation and vasopressor treatment VTE Prophylaxis Plan VTE Prophylaxis will be ordered: Yes Supervising Physician Co-Signing Physician Notes Patient is a 76-year-old male with history of diabetes mellitus, hypertension, coronary artery disease, COPD and other medical problems presents to ED after being found to be unconscious prior to arrival. Patient currently intubated while in ED and unable to provide any history. Much of the history is obtained from ER staff, old records and from patient's brother. As per family, patient lives alone and does not care for himself and are not sure about his medication use. He was found on the floor in bathroom confused and mostly unconscious. He was found to have blood sugar in the 500, Hypothermic and seems to be very dehydrated. Patient was electively intubated while in ED but later CODE BLUE was called as he was pulseless. Patient had successful ROSC after CPR for 2-3 minutes. He was started on pressors. Please review HPI for complete details of presentation. Blood work showed leukocytosis 12.98, chronic anemia hemoglobin 11.8, thrombocytopenia 125K, anion gap metabolic acidosis, respiratory acidosis based on ABG and blood work. Bicarbonate level 7, sodium 434, lactate 4.2, calcium 7.8, ammonia 111, CK 3630, high-sensitivity troponin 6693, phosphorus 6.0, urine analysis showed ketones. CT head showed no acute abnormality. CT chest showed single subsegmental pulmonary embolus within the left lower lobe, mild pulmonary edema and bilateral pleural effusions, consolidative airspace opacities suggestive of necrotizing pneumonia of the bilateral lower lobes. CT abdomen showed diffuse abdominal and pelvic ascites, and nonobstructive left renal calculus. On exam patient is thin, cachectic, ill-appearing, elderly, intubated, normocephalic/atraumatic, decreased breath sounds, clear to auscultation, S1-S2, no murmur, tachycardic, + B/L LE edema, abdomen soft, nontender, obtunded and intubated. Complete neurological exam could not be performed. Patient is admitted for management of DKA, metabolic and respiratory acidosis, ventilatory dependent respiratory failure, necrotizing pneumonia, acute PE, hyperammonemia, S/P cardiac arrest, cardiogenic/septic shock, rhabdomyolysis, likely ischemic cardiomyopathy, cannot rule out ACS. Started on IV insulin-DKA protocol, vent management as per ICU team. Appreciate director of publications input. Started on IV heparin. Also started on broad-spectrum antibiotics. Trend lactate, electrolytes, CK, ammonia levels. Cardiology consulted as well. Poor prognosis. Cultures obtained. I personally reviewed the record. Patient is interviewed and examined at bedside. Patient's care is coordinated with Jacquelyn Diaz PA-C. Please refer to the documentation above for details of patient's presentation and for discussion of other issues.
[2022-01-07] MEDS ORDERED: OPTIRAY 320 125ml IV ONE (15:31)
[2022-01-07] MEDS ORDERED: ASPIRIN 300 MG SUPP PR ONE (15:35)
--- NOTE | 2022-01-07 16:00 | CT Scan Report ---
CHEST CTA for PULMONARY ARTERIES CT DOSE: HISTORY: Unresponsive. Assess for pulmonary embolus. TECHNIQUE: Multiaxial CT images of the chest were performed following the intravenous administration of contrast to evaluate the pulmonary arteries. Maximal intensity projection images were also obtaine d. A dose lowering technique was utilized adhering to the principles of ALARA. COMPARISON STUDY: Chest CT 09/27/2020. FINDINGS: There is abrupt cut off within the posterior basal subsegmental pulmonary artery of the lef t lower lobe on image 155. Therefore, this is consistent with a pulmonary embolus. No additional fill ing defects identified within the remaining pulmonary arteries. Retrograde opacification of the hepat ic veins. Small bilateral pleural effusions. Endotracheal tube terminates 4 cm from the claudy. There is diffuse mild body wall edema. Is left-sided pacemaker. The heart is mildly enlarged. Moderate alfredo cified plaque within the thoracic aorta. The ascending thoracic aorta measures up to 4.3 cm in diamet er. Inadequate evaluation for an aortic dissection due to the lack of intravenous contrast within the aorta. Normal caliber esophagus. No mediastinal or hilar lymphadenopathy. There are poststernotomy c hanges. There are multiple acute nondisplaced bilateral anterior rib fractures. No pneumothorax. Stab le focal irregular density within the left lung apex on image 326 measuring 9 mm. Advanced emphysema again noted. There is diffuse interlobular septal thickening consistent with mild interstitial pulmon lionel edema. Consolidative airspace opacities within the bilateral lower lobes posteriorly scattered sm all air-fluid levels within the areas of consolidation most pronounced on the right. This raises the possibility of a necrotizing pneumonia. Therefore, this favors an aspiration pneumonia. There is cent ral bronchial wall thickening. IMPRESSION: 1. A single subsegmental pulmonary embolus seen within the left lower lobe. 2. Mild pulmonary edema with small bilateral pleural effusions. 3. The endotracheal tube terminates 4 cm from the claudy. 4. Consolidative airspace opacities within the bilateral lower lobes posteriorly with small scattered air-fluid levels consistent with a necrotizing pneumonia. This could be due to aspiration. 5. Multiple acute nondisplaced bilateral anterior rib fractures. No pneumothorax. 6. Emphysema. 7. Additional findings as described above. ACT 112: Negative or not required by law. Electronically signed by: Gerald Galeas M.D. 01/07/2022 3:57 PM
[2022-01-07] MEDS ORDERED: PHARMACY GLYCEMIC MGMT CONSULT PRN (16:18)
[2022-01-07] MEDS ORDERED: LACTULOSE 200GM/700ML WTR ENEMA PR ONE ×2 (16:18→17:00)
[2022-01-07] MEDS ORDERED: PIPERACILL/TAZOBAC CONSULT ACTIVE PRN ×2 (16:18→16:24)
[2022-01-07] MEDS ORDERED: ICU PROTOCOL FOR HYPERGLYCEMIA PRN (16:18)
--- NOTE | 2022-01-07 16:20 | CT Scan Report ---
CT abd pelvis IV con only CLINICAL HISTORY: unresponsive COMPARISON STUDY: 09/27/2020 CT DOSE: 737.21 mGy.cm TECHNIQUE: Standard CT of the Abdomen and Pelvis was performed with IV contrast. A dose lowering krzysztof hnique was utilized adhering to the principles of ALARA. Contrast Volume: Optiray 320, 120 ml. The patient did not receive oral contrast. FINDINGS: Lung base: Bilateral pleural effusions and bibasilar atelectasis are present. Please see full chest C T report for further evaluation. Abdominal cavity: There is mild diffuse abdominal and pelvic ascites. There is mild diffuse anasarca. Liver: There is homogeneous attenuation of the liver parenchyma. There is no evidence for enhancing m ass lesion. Spleen: There is homogeneous attenuation of the splenic parenchyma. There is no enhancing mass lesion . Pancreas: There is homogeneous attenuation of the pancreatic parenchyma. There is no evidence for mas s lesion or peripancreatic fluid collection. Gall Bladder: The gallbladder is well distended with no evidence for intraluminal calculi, wall thick ening or pericholecystic edema. However, there is fluid surrounding the gallbladder related to the ab dominal ascites. Adrenal glands: The adrenal glands are normal in size and attenuation. There is no evidence for enhan cing mass lesion. Kidneys: There is homogeneous attenuation of the renal parenchyma bilaterally. Is evidence for 4 mm n onobstructing left renal calculus. There is no evidence for hydronephrosis bilaterally. There is no e vidence for enhancing mass. Bowel: The stomach is distended with liquid and food stuff. The bowel loops are normally placed withi n the abdomen and pelvis without evidence for dilatation or obstruction. There is no evidence for mas s lesion. There are no inflammatory changes present. There is no evidence for free air. Bladder: Shine catheter is present within the bladder. Air is also present within the bladder related to the Shine placement. : There is no evidence for pelvic mass or adenopathy. There is no evidence for pelvic ascites. Vasculature: There is no evidence for aneurysmal dilatation of the abdominal aorta. There is extensiv e atherosclerotic calcification present. Osseous structures: There is no acute osseous pathology. Degenerative changes seen within the spine. Soft tissues: There is air present within the right groin which is probably related to attempted femo ral line placement. IMPRESSION: 1. Diffuse abdominal and pelvic ascites. 2. No acute intra-abdominal pelvic abnormality. 3. Nonobstructing left renal calculus. 4. Air within the right groin which is most likely related to attempted femoral line placement. 5. Additional nonacute findings are delineated above. ACT 112: Negative or not required by law. Electronically signed by: Silvino Gross M.D. 01/07/2022 4:19 PM
[2022-01-07] MEDS ORDERED: VANCOMYCIN CONSULT ACTIVE PRN (16:21)
[2022-01-07] MEDS ORDERED: INFLUENZA VACCINE HIGH DOSE PF 65+ 0.7 ML SYR IM ONE (16:25)
[2022-01-07] MEDS ORDERED: PNEUMOCOCCAL POLYSACCHARIDES 25 MCG/0.5 ML VIAL/SYR IM ONE (16:25)
[2022-01-07] MEDS ORDERED: HEPARIN SODIUM/DEXTROSE 25,000 UNITS/500 ML BAG IV SCH (16:30)
[2022-01-07 16:45] LABS: iSTAT Allen Test Pass; iSTAT Art Bld Gas pCO2 Correct 31 mmHg (35-46); iSTAT Art Bld Gas pH Corrected 7.027 (7.35-7.45); iSTAT Arterial Blood Gas HCO3 9 meg/L (19-24); iSTAT Arterial Blood Gas pCO2 40 mmHg (35-46); iSTAT Arterial Blood Gas pH 6.96 (7.35-7.45); iSTAT Arterial Blood Gas pO2 95 mmHg (80-95); iSTAT Arterial Blood Gas pO2 C 67; iSTAT Carbon Dioxide 10 mmol/L (24-31); iSTAT FiO2 100 %; iSTAT Hematocrit 31 % (42-52); iSTAT Hemoglobin 10.5 g/dl (14.0-18.0); iSTAT Potassium 3.9 mmol/L (3.3-5.0); iSTAT Site R Radial; iSTAT Sodium 143 mmol/L (135-144)
[2022-01-07] MEDS ORDERED: PIPERACILLIN/TAZOBACTAM 4.5 GM in DEXTROSE 5% 100 ML IV ONE (17:00)
[2022-01-07] MEDS: POTASSIUM CHLORIDE 40 MEQ in SODIUM CHLORIDE 0.45 % 1,000 ML IV SCH ×2 (17:24→22:19)
[2022-01-07] MEDS: INSULIN ASPART PER UNIT SC SCH ×2 (17:25→22:17)
[2022-01-07] MEDS: FOLIC ACID 1 MG in SYRINGE 9.8 ML IV SCH (17:32)
[2022-01-07] MEDS: THIAMINE HCL 100 MG in SYRINGE 9 ML IV SCH (17:32)
[2022-01-07] MEDS ORDERED: VANCOMYCIN HCL 1,000 MG in SODIUM CHLORIDE 0.9% 250 ML IV ONE (18:00)
[2022-01-07 18:01] LABS: Partial Thromboplastin Ratio 1.6
[2022-01-07 18:15] LABS: Partial Thromboplastin Time 45.3 Seconds (21.0-31.0)
[2022-01-07 18:22] LABS: Basophils # (auto) 0.01 K/uL (0-0.2); Basophils % (auto) 0.1 %; Echinocytes 1+; Eosinophils # (auto) 0.02 K/uL (0-0.5); Eosinophils % (auto) 0.2 %; Hematocrit (blood only) 34.9 % (42-52); Hemoglobin 10.8 g/dL (14.0-18.0); Lymphocytes % (auto) 17.5 %; Mean Corpuscular Hemoglobin 30.2 pg (25-34); Mean Corpuscular Hgb Conc 30.9 g/dL (32-36); Mean Corpuscular Volume 97.5 fL (80-100); Monocytes % (auto) 2.1 %; Neutrophils % (auto) 79.1 %; Nucleated RBC # (auto) 0.04 K/uL (0-0); Nucleated RBC % (auto) 0.4 %; Pappenheimer Bodies 1+; Platelet Count 94 K/uL (130-400); Platelet Estimate Decreased (Normal); RDW Coefficient of Variation 15.7 % (11.5-14.5); RDW Standard Deviation 55.6 fL (36.4-46.3); Red Blood Count 3.58 M/uL (4.7-6.1); Toxic Vacuolation 1+; White Blood Count 9.73 K/uL (4.8-10.8)
[2022-01-07] MEDS ORDERED: Heparin IV Adult Wt-Based Standard WITH Bolus Protocol IV ONE (18:45)
[2022-01-07] MEDS ORDERED: Heparin IVP from UFH Protocol (WITH Bolus) IV ONE (18:45)
--- NOTE | 2022-01-07 20:49 | Pharmacy Report ---
Pharmacy Glycemic Short Note 2 - Date of Service January 07, 2022 - Glycemic Short BSG Results (Last 24 hours): 01/07/22 01/07/22 01/07/22 12:30 13:08 16:46 Glucose 534 H* POC Glucose (other) 456 H* 437 H* 01/07/22 18:17 Glucose POC Glucose (other) 420 H* OUTPATIENT ANTIDIABETIC REGIMEN: * Lantus 15 units SC HS * Glipizide 5 mg PO daily * HbA1c: 10.1% (01/07/22) ASSESSMENT: * SK is a 76 year old male who presented to ED initially unresponsive, coded and resuscitated in ED * Found to be in DKA with BSG of 534 mg/dL, anion gap of 32, serum bicarbonate of 7, and pH of 6.96 * Currently requiring vasopressors (norepinephrine and vasopressin) * IV fluids - 1 L of 150 mEq sodium bicarb @100 mL/hr, 1/2 NS + 40 KCl @200 mL/hr * Zosyn for broad spectrum antibiotic coverage PLAN FOR INPATIENT GLYCEMIC CONTROL: * Hold outpatient oral diabetes medications * Insulin infusion * Will hold basal insulin until anion gap is closed and okay to transition to SC * Bolus insulin * NovoLog per scale ACHS per insulin gtt calculator
[2022-01-07] MEDS ORDERED: LATANOPROST 0.005% OP SOLN 2.5 ML BTL OPB SCH (21:00)
[2022-01-07] MEDS: BRIMONIDINE TARTRATE-P 0.15% 5 ML BTL OPB SCH (21:50)
[2022-01-07] MEDS: DORZOLAMIDE HCL 2% OPH SOLN 10 ML BTL OPB SCH (21:51)
--- NOTE | 2022-01-07 21:51 | Procedure Note ---
Procedure Note Date of Service January 07, 2022 Note Procedure: Arterial Line Placement Attending: Dr. Mahajan APC: John Garcias PA-C Indication: Hemodynamic monitoring Anesthesia: Lidocaine 1% Emergent Consent implied in the setting of clinical deterioration and need for close hemodynamic monitoring, ABG monitoring, frequent lab draws, etc. A time-out was completed verifying correct patient, procedure, site, positioning, and implant(s) or special equipment if applicable. Allens test was performed to ensure adequate perfusion. Patients LEFT wrist was prepped and draped in the usual sterile fashion. Ultrasound guidance was used to aid needle placement. A 20g Arrow arterial line was introduced into the LEFT Radial artery. Catheter was threaded, and the needle was removed with appropriate blood return. Good waveform was observed. The patient tolerated the procedure well. Confirm ation of placement with ultrasound. Blood Loss: Minimal Complications: None Procedural Ultrasound Guidance: Procedure Date: 01/07/2022 Indication: Hemodynamic Monitoring, Frequent ABGs/Lab draws. Attending: Dr. Mahajan APC: John Garcias PA-C Artery Identified: YES Line confirmed in Artery with ultrasound: YES Complications: NONE Patient tolerated procedure: WELL Coding CPT Codes Tubes, Drains, and Vasc Access - Tubes, Drains, and Vasc Access: [id number] Place Catheter In Artery ([id number]) [facility] [place]) Tubes, Drains, and Vasc Access Procedure 1: Tubes, Drains, and Vasc Access: [id number] Place Catheter In Artery
[2022-01-07] MEDS: PIPERACILLIN/TAZOBACTAM 3.375 GM in DEXTROSE 5% 100 ML IV SCH (22:57)
[2022-01-07 23:07] LABS: Appearance Urine Turbid (Clear); Bacteria Urine Automated Negative (Negative); Bilirubin Urine Negative (Negative); Blood Urine 3+ (Negative); Color Urine Dark Yellow; Epithelial Cell Urine Auto >30 /lpf (0-5); Glucose Urine UA 3+ (Negative); Ketones Urine 1+ (Negative); Leukocyte Esterase Urine Negative (Negative); Nitrite Urine Negative (Negative); Protein Urine 3+ (Negative); Specific Gravity Urine 1.039 (1.000-1.030); Urobilinogen Urine Negative (Negative); WBC Urine Automated >30 /hpf (0-5)
[2022-01-07] MEDS: dexMEDEtomidine 200 MCG/50 ML BAG IV SCH (23:24)
[2022-01-07 23:34] LABS: Cast Urine Automated >30 /lpf (0-5)
[2022-01-07 23:41] LABS: Creatinine Urine Random 35.4 mg/dl; Potassium Random Urine 26.6 mmol/L
[2022-01-07 23:42] LABS: Amphetamines+Metham, Urine Neg (Neg); Barbiturates, Urine Neg (Neg); Benzodiazepine, Urine Neg (Neg); Cocaine, Urine Neg (Neg); MDMA (Ecstacy), Urine Neg (Neg); Methadone, Urine Neg (Neg); Opiate, Urine Neg (Neg); Phencyclidine, Urine Neg (Neg)
[2022-01-08 00:29] LABS: BUN Creatinine Ratio 19.8 (10-20); Calcium 7.5 mg/dl (8.5-10.1); Creatinine Clr Calc Pharmacy 30.9 ml/min; Est GFR (African American) 64.7 ml/min; Est GFR (Non-African American) 55.8 ml/min; Magnesium 1.7 mg/dl (1.7-2.4); Phosphorus 3.7 mg/dl (2.5-4.9); Potassium 3.7 mmol/L (3.5-5.1)
[2022-01-08 00:29] LABS: Anion Gap 28 (3-11); BUN Creatinine Ratio 19.4 (10-20); Blood Urea Nitrogen 25 mg/dl (6-23); Calcium 8.1 mg/dl (8.5-10.1); Carbon Dioxide 10 mmol/L (21-32); Chloride 106 mmol/L (98-107); Creatinine Clr Calc Pharmacy 30.2 ml/min; Est GFR (African American) 62.9 ml/min; Est GFR (Non-African American) 54.3 ml/min; Glucose 468 mg/dl (70-99(Fasting)); Magnesium 2.1 mg/dl (1.7-2.4); Phosphorus 6.3 mg/dl (2.5-4.9); Potassium 3.7 mmol/L (3.5-5.1); Sodium 144 mmol/L (136-145); Troponin I High Sensitivity > 27027.0 pg/ml (0-20)
[2022-01-08] MEDS: VASOPRESSIN 20 UNITS in 0.9 % SODIUM CHLORIDE 100 ML IV SCH ×2 (00:35→09:19)
[2022-01-08] MEDS: SODIUM CHLORIDE 0.9% 1000ML 1,000 ML IV SCH (01:06)
[2022-01-08] MEDS: Standard Conc 16mcg/mL; 8mg in 500mL IV SCH ×3 (02:15→09:19)
[2022-01-08 02:58] LABS: Partial Thromboplastin Ratio > 5.1
[2022-01-08 03:08] LABS: Partial Thromboplastin Time > 139.0 Seconds (21.0-31.0)
[2022-01-08] MEDS: POTASSIUM CHLORIDE 40 MEQ in SODIUM CHLORIDE 0.45 % 1,000 ML IV SCH (03:14)
[2022-01-08] MEDS: dexMEDEtomidine 200 MCG/50 ML BAG IV SCH (03:20)
[2022-01-08 04:27] LABS: iSTAT Art Bld Gas pCO2 Correct 40 mmHg (35-46); iSTAT Art Bld Gas pH Corrected 7.288 (7.35-7.45); iSTAT Arterial Blood Gas HCO3 20 meg/L (19-24); iSTAT Arterial Blood Gas pCO2 43 mmHg (35-46); iSTAT Arterial Blood Gas pH 7.27 (7.35-7.45); iSTAT Arterial Blood Gas pO2 75 mmHg (80-95); iSTAT Arterial Blood Gas pO2 C 68; iSTAT Carbon Dioxide 21 mmol/L (24-31); iSTAT FiO2 90 %; iSTAT Hematocrit 30 % (42-52); iSTAT Hemoglobin 10.2 g/dl (14.0-18.0); iSTAT Potassium 3.9 mmol/L (3.3-5.0); iSTAT Site Art Line; iSTAT Sodium 143 mmol/L (135-144)
[2022-01-08 04:27] LABS: iSTAT Art Bld Gas pCO2 Correct 41 mmHg (35-46); iSTAT Art Bld Gas pH Corrected 7.287 (7.35-7.45); iSTAT Arterial Blood Gas HCO3 20 meg/L (19-24); iSTAT Arterial Blood Gas pCO2 42 mmHg (35-46); iSTAT Arterial Blood Gas pH 7.28 (7.35-7.45); iSTAT Arterial Blood Gas pO2 94 mmHg (80-95); iSTAT Arterial Blood Gas pO2 C 91; iSTAT Carbon Dioxide 21 mmol/L (24-31); iSTAT FiO2 90 %; iSTAT Hematocrit 32 % (42-52); iSTAT Hemoglobin 10.9 g/dl (14.0-18.0); iSTAT Potassium 3.8 mmol/L (3.3-5.0); iSTAT Site Art Line; iSTAT Sodium 144 mmol/L (135-144)
[2022-01-08] MEDS ORDERED: D5W AND 1/2NSS + 20MEQ KCL 20 MEQ/1,000 ML BAG IV SCH (05:00)
[2022-01-08 05:11] LABS: Albumin Level 2.3 gm/dl (3.4-5.0); BUN Creatinine Ratio 19.3 (10-20); Bilirubin Direct 0.5 mg/dl (0-0.2); Bilirubin,Total 1.1 mg/dl (0.2-1.0); Calcium 7.1 mg/dl (8.5-10.1); Creatinine Clr Calc Pharmacy 28.9 ml/min; Est GFR (African American) 59.5 ml/min; Est GFR (Non-African American) 51.4 ml/min; Hematocrit (blood only) 32.2 % (42-52); Hemoglobin 10.7 g/dL (14.0-18.0); Magnesium 1.5 mg/dl (1.7-2.4); Mean Corpuscular Hemoglobin 30.2 pg (25-34); Mean Corpuscular Hgb Conc 33.2 g/dL (32-36); Mean Platelet Volume 11.9 fL (7.4-10.4); Nucleated RBC # (auto) 0.03 K/uL (0-0); Nucleated RBC % (auto) 0.9 %; Phosphorus 2.8 mg/dl (2.5-4.9); Platelet Count 77 K/uL (130-400); Potassium 3.9 mmol/L (3.5-5.1); RDW Coefficient of Variation 15.3 % (11.5-14.5); RDW Standard Deviation 50.5 fL (36.4-46.3); Red Blood Count 3.54 M/uL (4.7-6.1); Total Protein 4.1 gm/dl (6.0-8.3)
[2022-01-08 05:15] LABS: Immature Granulocytes # (auto) 0.02 K/uL (0.00-0.02); Immature Granulocytes % (auto) 0.5 %; Lymphocytes # (auto) 0.76 K/uL (1.2-3.4); Lymphocytes % (auto) 19.5 %; Monocytes # (auto) 0.11 K/uL (0.11-0.59); Monocytes % (auto) 2.8 %; Neutrophils # (auto) 3.01 K/uL (1.4-6.5); Neutrophils % (auto) 77.2 %; Pappenheimer Bodies 1+; Partial Thromboplastin Ratio > 5.1; Polychromasia 1+
[2022-01-08] MEDS: PENDING D5 1/2NS+40mEq KCL IVF SCH ×4 (05:15→10:35)
[2022-01-08 05:18] LABS: Partial Thromboplastin Time > 139.0 Seconds (21.0-31.0)
[2022-01-08] MEDS: POTASSIUM CHLORIDE 40 MEQ in D5W AND 1/2NSS 1,000 ML IV SCH ×3 (05:22→10:27)
[2022-01-08] MEDS: PIPERACILLIN/TAZOBACTAM 3.375 GM in DEXTROSE 5% 100 ML IV SCH (06:27)
--- NOTE | 2022-01-08 07:07 | Ultrasound Report ---
BILATERAL LOWER EXTREMITY VENOUS DOPPLER HISTORY: Bilateral leg swelling. r/o DVT COMPARISON STUDY: None. FINDINGS: Echogenic linear areas noted along the periphery of the bilateral superficial femoral veins and right popliteal vein consistent with a small amount of nonocclusive chronic thrombus. Remaining bilateral lower extremity venous systems are patent. No acute DVT. IMPRESSION: 1. No acute DVT within the bilateral lower extremities. 2. Nonocclusive chronic thrombus within the bilateral superficial femoral veins and right popliteal v ein. ACT 112: Negative or not required by law. Electronically signed by: Gerald Galeas M.D. 01/08/2022 7:05 AM
[2022-01-08] MEDS ORDERED: MAGNESIUM SULFATE / D5W 1 GM/100 ML BAG IV ONE (07:35)
[2022-01-08 07:46] LABS: Partial Thromboplastin Ratio 4.1
[2022-01-08 07:48] LABS: BUN Creatinine Ratio 19.5 (10-20); Creatinine Clr Calc Pharmacy 27.8 ml/min; Est GFR (African American) 60.6 ml/min; Est GFR (Non-African American) 52.3 ml/min; Magnesium 1.4 mg/dl (1.7-2.4); Phosphorus 2.6 mg/dl (2.5-4.9); Potassium 4.3 mmol/L (3.5-5.1)
[2022-01-08 08:00] LABS: Partial Thromboplastin Time 112.5 Seconds (21.0-31.0)
[2022-01-08] MEDS: INSULIN ASPART PER UNIT SC SCH ×2 (08:22→12:31)
[2022-01-08] MEDS: DORZOLAMIDE HCL 2% OPH SOLN 10 ML BTL OPB SCH (08:31)
[2022-01-08] MEDS: BRIMONIDINE TARTRATE-P 0.15% 5 ML BTL OPB SCH (08:31)
[2022-01-08] MEDS: FOLIC ACID 1 MG in SYRINGE 9.8 ML IV SCH (08:32)
[2022-01-08] MEDS: THIAMINE HCL 100 MG in SYRINGE 9 ML IV SCH (08:32)
--- NOTE | 2022-01-08 08:57 | XRay Report ---
SINGLE VIEW CHEST CLINICAL HISTORY: Respiratory failure. FINDINGS: 2 AP, portable, upright chest radiographs are compared to chest x-ray and chest CT dated . The examination is degraded by portable technique and patient rotation. An endotracheal tube is unchanged in position. An enteric tube has been placed. The tip projects below the diaphragm and is not visualized. The patient is status post midline sternotomy. A 2-lead cardiac AICD is unchanged in position and partially obscures the left upper chest. The heart is mildly enlarged noting atherosc lerotic calcification of the thoracic aorta. The pulmonary vasculature is noncongested. Emphysema and chronic interstitial thickening is similar to previous. There are layering pleural effusions with mu ltifocal airspace consolidation. No pneumothorax is seen. The skeletal structures are osteopenic. The bony thorax is grossly intact. IMPRESSION: 1. An enteric tube is new from previous. An endotracheal tube is unchanged in position. 2. Cardiomegaly and emphysema. 3. Layering pleural effusions with multifocal airspace consolidation. This appears worsened as compar ed to yesterday. ACT 112: Negative or not required by law. Electronically signed by: Jl Silverman M.D. 01/08/2022 8:56 AM
[2022-01-08] MEDS ORDERED: PANTOprazole 40 MG in SYRINGE 0 ML IV SCH (09:00)
[2022-01-08] MEDS ORDERED: TIMOLOL MALEATE 0.5% OP SOLN 5 ML BTL OPB SCH (09:00)
--- NOTE | 2022-01-08 10:21 | Cardiology Consultation ---
Date of Consultation January 08, 2022 Assessment & Plan (1) Cardiac arrest: (2) DKA (diabetic ketoacidosis): (3) Altered mental status: (4) Acute dehydration: (5) Elevated troponin: (6) Lactic acidosis: Not much to offer with this patient at this point. Reviewing the medical record here, I note that he has had a palliative care consult during his last admission and it would not be unreasonable to do so again. History of Present Illness Attending Physician: Arron Oliveira MD History of Present Illness This is a 76-year-old male patient who I last saw in 2019. He is terribly noncompliant with medications as well as follow-up. He is a previous cardiac arrest survivor with a history of ischemic cardiomyopathy and severe chronic left ventricular dysfunction with an estimated left ventricular ejection fraction of around 20%. He has a history of diffuse coronary artery disease felt not to be amendable to intervention. He has a history of alcohol and tobacco abuse. He does have an ICD in place but it has not been interrogated for well over a year. The last interrogation we do have several years ago indicated numerous episodes of ventricular tachycardia treated with ATP and several episodes of ventricular fibrillation treated with shock therapy. According to our records he was to be taking amiodarone but again compliance is unknown. He is currently intubated and unresponsive. His recent history leading to his admission is taken from the medical records and nursing. He was found on the floor of his bathroom. Uncertain as to how long he was down but according the nursing he was hypothermic on admission. He was also acidotic and had a markedly elevated blood glucose level. After admission to the ICU he was intubated and then had a cardiac arrest. Since that time he has had 1 episode of ventricular tachycardia that lasted approximately 12 seconds. He is currently in what appears to be atrial fibrillation with RVR and a heart rate of 120 bpm on inotropic agents. Allergies Allergy/AdvReac Type Severity Reaction Status Date / Time No Known Drug Allergies Allergy Unknown . Verified 01/07/22 14:12 Home Medications Medication Instructions Recorded Confirmed Type aspirin 81 mg tablet,delayed 162 mg PO DAILY tab 05/14/19 01/07/22 History release atorvastatin 40 mg tablet 40 mg PO DAILY tab 05/14/19 01/07/22 History albuterol sulfate 90 mcg/actuation 2 puffs INHALATION Q6H PRN #1 gm 04/30/20 01/07/22 History aerosol inhaler brimonidine 0.15 % eye drops 1 drops OP TID ml 04/30/20 01/07/22 History dorzolamide 2 % eye drops 1 drops OP TID ml 04/30/20 01/07/22 History ferrous sulfate 325 mg (65 mg 325 mg PO DAILY 04/30/20 01/07/22 History iron) tablet latanoprost 0.005 % eye drops 1 drops OP HS ml 04/30/20 01/07/22 History timolol maleate 0.5 % eye drops 1 drp OPB DAILY 09/27/20 01/07/22 History insulin glargine 100 unit/mL (3 15 units SQ HS 01/07/22 01/07/22 History mL) subcutaneous pen (Lantus Solostar U-100 Insulin) Patient History Medical History Alcohol abuse Anemia Atrial flutter Cardiac arrest Dyslipidemia Ischemic necrosis of small bowel Macular degeneration Myocardial infarction Surgical History H/O exploratory laparotomy S/P CABG (coronary artery bypass graft) S/P small bowel resection Family History Other Family history unobtainable due to patient's condition Social History Smoking Status: Current every day smoker packs per day: 1; Years Smoked: 50; Cigarettes Per Day: 1ppd; Second Hand Exposure: No; Do You Dip or Chew Tobacco: No; Tobacco Cessation Education Requested by Patient: No Hx Alcohol Use: Yes (Unknown if still drinking, but brother does not think so) Alcohol type: beer Hx Substance Use: No Preferred Language: Sinhala Communication Ability: Impaired 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 Beliefs That Will Affect Care: None Current Living Situation: Alone current occupational status: retired Other Information That Helps Us Care for You: No Feels Safe at Home: Yes Assistive Devices: Glasses and Walker Review of Systems Review of Systems: Not obtainable Physical Exam Physical Exam: General: Intubated and unresponsive Head: normocephalic, no masses, lesions, tenderness or abnormalities Eyes: conjunctiva are pink and non-injected, sclera clear Neck: supple, no adenopathy, no bruits, normal jugular venous pulse, no hepatojugular reflux Chest: normal shape and normal respiratory effort Lungs: clear to auscultation and percussion Cardiac Exam: - irregular rate & rhythm, no murmurs gallops or rubs - normal S1, normal S2 Pulses: 2(+) throughout Abdomen: abdomen soft, non-tender, no abnormal masses and no hepatosplenomegaly Musculoskeletal: no joint inflammation, no deforming arthritis Extremities: no edema and no cyanosis Neuro: grossly normal exam Results & Data ([facility]) Vital Signs (Past 12 Hours) Vital Signs Temp Pulse Pulse Resp BP BP BP 01/08/22 08:01 123 H 27 H 122/98 01/08/22 08:00 36.5 C 123 H 119 H 26 H 68/46 L 122/98 01/08/22 07:31 108 H 28 H 105/78 01/08/22 07:30 119 H 27 H 01/08/22 07:18 117 H 29 H 01/08/22 07:01 126 H 30 H 01/08/22 07:00 120 H 32 H 01/08/22 06:00 120 H 27 H 71/43 L 01/08/22 05:30 125 H 28 H 01/08/22 05:21 122 H 29 H 85/59 L 01/08/22 05:00 128 H 27 H 71/54 L 01/08/22 04:47 118 H 28 H 86/47 L 01/08/22 04:30 136 H 26 H 90/50 L 01/08/22 04:00 36.4 C L 149 H 27 H 85/56 L 01/08/22 03:44 119 H 28 H 01/08/22 03:30 115 H 27 H 85/61 L 01/08/22 03:00 132 H 27 H 92/51 L 01/08/22 02:30 126 H 27 H 82/46 L 01/08/22 02:00 106 H 22 102/52 L 01/08/22 01:32 112 H 27 H 102/58 L 01/08/22 01:30 123 H 28 H 01/08/22 01:03 124 H 21 83/61 L 01/08/22 01:01 123 H 24 01/08/22 01:00 124 H 21 78/62 L 01/08/22 00:56 124 H 24 84/61 L 01/08/22 00:49 125 H 25 H 81/60 L 01/08/22 00:48 121 H 23 01/08/22 00:31 25.0 C L 113 H 27 H 85/62 L 01/08/22 00:30 25.2 C L 116 H 22 01/08/22 00:27 129 H 21 01/08/22 00:11 36.1 C L 115 H 25 H 101/69 01/08/22 00:00 36.0 C L 118 H 22 106/42 L 01/07/22 23:58 36.0 C L 120 H 26 H 01/07/22 23:30 35.9 C L 128 H 22 102/85 01/07/22 23:07 132 H 26 H 01/07/22 23:01 35.8 C L 121 H 25 H 84/66 L 01/07/22 23:00 35.8 C L 131 H 21 01/07/22 22:30 119 H 23 Pulse Ox 01/08/22 08:01 89 L 01/08/22 08:00 91 01/08/22 07:31 94 01/08/22 07:30 94 01/08/22 07:18 01/08/22 07:01 90 01/08/22 07:00 88 L 01/08/22 06:00 01/08/22 05:30 71 L 01/08/22 05:21 98 01/08/22 05:00 94 01/08/22 04:47 94 01/08/22 04:30 96 01/08/22 04:00 96 01/08/22 03:44 92 01/08/22 03:30 96 01/08/22 03:00 97 01/08/22 02:30 92 01/08/22 02:00 97 01/08/22 01:32 94 01/08/22 01:30 87 L 01/08/22 01:03 99 01/08/22 01:01 01/08/22 01:00 01/08/22 00:56 95 01/08/22 00:49 01/08/22 00:48 01/08/22 00:31 96 01/08/22 00:30 93 01/08/22 00:27 93 01/08/22 00:11 01/08/22 00:00 96 01/07/22 23:58 67 L 01/07/22 23:30 94 01/07/22 23:07 95 01/07/22 23:01 97 01/07/22 23:00 83 L 01/07/22 22:30 71 L Laboratory Results Laboratory Results - last 24 hr 01/07/22 01/07/22 01/07/22 11:45 11:45 11:45 WBC 12.98 H RBC 3.91 L Hgb 11.8 L POC Hgb Hct 37.5 L POC Hct MCV 95.9 MCH 30.2 MCHC 31.5 L RDW Std Deviation 54.5 H RDW Coeff of Laura 15.7 H Plt Count 125 L MPV 12.5 H Immature Gran % (Auto) 0.5 Neut % (Auto) 84.2 Lymph % (Auto) 8.9 Glynn % (Auto) 6.2 Eos % (Auto) 0.1 Baso % (Auto) 0.1 Neut # (Auto) 10.95 H Lymph # (Auto) 1.15 L Glynn # (Auto) 0.80 H Eos # (Auto) 0.01 Baso # (Auto) 0.01 Immature Gran # (Auto) 0.06 H Absolute Nucleated RBC 0.02 H Nucleated RBC % (auto) 0.2 Toxic Vacuolation 1+ Platelet Estimate Decreased L Polychromasia Pappenheimer Bodies Echinocytes 1+ PT 14.0 H INR 1.3 H APTT PTT Ratio Sample Site POC pH POC pCO2 POC pO2 POC HCO3 POC Base Excess ABG pH ABG pH (Temp Correct) ABG pCO2 ABG pCO2 (Temp Corrct ABG pO2 POC ABG pO2 at Pt Temp ABG HCO3 POC ABG O2 Sat ABG O2 Saturation ABG Base Excess Edwin Test VBG pH VBG pCO2 VBG pO2 VBG HCO3 VBG O2 Saturation VBG Base Excess Barometric Pressure Oxygen Given O2 Delivery Device POC O2 Rate POC FiO2 Tidal Volume PEEP POC Sodium Sodium POC Potassium Potassium POC Chloride Chloride Carbon Dioxide POC Total CO2 Anion Gap POC Anion Gap POC BUN BUN Creatinine POC Creatinine Est Cr Clr Drug Dosing Est GFR ( Amer) Est GFR (Non-Af Amer) BUN/Creatinine Ratio Glucose POC Glucose (other) Estimat Average Glucose Hemoglobin A1c Osmolality Lactate Calcium POC Ioniz Calcium Michael Phosphorus Magnesium Total Bilirubin Direct Bilirubin AST ALT Alkaline Phosphatase Ammonia Total Creatine Kinase Troponin I High Sens Total Protein Albumin Globulin Albumin/Globulin Ratio TSH 6.018 H Free T4 0.76 Urine Color Urine Appearance Urine pH Ur Specific Gilmore Urine Protein Urine Glucose (UA) Urine Ketones Urine Blood Urine Nitrite Urine Bilirubin Urine Urobilinogen Ur Leukocyte Esterase Urine WBC (Auto) Urine RBC (Auto) U Hyaline Cast (Auto) U Epithel Cells (Auto) Urine Bacteria (Auto) Urine RBC Urine WBC Ur Epithelial Cells Ur Renal Epithelial Cell Urine Bacteria Granular Casts Urine Yeast Urine Osmolality Ur Random Creatinine Ur Random Sodium Ur Random Potassium Ur Random Chloride Ur Random Uric Acid Nasal Screen MRSA (PCR) Urine Opiates Screen Ur Methadone, Qual Urine Barbiturates Ur Phencyclidine (PCP) U Amphetamin/Meth Scrn MDMA (Ecstasy) Screen U Benzodiazepines Scrn Ur Cocaine Metabolite U Marijuana (THC) Screen SARS-CoV-2 (PCR) Influenza Type A (PCR) Influenza Type B (PCR) RSV (RT-PCR) 01/07/22 01/07/22 01/07/22 11:59 12:30 12:30 WBC RBC Hgb POC Hgb Hct POC Hct MCV MCH MCHC RDW Std Deviation RDW Coeff of Laura Plt Count MPV Immature Gran % (Auto) Neut % (Auto) Lymph % (Auto) Glynn % (Auto) Eos % (Auto) Baso % (Auto) Neut # (Auto) Lymph # (Auto) Glynn # (Auto) Eos # (Auto) Baso # (Auto) Immature Gran # (Auto) Absolute Nucleated RBC Nucleated RBC % (auto) Toxic Vacuolation Platelet Estimate Polychromasia Pappenheimer Bodies Echinocytes PT INR APTT PTT Ratio Sample Site POC pH POC pCO2 POC pO2 POC HCO3 POC Base Excess ABG pH ABG pH (Temp Correct) ABG pCO2 ABG pCO2 (Temp Corrct ABG pO2 POC ABG pO2 at Pt Temp ABG HCO3 POC ABG O2 Sat ABG O2 Saturation ABG Base Excess Edwin Test VBG pH VBG pCO2 VBG pO2 VBG HCO3 VBG O2 Saturation VBG Base Excess Barometric Pressure Oxygen Given O2 Delivery Device POC O2 Rate POC FiO2 Tidal Volume PEEP POC Sodium Sodium 144 POC Potassium Potassium TNP POC Chloride Chloride 105 Carbon Dioxide 7 L* POC Total CO2 Anion Gap 32 H POC Anion Gap POC BUN BUN 25 H Creatinine 1.18 POC Creatinine Est Cr Clr Drug Dosing 33.0 Est GFR ( Amer) 70.0 Est GFR (Non-Af Amer) 60.4 BUN/Creatinine Ratio 21.2 H Glucose 534 H* POC Glucose (other) Estimat Average Glucose Hemoglobin A1c Osmolality Lactate 4.2 H* Calcium 7.8 L POC Ioniz Calcium Michael Phosphorus Magnesium 2.3 Total Bilirubin 0.9 Direct Bilirubin AST TNP ALT 28 Alkaline Phosphatase 62 Ammonia Total Creatine Kinase 3630 H Troponin I High Sens 6693.1 H* Total Protein 4.8 L Albumin 2.7 L Globulin 2.1 L Albumin/Globulin Ratio 1.3 TSH Free T4 Urine Color Yellow Urine Appearance Clear Urine pH 5.5 Ur Specific Gilmore >= 1.030 Urine Protein 1+ H Urine Glucose (UA) 2+ H Urine Ketones 3+ H Urine Blood 3+ H Urine Nitrite Negative Urine Bilirubin Negative Urine Urobilinogen Negative Ur Leukocyte Esterase Negative Urine WBC (Auto) Urine RBC (Auto) U Hyaline Cast (Auto) U Epithel Cells (Auto) Urine Bacteria (Auto) Urine RBC 10-30 H Urine WBC 0-5 Ur Epithelial Cells 0-5 Ur Renal Epithelial Cell Urine Bacteria Negative Granular Casts Urine Yeast Urine Osmolality Ur Random Creatinine Ur Random Sodium Ur Random Potassium Ur Random Chloride Ur Random Uric Acid Nasal Screen MRSA (PCR) Urine Opiates Screen Ur Methadone, Qual Urine Barbiturates Ur Phencyclidine (PCP) U Amphetamin/Meth Scrn MDMA (Ecstasy) Screen U Benzodiazepines Scrn Ur Cocaine Metabolite U Marijuana (THC) Screen SARS-CoV-2 (PCR) Influenza Type A (PCR) Influenza Type B (PCR) RSV (RT-PCR) 01/07/22 01/07/22 01/07/22 12:30 12:50 13:08 WBC RBC Hgb POC Hgb 9.2 L Hct POC Hct 27 L MCV MCH MCHC RDW Std Deviation RDW Coeff of Laura Plt Count MPV Immature Gran % (Auto) Neut % (Auto) Lymph % (Auto) Glynn % (Auto) Eos % (Auto) Baso % (Auto) Neut # (Auto) Lymph # (Auto) Glynn # (Auto) Eos # (Auto) Baso # (Auto) Immature Gran # (Auto) Absolute Nucleated RBC Nucleated RBC % (auto) Toxic Vacuolation Platelet Estimate Polychromasia Pappenheimer Bodies Echinocytes PT INR APTT PTT Ratio Sample Site POC pH POC pCO2 POC pO2 POC HCO3 POC Base Excess ABG pH ABG pH (Temp Correct) ABG pCO2 ABG pCO2 (Temp Corrct ABG pO2 POC ABG pO2 at Pt Temp ABG HCO3 POC ABG O2 Sat ABG O2 Saturation ABG Base Excess Edwin Test VBG pH VBG pCO2 VBG pO2 VBG HCO3 VBG O2 Saturation VBG Base Excess Barometric Pressure Oxygen Given O2 Delivery Device POC O2 Rate POC FiO2 Tidal Volume PEEP POC Sodium 145 H Sodium POC Potassium 3.3 Potassium POC Chloride 112 Chloride Carbon Dioxide POC Total CO2 10 L Anion Gap POC Anion Gap 27.0 H POC BUN 20 H BUN Creatinine POC Creatinine 0.8 Est Cr Clr Drug Dosing Est GFR ( Amer) Est GFR (Non-Af Amer) BUN/Creatinine Ratio Glucose POC Glucose (other) 456 H* Estimat Average Glucose Hemoglobin A1c Osmolality Lactate Calcium POC Ioniz Calcium Michael 1.27 Phosphorus Magnesium Total Bilirubin Direct Bilirubin AST ALT Alkaline Phosphatase Ammonia 111.0 H Total Creatine Kinase Troponin I High Sens Total Protein Albumin Globulin Albumin/Globulin Ratio TSH Free T4 Urine Color Urine Appearance Urine pH Ur Specific Gilmore Urine Protein Urine Glucose (UA) Urine Ketones Urine Blood Urine Nitrite Urine Bilirubin Urine Urobilinogen Ur Leukocyte Esterase Urine WBC (Auto) Urine RBC (Auto) U Hyaline Cast (Auto) U Epithel Cells (Auto) Urine Bacteria (Auto) Urine RBC Urine WBC Ur Epithelial Cells Ur Renal Epithelial Cell Urine Bacteria Granular Casts Urine Yeast Urine Osmolality Ur Random Creatinine Ur Random Sodium Ur Random Potassium Ur Random Chloride Ur Random Uric Acid Nasal Screen MRSA (PCR) Urine Opiates Screen Ur Methadone, Qual Urine Barbiturates Ur Phencyclidine (PCP) U Amphetamin/Meth Scrn MDMA (Ecstasy) Screen U Benzodiazepines Scrn Ur Cocaine Metabolite U Marijuana (THC) Screen SARS-CoV-2 (PCR) NEGATIVE Influenza Type A (PCR) Negative Influenza Type B (PCR) Negative RSV (RT-PCR) Negative 01/07/22 01/07/22 01/07/22 13:48 13:50 13:50 WBC RBC Hgb POC Hgb Hct POC Hct MCV MCH MCHC RDW Std Deviation RDW Coeff of Laura Plt Count MPV Immature Gran % (Auto) Neut % (Auto) Lymph % (Auto) Glynn % (Auto) Eos % (Auto) Baso % (Auto) Neut # (Auto) Lymph # (Auto) Glynn # (Auto) Eos # (Auto) Baso # (Auto) Immature Gran # (Auto) Absolute Nucleated RBC Nucleated RBC % (auto) Toxic Vacuolation Platelet Estimate Polychromasia Pappenheimer Bodies Echinocytes PT INR APTT PTT Ratio Sample Site POC pH POC pCO2 POC pO2 POC HCO3 POC Base Excess ABG pH 6.89 L* ABG pH (Temp Correct) ABG pCO2 45 ABG pCO2 (Temp Corrct ABG pO2 43 L POC ABG pO2 at Pt Temp ABG HCO3 8 L POC ABG O2 Sat ABG O2 Saturation < 60.0 L ABG Base Excess -23.7 L Edwin Test Pos VBG pH VBG pCO2 VBG pO2 VBG HCO3 VBG O2 Saturation VBG Base Excess Barometric Pressure Oxygen Given 90% O2 Delivery Device POC O2 Rate POC FiO2 Tidal Volume PEEP POC Sodium Sodium POC Potassium Potassium POC Chloride Chloride Carbon Dioxide POC Total CO2 Anion Gap POC Anion Gap POC BUN BUN Creatinine POC Creatinine Est Cr Clr Drug Dosing Est GFR ( Amer) Est GFR (Non-Af Amer) BUN/Creatinine Ratio Glucose POC Glucose (other) Estimat Average Glucose 243 Hemoglobin A1c 10.1 H Osmolality Lactate Calcium POC Ioniz Calcium Michael Phosphorus 6.0 H Magnesium Total Bilirubin Direct Bilirubin AST ALT Alkaline Phosphatase Ammonia Total Creatine Kinase Troponin I High Sens 09812.7 H* D Total Protein Albumin Globulin Albumin/Globulin Ratio TSH Free T4 Urine Color Urine Appearance Urine pH Ur Specific Gilmore Urine Protein Urine Glucose (UA) Urine Ketones Urine Blood Urine Nitrite Urine Bilirubin Urine Urobilinogen Ur Leukocyte Esterase Urine WBC (Auto) Urine RBC (Auto) U Hyaline Cast (Auto) U Epithel Cells (Auto) Urine Bacteria (Auto) Urine RBC Urine WBC Ur Epithelial Cells Ur Renal Epithelial Cell Urine Bacteria Granular Casts Urine Yeast Urine Osmolality Ur Random Creatinine Ur Random Sodium Ur Random Potassium Ur Random Chloride Ur Random Uric Acid Nasal Screen MRSA (PCR) Urine Opiates Screen Ur Methadone, Qual Urine Barbiturates Ur Phencyclidine (PCP) U Amphetamin/Meth Scrn MDMA (Ecstasy) Screen U Benzodiazepines Scrn Ur Cocaine Metabolite U Marijuana (THC) Screen SARS-CoV-2 (PCR) Influenza Type A (PCR) Influenza Type B (PCR) RSV (RT-PCR) 01/07/22 01/07/22 01/07/22 13:50 14:29 14:29 WBC RBC Hgb POC Hgb Hct POC Hct MCV MCH MCHC RDW Std Deviation RDW Coeff of Laura Plt Count MPV Immature Gran % (Auto) Neut % (Auto) Lymph % (Auto) Glynn % (Auto) Eos % (Auto) Baso % (Auto) Neut # (Auto) Lymph # (Auto) Glynn # (Auto) Eos # (Auto) Baso # (Auto) Immature Gran # (Auto) Absolute Nucleated RBC Nucleated RBC % (auto) Toxic Vacuolation Platelet Estimate Polychromasia Pappenheimer Bodies Echinocytes PT INR APTT PTT Ratio Sample Site POC pH POC pCO2 POC pO2 POC HCO3 POC Base Excess ABG pH ABG pH (Temp Correct) ABG pCO2 ABG pCO2 (Temp Corrct ABG pO2 POC ABG pO2 at Pt Temp ABG HCO3 POC ABG O2 Sat ABG O2 Saturation ABG Base Excess Edwin Test VBG pH 6.86 L VBG pCO2 53 H VBG pO2 38 VBG HCO3 9 VBG O2 Saturation < 60.0 VBG Base Excess -23.8 Barometric Pressure 729.4 Oxygen Given O2 Delivery Device POC O2 Rate POC FiO2 Tidal Volume PEEP POC Sodium Sodium POC Potassium Potassium POC Chloride Chloride Carbon Dioxide POC Total CO2 Anion Gap POC Anion Gap POC BUN BUN Creatinine POC Creatinine Est Cr Clr Drug Dosing Est GFR ( Amer) Est GFR (Non-Af Amer) BUN/Creatinine Ratio Glucose POC Glucose (other) Estimat Average Glucose Hemoglobin A1c Osmolality 345 H Lactate 6.1 H* Calcium POC Ioniz Calcium Michael Phosphorus Magnesium Total Bilirubin Direct Bilirubin AST ALT Alkaline Phosphatase Ammonia Total Creatine Kinase Troponin I High Sens Total Protein Albumin Globulin Albumin/Globulin Ratio TSH Free T4 Urine Color Urine Appearance Urine pH Ur Specific [place] Urine Protein Urine Glucose (UA) Urine Ketones Urine Blood Urine Nitrite Urine Bilirubin Urine Urobilinogen Ur Leukocyte Esterase Urine WBC (Auto) Urine RBC (Auto) U Hyaline Cast (Auto) U Epithel Cells (Auto) Urine Bacteria (Auto) Urine RBC Urine WBC Ur Epithelial Cells Ur Renal Epithelial Cell Urine Bacteria Granular Casts Urine Yeast Urine Osmolality Ur Random Creatinine Ur Random Sodium Ur Random Potassium Ur Random Chloride Ur Random Uric Acid Nasal Screen MRSA (PCR) Urine Opiates Screen Ur Methadone, Qual Urine Barbiturates Ur Phencyclidine (PCP) U Amphetamin/Meth Scrn MDMA (Ecstasy) Screen U Benzodiazepines Scrn Ur Cocaine Metabolite U Marijuana (THC) Screen SARS-CoV-2 (PCR) Influenza Type A (PCR) Influenza Type B (PCR) RSV (RT-PCR) 01/07/22 01/07/22 01/07/22 16:18 16:31 16:46 WBC RBC Hgb POC Hgb 10.5 L Hct POC Hct 31 L MCV MCH MCHC RDW Std Deviation RDW Coeff of Laura Plt Count MPV Immature Gran % (Auto) Neut % (Auto) Lymph % (Auto) Glynn % (Auto) Eos % (Auto) Baso % (Auto) Neut # (Auto) Lymph # (Auto) Glynn # (Auto) Eos # (Auto) Baso # (Auto) Immature Gran # (Auto) Absolute Nucleated RBC Nucleated RBC % (auto) Toxic Vacuolation Platelet Estimate Polychromasia Pappenheimer Bodies Echinocytes PT INR APTT PTT Ratio Sample Site R Radial POC pH 6.96 L* POC pCO2 40 POC pO2 95 POC HCO3 9 L POC Base Excess -23.0 L ABG pH ABG pH (Temp Correct) 7.027 L* ABG pCO2 ABG pCO2 (Temp Corrct 31 L ABG pO2 POC ABG pO2 at Pt Temp 67 ABG HCO3 POC ABG O2 Sat 91.0 ABG O2 Saturation ABG Base Excess Edwin Test Pass VBG pH VBG pCO2 VBG pO2 VBG HCO3 VBG O2 Saturation VBG Base Excess Barometric Pressure Oxygen Given O2 Delivery Device Ventilator POC O2 Rate 20 POC FiO2 100 Tidal Volume 450 PEEP 5 POC Sodium 143 Sodium POC Potassium 3.9 Potassium POC Chloride Chloride Carbon Dioxide POC Total CO2 10 L Anion Gap POC Anion Gap POC BUN BUN Creatinine POC Creatinine Est Cr Clr Drug Dosing Est GFR ( Amer) Est GFR (Non-Af Amer) BUN/Creatinine Ratio Glucose POC Glucose (other) 437 H* Estimat Average Glucose Hemoglobin A1c Osmolality Lactate Calcium POC Ioniz Calcium Michael Phosphorus Magnesium Total Bilirubin Direct Bilirubin AST ALT Alkaline Phosphatase Ammonia Total Creatine Kinase Troponin I High Sens Total Protein Albumin Globulin Albumin/Globulin Ratio TSH Free T4 Urine Color Urine Appearance Urine pH Ur Specific [place] Urine Protein Urine Glucose (UA) Urine Ketones Urine Blood Urine Nitrite Urine Bilirubin Urine Urobilinogen Ur Leukocyte Esterase Urine WBC (Auto) Urine RBC (Auto) U Hyaline Cast (Auto) U Epithel Cells (Auto) Urine Bacteria (Auto) Urine RBC Urine WBC Ur Epithelial Cells Ur Renal Epithelial Cell Urine Bacteria Granular Casts Urine Yeast Urine Osmolality Ur Random Creatinine Ur Random Sodium Ur Random Potassium Ur Random Chloride Ur Random Uric Acid Nasal Screen MRSA (PCR) Negative Urine Opiates Screen Ur Methadone, Qual Urine Barbiturates Ur Phencyclidine (PCP) U Amphetamin/Meth Scrn MDMA (Ecstasy) Screen U Benzodiazepines Scrn Ur Cocaine Metabolite U Marijuana (THC) Screen SARS-CoV-2 (PCR) Influenza Type A (PCR) Influenza Type B (PCR) RSV (RT-PCR) 01/07/22 01/07/22 01/07/22 17:18 17:18 17:19 WBC 9.73 RBC 3.58 L Hgb 10.8 L POC Hgb Hct 34.9 L POC Hct MCV 97.5 MCH 30.2 MCHC 30.9 L RDW Std Deviation 55.6 H RDW Coeff of Laura 15.7 H Plt Count 94 L MPV 12.0 H Immature Gran % (Auto) 1.0 Neut % (Auto) 79.1 Lymph % (Auto) 17.5 Glynn % (Auto) 2.1 Eos % (Auto) 0.2 Baso % (Auto) 0.1 Neut # (Auto) 7.70 H Lymph # (Auto) 1.70 Glynn # (Auto) 0.20 Eos # (Auto) 0.02 Baso # (Auto) 0.01 Immature Gran # (Auto) 0.10 H Absolute Nucleated RBC 0.04 H Nucleated RBC % (auto) 0.4 Toxic Vacuolation 1+ Platelet Estimate Decreased L Polychromasia Pappenheimer Bodies 1+ Echinocytes 1+ PT INR APTT 45.3 H* PTT Ratio 1.6 Sample Site POC pH POC pCO2 POC pO2 POC HCO3 POC Base Excess ABG pH ABG pH (Temp Correct) ABG pCO2 ABG pCO2 (Temp Corrct ABG pO2 POC ABG pO2 at Pt Temp ABG HCO3 POC ABG O2 Sat ABG O2 Saturation ABG Base Excess Edwin Test VBG pH VBG pCO2 VBG pO2 VBG HCO3 VBG O2 Saturation VBG Base Excess Barometric Pressure Oxygen Given O2 Delivery Device POC O2 Rate POC FiO2 Tidal Volume PEEP POC Sodium Sodium POC Potassium Potassium POC Chloride Chloride Carbon Dioxide POC Total CO2 Anion Gap POC Anion Gap POC BUN BUN Creatinine POC Creatinine Est Cr Clr Drug Dosing Est GFR ( Amer) Est GFR (Non-Af Amer) BUN/Creatinine Ratio Glucose POC Glucose (other) Estimat Average Glucose Hemoglobin A1c Osmolality Lactate 6.9 H* Calcium POC Ioniz Calcium Michael Phosphorus Magnesium Total Bilirubin Direct Bilirubin AST ALT Alkaline Phosphatase Ammonia Total Creatine Kinase Troponin I High Sens Total Protein Albumin Globulin Albumin/Globulin Ratio TSH Free T4 Urine Color Urine Appearance Urine pH Ur Specific [place] Urine Protein Urine Glucose (UA) Urine Ketones Urine Blood Urine Nitrite Urine Bilirubin Urine Urobilinogen Ur Leukocyte Esterase Urine WBC (Auto) Urine RBC (Auto) U Hyaline Cast (Auto) U Epithel Cells (Auto) Urine Bacteria (Auto) Urine RBC Urine WBC Ur Epithelial Cells Ur Renal Epithelial Cell Urine Bacteria Granular Casts Urine Yeast Urine Osmolality Ur Random Creatinine Ur Random Sodium Ur Random Potassium Ur Random Chloride Ur Random Uric Acid Nasal Screen MRSA (PCR) Urine Opiates Screen Ur Methadone, Qual Urine Barbiturates Ur Phencyclidine (PCP) U Amphetamin/Meth Scrn MDMA (Ecstasy) Screen U Benzodiazepines Scrn Ur Cocaine Metabolite U Marijuana (THC) Screen SARS-CoV-2 (PCR) Influenza Type A (PCR) Influenza Type B (PCR) RSV (RT-PCR) 01/07/22 01/07/22 01/07/22 17:19 17:19 18:17 WBC RBC Hgb POC Hgb Hct POC Hct MCV MCH MCHC RDW Std Deviation RDW Coeff of Laura Plt Count MPV Immature Gran % (Auto) Neut % (Auto) Lymph % (Auto) Glynn % (Auto) Eos % (Auto) Baso % (Auto) Neut # (Auto) Lymph # (Auto) Glynn # (Auto) Eos # (Auto) Baso # (Auto) Immature Gran # (Auto) Absolute Nucleated RBC Nucleated RBC % (auto) Toxic Vacuolation Platelet Estimate Polychromasia Pappenheimer Bodies Echinocytes PT INR APTT PTT Ratio Sample Site POC pH POC pCO2 POC pO2 POC HCO3 POC Base Excess ABG pH ABG pH (Temp Correct) ABG pCO2 ABG pCO2 (Temp Corrct ABG pO2 POC ABG pO2 at Pt Temp ABG HCO3 POC ABG O2 Sat ABG O2 Saturation ABG Base Excess Edwin Test VBG pH 6.94 L VBG pCO2 VBG pO2 VBG HCO3 VBG O2 Saturation VBG Base Excess Barometric Pressure Oxygen Given O2 Delivery Device POC O2 Rate POC FiO2 Tidal Volume PEEP POC Sodium Sodium 144 POC Potassium Potassium 3.7 POC Chloride Chloride 106 Carbon Dioxide 10 L POC Total CO2 Anion Gap 28 H POC Anion Gap POC BUN BUN 25 H Creatinine 1.29 POC Creatinine Est Cr Clr Drug Dosing 30.2 Est GFR ( Amer) 62.9 Est GFR (Non-Af Amer) 54.3 BUN/Creatinine Ratio 19.4 Glucose 468 H* POC Glucose (other) 420 H* Estimat Average Glucose Hemoglobin A1c Osmolality Lactate Calcium 8.1 L POC Ioniz Calcium Michael Phosphorus 6.3 H Magnesium 2.1 Total Bilirubin Direct Bilirubin AST ALT Alkaline Phosphatase Ammonia Total Creatine Kinase Troponin I High Sens > 99021.0 H* D Total Protein Albumin Globulin Albumin/Globulin Ratio TSH Free T4 Urine Color Urine Appearance Urine pH Ur Specific [place] Urine Protein Urine Glucose (UA) Urine Ketones Urine Blood Urine Nitrite Urine Bilirubin Urine Urobilinogen Ur Leukocyte Esterase Urine WBC (Auto) Urine RBC (Auto) U Hyaline Cast (Auto) U Epithel Cells (Auto) Urine Bacteria (Auto) Urine RBC Urine WBC Ur Epithelial Cells Ur Renal Epithelial Cell Urine Bacteria Granular Casts Urine Yeast Urine Osmolality Ur Random Creatinine Ur Random Sodium Ur Random Potassium Ur Random Chloride Ur Random Uric Acid Nasal Screen MRSA (PCR) Urine Opiates Screen Ur Methadone, Qual Urine Barbiturates Ur Phencyclidine (PCP) U Amphetamin/Meth Scrn MDMA (Ecstasy) Screen U Benzodiazepines Scrn Ur Cocaine Metabolite U Marijuana (THC) Screen SARS-CoV-2 (PCR) Influenza Type A (PCR) Influenza Type B (PCR) RSV (RT-PCR) 01/07/22 01/07/22 01/07/22 19:30 19:35 20:49 WBC RBC Hgb POC Hgb Hct POC Hct MCV MCH MCHC RDW Std Deviation RDW Coeff of Laura Plt Count MPV Immature Gran % (Auto) Neut % (Auto) Lymph % (Auto) Glynn % (Auto) Eos % (Auto) Baso % (Auto) Neut # (Auto) Lymph # (Auto) Glynn # (Auto) Eos # (Auto) Baso # (Auto) Immature Gran # (Auto) Absolute Nucleated RBC Nucleated RBC % (auto) Toxic Vacuolation Platelet Estimate Polychromasia Pappenheimer Bodies Echinocytes PT INR APTT PTT Ratio Sample Site POC pH POC pCO2 POC pO2 POC HCO3 POC Base Excess ABG pH ABG pH (Temp Correct) ABG pCO2 ABG pCO2 (Temp Corrct ABG pO2 POC ABG pO2 at Pt Temp ABG HCO3 POC ABG O2 Sat ABG O2 Saturation ABG Base Excess Edwin Test VBG pH VBG pCO2 VBG pO2 VBG HCO3 VBG O2 Saturation VBG Base Excess Barometric Pressure Oxygen Given O2 Delivery Device POC O2 Rate POC FiO2 Tidal Volume PEEP POC Sodium Sodium POC Potassium Potassium POC Chloride Chloride Carbon Dioxide POC Total CO2 Anion Gap POC Anion Gap POC BUN BUN Creatinine POC Creatinine Est Cr Clr Drug Dosing Est GFR ( Amer) Est GFR (Non-Af Amer) BUN/Creatinine Ratio Glucose POC Glucose (other) 407 H* 356 H* Estimat Average Glucose Hemoglobin A1c Osmolality Lactate 6.7 H* Calcium POC Ioniz Calcium Michael Phosphorus Magnesium Total Bilirubin Direct Bilirubin AST ALT Alkaline Phosphatase Ammonia Total Creatine Kinase Troponin I High Sens Total Protein Albumin Globulin Albumin/Globulin Ratio TSH Free T4 Urine Color Urine Appearance Urine pH Ur Specific [place] Urine Protein Urine Glucose (UA) Urine Ketones Urine Blood Urine Nitrite Urine Bilirubin Urine Urobilinogen Ur Leukocyte Esterase Urine WBC (Auto) Urine RBC (Auto) U Hyaline Cast (Auto) U Epithel Cells (Auto) Urine Bacteria (Auto) Urine RBC Urine WBC Ur Epithelial Cells Ur Renal Epithelial Cell Urine Bacteria Granular Casts Urine Yeast Urine Osmolality Ur Random Creatinine Ur Random Sodium Ur Random Potassium Ur Random Chloride Ur Random Uric Acid Nasal Screen MRSA (PCR) Urine Opiates Screen Ur Methadone, Qual Urine Barbiturates Ur Phencyclidine (PCP) U Amphetamin/Meth Scrn MDMA (Ecstasy) Screen U Benzodiazepines Scrn Ur Cocaine Metabolite U Marijuana (THC) Screen SARS-CoV-2 (PCR) Influenza Type A (PCR) Influenza Type B (PCR) RSV (RT-PCR) 01/07/22 01/07/22 01/07/22 22:00 22:00 22:00 WBC RBC Hgb POC Hgb Hct POC Hct MCV MCH MCHC RDW Std Deviation RDW Coeff of Laura Plt Count MPV Immature Gran % (Auto) Neut % (Auto) Lymph % (Auto) Glynn % (Auto) Eos % (Auto) Baso % (Auto) Neut # (Auto) Lymph # (Auto) Glynn # (Auto) Eos # (Auto) Baso # (Auto) Immature Gran # (Auto) Absolute Nucleated RBC Nucleated RBC % (auto) Toxic Vacuolation Platelet Estimate Polychromasia Pappenheimer Bodies Echinocytes PT INR APTT PTT Ratio Sample Site POC pH POC pCO2 POC pO2 POC HCO3 POC Base Excess ABG pH ABG pH (Temp Correct) ABG pCO2 ABG pCO2 (Temp Corrct ABG pO2 POC ABG pO2 at Pt Temp ABG HCO3 POC ABG O2 Sat ABG O2 Saturation ABG Base Excess Edwin Test VBG pH VBG pCO2 VBG pO2 VBG HCO3 VBG O2 Saturation VBG Base Excess Barometric Pressure Oxygen Given O2 Delivery Device POC O2 Rate POC FiO2 Tidal Volume PEEP POC Sodium Sodium POC Potassium Potassium POC Chloride Chloride Carbon Dioxide POC Total CO2 Anion Gap POC Anion Gap POC BUN BUN Creatinine POC Creatinine Est Cr Clr Drug Dosing Est GFR ( Amer) Est GFR (Non-Af Amer) BUN/Creatinine Ratio Glucose POC Glucose (other) Estimat Average Glucose Hemoglobin A1c Osmolality Lactate Calcium POC Ioniz Calcium Michael Phosphorus Magnesium Total Bilirubin Direct Bilirubin AST ALT Alkaline Phosphatase Ammonia Total Creatine Kinase Troponin I High Sens Total Protein Albumin Globulin Albumin/Globulin Ratio TSH Free T4 Urine Color Dark Yellow Urine Appearance Turbid A Urine pH 5.0 Ur Specific [place] 1.039 H Urine Protein 3+ H Urine Glucose (UA) 3+ H Urine Ketones 1+ H Urine Blood 3+ H Urine Nitrite Negative Urine Bilirubin Negative Urine Urobilinogen Negative Ur Leukocyte Esterase Negative Urine WBC (Auto) >30 H Urine RBC (Auto) 10-30 H U Hyaline Cast (Auto) >30 H U Epithel Cells (Auto) >30 H Urine Bacteria (Auto) Negative Urine RBC Urine WBC Ur Epithelial Cells Ur Renal Epithelial Cell Not Reportable Urine Bacteria Granular Casts 1-5 H Urine Yeast Not Reportable Urine Osmolality 395 L Ur Random Creatinine Ur Random Sodium Ur Random Potassium Ur Random Chloride Ur Random Uric Acid Nasal Screen MRSA (PCR) Urine Opiates Screen Neg Ur Methadone, Qual Neg Urine Barbiturates Neg Ur Phencyclidine (PCP) Neg U Amphetamin/Meth Scrn Neg MDMA (Ecstasy) Screen Neg U Benzodiazepines Scrn Neg Ur Cocaine Metabolite Neg U Marijuana (THC) Screen Neg SARS-CoV-2 (PCR) Influenza Type A (PCR) Influenza Type B (PCR) RSV (RT-PCR) 01/07/22 01/07/22 01/07/22 22:00 22:00 22:12 WBC RBC Hgb POC Hgb Hct POC Hct MCV MCH MCHC RDW Std Deviation RDW Coeff of Laura Plt Count MPV Immature Gran % (Auto) Neut % (Auto) Lymph % (Auto) Glynn % (Auto) Eos % (Auto) Baso % (Auto) Neut # (Auto) Lymph # (Auto) Glynn # (Auto) Eos # (Auto) Baso # (Auto) Immature Gran # (Auto) Absolute Nucleated RBC Nucleated RBC % (auto) Toxic Vacuolation Platelet Estimate Polychromasia Pappenheimer Bodies Echinocytes PT INR APTT PTT Ratio Sample Site POC pH POC pCO2 POC pO2 POC HCO3 POC Base Excess ABG pH ABG pH (Temp Correct) ABG pCO2 ABG pCO2 (Temp Corrct ABG pO2 POC ABG pO2 at Pt Temp ABG HCO3 POC ABG O2 Sat ABG O2 Saturation ABG Base Excess Edwin Test VBG pH VBG pCO2 VBG pO2 VBG HCO3 VBG O2 Saturation VBG Base Excess Barometric Pressure Oxygen Given O2 Delivery Device POC O2 Rate POC FiO2 Tidal Volume PEEP POC Sodium Sodium POC Potassium Potassium POC Chloride Chloride Carbon Dioxide POC Total CO2 Anion Gap POC Anion Gap POC BUN BUN Creatinine POC Creatinine Est Cr Clr Drug Dosing Est GFR ( Amer) Est GFR (Non-Af Amer) BUN/Creatinine Ratio Glucose POC Glucose (other) 362 H* Estimat Average Glucose Hemoglobin A1c Osmolality Lactate Calcium POC Ioniz Calcium Michael Phosphorus Magnesium Total Bilirubin Direct Bilirubin AST ALT Alkaline Phosphatase Ammonia Total Creatine Kinase Troponin I High Sens Total Protein Albumin Globulin Albumin/Globulin Ratio TSH Free T4 Urine Color Urine Appearance Urine pH Ur Specific [place] Urine Protein Urine Glucose (UA) Urine Ketones Urine Blood Urine Nitrite Urine Bilirubin Urine Urobilinogen Ur Leukocyte Esterase Urine WBC (Auto) Urine RBC (Auto) U Hyaline Cast (Auto) U Epithel Cells (Auto) Urine Bacteria (Auto) Urine RBC Urine WBC Ur Epithelial Cells Ur Renal Epithelial Cell Urine Bacteria Granular Casts Urine Yeast Urine Osmolality Ur Random Creatinine 35.4 Ur Random Sodium 35 Ur Random Potassium 26.6 Ur Random Chloride 42 Ur Random Uric Acid Pending Nasal Screen MRSA (PCR) Urine Opiates Screen Ur Methadone, Qual Urine Barbiturates Ur Phencyclidine (PCP) U Amphetamin/Meth Scrn MDMA (Ecstasy) Screen U Benzodiazepines Scrn Ur Cocaine Metabolite U Marijuana (THC) Screen SARS-CoV-2 (PCR) Influenza Type A (PCR) Influenza Type B (PCR) RSV (RT-PCR) 01/07/22 01/07/22 01/07/22 22:58 23:12 23:19 WBC RBC Hgb POC Hgb 10.2 L Hct POC Hct 30 L MCV MCH MCHC RDW Std Deviation RDW Coeff of Laura Plt Count MPV Immature Gran % (Auto) Neut % (Auto) Lymph % (Auto) [place]nn % (Auto) Eos % (Auto) Baso % (Auto) Neut # (Auto) Lymph # (Auto) [place]nn # (Auto) Eos # (Auto) Baso # (Auto) Immature Gran # (Auto) Absolute Nucleated RBC Nucleated RBC % (auto) Toxic Vacuolation Platelet Estimate Polychromasia Pappenheimer Bodies Echinocytes PT INR APTT PTT Ratio Sample Site Art Line POC pH 7.27 L POC pCO2 43 POC pO2 75 L POC HCO3 20 POC Base Excess -7.0 ABG pH ABG pH (Temp Correct) 7.288 L ABG pCO2 ABG pCO2 (Temp Corrct 40 ABG pO2 POC ABG pO2 at Pt Temp 68 ABG HCO3 POC ABG O2 Sat 93.0 ABG O2 Saturation ABG Base Excess Edwin Test NA VBG pH VBG pCO2 VBG pO2 VBG HCO3 VBG O2 Saturation VBG Base Excess Barometric Pressure Oxygen Given O2 Delivery Device Ventilator POC O2 Rate 24 POC FiO2 90 Tidal Volume 450 PEEP 8 POC Sodium 143 Sodium 143 POC Potassium 3.9 Potassium 3.7 POC Chloride Chloride 105 Carbon Dioxide 19 L POC Total CO2 21 L Anion Gap 19 H POC Anion Gap POC BUN BUN 25 H Creatinine 1.26 POC Creatinine Est Cr Clr Drug Dosing 30.9 Est GFR ( Amer) 64.7 Est GFR (Non-Af Amer) 55.8 BUN/Creatinine Ratio 19.8 Glucose 350 H* POC Glucose (other) 347 H Estimat Average Glucose Hemoglobin A1c Osmolality Lactate Calcium 7.5 L POC Ioniz Calcium Michael Phosphorus 3.7 D Magnesium 1.7 Total Bilirubin Direct Bilirubin AST ALT Alkaline Phosphatase Ammonia Total Creatine Kinase Troponin I High Sens Total Protein Albumin Globulin Albumin/Globulin Ratio TSH Free T4 Urine Color Urine Appearance Urine pH Ur Specific [place] Urine Protein Urine Glucose (UA) Urine Ketones Urine Blood Urine Nitrite Urine Bilirubin Urine Urobilinogen Ur Leukocyte Esterase Urine WBC (Auto) Urine RBC (Auto) U Hyaline Cast (Auto) U Epithel Cells (Auto) Urine Bacteria (Auto) Urine RBC Urine WBC Ur Epithelial Cells Ur Renal Epithelial Cell Urine Bacteria Granular Casts Urine Yeast Urine Osmolality Ur Random Creatinine Ur Random Sodium Ur Random Potassium Ur Random Chloride Ur Random Uric Acid Nasal Screen MRSA (PCR) Urine Opiates Screen Ur Methadone, Qual Urine Barbiturates Ur Phencyclidine (PCP) U Amphetamin/Meth Scrn MDMA (Ecstasy) Screen U Benzodiazepines Scrn Ur Cocaine Metabolite U Marijuana (THC) Screen SARS-CoV-2 (PCR) Influenza Type A (PCR) Influenza Type B (PCR) RSV (RT-PCR) 01/07/22 01/08/22 01/08/22 23:19 00:12 00:59 WBC RBC Hgb POC Hgb Hct POC Hct MCV MCH MCHC RDW Std Deviation RDW Coeff of Laura Plt Count MPV Immature Gran % (Auto) Neut % (Auto) Lymph % (Auto) [place]nn % (Auto) Eos % (Auto) Baso % (Auto) Neut # (Auto) Lymph # (Auto) [place]nn # (Auto) Eos # (Auto) Baso # (Auto) Immature Gran # (Auto) Absolute Nucleated RBC Nucleated RBC % (auto) Toxic Vacuolation Platelet Estimate Polychromasia Pappenheimer Bodies Echinocytes PT INR APTT PTT Ratio Sample Site POC pH POC pCO2 POC pO2 POC HCO3 POC Base Excess ABG pH ABG pH (Temp Correct) ABG pCO2 ABG pCO2 (Temp Corrct ABG pO2 POC ABG pO2 at Pt Temp ABG HCO3 POC ABG O2 Sat ABG O2 Saturation ABG Base Excess Edwin Test VBG pH 7.28 L VBG pCO2 VBG pO2 VBG HCO3 VBG O2 Saturation VBG Base Excess Barometric Pressure Oxygen Given O2 Delivery Device POC O2 Rate POC FiO2 Tidal Volume PEEP POC Sodium Sodium POC Potassium Potassium POC Chloride Chloride Carbon Dioxide POC Total CO2 Anion Gap POC Anion Gap POC BUN BUN Creatinine POC Creatinine Est Cr Clr Drug Dosing Est GFR ( Amer) Est GFR (Non-Af Amer) BUN/Creatinine Ratio Glucose POC Glucose (other) 320 H 299 H Estimat Average Glucose Hemoglobin A1c Osmolality Lactate Calcium POC Ioniz Calcium Michael Phosphorus Magnesium Total Bilirubin Direct Bilirubin AST ALT Alkaline Phosphatase Ammonia Total Creatine Kinase Troponin I High Sens Total Protein Albumin Globulin Albumin/Globulin Ratio TSH Free T4 Urine Color Urine Appearance Urine pH Ur Specific [place] Urine Protein Urine Glucose (UA) Urine Ketones Urine Blood Urine Nitrite Urine Bilirubin Urine Urobilinogen Ur Leukocyte Esterase Urine WBC (Auto) Urine RBC (Auto) U Hyaline Cast (Auto) U Epithel Cells (Auto) Urine Bacteria (Auto) Urine RBC Urine WBC Ur Epithelial Cells Ur Renal Epithelial Cell Urine Bacteria Granular Casts Urine Yeast Urine Osmolality Ur Random Creatinine Ur Random Sodium Ur Random Potassium Ur Random Chloride Ur Random Uric Acid Nasal Screen MRSA (PCR) Urine Opiates Screen Ur Methadone, Qual Urine Barbiturates Ur Phencyclidine (PCP) U Amphetamin/Meth Scrn MDMA (Ecstasy) Screen U Benzodiazepines Scrn Ur Cocaine Metabolite U Marijuana (THC) Screen SARS-CoV-2 (PCR) Influenza Type A (PCR) Influenza Type B (PCR) RSV (RT-PCR) 01/08/22 01/08/22 01/08/22 01:53 01:53 01:58 WBC RBC Hgb POC Hgb Hct POC Hct MCV MCH MCHC RDW Std Deviation RDW Coeff of Laura Plt Count MPV Immature Gran % (Auto) Neut % (Auto) Lymph % (Auto) [place]nn % (Auto) Eos % (Auto) Baso % (Auto) Neut # (Auto) Lymph # (Auto) [place]nn # (Auto) Eos # (Auto) Baso # (Auto) Immature Gran # (Auto) Absolute Nucleated RBC Nucleated RBC % (auto) Toxic Vacuolation Platelet Estimate Polychromasia Pappenheimer Bodies Echinocytes PT INR APTT Cancelled PTT Ratio Cancelled Sample Site POC pH POC pCO2 POC pO2 POC HCO3 POC Base Excess ABG pH ABG pH (Temp Correct) ABG pCO2 ABG pCO2 (Temp Corrct ABG pO2 POC ABG pO2 at Pt Temp ABG HCO3 POC ABG O2 Sat ABG O2 Saturation ABG Base Excess Edwin Test VBG pH VBG pCO2 VBG pO2 VBG HCO3 VBG O2 Saturation VBG Base Excess Barometric Pressure Oxygen Given O2 Delivery Device POC O2 Rate POC FiO2 Tidal Volume PEEP POC Sodium Sodium POC Potassium Potassium POC Chloride Chloride Carbon Dioxide POC Total CO2 Anion Gap POC Anion Gap POC BUN BUN Creatinine POC Creatinine Est Cr Clr Drug Dosing Est GFR ( Amer) Est GFR (Non-Af Amer) BUN/Creatinine Ratio Glucose POC Glucose (other) 282 H Estimat Average Glucose Hemoglobin A1c Osmolality Lactate Calcium POC Ioniz Calcium Michael Phosphorus Magnesium Total Bilirubin Direct Bilirubin AST ALT Alkaline Phosphatase Ammonia Total Creatine Kinase Troponin I High Sens Cancelled Total Protein Albumin Globulin Albumin/Globulin Ratio TSH Free T4 Urine Color Urine Appearance Urine pH Ur Specific [place] Urine Protein Urine Glucose (UA) Urine Ketones Urine Blood Urine Nitrite Urine Bilirubin Urine Urobilinogen Ur Leukocyte Esterase Urine WBC (Auto) Urine RBC (Auto) U Hyaline Cast (Auto) U Epithel Cells (Auto) Urine Bacteria (Auto) Urine RBC Urine WBC Ur Epithelial Cells Ur Renal Epithelial Cell Urine Bacteria Granular Casts Urine Yeast Urine Osmolality Ur Random Creatinine Ur Random Sodium Ur Random Potassium Ur Random Chloride Ur Random Uric Acid Nasal Screen MRSA (PCR) Urine Opiates Screen Ur Methadone, Qual Urine Barbiturates Ur Phencyclidine (PCP) U Amphetamin/Meth Scrn MDMA (Ecstasy) Screen U Benzodiazepines Scrn Ur Cocaine Metabolite U Marijuana (THC) Screen SARS-CoV-2 (PCR) Influenza Type A (PCR) Influenza Type B (PCR) RSV (RT-PCR) 01/08/22 01/08/22 01/08/22 02:26 02:26 02:59 WBC RBC Hgb POC Hgb Hct POC Hct MCV MCH MCHC RDW Std Deviation RDW Coeff of Laura Plt Count MPV Immature Gran % (Auto) Neut % (Auto) Lymph % (Auto) [place]nn % (Auto) Eos % (Auto) Baso % (Auto) Neut # (Auto) Lymph # (Auto) [place]nn # (Auto) Eos # (Auto) Baso # (Auto) Immature Gran # (Auto) Absolute Nucleated RBC Nucleated RBC % (auto) Toxic Vacuolation Platelet Estimate Polychromasia Pappenheimer Bodies Echinocytes PT INR APTT > 139.0 H* PTT Ratio > 5.1 Sample Site POC pH POC pCO2 POC pO2 POC HCO3 POC Base Excess ABG pH ABG pH (Temp Correct) ABG pCO2 ABG pCO2 (Temp Corrct ABG pO2 POC ABG pO2 at Pt Temp ABG HCO3 POC ABG O2 Sat ABG O2 Saturation ABG Base Excess Edwin Test VBG pH VBG pCO2 VBG pO2 VBG HCO3 VBG O2 Saturation VBG Base Excess Barometric Pressure Oxygen Given O2 Delivery Device POC O2 Rate POC FiO2 Tidal Volume PEEP POC Sodium Sodium POC Potassium Potassium POC Chloride Chloride Carbon Dioxide POC Total CO2 Anion Gap POC Anion Gap POC BUN BUN Creatinine POC Creatinine Est Cr Clr Drug Dosing Est GFR ( Amer) Est GFR (Non-Af Amer) BUN/Creatinine Ratio Glucose POC Glucose (other) 259 H Estimat Average Glucose Hemoglobin A1c Osmolality Lactate Calcium POC Ioniz Calcium Michael Phosphorus Magnesium Total Bilirubin Direct Bilirubin AST ALT Alkaline Phosphatase Ammonia Total Creatine Kinase Troponin I High Sens > 46497.0 H* Total Protein Albumin Globulin Albumin/Globulin Ratio TSH Free T4 Urine Color Urine Appearance Urine pH Ur Specific [place] Urine Protein Urine Glucose (UA) Urine Ketones Urine Blood Urine Nitrite Urine Bilirubin Urine Urobilinogen Ur Leukocyte Esterase Urine WBC (Auto) Urine RBC (Auto) U Hyaline Cast (Auto) U Epithel Cells (Auto) Urine Bacteria (Auto) Urine RBC Urine WBC Ur Epithelial Cells Ur Renal Epithelial Cell Urine Bacteria Granular Casts Urine Yeast Urine Osmolality Ur Random Creatinine Ur Random Sodium Ur Random Potassium Ur Random Chloride Ur Random Uric Acid Nasal Screen MRSA (PCR) Urine Opiates Screen Ur Methadone, Qual Urine Barbiturates Ur Phencyclidine (PCP) U Amphetamin/Meth Scrn MDMA (Ecstasy) Screen U Benzodiazepines Scrn Ur Cocaine Metabolite U Marijuana (THC) Screen SARS-CoV-2 (PCR) Influenza Type A (PCR) Influenza Type B (PCR) RSV (RT-PCR) 01/08/22 01/08/22 01/08/22 04:08 04:14 04:27 WBC 3.90 L D RBC 3.54 L Hgb 10.7 L POC Hgb 10.9 L Hct 32.2 L POC Hct 32 L MCV 91.0 D MCH 30.2 MCHC 33.2 RDW Std Deviation 50.5 H RDW Coeff of Laura 15.3 H Plt Count 77 L MPV 11.9 H Immature Gran % (Auto) 0.5 Neut % (Auto) 77.2 Lymph % (Auto) 19.5 Glynn % (Auto) 2.8 Eos % (Auto) 0.0 Baso % (Auto) 0.0 Neut # (Auto) 3.01 Lymph # (Auto) 0.76 L [place] # (Auto) 0.11 Eos # (Auto) 0.00 Baso # (Auto) 0.00 Immature Gran # (Auto) 0.02 Absolute Nucleated RBC 0.03 H Nucleated RBC % (auto) 0.9 Toxic Vacuolation Platelet Estimate Polychromasia 1+ Pappenheimer Bodies 1+ Echinocytes PT INR APTT PTT Ratio Sample Site Art Line POC pH 7.28 L POC pCO2 42 POC pO2 94 POC HCO3 20 POC Base Excess -7.0 ABG pH ABG pH (Temp Correct) 7.287 L ABG pCO2 ABG pCO2 (Temp Corrct 41 ABG pO2 POC ABG pO2 at Pt Temp 91 ABG HCO3 POC ABG O2 Sat 96.0 H ABG O2 Saturation ABG Base Excess Edwin Test NA VBG pH VBG pCO2 VBG pO2 VBG HCO3 VBG O2 Saturation VBG Base Excess Barometric Pressure Oxygen Given O2 Delivery Device Ventilator POC O2 Rate 24 POC FiO2 90 Tidal Volume 450 PEEP 8 POC Sodium 144 Sodium POC Potassium 3.8 Potassium POC Chloride Chloride Carbon Dioxide POC Total CO2 21 L Anion Gap POC Anion Gap POC BUN BUN Creatinine POC Creatinine Est Cr Clr Drug Dosing Est GFR ( Amer) Est GFR (Non-Af Amer) BUN/Creatinine Ratio Glucose POC Glucose (other) 227 H Estimat Average Glucose Hemoglobin A1c Osmolality Lactate Calcium POC Ioniz Calcium Michael Phosphorus Magnesium Total Bilirubin Direct Bilirubin AST ALT Alkaline Phosphatase Ammonia Total Creatine Kinase Troponin I High Sens Total Protein Albumin Globulin Albumin/Globulin Ratio TSH Free T4 Urine Color Urine Appearance Urine pH Ur Specific [place] Urine Protein Urine Glucose (UA) Urine Ketones Urine Blood Urine Nitrite Urine Bilirubin Urine Urobilinogen Ur Leukocyte Esterase Urine WBC (Auto) Urine RBC (Auto) U Hyaline Cast (Auto) U Epithel Cells (Auto) Urine Bacteria (Auto) Urine RBC Urine WBC Ur Epithelial Cells Ur Renal Epithelial Cell Urine Bacteria Granular Casts Urine Yeast Urine Osmolality Ur Random Creatinine Ur Random Sodium Ur Random Potassium Ur Random Chloride Ur Random Uric Acid Nasal Screen MRSA (PCR) Urine Opiates Screen Ur Methadone, Qual Urine Barbiturates Ur Phencyclidine (PCP) U Amphetamin/Meth Scrn MDMA (Ecstasy) Screen U Benzodiazepines Scrn Ur Cocaine Metabolite U Marijuana (THC) Screen SARS-CoV-2 (PCR) Influenza Type A (PCR) Influenza Type B (PCR) RSV (RT-PCR) 01/08/22 01/08/22 01/08/22 04:27 04:27 04:27 WBC RBC Hgb POC Hgb Hct POC Hct MCV MCH MCHC RDW Std Deviation RDW Coeff of Laura Plt Count MPV Immature Gran % (Auto) Neut % (Auto) Lymph % (Auto) [place]nn % (Auto) Eos % (Auto) Baso % (Auto) Neut # (Auto) Lymph # (Auto) [place]nn # (Auto) Eos # (Auto) Baso # (Auto) Immature Gran # (Auto) Absolute Nucleated RBC Nucleated RBC % (auto) Toxic Vacuolation Platelet Estimate Polychromasia Pappenheimer Bodies Echinocytes PT INR APTT > 139.0 H* PTT Ratio > 5.1 Sample Site POC pH POC pCO2 POC pO2 POC HCO3 POC Base Excess ABG pH ABG pH (Temp Correct) ABG pCO2 ABG pCO2 (Temp Corrct ABG pO2 POC ABG pO2 at Pt Temp ABG HCO3 POC ABG O2 Sat ABG O2 Saturation ABG Base Excess Edwin Test VBG pH VBG pCO2 VBG pO2 VBG HCO3 VBG O2 Saturation VBG Base Excess Barometric Pressure Oxygen Given O2 Delivery Device POC O2 Rate POC FiO2 Tidal Volume PEEP POC Sodium Sodium 142 POC Potassium Potassium 3.9 POC Chloride Chloride 107 Carbon Dioxide 20 L POC Total CO2 Anion Gap 15 H POC Anion Gap POC BUN BUN 26 H Creatinine 1.35 POC Creatinine Est Cr Clr Drug Dosing 28.9 Est GFR ( Amer) 59.5 Est GFR (Non-Af Amer) 51.4 BUN/Creatinine Ratio 19.3 Glucose 218 H POC Glucose (other) Estimat Average Glucose Hemoglobin A1c Osmolality Lactate Calcium 7.1 L POC Ioniz Calcium Michael Phosphorus 2.8 Magnesium 1.5 L Total Bilirubin 1.1 H Direct Bilirubin 0.5 H AST 651 H ALT 166 H Alkaline Phosphatase 60 Ammonia 43.0 Total Creatine Kinase 3615 H Troponin I High Sens Total Protein 4.1 L Albumin 2.3 L Globulin Albumin/Globulin Ratio TSH Free T4 Urine Color Urine Appearance Urine pH Ur Specific [place] Urine Protein Urine Glucose (UA) Urine Ketones Urine Blood Urine Nitrite Urine Bilirubin Urine Urobilinogen Ur Leukocyte Esterase Urine WBC (Auto) Urine RBC (Auto) U Hyaline Cast (Auto) U Epithel Cells (Auto) Urine Bacteria (Auto) Urine RBC Urine WBC Ur Epithelial Cells Ur Renal Epithelial Cell Urine Bacteria Granular Casts Urine Yeast Urine Osmolality Ur Random Creatinine Ur Random Sodium Ur Random Potassium Ur Random Chloride Ur Random Uric Acid Nasal Screen MRSA (PCR) Urine Opiates Screen Ur Methadone, Qual Urine Barbiturates Ur Phencyclidine (PCP) U Amphetamin/Meth Scrn MDMA (Ecstasy) Screen U Benzodiazepines Scrn Ur Cocaine Metabolite U Marijuana (THC) Screen SARS-CoV-2 (PCR) Influenza Type A (PCR) Influenza Type B (PCR) RSV (RT-PCR) 01/08/22 01/08/22 01/08/22 04:30 05:09 07:08 WBC RBC Hgb POC Hgb Hct POC Hct MCV MCH MCHC RDW Std Deviation RDW Coeff of Laura Plt Count MPV Immature Gran % (Auto) Neut % (Auto) Lymph % (Auto) [place]nn % (Auto) Eos % (Auto) Baso % (Auto) Neut # (Auto) Lymph # (Auto) [place]nn # (Auto) Eos # (Auto) Baso # (Auto) Immature Gran # (Auto) Absolute Nucleated RBC Nucleated RBC % (auto) Toxic Vacuolation Platelet Estimate Polychromasia Pappenheimer Bodies Echinocytes PT INR APTT PTT Ratio Sample Site POC pH POC pCO2 POC pO2 POC HCO3 POC Base Excess ABG pH ABG pH (Temp Correct) ABG pCO2 ABG pCO2 (Temp Corrct ABG pO2 POC ABG pO2 at Pt Temp ABG HCO3 POC ABG O2 Sat ABG O2 Saturation ABG Base Excess Edwin Test VBG pH 7.31 L VBG pCO2 VBG pO2 VBG HCO3 VBG O2 Saturation VBG Base Excess Barometric Pressure Oxygen Given O2 Delivery Device POC O2 Rate POC FiO2 Tidal Volume PEEP POC Sodium Sodium 141 POC Potassium Potassium 4.3 POC Chloride Chloride 107 Carbon Dioxide 20 L POC Total CO2 Anion Gap 14 H POC Anion Gap POC BUN BUN 26 H Creatinine 1.33 POC Creatinine Est Cr Clr Drug Dosing 27.8 Est GFR ( Amer) 60.6 Est GFR (Non-Af Amer) 52.3 BUN/Creatinine Ratio 19.5 Glucose 221 H POC Glucose (other) 204 H Estimat Average Glucose Hemoglobin A1c Osmolality Lactate Calcium 7.0 L POC Ioniz Calcium Michael Phosphorus 2.6 Magnesium 1.4 L Total Bilirubin Direct Bilirubin AST ALT Alkaline Phosphatase Ammonia Total Creatine Kinase Troponin I High Sens Total Protein Albumin Globulin Albumin/Globulin Ratio TSH Free T4 Urine Color Urine Appearance Urine pH Ur Specific Gilmore Urine Protein Urine Glucose (UA) Urine Ketones Urine Blood Urine Nitrite Urine Bilirubin Urine Urobilinogen Ur Leukocyte Esterase Urine WBC (Auto) Urine RBC (Auto) U Hyaline Cast (Auto) U Epithel Cells (Auto) Urine Bacteria (Auto) Urine RBC Urine WBC Ur Epithelial Cells Ur Renal Epithelial Cell Urine Bacteria Granular Casts Urine Yeast Urine Osmolality Ur Random Creatinine Ur Random Sodium Ur Random Potassium Ur Random Chloride Ur Random Uric Acid Nasal Screen MRSA (PCR) Urine Opiates Screen Ur Methadone, Qual Urine Barbiturates Ur Phencyclidine (PCP) U Amphetamin/Meth Scrn MDMA (Ecstasy) Screen U Benzodiazepines Scrn Ur Cocaine Metabolite U Marijuana (THC) Screen SARS-CoV-2 (PCR) Influenza Type A (PCR) Influenza Type B (PCR) RSV (RT-PCR) 01/08/22 01/08/22 01/08/22 07:08 07:08 07:48 WBC RBC Hgb POC Hgb Hct POC Hct MCV MCH MCHC RDW Std Deviation RDW Coeff of Laura Plt Count MPV Immature Gran % (Auto) Neut % (Auto) Lymph % (Auto) Glynn % (Auto) Eos % (Auto) Baso % (Auto) Neut # (Auto) Lymph # (Auto) Glynn # (Auto) Eos # (Auto) Baso # (Auto) Immature Gran # (Auto) Absolute Nucleated RBC Nucleated RBC % (auto) Toxic Vacuolation Platelet Estimate Polychromasia Pappenheimer Bodies Echinocytes PT INR APTT 112.5 H* PTT Ratio 4.1 Sample Site POC pH POC pCO2 POC pO2 POC HCO3 POC Base Excess ABG pH ABG pH (Temp Correct) ABG pCO2 ABG pCO2 (Temp Corrct ABG pO2 POC ABG pO2 at Pt Temp ABG HCO3 POC ABG O2 Sat ABG O2 Saturation ABG Base Excess Edwin Test VBG pH Pending VBG pCO2 VBG pO2 VBG HCO3 VBG O2 Saturation VBG Base Excess Barometric Pressure Oxygen Given O2 Delivery Device POC O2 Rate POC FiO2 Tidal Volume PEEP POC Sodium Sodium POC Potassium Potassium POC Chloride Chloride Carbon Dioxide POC Total CO2 Anion Gap POC Anion Gap POC BUN BUN Creatinine POC Creatinine Est Cr Clr Drug Dosing Est GFR ( Amer) Est GFR (Non-Af Amer) BUN/Creatinine Ratio Glucose POC Glucose (other) Estimat Average Glucose Hemoglobin A1c Osmolality Lactate 8.3 H* Calcium POC Ioniz Calcium Michael Phosphorus Magnesium Total Bilirubin Direct Bilirubin AST ALT Alkaline Phosphatase Ammonia Total Creatine Kinase Troponin I High Sens Total Protein Albumin Globulin Albumin/Globulin Ratio TSH Free T4 Urine Color Urine Appearance Urine pH Ur Specific Gilmore Urine Protein Urine Glucose (UA) Urine Ketones Urine Blood Urine Nitrite Urine Bilirubin Urine Urobilinogen Ur Leukocyte Esterase Urine WBC (Auto) Urine RBC (Auto) U Hyaline Cast (Auto) U Epithel Cells (Auto) Urine Bacteria (Auto) Urine RBC Urine WBC Ur Epithelial Cells Ur Renal Epithelial Cell Urine Bacteria Granular Casts Urine Yeast Urine Osmolality Ur Random Creatinine Ur Random Sodium Ur Random Potassium Ur Random Chloride Ur Random Uric Acid Nasal Screen MRSA (PCR) Urine Opiates Screen Ur Methadone, Qual Urine Barbiturates Ur Phencyclidine (PCP) U Amphetamin/Meth Scrn MDMA (Ecstasy) Screen U Benzodiazepines Scrn Ur Cocaine Metabolite U Marijuana (THC) Screen SARS-CoV-2 (PCR) Influenza Type A (PCR) Influenza Type B (PCR) RSV (RT-PCR) 01/08/22 10:04 WBC RBC Hgb POC Hgb Hct POC Hct MCV MCH MCHC RDW Std Deviation RDW Coeff of Laura Plt Count MPV Immature Gran % (Auto) Neut % (Auto) Lymph % (Auto) Glynn % (Auto) Eos % (Auto) Baso % (Auto) Neut # (Auto) Lymph # (Auto) Glynn # (Auto) Eos # (Auto) Baso # (Auto) Immature Gran # (Auto) Absolute Nucleated RBC Nucleated RBC % (auto) Toxic Vacuolation Platelet Estimate Polychromasia Pappenheimer Bodies Echinocytes PT INR APTT Pending PTT Ratio Pending Sample Site POC pH POC pCO2 POC pO2 POC HCO3 POC Base Excess ABG pH ABG pH (Temp Correct) ABG pCO2 ABG pCO2 (Temp Corrct ABG pO2 POC ABG pO2 at Pt Temp ABG HCO3 POC ABG O2 Sat ABG O2 Saturation ABG Base Excess Edwin Test VBG pH VBG pCO2 VBG pO2 VBG HCO3 VBG O2 Saturation VBG Base Excess Barometric Pressure Oxygen Given O2 Delivery Device POC O2 Rate POC FiO2 Tidal Volume PEEP POC Sodium Sodium POC Potassium Potassium POC Chloride Chloride Carbon Dioxide POC Total CO2 Anion Gap POC Anion Gap POC BUN BUN Creatinine POC Creatinine Est Cr Clr Drug Dosing Est GFR ( Amer) Est GFR (Non-Af Amer) BUN/Creatinine Ratio Glucose POC Glucose (other) Estimat Average Glucose Hemoglobin A1c Osmolality Lactate Calcium POC Ioniz Calcium Michael Phosphorus Magnesium Total Bilirubin Direct Bilirubin AST ALT Alkaline Phosphatase Ammonia Total Creatine Kinase Troponin I High Sens Total Protein Albumin Globulin Albumin/Globulin Ratio TSH Free T4 Urine Color Urine Appearance Urine pH Ur Specific Gilmore Urine Protein Urine Glucose (UA) Urine Ketones Urine Blood Urine Nitrite Urine Bilirubin Urine Urobilinogen Ur Leukocyte Esterase Urine WBC (Auto) Urine RBC (Auto) U Hyaline Cast (Auto) U Epithel Cells (Auto) Urine Bacteria (Auto) Urine RBC Urine WBC Ur Epithelial Cells Ur Renal Epithelial Cell Urine Bacteria Granular Casts Urine Yeast Urine Osmolality Ur Random Creatinine Ur Random Sodium Ur Random Potassium Ur Random Chloride Ur Random Uric Acid Nasal Screen MRSA (PCR) Urine Opiates Screen Ur Methadone, Qual Urine Barbiturates Ur Phencyclidine (PCP) U Amphetamin/Meth Scrn MDMA (Ecstasy) Screen U Benzodiazepines Scrn Ur Cocaine Metabolite U Marijuana (THC) Screen SARS-CoV-2 (PCR) Influenza Type A (PCR) Influenza Type B (PCR) RSV (RT-PCR) Medications Administered Current Inpatient Medications Brimonidine Tartrate (Brimonidine Tartrate-P 0.15% 5 Ml Btl) 1 drops OPB TID ROHAN Stop: 02/06/22 20:59 Last Admin: 01/08/22 08:31 Dose: 1 drops Documented by: Dextrose (Dextrose 50% 50 Ml Syringe) 25 - 50 ml IV UD PRN; Protocol PRN Reason: Hypoglycemia Protocol Stop: 02/06/22 13:34 Dorzolamide HCl (Dorzolamide Hcl 2% Oph Soln 10 Ml Btl) 1 drops OPB TID ROHAN Stop: 02/06/22 20:59 Last Admin: 01/08/22 08:31 Dose: 1 drops Documented by: Glucagon (Glucagon For Inj 1 Mg Vial) 1 mg SQ UD PRN; Protocol PRN Reason: Hypoglycemia Protocol Stop: 02/06/22 13:34 Glucose (Glucose 10 Tabs/Tube) 4 - 8 tabs PO UD PRN; Protocol PRN Reason: Hypoglycemia Protocol Stop: 02/06/22 13:34 Glucose (Glucose 40% Gel 15 Gm Tube) 15 - 30 gm PO UD PRN; Protocol PRN Reason: Hypoglycemia Protocol Stop: 02/06/22 13:34 Norepinephrine Bitartrate (Levophed/D5w) 8 mg in 508 mls @ 97.155 mls/hr IV .Q5H14M ROHAN; Protocol Stop: 02/06/22 12:59 Last Titration: 01/08/22 09:42 Dose: 0.6 mcg/kg/min, 97.2 mls/hr Documented by: Insulin Human Regular 250 (units/ Sodium Chloride) 250 mls @ 8.9 mls/hr IV .Q24H ROHAN; Protocol Stop: 02/06/22 13:59 Last Titration: 01/08/22 07:10 Dose: 8.9 units/hr, 8.9 mls/hr Documented by: Vasopressin 20 units/ Sodium (Chloride) 101 mls @ 12.12 mls/hr IV .Q8H20M ROHAN Stop: 02/06/22 14:14 Last Admin: 01/08/22 09:19 Dose: 0.04 unit/min, 12.1 mls/hr Documented by: Thiamine HCl 100 mg/ Syringe 10 mls @ 2 mls/min IV QAM [facility] Stop: 02/06/22 16:44 Last Admin: 01/08/22 08:32 Dose: 2 mls/min Documented by: Folic Acid 1 mg/ Syringe 10 mls @ 5 mls/min IV QAM [facility] Stop: 02/06/22 16:17 Last Admin: 01/08/22 08:32 Dose: 5 mls/min Documented by: Heparin Sodium/Dextrose (Heparin Sodium/Dextrose) 25,000 units in 500 mls @ 0 mls/hr IV .Q0M [facility]; Protocol Stop: 02/06/22 16:29 Last Titration: 01/08/22 07:10 Dose: 0 units/hr, 0 mls/hr Documented by: Piperacillin Sod/Tazobactam (Sod 3.375 gm/ Dextrose) 115 mls @ 28.75 mls/hr IV Q8H [facility]; Protocol Stop: 01/14/22 22:59 Last Infusion: 01/08/22 07:10 Dose: 28.8 mls/hr Documented by: Dexmedetomidine/Sodium Chloride (Precedex) 200 mcg in 50 mls @ 4.25 mls/hr IV .[id number] [facility]; Protocol Stop: 01/11/22 22:59 Last Titration: 01/08/22 09:54 Dose: Infused Documented by: Potassium Chloride 40 meq/ (Dextrose/Sodium Chloride) 1,020 mls @ 200 mls/hr IV .Q5H6M [facility] Stop: 02/07/22 05:14 Last Admin: 01/08/22 05:26 Dose: 200 mls/hr Documented by: Pantoprazole Sodium 40 mg/ (Syringe) 10 mls @ 5 mls/min IV DAILY [facility] Stop: 02/08/22 08:59 Insulin Aspart (Insulin Aspart Per Unit) 0 units SC ACHS [facility] Stop: 02/06/22 16:29 Last Admin: 01/08/22 08:22 Dose: Not Given Documented by: Latanoprost (Latanoprost 0.005% Op Soln 2.5 Ml Btl) 1 drops OPB HS [facility] Stop: 02/06/22 20:59 Last Admin: 01/07/22 21:52 Dose: 1 drops Documented by: Miscellaneous (Carbohydrates For Hypoglycemia ) 15 - 30 gm PO UD PRN PRN Reason: Hypoglycemia Protocol Stop: 02/06/22 13:34 Miscellaneous Information (Pharmacy Glycemic Mgmt Consult) 1 ea N/A UD PRN PRN Reason: Consult Stop: 02/06/22 16:17 Miscellaneous Information (Piperacill/Tazobac Consult Active) 1 ea N/A UD PRN PRN Reason: Consult Stop: 02/06/22 16:23 Timolol Maleate (Timolol Maleate 0.5% Op Soln 5 Ml Btl) 1 drops OPB DAILY [facility]OHAN Stop: 02/07/22 08:59 Last Admin: 01/08/22 08:32 Dose: 1 drops Documented by: (1) DKA (diabetic ketoacidosis) Diabetes mellitus complication detail: with coma Diabetes mellitus type: type 1 Qualified Code(s): E10.11 - Type 1 diabetes mellitus with ketoacidosis with coma (2) Altered mental status Altered mental status type: coma Coma depth: unspecified coma depth Qualified Code(s): R40.20 - Unspecified coma
--- NOTE | 2022-01-08 10:42 | Pharmacy Report ---
Pharmacy Glycemic Short Note 2 - Date of Service January 08, 2022 - Glycemic Short BSG Results (Last 24 hours): 01/07/22 01/07/22 01/07/22 12:30 13:08 16:46 Glucose 534 H* POC Glucose (other) 456 H* 437 H* 01/07/22 01/07/22 01/07/22 17:19 18:17 19:30 Glucose 468 H* POC Glucose (other) 420 H* 407 H* 01/07/22 01/07/22 01/07/22 20:49 22:12 23:12 Glucose POC Glucose (other) 356 H* 362 H* 347 H 01/07/22 01/08/22 01/08/22 23:19 00:12 00:59 Glucose 350 H* POC Glucose (other) 320 H 299 H 01/08/22 01/08/22 01/08/22 01:58 02:59 04:14 Glucose POC Glucose (other) 282 H 259 H 227 H 01/08/22 01/08/22 01/08/22 04:27 05:09 07:08 Glucose 218 H 221 H POC Glucose (other) 204 H OUTPATIENT ANTIDIABETIC REGIMEN: * Lantus 15 units SC HS * Glipizide 5 mg PO daily * HbA1c: 10.1% (01/07/22) ASSESSMENT: 01/08: * Remains intubated, sedated and critically ill * Continues to require vasopressor support and antibiotics. On D51/2 NS + 40KCl @ 200mL/hr, and heparin (in D5W). * Bicarb-20, AG-14, pH 7.3 * Given critically ill with numerous acutely changing stressors, plan to continue insulin infusion (goal 150-250mg/dL) 01/07: * SK is a 76 year old male who presented to ED initially unresponsive, coded and resuscitated in ED * Found to be in DKA with BSG of 534 mg/dL, anion gap of 32, serum bicarbonate of 7, and pH of 6.96 * Currently requiring vasopressors (norepinephrine and vasopressin) * IV fluids - 1 L of 150 mEq sodium bicarb @100 mL/hr, 1/2 NS + 40 KCl @200 mL/hr * Zosyn for broad spectrum antibiotic coverage PLAN FOR INPATIENT GLYCEMIC CONTROL: * Hold outpatient oral diabetes medications * Basal insulin * insulin infusion per DKA protocol (goal BSG 150-250) * Bolus insulin * NovoLog per scale ACHS per insulin gtt calculator
[2022-01-08 10:46] LABS: Partial Thromboplastin Ratio 2.6
--- NOTE | 2022-01-08 11:04 | Critical Care Progress Note ---
Date of Service January 08, 2022 Assessment & Plan (1) Cardiac arrest: (2) DKA (diabetic ketoacidosis): (3) Ischemic cardiomyopathy: (4) COPD, moderate: Plan: 76-year-old male presents to the hospital unresponsive. Was coded in the ER. Was found to be in DKA. Transferred to the ICU for further care --S/p cardiac arrest with Shock Etiology is likely multifactorial DKA, multilobar pneumonia Elevated troponins --> Post resuscitation EKG does not show any ST-T wave changes, continue to trend Continue with vasopressor support to keep MAP greater than 65 Patient is hypothermic to begin with. We will try to maintain body temperature around 36 C --Rhabdomyolysis Likely secondary to lying on the ground for prolonged period CPK 3630 Continue with IV fluids keeping in mind that the patient's ejection fraction is not good -- VDRF Secondary to cardiac arrest plus multilobar pneumonia likely aspiration Continue with ventilatory support COVID-19 PCR negative Influenza A/B negative Chlorhexidine mouthwash --Subsegmental left lower pulmonary emboli Continue with heparin drip -- HAGMA Likely from DKA and lactic acidosis Monitor continue with insulin drip until anion gap closes Decreasing blood glucose no more than 100 in an hour Replace potassium IV when potassium level between 3.3-5.3 BMP every 4 hours Continue with IV fluids --Thrombocytopenia Multifactorial Likely from underlying shock as well as sepsis --Systolic CHF 04/2020 revealed improved EF 55%, grade 2 diastolic dysfunction --No CPR --Prophylaxis VTE: Heparin drip GI: Pantoprazole Lines: Right femoral, left radial, peripheral, Shine Diet: N.p.o. Plan: In/out: +8.9 L, urine output 1197 AB.28/42/94 on 90% FiO2, PEEP of 8 Patient has completed a bicarb drip. Bicarb in the serum is 20. Would not resume bicarb drip Stop the Precedex Magnesium being replaced Patient's lactic acidosis is getting worse He still requiring a lot of vasopressor support. No pupillary response, no gag. He is breathing over the vent. Patient's brother Cristina Nguyen, was called and updated regarding patient's condition. Plan was to have the family come by and then go towards comfort care I have personally spent 45 minutes of critical care time in the direct management of this patient. This is a life/limb threatening event. This includes time spent evaluating patient, direct bedside care, chart review, placing orders, interpretation of diagnostic studies, discussion with consultants, patient, and family members, as well as other required patient management activities. This time is exclusive of all separately billable procedures, and teaching time and separate from and in addition to any other critical care service time. Please note the above document was generated using voice recognition software. It may contain grammatical, syntax or spelling errors. Admission and Anticipated Discharge Date Admission Date: January 07, 2022 Subjective Patient seen and examined at bedside. He was on Precedex 0.7 Levophed 0.5 and vasopressin 0.04 His map is still in the 60s Breathing over the vent Not following any Review of Systems Review of Systems: Unobtainable due to endotracheal tube Physical Exam Physical Exam: Constitutional: No acute distress, frail-appearing HEENT: No pupillary response, positive ETT Respiratory system: Decreased air entry bilaterally, no wheeze, no rhonchi, positive crackles bilaterally CVS: S1-S2 positive, distant heart sounds Abdomen: Soft, nontender, nondistended, positive bowel sounds x4 Extremities: +1 pulses bilaterally radialis/ dorsalis pedis, no cyanosis, +3 pitting edema bilateral lower extremity Neuro: Intubated, breathing over the vent, no gag Psych: Unable to assess G/U: Positive Shine Skin: no rashes, warm and dry Lymphatic: no cervical or axillary lymphadenopathy Results & Data Results & Data ([facility]) Vital Signs (Past 12 Hours) Vital Signs Temp Pulse Pulse Resp BP BP BP 01/08/22 08:01 123 H 27 H 122/98 01/08/22 08:00 36.5 C 123 H 119 H 26 H 68/46 L 122/98 01/08/22 07:31 108 H 28 H 105/78 01/08/22 07:30 119 H 27 H 01/08/22 07:18 117 H 29 H 01/08/22 07:01 126 H 30 H 01/08/22 07:00 120 H 32 H 01/08/22 06:00 120 H 27 H 71/43 L 01/08/22 05:30 125 H 28 H 01/08/22 05:21 122 H 29 H 85/59 L 01/08/22 05:00 128 H 27 H 71/54 L 01/08/22 04:47 118 H 28 H 86/47 L 01/08/22 04:30 136 H 26 H 90/50 L 01/08/22 04:00 36.4 C L 149 H 27 H 85/56 L 01/08/22 03:44 119 H 28 H 01/08/22 03:30 115 H 27 H 85/61 L 01/08/22 03:00 132 H 27 H 92/51 L 01/08/22 02:30 126 H 27 H 82/46 L 01/08/22 02:00 106 H 22 102/52 L 01/08/22 01:32 112 H 27 H 102/58 L 01/08/22 01:30 123 H 28 H 01/08/22 01:03 124 H 21 83/61 L 01/08/22 01:01 123 H 24 01/08/22 01:00 124 H 21 78/62 L 01/08/22 00:56 124 H 24 84/61 L 01/08/22 00:49 125 H 25 H 81/60 L 01/08/22 00:48 121 H 23 01/08/22 00:31 25.0 C L 113 H 27 H 85/62 L 01/08/22 00:30 25.2 C L 116 H 22 01/08/22 00:27 129 H 21 01/08/22 00:11 36.1 C L 115 H 25 H 101/69 01/08/22 00:00 36.0 C L 118 H 22 106/42 L 01/07/22 23:58 36.0 C L 120 H 26 H 01/07/22 23:30 35.9 C L 128 H 22 102/85 01/07/22 23:07 132 H 26 H Pulse Ox 01/08/22 08:01 89 L 01/08/22 08:00 91 01/08/22 07:31 94 01/08/22 07:30 94 01/08/22 07:18 01/08/22 07:01 90 01/08/22 07:00 88 L 01/08/22 06:00 01/08/22 05:30 71 L 01/08/22 05:21 98 01/08/22 05:00 94 01/08/22 04:47 94 01/08/22 04:30 96 01/08/22 04:00 96 01/08/22 03:44 92 01/08/22 03:30 96 01/08/22 03:00 97 01/08/22 02:30 92 01/08/22 02:00 97 01/08/22 01:32 94 01/08/22 01:30 87 L 01/08/22 01:03 99 01/08/22 01:01 01/08/22 01:00 01/08/22 00:56 95 01/08/22 00:49 01/08/22 00:48 01/08/22 00:31 96 01/08/22 00:30 93 01/08/22 00:27 93 01/08/22 00:11 01/08/22 00:00 96 01/07/22 23:58 67 L 01/07/22 23:30 94 01/07/22 23:07 95 Laboratory Results 01/08/22 04:27 Coding Level of Care Code Critical Care 1st 30-74 mins Diagnoses Cardiac arrest I46.9 DKA (diabetic ketoacidosis) E11.10 Ischemic cardiomyopathy I25.5 COPD, moderate J44.9 Time Spent (min) 45
[2022-01-08 11:20] LABS: Partial Thromboplastin Time 70.3 Seconds (21.0-31.0)
[2022-01-08 11:22] LABS: BUN Creatinine Ratio 19.1 (10-20); Calcium 6.8 mg/dl (8.5-10.1); Creatinine Clr Calc Pharmacy 28.3 ml/min; Est GFR (African American) 61.7 ml/min; Est GFR (Non-African American) 53.3 ml/min; Magnesium 1.7 mg/dl (1.7-2.4); Phosphorus 2.6 mg/dl (2.5-4.9); Potassium 4.6 mmol/L (3.5-5.1)
[2022-01-08] MEDS: fentaNYL citrate 100 MCG/2 ML VIAL IV PRN ×2 (12:37→13:07)
[2022-01-08] MEDS ORDERED: CALCIUM CHLORIDE 10% 10 ML SYR IV ONE (16:39)
[2022-01-08] MEDS ORDERED: ROCURONIUM BROMIDE 10 MG/ML 5 ML VIAL IV ONE (16:39)
[2022-01-08] MEDS ORDERED: SODIUM BICARB 8.4% INJ 50 MEQ/50 ML SYR IV ONE (16:39)
[2022-01-08] MEDS ORDERED: ETOMIDATE 2 MG/ML 20 ML VIAL IV ONE (16:39)
--- NOTE | 2022-01-08 17:08 | Discharge Summary ---
Date of Service January 08, 2022 delayed entry date of service noted above Admission HPI Per Admitting Provider This is a 76-year-old male who has significant past medical history of insulin- dependent T2DM, HTN, HLD, CAD with history of CABG, ischemic cardiomyopathy, atrial flutter, COPD, tobacco abuse, history of alcohol abuse, macular degeneration, glaucoma, anemia who presented to ED after unresponsive episode prior to arrival. History was obtained from ED provider who obtained history from EMS. Slight history also obtained from brother. According to brother patient currently lives on his own and has for the past 1 year. He states, "this is the problem." He does not care for himself and is unsure if he takes his medications regularly. The only other family member he has is an estranged daughter. According to EMS patient was last seen well yesterday by neighbors. Today neighbors went to check on him and found him on the floor in the bathroom confused and mostly unresponsive. EMS was summoned. Per EMS blood sugar was over 500 and appeared quite dehydrated. Unable to obtain ROS from patient. Patient with significantly abnormal labs including glucose of 534 with lactic acidosis, arterial pH of 6.89 and bicarb of 8. He is felt to be in DKA. He also had significantly elevated high-sensitivity troponin greater than 6000 and a CK level of 3630. His ammonia level was elevated at 111 but no prior history or diagnosis of cirrhosis. Due to clinical decompensation patient was placed on mechanical ventilation. Shortly after being ventilated he became pulseless and CPR was initiated. He required about 2 to 3 minutes of CPR before spontaneous return of circulation. He also received IV epinephrine, bicarb and calcium. ED provider was able to obtain central line access. He did receive approximately 4 L of IV fluid resuscitation, insulin drip was initiated, he was started on vasopressors of nor epi and vasopressin, received IV cefepime in ED, started on sodium bicarbonate along with normal saline and potassium supplementation. Admission Exam Per Admitting Provider Constitutional: Thin, cachectic, elderly, male, critically ill, with endotracheal tube in place,vitals as above, Head: Normocephalic, Atraumatic Eyes: Pupils dilated but equal, right eye conjunctival erythema, left eye conjunctivae normal, anicteric sclerae ENMT: external ear and nose normal, oropharynx clear due to ET tube Neck: trachea midline, normal visual inspection Respiratory: Endotracheal tube in place, distant breath sounds heard throughout, no wheeze, rales, rhonchi. Normal insp/exp effort, no accessory muscle use Cardiovascular: Distant heart sounds, do not appreciate murmur, bilateral +1 edema,cool peripheral ext: no JVD or carotid bruit Chest: normal inspection of chest Abdomen: normal bowel sounds, soft, nontender, Musculoskeletal: no cyanosis, Skin: no rashes,cool and dry normal turgor Neurologic: Unable to assess due to unresponsiveness Psychiatric: Unable to assess due to unresponsiveness : deferred Principal Diagnosis --S/p cardiac arrest with Shock --Rhabdomyolysis -- VDRF --Subsegmental left lower pulmonary emboli -- HAGMA Discharge Data Allergies Allergy/AdvReac Type Severity Reaction Status Date / Time No Known Drug Allergies Allergy Unknown . Verified 01/07/22 14:12 Consultations 01/07/22 14:03 ED Decision to Admit Stat 01/07/22 14:08 Consult Oil Expeller Routine 01/07/22 15:29 Consult Cardiology Routine Ordered Studies 01/07/22 11:47 CT head/brain wo con Stat 01/07/22 14:23 CT abd pelvis IV con only Stat CT angio chest PE protocol Stat 01/07/22 17:00 US venous doppler [facility] Urgent Hospital Course (1) Cardiac arrest: (2) DKA (diabetic ketoacidosis): (3) Acute dehydration: per admitting service notes with addendum: This is a 76-year-old male who has significant past medical history of insulin- dependent T2DM, HTN, HLD, CAD with history of CABG, ischemic cardiomyopathy, atrial flutter, COPD, tobacco abuse, history of alcohol abuse, macular degeneration, glaucoma, anemia who presented to ED after unresponsive episode prior to arrival. Cardiac arrest DKA HAGMA Lactic acidosis Hypothermic SIRS Admit to ICU Under the care of outside collector Dr. Mahajan -discussed case with him CT PE and CT a/p w/ IV contrast ordered to r/o etiology of arrest continue insulin gtt per DKA protocol Bicarb gtt ordered by ICU IVF + KCL ordered by ICU empirically cover with IV zosyn until infectious etiology/Sepsis ruled out, UA, CXR negative, blood cultures pending q4h serial vbg, bmp, mag, phos glycemic pharmacy consult placed Cardiac arrest elevated troponin hx of CAD with CABG hx of aflutter Pacemaker in place Last echocardiogram 04/2020 revealed improved EF 55%, grade 2 diastolic dysfunction, LA moderately enlarged, mild aortic valve sclerosis, moderate MR, mild TR, aortic root mildly dilated at 4.4 cm, basal inferior/posterior hypokinesis to akinesis Cycle troponin, EKG without ischemic change obtain echocardiogram Give ASA NM, consult cards interrogate pacer -- given Bicarb drip, multiple pressors patient's lactic acidosis worsened, clinical status did not improve -- patient's family transitioned to comfort measures Rhabdomyolysis from fall given IV fluids VDRF Secondary to cardiac arrest plus multilobar pneumonia likely aspiration ventilatory support COVID-19 PCR negative Influenza A/B negative Chlorhexidine mouthwash Subsegmental left lower pulmonary emboli given heparin drip HAGMA Likely from DKA and lactic acidosis patient before I was able to evaluate. Total Time Total Time Spent Total Time Spent (In Minutes): <30 minutes Discharge Plan Discharge Items Patient Disposition: Other Date/Time: 01/08/22 14:03
--- NOTE | 2022-01-08 21:21 | Electrocardiogram Report ---
Test Reason : Blood Pressure : / mmHG Vent. Rate : 103 BPM Atrial Rate : 022 BPM P-R Int : 000 ms QRS Dur : 124 ms QT Int : 352 ms P-R-T Axes : 000 093 -60 degrees QTc Int : 461 ms Atrial fibrillation Rightward axis Non-specific intra-ventricular conduction delay Nonspecific ST and T wave abnormality Abnormal ECG When compared with ECG of 27-SEP-2020 14:05, Atrial fibrillation has replaced Sinus rhythm Confirmed by Romaine Viera ([id number]) on 01/08/2022 9:20:51 PM Referred By: REFERRED SELF Confirmed By:Romaine Viera
[2022-01-09] MEDS ORDERED: PANTOprazole 40 MG in SYRINGE 0 ML IV SCH (09:00)
[2022-01-10 16:55] LABS: Uric Acid, Random Urine 22 mg/dL
== END 2022-01-08 16:40 | disposition expired | DRG 637 ==
LOC: EDBD → ED 11:36 → EDUNIT# 11:36 → 1E 14:08 → SUATTDRO 14:08 → 1E 15:05